=== PATIENT | female | born 1935 | race Caucasian/White ===

== ENCOUNTER 2017-10-27 05:14 | Inpatient (IN) ==
[2017-10-27] MEDS ORDERED: 0.9 % Sodium Chloride 500 ML IVC ONE (05:21)
[2017-10-27] MEDS ORDERED: 0.9 % Sodium Chloride 1,000 ML ONE (05:33)
[2017-10-27 05:37] LABS: Basophils # 0.1 K/mcL (0.0-0.2); Basophils % 0.4 %; Eosinophils % 0.2 %; Hemoglobin 13.6 g/dL (11.5-15.4); Immature Granulocytes % 1.3 % (0-4); Lymphocytes # 1.9 K/mcL (0.6-4.6); Lymphocytes % 8.2 %; Mean Corpuscular HGB Conc 32.4 g/dL (31.6-35.5); Mean Corpuscular Hemoglobin 29.7 pg (28.0-33.3); Mean Corpuscular Volume 91.7 fL (83.0-100.0); Mean Platelet Volume 11.1 fL (9.4-12.4); Monocytes # 1.8 K/mcL (0.0-1.3); Monocytes % 7.6 %; Neutrophils # 18.9 K/mcL (1.6-8.9); Platelet Count 296 K/mcL (140-400); Red Blood Count 4.58 M/mcL (3.82-4.97); Red Cell Distribution Width 13.3 % (11.5-14.5); Segmented Neutrophils % 82.3 %
[2017-10-27 05:41] LABS: Bilirubin,Urine Negative (Negative); Blood,Urine Moderate (Negative); Clarity,Urine Turbid (Clear); Color,Urine Yellow (Yellow); Glucose,Urine (UA) >=1000 mg/dL (Normal); Ketones,Urine Negative (Negative); Leukocyte Esterase,Urine Large (Negative); Nitrite,Urine Positive (Negative); Protein,Urine 30 mg/dL (Neg-Trace); Specific Gravity,Urine 1.022 (1.010-1.025); Urobilinogen,Urine Normal (Normal)
[2017-10-27 05:43] LABS: Bacteria,Urine Many per hpf (None-Few); Squamous Epithelial Cell,Urine Many per lpf (None-Few); WBC,Urine TNTC per hpf (0-3)
[2017-10-27 05:44] LABS: INR 1.1; Prothrombin Time 11.4 Seconds (9.4-12.1)
--- NOTE | 2017-10-27 05:44 | Emergency Department Note ---
Disposition Clinical Impression: Swelling of left lower extremity, Agitation, Elevated troponin I level Sepsis Qualifiers: Sepsis type: sepsis due to unspecified organism Qualified Code(s): A41.9 - Sepsis, unspecified organism UTI (urinary tract infection) Qualifiers: Urinary tract infection type: acute cystitis Hematuria presence: without hematuria Qualified Code(s): N30.00 - Acute cystitis without hematuria Disposition: Admitted As Inpatient Condition: Serious Time of Disposition: 06:14 General Adult HPI - General Chief complaint: ED General Medical Stated complaint: shaking, resp increased dementia Time Seen by Provider: 10/27/17 05:21 Source: patient, EMS Mode of arrival: EMS Limitations: altered mental status, age Nursing Notes Reviewed: Yes Vital Signs Reviewed: Yes - History of Present Illness HPI Narrative: 82-year-old female history of diabetes, dementia, hypothyroidism, asthma, presents complaining of some confusion and shakiness, per her who arrived shortly after, he observed her having difficulty breathing and gasping for air, and he was concerned she appeared tremulous and shaky, no recent fevers or chills, she has baseline dementia but the last couple days she has been feeling worse. Per the she has had some confusion. ROS is limited , obtained but questionable due to mostly negative and patient denying CP/Abd Pain, patient mostly states that she does not know why she is here Pt Subjective Complaint: Shaking Onset (ago): hour(s) Radiation: non-radiation Pain Scale: 0 Improves with: nothing Worsens with: nothing Associated symptoms: Reports: confusion. Denies: chest pain, cough, headaches, loss of appetite, malaise, nausea/vomiting Treatments Prior to Arrival: none - Related Data Home Medications Medication Instructions Recorded Confirmed Albuterol Inhaler 08/28/16 08/28/16 Amlodipine 08/28/16 Citalopram 08/28/16 Colace 08/28/16 Guanfacine HCl 08/28/16 HydrOXYzine 08/28/16 Levothyroxine 08/28/16 Maxzide 08/28/16 Multivitamin 08/28/16 Potassium 08/28/16 Ranitidine HCl 08/28/16 Simvastatin 08/28/16 Allergies Allergy/AdvReac Type Severity Reaction Status Date / Time codeine Allergy Itching Verified 08/28/16 17:07 gabapentin Allergy Hallucinati Verified 08/28/16 17:07 ng lidocaine [From Lidoderm] Allergy Rash Verified 08/28/16 17:07 meperidine [From Demerol] Allergy Hallucinati Verified 08/28/16 17:07 ng Oxycodone Allergy Hallucinati Verified 08/28/16 17:07 ng All systems ED: reviewed and negative except as stated. (Questionable due to mental status.) Review of Systems: As Per HPI Constitutional: Reports: weakness. Denies: fever, chills Eyes: Denies: eye pain ENT ED: Denies: ear pain, throat pain Cardiovascular: Denies: chest pain Respiratory: Denies: dyspnea Gastrointestinal: Denies: abdominal pain Genitourinary: Denies: urgency, dysuria Musculoskeletal: Denies: back pain Integumentary: Denies: rash Neurological: Reports: as per HPI, weakness, confusion. Denies: headache Psychiatric: Denies: anxiety Past Medical History - Past Medical History Medical history: Reports: COPD, hyperlipidemia, thyroid disease Surgical history: Reports: orthopedic, other (fractured right hip) - Social History Smoking Status: Never smoker Smokeless Tobacco Status: No Alcohol use: Reports: none Drug use: Reports: none Physical Exam - General Limitations: no limitations, altered mental status, age General appearance: alert - Head Head exam: atraumatic - Eye Eye exam: Present: normal appearance, PERRL - ENT ENT exam: normal exam - Neck Neck exam: Present: normal inspection, full ROM - Chest Chest inspection: Present: normal inspection, symmetric chest wall rise - Respiratory Respiratory exam: Present: normal lung sounds bilaterally. Absent: respiratory distress - Cardiovascular Cardiovascular exam: Present: tachycardia, irregular rhythm - Abdominal Exam Abdominal exam: Present: soft. Absent: Non-Tender - Extremities Exam Extremities exam: Present: normal inspection, full ROM - Expanded Neurological Exam Patient oriented to: Present: person. Absent: place, time Speech: Present: fluid speech Cranial nerves: EOM function (II, III, IV, ): Normal, facial sensation (V): Normal, facial palsy (VII): Normal, gag reflex (IX): Normal, spinal accessory function (XI): Normal, tongue deviation (XII): Normal Motor strength - LUE: 5/5 Motor strength - RUE: 5/5 Motor strength - LLE: 5/5 Motor strength - RLE: 5/5 Coma Scale Eye Opening: Spontaneous Coma Scale Motor Response: Obeys Commands Coma Scale Verbal Response: Confused Coma Scale Total: 14 - Psychiatric Psychiatric exam: Present: agitated Course Course Narrative: Frail thin agitated 82-year-old appears to have baseline dementia possible delirium in the setting of dementia, per the she was gasping and shaking , unclear exactly what is going on, her EKG and bedside compliance monitor. Show atrial fibrillation but repeat EKG in the lower rate shows sinus arrhythmia frequent PACs, P waves with prolonged VT interval, CBC BMP mag, troponin dimer basic lab work CT scan of head x-ray urinalysis plan for likely admission - Reevaluation(s) Reevaluation #1: I spoke with the hospitalist Dr. Mars, he said that based on the history and symptoms, known medication for CTA imaging at this time with a first-degree swelling and elevated d-dimer he recommended for the Doppler imaging of left lower extremity, I discussed the patient has evidence of sepsis she meet SIRS criteria with leukocytosis and tachycardia, given fluids lactate and blood cultures ordered started on cefepime he also stated that the patient probably he on ceftriaxone, however Cefepime is already ordered. Patient will be admitted for UTI, agitation suspect delirium in the setting of advanced dementia UTI sepsis left lower extremity swelling elevated troponin admitted to telemetry Dr. Mars accepting Time: 06:17 Vital Signs Temperature 98.2 F 10/27/17 05:17 Pulse Rate 120 10/27/17 05:17 Respiratory Rate 30 10/27/17 05:17 Blood Pressure 122/92 10/27/17 05:17 O2 Sat by Pulse Oximetry 95 10/27/17 05:17 Temperature 98.2 F 10/27/17 05:17 Pulse Rate 89 10/27/17 06:21 Respiratory Rate 20 10/27/17 06:21 Blood Pressure 120/76 10/27/17 06:21 O2 Sat by Pulse Oximetry 95 10/27/17 06:21 Oxygen Delivery Oxygen Delivery Non Rebreather Mask Medical Decision Making - Medical Records Medical records reviewed: Yes I reviewed the patient's medical records. - Lab Data Lab results reviewed: Yes I reviewed the patient's lab results. Result diagrams: 10/27/17 05:18 10/27/17 05:18 Lab Results 10/27/17 10/27/17 10/27/17 Range/Units 05:18 05:18 05:18 WBC 23.0 H (4.3-11.1) K/mcL RBC 4.58 (3.82-4.97) M/mcL Hgb 13.6 (11.5-15.4) g/dL Hct 42.0 (35.3-44.9) % MCV 91.7 (83.0-100.0) fL MCH 29.7 (28.0-33.3) pg MCHC 32.4 (31.6-35.5) g/dL RDW 13.3 (11.5-14.5) % Plt Count 296 (140-400) K/mcL MPV 11.1 (9.4-12.4) fL Immature Gran % 1.3 (0-4) % Seg Neutrophils % 82.3 % Lymphocytes % 8.2 % Monocytes % 7.6 % Eosinophils % 0.2 % Basophils % 0.4 % Neutrophils # 18.9 H (1.6-8.9) K/mcL Lymphocytes # 1.9 (0.6-4.6) K/mcL Monocytes # 1.8 H (0.0-1.3) K/mcL Eosinophils # 0.0 (0.0-0.6) K/mcL Basophils # 0.1 (0.0-0.2) K/mcL PT 11.4 (9.4-12.1) Seconds INR 1.1 APTT 24.6 L (26.0-36.0) Seconds D-Dimer 1128 H (0-500) ng/mLFEU Sodium 140 (136-145) mEq/L Potassium 4.3 (3.5-5.1) mEq/L Chloride 103 (98-107) mEq/L Carbon Dioxide 28 (23-29) mEq/L BUN 31 H (8-23) mg/dL Creatinine 1.31 H (0.60-1.20) mg/dL Est GFR ( Amer) 47 L (> 60) Est GFR (Non-Af Amer) 39 L (> 60) BUN/Creatinine Ratio 24 (6-26) Glucose 300 H (70-105) mg/dL POC Glucose (58-89) Calculated Osmolality 308 H (280-300) Calcium 9.2 (8.6-10.3) mg/dL Phosphorus 2.9 (2.7-4.5) mg/dL Magnesium 1.8 (1.6-2.6) mg/dL Total Bilirubin 0.4 (0.3-1.0) mg/dL AST 15 (13-39) Units/L ALT 17 (7-52) Units/L Alkaline Phosphatase 143 H (34-104) Units/L Troponin I (< 0.04) ng/mL Serum Total Protein 6.9 (6.4-8.9) g/dL Albumin 3.2 L (3.5-5.7) g/dL Globulin 3.7 H (2.4-3.5) g/dL Albumin/Globulin Ratio 0.9 L (1.1-2.2) TSH 0.511 (0.340-5.600) mcIU/mL Urine Color (Yellow) Urine Clarity (Clear) Urine pH (5.0-8.0) pH Units Ur Specific [place] (1.010-1.025) Urine Protein (Neg-Trace) mg/dL Urine Glucose (UA) (Normal) mg/dL Urine Ketones (Negative) mg/dL Urine Blood (Negative) Urine Nitrite (Negative) Urine Bilirubin (Negative) Urine Urobilinogen (Normal) mg/dL Ur Leukocyte Esterase (Negative) Urine Microscopic RBC (0-3) per hpf Urine Microscopic WBC (0-3) per hpf Ur Squamous Epith Cells (None-Few) per lpf Urine Bacteria (None-Few) per hpf Hyaline Casts (None-Few) per lpf Ur Culture Indicated? (NO) 10/27/17 10/27/17 10/27/17 Range/Units 05:18 05:22 05:22 WBC (4.3-11.1) K/mcL RBC (3.82-4.97) M/mcL Hgb (11.5-15.4) g/dL Hct (35.3-44.9) % MCV (83.0-100.0) fL MCH (28.0-33.3) pg MCHC (31.6-35.5) g/dL RDW (11.5-14.5) % Plt Count (140-400) K/mcL MPV (9.4-12.4) fL Immature Gran % (0-4) % Seg Neutrophils % % Lymphocytes % % Monocytes % % Eosinophils % % Basophils % % Neutrophils # (1.6-8.9) K/mcL Lymphocytes # (0.6-4.6) K/mcL Monocytes # (0.0-1.3) K/mcL Eosinophils # (0.0-0.6) K/mcL Basophils # (0.0-0.2) K/mcL PT (9.4-12.1) Seconds INR APTT (26.0-36.0) Seconds D-Dimer (0-500) ng/mLFEU Sodium (136-145) mEq/L Potassium (3.5-5.1) mEq/L Chloride (98-107) mEq/L Carbon Dioxide (23-29) mEq/L BUN (8-23) mg/dL Creatinine (0.60-1.20) mg/dL Est GFR ( Amer) (> 60) Est GFR (Non-Af Amer) (> 60) BUN/Creatinine Ratio (6-26) Glucose (70-105) mg/dL POC Glucose 262 H (58-89) Calculated Osmolality (280-300) Calcium (8.6-10.3) mg/dL Phosphorus (2.7-4.5) mg/dL Magnesium (1.6-2.6) mg/dL Total Bilirubin (0.3-1.0) mg/dL AST (13-39) Units/L ALT (7-52) Units/L Alkaline Phosphatase (34-104) Units/L Troponin I 0.10 H* (< 0.04) ng/mL Serum Total Protein (6.4-8.9) g/dL Albumin (3.5-5.7) g/dL Globulin (2.4-3.5) g/dL Albumin/Globulin Ratio (1.1-2.2) TSH (0.340-5.600) mcIU/mL Urine Color Yellow (Yellow) Urine Clarity Turbid A (Clear) Urine pH 6.0 (5.0-8.0) pH Units Ur Specific [place] 1.022 (1.010-1.025) Urine Protein 30 H (Neg-Trace) mg/dL Urine Glucose (UA) >=1000 H (Normal) mg/dL Urine Ketones Negative (Negative) mg/dL Urine Blood Moderate H (Negative) Urine Nitrite Positive A (Negative) Urine Bilirubin Negative (Negative) Urine Urobilinogen Normal (Normal) mg/dL Ur Leukocyte Esterase Large H (Negative) Urine Microscopic RBC 5-15 H (0-3) per hpf Urine Microscopic WBC TNTC H (0-3) per hpf Ur Squamous Epith Cells Many H (None-Few) per lpf Urine Bacteria Many H (None-Few) per hpf Hyaline Casts None Seen (None-Few) per lpf Ur Culture Indicated? NO. (NO) - Radiology Data Radiology results reviewed: Yes I reviewed the patient's radiology results. Chest X-Ray 10/27/17 05:21 IMPRESSION: Cardiomegaly with ground-glass opacification in the left lower lung zone. Pattern may represent asymmetric edema or developing pneumonitis. D/ / Ricardo Farias MD / Ricardo Farias MD Interpreting Provider: Ricardo Farias MD Head CT 10/27/17 05:26 IMPRESSION: 1. No acute intracranial abnormality. 2. Mild age-appropriate diffuse atrophy with moderate chronic small vessel ischemic changes. 3. 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 D/ / Shawn Chaparro MD / Shawn Chaparro MD Interpreting Provider: Shawn Chaparro MD - EKG Data EKG #1 EKG attestation: Yes I reviewed and interpreted this EKG. EKG shows normal: sinus rhythm Rate: tachycardia (107 bpm QRS 127 QTc 4:30 no acute ischemic changes depressions in V5 and V6) Rhythm: NSR Mc[place]ky/QRS: normal Interpretation: nonspecific ST-T wave changes, other (Repeat EKG at 528 shows ventricular rate of 91 VT 199 QRS 129 QTc 438 sinus rhythm with supraventricular complexes) - Core Measures AMI Core Measures Followed: No Critical Care Time Critical Care Time: Yes Total Critical Care Time: 40 Attestation: Critical care performed: Time is exclusive of separately billable procedures. Time includes: direct patient care, patient reassessment, coordination of patient care, interpretation of data (laboratory data, radiology data, and respiratory data), review of patient's medical records, medical consultation and documentation of patient care. Procedures included in critical care time: Procedures excluded from critical care time: Attestation Statement - Attestation Attestation: I, Wes Degroot MD, personally evaluated this patient and discussed their management with the resident physician. I reviewed the resident's note and agree with the documented findings, medical decision making, and plan of care. 82-year-old female with history of dementia presents to the emergency department because reports that he was watching her sleep and that she was twitching and jerking and breathing funny in her sleep. On arrival here the patient is awake and alert but is a very poor historian. She has no specific complaints and does not really know why she is here. She does admit to some mild shortness of breath but denies any chest pain. No abdominal pain. No headache. No known fever. No vomiting or diarrhea. No urinary symptoms. Patient's left leg is significantly larger than the right but patient was unaware of this and does not know if that is normal for her. On examination patient is a well-developed well-nourished elderly female in no acute distress. She is alert and oriented to person and place. No cyanosis or diaphoresis. Chest is nontender to palpation. Breath sounds are clear and equal bilaterally. Heart is irregularly irregular with a mild tachycardia. Abdomen is soft and nontender with normal bowel sounds. The left leg is significantly larger than the right from the mid or distal thigh down to the foot. This does not appear to be pitting edema. There is no erythema. No calf tenderness. Patient has a large scar to the lateral left thigh from a previous femur fracture repair and has also had a left hip replaced. I suspect this enlargement of the left leg is chronic related to her prior surgeries. Labs reviewed and revealed a WBC of 23 with 82% segs. D-dimer elevated at 1128. Troponin 0.10. Patient has some chronic renal insufficiency which appears to be baseline. She also appears to have a UTI. Chest x-ray shows a probable developing left lower lobe pneumonia. Head CT shows no acute intracranial abnormality. The hospitalist, Dr. Mars, was consulted and accepted admission of the patient.
[2017-10-27 05:46] LABS: Activated Partial Thrombo Time 24.6 Seconds (26.0-36.0)
[2017-10-27] MEDS ORDERED: Cefepime HCl 2,000 MG in Water for inj. (sterile) 20 ML IVP ONE (05:52)
[2017-10-27] MEDS ORDERED: 0.9 % Sodium Chloride 1,000 ML IVC ONE (05:52)
[2017-10-27 05:53] LABS: Hyaline Casts,Urine None Seen per lpf (None-Few)
[2017-10-27 06:05] LABS: Albumin 3.2 g/dL (3.5-5.7); Albumin/Globulin Ratio 0.9 (1.1-2.2); Bilirubin,Total 0.4 mg/dL (0.3-1.0); Calcium 9.2 mg/dL (8.6-10.3); Globulin 3.7 g/dL (2.4-3.5); Magnesium 1.8 mg/dL (1.6-2.6); Phosphorous 2.9 mg/dL (2.7-4.5); Potassium 4.3 mEq/L (3.5-5.1); Thyroid Stimulating Hormone 0.511 mcIU/mL (0.340-5.600); Total Protein 6.9 g/dL (6.4-8.9)
[2017-10-27] MEDS ORDERED: Acetaminophen 325 MG TABLET PO PRN (06:27)
[2017-10-27] MEDS ORDERED: Naloxone 0.4 MG/ML INJ IVP PRN ×2 (06:27→09:53)
--- NOTE | 2017-10-27 09:52 | Internal Med History&Physical ---
Date of Encounter: 11/07/17 Time of Encounter: 09:50 Assessment and Plan (1) COPD exacerbation Current visit: Yes Status: Suspected 82/female Known to have a COPD. Noted that change in the color of the sputum/worsening cough along with the shortness of breath. Central this emergency room with the squad. X-ray shows possibility of pneumonia. This is a infective exacerbation of COPD. Plan: Intravenous antibiotics in terms of IV ceftriaxone/IV azithromycin. Intravenous steroids in terms of Solu-Medrol 40 mg every 8 hours. Inhaled bronchodilators DuoNeb every 4 hours. Close monitoring of the respiratory status. If needed BiPAP. Of note: I have examined this patient in room #24 in the emergency department. Patient's daughters were at bedside. I have explained plan at length to them. All questions answered at the time of admission. (2) Left lower lobe pneumonia Current visit: Yes Status: Suspected Left lower lobe pneumonia is likely the reason for COPD exacerbation. This is likely community-acquired pneumonia. Please see the plan above. Qualifiers: Pneumonia type: due to unspecified organism Qualified Code(s): J18.1 - Lobar pneumonia, unspecified organism (3) Sepsis Current visit: Yes Status: Resolved Likely source for the sepsis is left lower lobe pneumonia. Qualifiers: Sepsis type: sepsis due to unspecified organism Qualified Code(s): A41.9 - Sepsis, unspecified organism (4) Elevated troponin I level Current visit: Yes Status: Resolved Elevated troponin is likely secondary to demand ischemia. (5) Swelling of left lower extremity Current visit: Yes Status: Acute Preliminary results of the Doppler study shows negative for DVT. (6) DVT prophylaxis Current visit: Yes Status: Acute Heparin Medical decision-making: This patient has a moderate to severe risk of worsening in spite of being on appropriate medication due to the multiple comorbid conditions Internal Medicine - H&P: HPI Chief complaint: Shortness of breath. Admitted From: Emergency Dept Plans for Post Hospital Care: Home History of present illness: PCP : Dr Cruz. Brief PMH: DM, HTN, COPD, Hyperlipidemia,Hypothyroidism, Dementia HPI: Patient lives with her and apparently her noted that patient has a difficulty in breathing. Patient's was concerned about this ongoing shortness of breath along with cough with the expectoration and that is the reason he was concerned and he called squad for the same. Patient daughter were informed about this episode. Patient was brought to the hospital for further evaluation by the squad. Upon arrival patient was complaining of shortness of breath, cough with mucopurulent expectoration, change in the color of the sputum and persistent difficulty in breathing. Patient denies chest pain, nausea, vomiting, abdominal pain, dizziness and diarrhea. Workup in the emergency room: Patient was evaluated in the emergency room baseline labs were drawn. It shows that the white blood cell count was 23,000 with predominant neutrophils. Noted that patient's creatinine was 1.3 with normal lactic acid. Chest x-ray was suggestive of a left lower lobe developing pneumonia. Blood pressure 126/64 Reason for admission: Severe sepsis source likely left lower lobe pneumonia. Family history: Noncontributory Past Med Surg Social Fam HX - Past Medical History Medical history: COPD, hyperlipidemia, thyroid disease - Past Surgical History Surgical History: orthopedic, other - Social History Smoking Status: Never smoker Smokeless Tobacco Status: No Alcohol use: none Drug use: none Internal Medicine - H&P: Meds Amlodipine Besylate/Benazepril [Lotrel 10-20 mg Capsule] 1 cap PO DAILY [History] Atenolol [Tenormin] 50 mg PO DAILY 10/27/17 [History] Budesonide/Formoterol 160/4.5 [Symbicort 160/4.5] 2 puff IH BID 10/27/17 [ History] Levothyroxine Sodium [Levoxyl] 50 mcg PO DAILY 10/27/17 [History] Naproxen Sodium [Aleve] 220 mg PO BID 10/27/17 [History] Potassium Chloride [K-Tab ER] 40 meq PO BID 10/27/17 [History] Simvastatin [Zocor] 20 mg PO DAILY 10/27/17 [History] glipiZIDE [Glucotrol] 5 mg PO DAILY 10/27/17 [History] 3 Allergy/AdvReac Type Severity Reaction Status Date / Time codeine Allergy Itching Verified 08/28/16 17:07 gabapentin Allergy Hallucinati Verified 08/28/16 17:07 ng lidocaine [From Lidoderm] Allergy Rash Verified 08/28/16 17:07 meperidine [From Demerol] Allergy Hallucinati Verified 08/28/16 17:07 ng Oxycodone Allergy Hallucinati Verified 08/28/16 17:07 ng lorazepam [From Ativan] AdvReac Agitated Verified 11/01/17 19:13 All Systems PM: A 10-system review of systems was performed and is negative for pertinent findings except as documented above in the HPI. - Constitutional Constitutional: no chills, no fever(s), no night sweats - EENT Eyes: no change in vision, no discharge, no pain, no photophobia Ears: no ear discharge, no ear pain, no tinnitus Nose, mouth and throat: no dysphagia, no nasal discharge, no neck pain, no sore throat - Cardiovascular Cardiovascular ROS IM: no chest pain, no diaphoresis, no dyspnea, no lightheadedness, no palpitations, no syncope - Respiratory Respiratory: cough, dyspnea, wheezing, excessive phlegm production, change in phlegm color - Gastrointestinal Gastrointestinal: no abdominal pain, no diarrhea, no hematemesis, no hematochezia, no melena, no nausea, no vomiting - Genitourinary Genitourinary: no change in urinary stream, no dysuria, no flank pain, no hematuria - Musculoskeletal Musculoskeletal ROS IM: no numbness, no tingling - Integumentary Integumentary IM: no rash, no unusual bruising - Neurological Neurological ROS: no confusion, no convulsions, no focal weakness, no numbness, no tingling, no tremor(s) - Hematologic/Lymphatic Hematologic/Lymphatic: no easy bruising - Constitutional Vitals: Temp Pulse Resp BP Pulse Ox 97.9 F 103 16 126/64 92 10/27/17 07:30 10/27/17 07:30 10/27/17 07:30 10/27/17 07:30 10/27/17 07:30 General appearance: Present: A&O X 3, pleasant, no acute distress, answers questions appropriately - Head Head exam: Present: atraumatic, normocephalic - Eye Eye exam: Present: PERRL, conjuntiva pink, sclera anicteric Pupils: Present: PERRL - Neck Neck exam general surgery: Present: supple, trachea midline. Absent: lymphadenopathy - Respiratory Respiratory exam: Present: CTAB. Absent: accessory muscle use, rales, rhonchi, wheezes - Cardiovascular Cardiovascular exam: Present: RRR, +S1, +S2. Absent: diastolic murmur, gallop, rubs, systolic murmur - GI/Abdominal GI/Abdominal exam: Present: normal bowel sounds, soft, no peritoneal signs. Absent: distended, tenderness - Extremities Exam Extremities exam: Present: warm, radial pulses palpable and symmetrical. Absent : calf tenderness, cyanotic, pedal edema - Neurological Exam Neurological exam: Present: CN II-XII intact, oriented X3, no focal deficits. Absent: pronater drift, facial droop, speech deficit - Skin Skin exam: Present: dry, intact Internal Med - H&P Results - Labs CBC & Chem 7: 11/06/17 08:23 11/06/17 08:23
[2017-10-27] MEDS ORDERED: *HR* Dextrose 50 % in Water (Syg) 50 ML SYRINGE IVP PRN (09:56)
[2017-10-27] MEDS ORDERED: D5% in Water 1,000 ML IVC PRN (09:56)
[2017-10-27] MEDS ORDERED: Dextrose Gel 15 GM/37.5 ML TUBE PO PRN ×2 (09:56)
[2017-10-27] MEDS: Azithromycin 500 MG in D5% in Water 250 ML IVPB SCH (10:52)
[2017-10-27] MEDS: Ipratropium/Albuterol Neb 3 ML IH SCH ×3 (13:43→20:22)
[2017-10-27] MEDS: Insulin LISPRO 300 UNITS/3 ML VIAL SQ SCH ×3 (13:55→21:14)
--- NOTE | 2017-10-27 17:11 | Electrocardiograph Report ---
[address] [place] [address] Test Date: 2017-10-27 Pat Name: Theresa Moreira Department: 104 Room: 3A43 Gender: F [employer]: : 1935 Requested By: Peng Hughes Order Number: [id number] Reading MD: Wei Hughes DO Measurements Intervals [place] Rate: 91 P: 73 AL: 199 QRS: -55 QRSD: 129 T: 96 QT: 390 QTc: 438 Interpretive Statements SINUS RHYTHM WITH PACs POSSIBLE LEFT ANTERIOR FASCICULAR BLOCK POSSIBLE ANTERIOR MYOCARDIAL INFARCTION, OF INDETERMINATE AGE Electronically Signed On 10-27-2017 17:09:46 EST by Wei Hughes DO
[2017-10-27] MEDS: *HR* Heparin 5,000 UNIT/ML VIAL SQ SCH (18:00)
[2017-10-27] MEDS: MethylPREDNISolone 40 MG/ML VIAL IVP SCH (18:03)
[2017-10-28] MEDS: Ipratropium/Albuterol Neb 3 ML IH SCH ×7 (00:02→23:35)
[2017-10-28] MEDS: *HR* Heparin 5,000 UNIT/ML VIAL SQ SCH ×2 (00:02→08:14)
[2017-10-28] MEDS: MethylPREDNISolone 40 MG/ML VIAL IVP SCH ×3 (00:09→18:15)
[2017-10-28 07:31] LABS: Basophils # 0.1 K/mcL (0.0-0.2); Basophils % 0.3 %; Hematocrit 35.9 % (35.3-44.9); Immature Granulocytes % 1.5 % (0-4); Lymphocytes # 0.3 K/mcL (0.6-4.6); Lymphocytes % 1.7 %; Mean Corpuscular HGB Conc 31.8 g/dL (31.6-35.5); Mean Corpuscular Hemoglobin 29.2 pg (28.0-33.3); Mean Corpuscular Volume 92.1 fL (83.0-100.0); Mean Platelet Volume 10.6 fL (9.4-12.4); Monocytes # 0.1 K/mcL (0.0-1.3); Monocytes % 0.6 %; Neutrophils # 17.4 K/mcL (1.6-8.9); Platelet Count 312 K/mcL (140-400); Red Cell Distribution Width 13.5 % (11.5-14.5); Segmented Neutrophils % 95.9 %
[2017-10-28 07:33] LABS: Hemoglobin 11.4 g/dL (11.5-15.4)
[2017-10-28 08:04] LABS: BUN/Creatinine Ratio 28 (6-26); Blood Urea Nitrogen 29 mg/dL (8-23); Calcium 8.8 mg/dL (8.6-10.3); Carbon Dioxide 26 mEq/L (23-29); Chloride 105 mEq/L (98-107); Glucose 367 mg/dL (70-105); Osmolality,Calculated 311 (280-300); Potassium 4.4 mEq/L (3.5-5.1); Sodium 140 mEq/L (136-145); eGFR For African Americans > 60 (> 60); eGFR For Non-African Americans 52 (> 60)
[2017-10-28] MEDS: cefTRIAXone 1,000 MG in Water for inj. (sterile) 20 ML 10 ML IVP SCH (08:14)
[2017-10-28] MEDS: Insulin LISPRO 300 UNITS/3 ML VIAL SQ SCH ×4 (08:16→21:12)
--- NOTE | 2017-10-28 09:38 | Internal Med Progress Note ---
Date of Encounter: 11/07/17 Time of Encounter: 09:36 - Assessment and plan (1) Atrial fibrillation Current Visit: Yes Status: Acute Assessment and plan: New onset of atrial fibrillation. EKG reviewed by myself. Ventricular rate between 130-140 Plan: IV Cardizem 5 mg per hour to titrate heart rate between 60 and 90. Metoprolol 25 mg twice a day by mouth. Lovenox 1 mg/kg Echocardiogram Cardiology consult. Qualifiers: Atrial fibrillation type: unspecified Qualified Code(s): I48.91 - Unspecified atrial fibrillation (2) UTI (urinary tract infection) Current Visit: Yes Status: Acute Assessment and plan: Urine culture positive for gram-negative rods. Awaiting identification and sensitivity Patient is on ceftriaxone. Qualifiers: Urinary tract infection type: acute cystitis Hematuria presence: without hematuria Qualified Code(s): N30.00 - Acute cystitis without hematuria (3) COPD exacerbation Current Visit: Yes Status: Suspected Assessment and plan: Her COPD exacerbation is getting better in terms of breathing, frequency of cough and colored sputum White count is trending down. Creatinine back to normal. (4) Left lower lobe pneumonia Current Visit: Yes Status: Suspected Assessment and plan: See above Qualifiers: Pneumonia type: due to unspecified organism Qualified Code(s): J18.1 - Lobar pneumonia, unspecified organism (5) Sepsis Current Visit: Yes Status: Resolved Assessment and plan: See above Qualifiers: Sepsis type: sepsis due to unspecified organism Qualified Code(s): A41.9 - Sepsis, unspecified organism (6) Elevated troponin I level Current Visit: Yes Status: Resolved Assessment and plan: Likely demand ischemia (7) Swelling of left lower extremity Current Visit: Yes Status: Acute (8) DVT prophylaxis Current Visit: Yes Status: Acute Assessment and plan: Lovenox - Subjective Interval history: patient seen and examined. chart reviewed. Patient is complaining of shortness of breath/chills. Patient denies chest pain, nausea, vomiting, abdominal pain, dizziness or diarrhea. - Constitutional Vitals: Temp Pulse Resp BP Pulse Ox 98.0 F 112 18 145/70 88 10/28/17 07:32 10/28/17 07:32 10/28/17 07:57 10/28/17 07:32 10/28/17 07:57 General appearance: Present: A&O X 3, pleasant, no acute distress, answers questions appropriately - Head Head exam: Present: atraumatic, normocephalic - Eye Eye exam: Present: PERRL, conjuntiva pink, sclera anicteric Pupils: Present: PERRL - Neck Neck exam general surgery: Present: supple, trachea midline. Absent: lymphadenopathy - Respiratory Respiratory exam: Present: CTAB. Absent: accessory muscle use, rales, rhonchi, wheezes - Cardiovascular Cardiovascular exam: Present: RRR, +S1, +S2. Absent: diastolic murmur, gallop, rubs, systolic murmur - GI/Abdominal GI/Abdominal exam: Present: normal bowel sounds, soft, no peritoneal signs. Absent: distended, tenderness - Extremities Exam Extremities exam: Present: warm, radial pulses palpable and symmetrical. Absent : calf tenderness, cyanotic, pedal edema - Neurological Exam Neurological exam: Present: CN II-XII intact, oriented X3, no focal deficits. Absent: pronater drift, facial droop, speech deficit - Skin Skin exam: Present: dry, intact Internal Medicine: Result - Labs CBC & Chem 7: 11/06/17 08:23 11/06/17 08:23 Labs: Short CBC 10/28/17 Range/Units 06:58 WBC 18.1 H (4.3-11.1) K/mcL Hgb 11.4 L D (11.5-15.4) g/dL Hct 35.9 (35.3-44.9) % Plt Count 312 (140-400) K/mcL Neutrophils # 17.4 H (1.6-8.9) K/mcL BMP 10/28/17 06:58 Sodium 140 Potassium 4.4 Chloride 105 Carbon Dioxide 26 BUN 29 H Creatinine 1.02 Glucose 367 H Calcium 8.8 - ABG Interpretation ABG results: PT/INR, D-dimer PT 11.4 Seconds (9.4-12.1) 10/27/17 05:18 D-Dimer 1128 ng/mLFEU (0-500) H 10/27/17 05:18 Consult Discharge Plan - Plan Referrals: Virginia Cruz DO [Primary Care Provider] -
[2017-10-28] MEDS: Azithromycin 500 MG in D5% in Water 250 ML IVPB SCH (10:47)
[2017-10-28] MEDS ORDERED: Insulin LISPRO 300 UNITS/3 ML VIAL SQ STA (11:20)
[2017-10-28] MEDS: dilTIAZem HCl 100 MG in D5% in Water 50 ML IVC SCH (11:46)
[2017-10-28 12:07] LABS: ABG Base Excess 3 mEq/L (-2 to 3); ABG HCO3 27 mEq/L (21-27); ABG Oxygen Saturation 91 % (95-98); ABG PCO2 40 mmHg (35-45); ABG PH 7.43 pH Units (7.32-7.45); ABG PO2 60 mmHg (85-104); ABG TCO2 28 mEq/L (20-26)
--- NOTE | 2017-10-28 12:25 | Cardiology Consult Note ---
Date of Encounter: 10/28/17 Time of Encounter: 12:21 Assessment and Plan (1) Sepsis Current Visit: Yes Status: Acute Per cardiology: -Admitted with sepsis due to pneumonia, UTI. -On IV ATB. -Management per primary service. Qualifiers: Sepsis type: sepsis due to unspecified organism Qualified Code(s): A41.9 - Sepsis, unspecified organism (2) Elevated troponin I level Current Visit: Yes Status: Acute Per cardiology: -Troponin 0.1, in the setting of sepsis, pneumonia, a.fib RVR, UTI, mild CJ. -Denies chest pain. -ECG with no acute ischemic changes noted. -TTE pending. -On therapeutic lovenox. -On statin, beta meng. -Will start asa. -Will repeat troponin. -Further recommendations pending TTE. -Do not suspect NSTEMI, suspect demand ischemia related to above. No cardiac rehab warranted. (3) Atrial fibrillation Current Visit: Yes Status: Acute Per cardiology: -A.flutter/fib RVR. -Currently on cardizem drip at 5mg/hour and metoprolol. -TTE pending. -Average HR 108. -[id number] score 5 (age, gender, HTN, DM). Currently on therpeutic lovenox, however suspect patient is not a good candidate for residential anticoagulation due to baseline dementia and frequent falls. Discussed with daughters at bedside who agree with no anticoagulation. Unable to discuss with , since he is currently not at bedside. -Denies palpitations or fluttering. -Titrate cardizem drip for HR less than 100 and SBP greater than 90. -TTE pending. -Will continue to monitor. Discussion w patient/family: The assessment and plan as outlined above was discussed with the patient and/or family members who expressed understanding and agreement. All questions were answered. Thank you for involving us in the care of your patient. Please call with any questions. Discussed and reviewed with . History of Present Illness Consult date: 10/28/17 Requesting physician: Pietro Bolton Consult reason: a.fib RVR Chief complaint: shortness of breath History of present illness: Ms. Moreira is a 82 year old female with a relevant past medical history of HTN , asthma, thyroid disease, dementia, DM, left bundle branch block. Per review of records, patient presented to [facility] after family noticed patient was short of breath. Patient has been diagnosed with pneumonia. Cardiology has been asked to see and evaluate patient due to atrial fibrillation with RVR. Of note, per oupatient PCP notes, patient has been falling and has been unsteady on her feet at home. Patient denies chest pain, palpitations, or fluttering. Daughter at bedside and states her mother has dementia and forgets things very easily. Patient is cared for primarily by her . Daughter states that they have attempted to have patient go through physical therapy, however patient forgets therapy techniquesand also forgets to use her walker. Daughter states that patient falls frequently. Past Med Surg Social Fam HX - Past Medical History Attestation: Yes The following information was validated with the patient. Source: patient, old records reviewed, obtained from family Medical history: COPD, dementia, hyperlipidemia, thyroid disease - Past Surgical History Surgical History: orthopedic, other - Social History Smoking Status: Never smoker Smokeless Tobacco Status: No Alcohol use: none Drug use: none Medications and Allergies Amlodipine Besylate/Benazepril [Lotrel 10-20 mg Capsule] 1 cap PO DAILY [History] Atenolol [Tenormin] 50 mg PO DAILY 10/27/17 [History] Budesonide/Formoterol 160/4.5 [Symbicort 160/4.5] 2 puff IH BID 10/27/17 [ History] Levothyroxine Sodium [Levoxyl] 50 mcg PO DAILY 10/27/17 [History] Naproxen Sodium [Aleve] 220 mg PO BID 10/27/17 [History] Potassium Chloride [K-Tab ER] 40 meq PO BID 10/27/17 [History] Simvastatin [Zocor] 20 mg PO DAILY 10/27/17 [History] glipiZIDE [Glucotrol] 5 mg PO DAILY 10/27/17 [History] 3 Allergy/AdvReac Type Severity Reaction Status Date / Time codeine Allergy Itching Verified 08/28/16 17:07 gabapentin Allergy Hallucinati Verified 08/28/16 17:07 ng lidocaine [From Lidoderm] Allergy Rash Verified 08/28/16 17:07 meperidine [From Demerol] Allergy Hallucinati Verified 08/28/16 17:07 ng Oxycodone Allergy Hallucinati Verified 08/28/16 17:07 ng All Systems Review: A 10-system review of systems was performed and is negative for pertinent findings except as documented above in the HPI. - Cardiovascular Cardiovascular: as per HPI, dyspnea on exertion Physical Examination Vital Signs, Last 4 Hours Temp Pulse Resp BP 10/28/17 11:10 97.5 F L 112 22 132/65 General: Conversant, Other (Conversational dyspnea noted. ) HEENT: Atraumatic, Normocephaly, Mucus Membranes Moist Neck: No JVD, Normal carotid pulses Cardiac: Normal S1 and S2, No Murmur, Other (Irregularly irregular) Lungs: Other (Expiratory wheezes noted throughout. ) Neuro: Alert and responsive, Other (Oriented to person and place. ) Abdomen: Soft, Non-Tender Skin: No rashes noted on visualized skin Musculoskeletal: No Chest Wall Tenderness Extremities: No Clubbing, No Cyanosis, No Edema, Normal Pulses Results 10/28/17 06:58 10/28/17 06:58 Lab Results Active Medications Acetaminophen (Tylenol) 650 mg PO Q6HR PRN PRN Reason: Mild Pain (1-3) Stop: 04/28/18 06:28 Albuterol/Ipratropium (Duoneb) 3 ml IH [id number] [facility] Stop: 04/28/18 12:01 Last Admin: 10/28/17 11:32 Dose: 3 ml Dextrose/Water (Dextrose 50% (Syg)) 25 ml IVP AD PRN PRN Reason: Hypoglycemia Stop: 04/28/18 09:57 Enoxaparin Sodium (Lovenox) 60 mg 1 mg/kg (60 mg) SQ Q12HR ALECIA PRN Reason: Protocol Stop: 04/29/18 18:01 Glucagon (Glucagen) 1 mg IM ONCE PRN PRN Reason: Hypoglycemia Stop: 04/28/18 09:57 Glucose (Gluctose) 15 gm PO ONCE PRN PRN Reason: Hypoglycemia Stop: 04/28/18 09:57 Glucose (Gluctose) 30 gm PO ONCE PRN PRN Reason: Hypoglycemia Stop: 04/28/18 09:57 Ceftriaxone Sodium 1,000 mg/ (Sterile Water) 10 mls @ 300 mls/hr IVP DAILY [facility] Stop: 04/29/18 09:01 Last Admin: 10/28/17 08:14 Dose: 300 mls/hr Azithromycin 500 mg/ Dextrose 250 mls @ 252 mls/hr IVPB Q24H [facility] Stop: 04/28/18 10:01 Last Admin: 10/28/17 10:47 Dose: 252 mls/hr Dextrose (Dextrose 5%) 1,000 mls @ 100 mls/hr IVC .Q10H PRN PRN Reason: HYPOGLYCEMIA Stop: 04/28/18 09:57 Diltiazem HCl 100 mg/ Dextrose 50 mls @ 2.5 mls/hr IVC .Q20H ALECIA; 5 MG/HR PRN Reason: Protocol Stop: 04/29/18 09:46 Last Admin: 10/28/17 11:46 Dose: 5 mg/hr, 2.5 mls/hr Insulin Human Lispro (Humalog) 0 units SQ TIDAC [facility] PRN Reason: Protocol Stop: 04/28/18 11:31 Last Admin: 10/28/17 12:07 Dose: Not Given Insulin Human Lispro (Humalog) 0 units SQ HS [facility] PRN Reason: Protocol Stop: 04/28/18 21:01 Last Admin: 10/27/17 21:14 Dose: 2 units Levothyroxine Sodium (Synthroid) 50 mcg PO DAILY@0630 [facility] Stop: 04/29/18 06:31 Last Admin: 10/28/17 05:35 Dose: 50 mcg Methylprednisolone (Solu-Medrol) 40 mg IVP Q8HR [facility] Stop: 04/28/18 16:01 Last Admin: 10/28/17 08:15 Dose: 40 mg Metoprolol Tartrate (Lopressor) 25 mg PO BID [facility] Stop: 04/29/18 21:01 Metoprolol Tartrate (Lopressor) 25 mg PO ONCE ONE Stop: 10/28/17 11:54 Naloxone HCl (Narcan) 0.4 mg IVP Q2MIN PRN PRN Reason: Opioid Reversal Stop: 04/28/18 06:28 Naloxone HCl (Narcan) 0.4 mg IVP Q2MIN PRN PRN Reason: Opioid Reversal Stop: 04/28/18 09:54 Potassium Chloride (Potassium Chloride) 40 meq PO BIDWM [facility] Stop: 04/28/18 17:01 Last Admin: 10/28/17 08:15 Dose: 40 meq Simvastatin (Zocor) 20 mg PO HS [facility] PRN Reason: Protocol Stop: 04/29/18 21:01 Laboratory Tests 10/27/17 10/27/17 10/27/17 05:18 05:18 05:18 WBC 23.0 H Hgb 13.6 Potassium Creatinine 1.31 H Magnesium 1.8 Troponin I 0.10 H* TSH 0.511 10/28/17 10/28/17 06:58 06:58 WBC 18.1 H Hgb 11.4 L D Potassium 4.4 Creatinine 1.02 Magnesium Troponin I TSH - Imaging and Cardiology Chest Xray: report reviewed Echo: pending - EKG Interpretation EKG results cardiology: personally reviewed (ECG with atrial flutter with RVR, HR 118.), other (Telemetry reviewed with average HR previous 12 hours noted to be 108, atrial fibrillation. PVCs and couplets noted.) Consult Discharge Plan - Plan Referrals: Virginia Cruz DO [Primary Care Provider] -
--- NOTE | 2017-10-28 16:51 | Electrocardiograph Report ---
[address] [place] [address] Test Date: 2017-10-27 Pat Name: Theresa Moreira Department: 104 Room: 3A21 Gender: F Huc: : 1935 Requested By: Peng Hughes Order Number: [id number] Reading MD: Jaqueline Decker Measurements Intervals Carlos Rate: 107 P: MN: 0 QRS: -38 QRSD: 127 T: 102 QT: 367 QTc: 430 Interpretive Statements ATRIAL FIBRILLATION WITH RAPID VENTRICULAR RESPONSE MARKED LEFT AXIS DEVIATION [QRS AXIS < -30] POSSIBLE ANTERIOR MYOCARDIAL INFARCTION [30 ms Q WAVE IN V3/V4, OR R < 0.2 mV IN V4], OF INDETERMINATE AGE MODERATE T-WAVE ABNORMALITY, CONSIDER LATERAL ISCHEMIA [-0.1+ mV T WAVE IN I/aVL/V5/V6] Electronically Signed On 10-28-2017 16:49:59 EST by Jaqueline Decker
[2017-10-28] MEDS: Aspirin Enteric Coated 81 MG Tablet PO SCH (18:15)
[2017-10-28] MEDS: *HR* Enoxaparin 60 MG/0.6 ML SYRINGE SQ SCH (18:19)
[2017-10-28] MEDS ORDERED: 0.9 % Sodium Chloride 250 ML ONE (18:25)
--- NOTE | 2017-10-28 18:39 | Electrocardiograph Report ---
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
[2017-10-29] MEDS: MethylPREDNISolone 40 MG/ML VIAL IVP SCH ×3 (00:27→18:26)
[2017-10-29] MEDS: Ipratropium/Albuterol Neb 3 ML IH SCH ×6 (04:16→23:04)
[2017-10-29] MEDS: *HR* Enoxaparin 60 MG/0.6 ML SYRINGE SQ SCH ×2 (05:45→18:24)
[2017-10-29] MEDS: dilTIAZem HCl 100 MG in D5% in Water 50 ML IVC SCH (05:50)
--- NOTE | 2017-10-29 08:52 | Internal Med Progress Note ---
Date of Encounter: 10/29/17 Time of Encounter: 08:48 - Assessment and plan (1) Atrial fibrillation Current Visit: Yes Status: Acute Assessment and plan: New onset of atrial fibrillation. EKG reviewed by myself. Ventricular rate between 130-140 Plan: IV Cardizem 5 mg per hour to titrate heart rate between 60 and 90. Metoprolol 25 mg twice a day by mouth. Lovenox 1 mg/kg Echocardiogram Cardiology consult. 10/29/2017 Patient's ventricular rate is within 80-100 bpm. Still on Cardizem drip. Presently she is taking 2.5 mg Cardizem per hour. She is on beta meng: Metoprolol 25 mg twice a day Anticoagulation: Lovenox 1 mg per KG. Awaiting echocardiogram report. Cardiology on the board and we will follow their recommendations. Family at bedside: Updated the progress. Qualifiers: Atrial fibrillation type: unspecified Qualified Code(s): I48.91 - Unspecified atrial fibrillation (2) UTI (urinary tract infection) Current Visit: Yes Status: Acute Assessment and plan: Urine culture positive for gram-negative rods. Awaiting identification and sensitivity Patient is on ceftriaxone. 10/29/2017 Urine culture positive for Enterobacter back to species. Enterobacter species sensitive to ceftriaxone. Today is a third day of ceftriaxone Will continue present treatment for now Qualifiers: Urinary tract infection type: acute cystitis Hematuria presence: without hematuria Qualified Code(s): N30.00 - Acute cystitis without hematuria (3) COPD exacerbation Current Visit: Yes Status: Acute Assessment and plan: Her COPD exacerbation is getting better in terms of breathing, frequency of cough and colored sputum White count is trending down. Creatinine back to normal. 10/29/2017 We will continue antibiotics/steroids/bronchodilators for now (4) Left lower lobe pneumonia Current Visit: Yes Status: Acute Assessment and plan: See above Qualifiers: Pneumonia type: due to unspecified organism Qualified Code(s): J18.1 - Lobar pneumonia, unspecified organism (5) Sepsis Current Visit: Yes Status: Acute Assessment and plan: See above Qualifiers: Sepsis type: sepsis due to unspecified organism Qualified Code(s): A41.9 - Sepsis, unspecified organism (6) Elevated troponin I level Current Visit: Yes Status: Acute Assessment and plan: Likely demand ischemia (7) Swelling of left lower extremity Current Visit: Yes Status: Acute (8) DVT prophylaxis Current Visit: Yes Status: Acute Assessment and plan: Lovenox - Subjective Interval history: patient seen and examined. chart reviewed. Patient is complaining of shortness of breath/chills. Patient denies chest pain, nausea, vomiting, abdominal pain, dizziness or diarrhea. 10/29/2017 Patient seen and examined. Chart reviewed. Patient was able to sleep for a few hours last night. Patient feels that she is feeling much better as compared to yesterday. Patient denies chest pain, nausea, vomiting, abdominal pain or diarrhea. - Constitutional Vitals: Temp Pulse Resp BP Pulse Ox 97.9 F 85 16 100/57 93 10/29/17 07:39 10/29/17 07:39 10/29/17 07:54 10/29/17 07:39 10/29/17 07:54 General appearance: Present: A&O X 3, pleasant, no acute distress, answers questions appropriately - Head Head exam: Present: atraumatic, normocephalic - Eye Eye exam: Present: PERRL, conjuntiva pink, sclera anicteric Pupils: Present: PERRL - Neck Neck exam general surgery: Present: supple, trachea midline. Absent: lymphadenopathy - Respiratory Respiratory exam: Present: CTAB. Absent: accessory muscle use, rales, rhonchi, wheezes - Cardiovascular Cardiovascular exam: Present: RRR, +S1, +S2. Absent: diastolic murmur, gallop, rubs, systolic murmur - GI/Abdominal GI/Abdominal exam: Present: normal bowel sounds, soft, no peritoneal signs. Absent: distended, tenderness - Extremities Exam Extremities exam: Present: warm, radial pulses palpable and symmetrical. Absent : calf tenderness, cyanotic, pedal edema - Neurological Exam Neurological exam: Present: CN II-XII intact, oriented X3, no focal deficits. Absent: pronater drift, facial droop, speech deficit - Skin Skin exam: Present: dry, intact Internal Medicine: Result - Labs CBC & Chem 7: 10/28/17 06:58 10/28/17 06:58 Labs: Cardiac Enzymes 10/28/17 10/29/17 Range/Units 13:35 04:02 Troponin I 0.71 H* 0.13 H* (< 0.04) ng/mL - ABG Interpretation ABG results: ABG ABG pH 7.43 pH Units (7.32-7.45) 10/28/17 12:03 ABG pCO2 40 mmHg (35-45) 10/28/17 12:03 ABG pO2 60 mmHg (85-104) L 10/28/17 12:03 ABG O2 Saturation 91 % (95-98) L 10/28/17 12:03 PT/INR, D-dimer PT 11.4 Seconds (9.4-12.1) 10/27/17 05:18 D-Dimer 1128 ng/mLFEU (0-500) H 10/27/17 05:18 Consult Discharge Plan - Plan Referrals: Virginia Cruz DO [Primary Care Provider] -
[2017-10-29] MEDS: Insulin LISPRO 300 UNITS/3 ML VIAL SQ SCH ×4 (10:03→20:37)
[2017-10-29] MEDS: Azithromycin 500 MG in D5% in Water 250 ML IVPB SCH (10:05)
[2017-10-29] MEDS: cefTRIAXone 1,000 MG in Water for inj. (sterile) 20 ML 10 ML IVP SCH (10:07)
[2017-10-29] MEDS: Aspirin Enteric Coated 81 MG Tablet PO SCH (10:08)
[2017-10-29] MEDS: ALPRAZolam 0.25 MG TABLET PO PRN ×2 (12:03→22:17)
[2017-10-29] MEDS: Diltiazem CD (24hr) 120 MG CAPSULE PO SCH (12:10)
[2017-10-29 12:17] LABS: ABG Base Excess -4 mEq/L (-2 to 3); ABG HCO3 22 mEq/L (21-27); ABG Oxygen Saturation 93 % (95-98); ABG PCO2 45 mmHg (35-45); ABG PO2 73 mmHg (85-104); ABG TCO2 24 mEq/L (20-26)
--- NOTE | 2017-10-29 14:33 | Pulmonology Consult Note ---
<Yuri Copeland - Last Filed: 10/29/17 14:23> Date of Encounter: 10/29/17 Time of Encounter: 14:23 Assessment and Plan (1) COPD exacerbation Current Visit: Yes Status: Acute Patient with hx of COPD not on home oxygen Likely 2/2 to PNA Patient started on solumedrol 40mg IV Q8H, ceftriaxone, azithromycin, and scheduled duonebs. Patient became SOB and dropped her oxygen saturation to the 70s after standing up and using the bathroom twice within a short period of time. Patient required BiPAP. Patient anxious on biPAP but tolerated after Xanax. Patient able to be taken off biPAP and sating well on 4L NC on exam. AB.3/45/73/22/93/-4 Plan: continue Abx, duonebs, steroids Recheck ABG at 16:00 Start patient's home symbicort continue to monitor (2) Sepsis Current Visit: Yes Status: Acute Patient met sepsis criteria based on tachycardia, tachypnea, and likely PNA Likely 2/2 PNA possibly 2/2 to UTI Patient started on azithromycin and ceftriaxone. Plan: continue current treatment. Qualifiers: Sepsis type: sepsis due to unspecified organism Qualified Code(s): A41.9 - Sepsis, unspecified organism (3) Left lower lobe pneumonia Current Visit: Yes Status: Acute CXR 1/2 showed: " Cardiomegaly with ground-glass opacification in the left lower lung zone. Pattern may represent asymmetric edema or developing pneumonitis." Patient started on azithromycn and ceftriaxone Plan: continue abx Qualifiers: Pneumonia type: due to unspecified organism Qualified Code(s): J18.1 - Lobar pneumonia, unspecified organism (4) UTI (urinary tract infection) Current Visit: Yes Status: Acute Urine positive for Enterobacter aerogenes Sensitive to Ceftriaxone Ceftriaxone day 3 Plan: continue treatment per primary team Qualifiers: Urinary tract infection type: acute cystitis Hematuria presence: without hematuria Qualified Code(s): N30.00 - Acute cystitis without hematuria (5) Atrial fibrillation Current Visit: Yes Status: Acute New onset a fib cardiology is on board patient started on cardiazem drip, metoprolol plan: defer to primary and cardiology Qualifiers: Atrial fibrillation type: unspecified Qualified Code(s): I48.91 - Unspecified atrial fibrillation (6) Elevated troponin I level Current Visit: Yes Status: Acute Likely 2/2 demand ischemia Trops: 0.1, 0.71, 0.13 Cardiology on board Echo performed with showed perserved EF which appears unchanged from prior. Plan: Defer to primary and Cardiology to manage. (7) DVT prophylaxis Current Visit: Yes Status: Acute Pt currently on Lovenox Plan: continue Lovenox History of Present Illness Consult date: 10/29/17 Requesting physician: Pietro Bolton Reason for consult: COPD Chief complaint: COPD exacerbation History of present illness: 82 yo F c PMHx of COPD not on home oxygen, HTN, DM, HLD, Hypothyroidism, dementia admitted to [facility] for COPD exacerbation 2/2 to suspected PNA. Patient presented on 10/27/17 after developing SOB at home and sputum changes with cough. Patient found to have elevated WBC of 23,000 CXR showed"Cardiomegaly with ground -glass opacification in the left lower lung zone. Pattern may represent asymmetric edema or developing pneumonitis." Patient was started on scheduled albuterol, Solumedrol Q8H, Azithromycin and ceftriaxone. Patient also had elevated troponin and cardiology was consulted. They got an echo which showed diastolic dysfunctiona nd perserved EF of 55%. Patient also found to have a UTI. Urine positive for a susceptible enterobacter. Today patient became SOB following two trips to the bathroom. Patient required placement on BiPAP due to low sats and difficulty breathing. Patient was not tolerating biPAP and was given Xanax which allowed her to tolerate the biPAP. Patient was then taken off bipap and has been sating well on 4L NC. Order for transfer to placed for possible need for continuous biPAP. Patient reports her breathing feels better now. She denies Chest pain, abd pain. Her only complaint is that her eyes are a little blurry and hurt a little. Patient recently had cataract surgery per family. Past Med Surg Social Fam HX - Past Medical History Medical history: COPD, dementia, hyperlipidemia, thyroid disease - Past Surgical History Surgical History: orthopedic, other - Social History Smoking Status: Never smoker Smokeless Tobacco Status: No Alcohol use: none Drug use: none Medications and Allergies Amlodipine Besylate/Benazepril [Lotrel 10-20 mg Capsule] 1 cap PO DAILY [History] Atenolol [Tenormin] 50 mg PO DAILY 10/27/17 [History] Budesonide/Formoterol 160/4.5 [Symbicort 160/4.5] 2 puff IH BID 10/27/17 [ History] Levothyroxine Sodium [Levoxyl] 50 mcg PO DAILY 10/27/17 [History] Naproxen Sodium [Aleve] 220 mg PO BID 10/27/17 [History] Potassium Chloride [K-Tab ER] 40 meq PO BID 10/27/17 [History] Simvastatin [Zocor] 20 mg PO DAILY 10/27/17 [History] glipiZIDE [Glucotrol] 5 mg PO DAILY 10/27/17 [History] 3 Allergy/AdvReac Type Severity Reaction Status Date / Time codeine Allergy Itching Verified 08/28/16 17:07 gabapentin Allergy Hallucinati Verified 08/28/16 17:07 ng lidocaine [From Lidoderm] Allergy Rash Verified 08/28/16 17:07 meperidine [From Demerol] Allergy Hallucinati Verified 08/28/16 17:07 ng Oxycodone Allergy Hallucinati Verified 08/28/16 17:07 ng All Systems: A 10-system review of systems was performed and is negative for pertinent findings except as documented above in the HPI. Physical Examination Vital Signs: Vital Signs, Last 4 Hours Resp Pulse Ox 10/29/17 11:12 16 93 General appearance: no acute distress Eyes: nonicteric ENT: oropharynx moist Neck: supple Effort: normal Auscultation: bilateral: diminished breath sounds Cardiovascular: irregular rhythm Gastrointestinal: normoactive bowel sounds, soft, non-tender Integumentary: normal Extremities: no cyanosis Musculoskeletal: no deformities non-focal exam Ventilator Settings Ventilator Settings: Ventilator Settings, Last 8 Hours Ventilator Mode Bi-Level Results - Laboratory Findings CBC and BMP: 10/28/17 06:58 10/28/17 06:58 ABG ABG pH 7.30 pH Units (7.32-7.45) L 10/29/17 12:14 ABG pCO2 45 mmHg (35-45) 10/29/17 12:14 ABG pO2 73 mmHg (85-104) L 10/29/17 12:14 ABG O2 Saturation 93 % (95-98) L 10/29/17 12:14 PT/INR, D-dimer PT 11.4 Seconds (9.4-12.1) 10/27/17 05:18 D-Dimer 1128 ng/mLFEU (0-500) H 10/27/17 05:18 Abnormal lab findings: Abnormal lab results WBC 18.1 K/mcL (4.3-11.1) H 10/28/17 06:58 Hgb 11.4 g/dL (11.5-15.4) L D 10/28/17 06:58 Neutrophils # 17.4 K/mcL (1.6-8.9) H 10/28/17 06:58 Lymphocytes # 0.3 K/mcL (0.6-4.6) L 10/28/17 06:58 APTT 24.6 Seconds (26.0-36.0) L 10/27/17 05:18 D-Dimer 1128 ng/mLFEU (0-500) H 10/27/17 05:18 ABG pH 7.30 pH Units (7.32-7.45) L 10/29/17 12:14 ABG pO2 73 mmHg (85-104) L 10/29/17 12:14 ABG O2 Saturation 93 % (95-98) L 10/29/17 12:14 ABG Base Excess -4 mEq/L (-2 to 3) L 10/29/17 12:14 BUN 29 mg/dL (8-23) H 10/28/17 06:58 Est GFR (Non-Af Amer) 52 (> 60) L 10/28/17 06:58 BUN/Creatinine Ratio 28 (6-26) H 10/28/17 06:58 Glucose 367 mg/dL (70-105) H 10/28/17 06:58 POC Glucose 274 (58-89) H 10/29/17 07:45 Calculated Osmolality 311 (280-300) H 10/28/17 06:58 Alkaline Phosphatase 143 Units/L (34-104) H 10/27/17 05:18 Troponin I 0.13 ng/mL (< 0.04) H* 10/29/17 04:02 Albumin 3.2 g/dL (3.5-5.7) L 10/27/17 05:18 Globulin 3.7 g/dL (2.4-3.5) H 10/27/17 05:18 Albumin/Globulin Ratio 0.9 (1.1-2.2) L 10/27/17 05:18 Urine Clarity Turbid (Clear) A 10/27/17 05:22 Urine Protein 30 mg/dL (Neg-Trace) H 10/27/17 05:22 Urine Glucose (UA) >=1000 mg/dL (Normal) H 10/27/17 05:22 Urine Blood Moderate (Negative) H 10/27/17 05:22 Urine Nitrite Positive (Negative) A 10/27/17 05:22 Ur Leukocyte Esterase Large (Negative) H 10/27/17 05:22 Urine Microscopic RBC 5-15 per hpf (0-3) H 10/27/17 05:22 Urine Microscopic WBC TNTC per hpf (0-3) H 10/27/17 05:22 Ur Squamous Epith Cells Many per lpf (None-Few) H 10/27/17 05:22 Urine Bacteria Many per hpf (None-Few) H 10/27/17 05:22 - Clinical Findings Intake & Output: Intake & Output 10/28/17 10/29/17 10/29/17 23:59 07:59 15:59 Intake Total 0 / 0 50 / 50 240 / 240 Output Total 0 / 0 Balance 0 / 0 50 / 50 240 / 240 Weight 64.5 kg Consult Discharge Plan - Plan Referrals: Virginia Cruz DO [Primary Care Provider] - <Kandi Del Castillo - Last Filed: 10/29/17 18:19> Date of Encounter: 10/29/17 All Systems: A 10-system review of systems was performed and is negative for pertinent findings except as documented above in the HPI. Physical Examination Vital Signs: Vital Signs, Last 4 Hours Temp Pulse Resp BP Pulse Ox 10/29/17 15:31 97.8 F 85 16 130/70 91 Ventilator Settings Ventilator Settings: Ventilator Settings, Last 8 Hours Ventilator Mode Bi-Level Results - Laboratory Findings CBC and BMP: 10/29/17 14:30 10/29/17 14:30 ABG ABG pH 7.30 pH Units (7.32-7.45) L 10/29/17 12:14 ABG pCO2 45 mmHg (35-45) 10/29/17 12:14 ABG pO2 73 mmHg (85-104) L 01/04/18 12:14 ABG O2 Saturation 93 % (95-98) L 10/29/17 12:14 PT/INR, D-dimer PT 11.4 Seconds (9.4-12.1) 10/27/17 05:18 D-Dimer 1128 ng/mLFEU (0-500) H 10/27/17 05:18 Abnormal lab findings: Abnormal lab results WBC 26.2 K/mcL (4.3-11.1) H 10/29/17 14:30 RBC 3.74 M/mcL (3.82-4.97) L 10/29/17 14:30 Hgb 11.0 g/dL (11.5-15.4) L 10/29/17 14:30 Hct 34.7 % (35.3-44.9) L 10/29/17 14:30 Plt Count 428 K/mcL (140-400) H 10/29/17 14:30 Neutrophils # 25.7 K/mcL (1.6-8.9) H 10/29/17 14:30 Lymphocytes # 0.3 K/mcL (0.6-4.6) L 10/28/17 06:58 Hypersegmented Neuts Present (Not Present) A 10/29/17 14:30 APTT 24.6 Seconds (26.0-36.0) L 10/27/17 05:18 D-Dimer 1128 ng/mLFEU (0-500) H 10/27/17 05:18 ABG pH 7.30 pH Units (7.32-7.45) L 10/29/17 12:14 ABG pO2 73 mmHg (85-104) L 10/29/17 12:14 ABG O2 Saturation 93 % (95-98) L 10/29/17 12:14 ABG Base Excess -4 mEq/L (-2 to 3) L 10/29/17 12:14 Potassium 5.5 mEq/L (3.5-5.1) H 10/29/17 14:30 BUN 42 mg/dL (8-23) H 10/29/17 14:30 Creatinine 1.35 mg/dL (0.60-1.20) H 10/29/17 14:30 Est GFR ( Amer) 46 (> 60) L 10/29/17 14:30 Est GFR (Non-Af Amer) 38 (> 60) L 10/29/17 14:30 BUN/Creatinine Ratio 31 (6-26) H 10/29/17 14:30 Glucose 296 mg/dL (70-105) H 10/29/17 14:30 POC Glucose 270 (58-89) H 10/29/17 17:02 Calculated Osmolality 309 (280-300) H 10/29/17 14:30 Total Bilirubin 0.2 mg/dL (0.3-1.0) L 10/29/17 14:30 Alkaline Phosphatase 115 Units/L (34-104) H 10/29/17 14:30 Troponin I 0.13 ng/mL (< 0.04) H* 10/29/17 04:02 Serum Total Protein 5.8 g/dL (6.4-8.9) L 10/29/17 14:30 Albumin 2.7 g/dL (3.5-5.7) L 10/29/17 14:30 Albumin/Globulin Ratio 0.9 (1.1-2.2) L 10/29/17 14:30 Urine Clarity Turbid (Clear) A 10/27/17 05:22 Urine Protein 30 mg/dL (Neg-Trace) H 10/27/17 05:22 Urine Glucose (UA) >=1000 mg/dL (Normal) H 10/27/17 05:22 Urine Blood Moderate (Negative) H 10/27/17 05:22 Urine Nitrite Positive (Negative) A 10/27/17 05:22 Ur Leukocyte Esterase Large (Negative) H 10/27/17 05:22 Urine Microscopic RBC 5-15 per hpf (0-3) H 10/27/17 05:22 Urine Microscopic WBC TNTC per hpf (0-3) H 10/27/17 05:22 Ur Squamous Epith Cells Many per lpf (None-Few) H 10/27/17 05:22 Urine Bacteria Many per hpf (None-Few) H 10/27/17 05:22 - Clinical Findings Intake & Output: Intake & Output 10/29/17 10/29/17 10/29/17 07:59 15:59 23:59 Intake Total 50 / 50 240 / 240 Balance 50 / 50 240 / 240 Weight 64.5 kg - Attending Attestation I examined this patient and my medical decision-making was reviewed with the Resident Physician. I agree with the documented findings, disposition and treatment plan as described except to the extent set forth below. Patient seen and examined. Labs, radiology, chart personally reviewed. 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 Wean off FiO2 to keep SPO2 around 90% and if condition worsen then to use noninvasive ventilation. Continue bronchodilators and add Symbicort which patient uses at home. At this time she denies any other complaints and thank you very much for consultation. Systemic steroid and bronchodilators is reasonable. Cardiovascular: Heart control is important and patient is on treatment. GI: Nutrition per dietary and GI prophylaxis per routine Heme: DVT prophylaxis per routine ID: Continue antibiotics and plan to de-escalation Renal; urine out put and renal funtion reviewed Endorcine: blood glucose is monitored Lines: all lines checked and no evidence of infections Skin: skin care to prevent pressure ulcers per nursing routine care
[2017-10-29 14:53] LABS: Hematocrit 34.7 % (35.3-44.9)
[2017-10-29 14:55] LABS: Mean Corpuscular HGB Conc 31.7 g/dL (31.6-35.5); Mean Corpuscular Hemoglobin 29.4 pg (28.0-33.3); Mean Corpuscular Volume 92.8 fL (83.0-100.0); Mean Platelet Volume 10.7 fL (9.4-12.4); Platelet Count 428 K/mcL (140-400); Red Blood Count 3.74 M/mcL (3.82-4.97)
[2017-10-29 14:58] LABS: Albumin 2.7 g/dL (3.5-5.7); Bilirubin,Total 0.2 mg/dL (0.3-1.0); Calcium 8.9 mg/dL (8.6-10.3); Potassium 5.5 mEq/L (3.5-5.1)
--- NOTE | 2017-10-29 15:02 | Cardiology Progress Note ---
Date of Encounter: 10/29/17 Time of Encounter: 14:00 Assessment and Plan (1) Sepsis Current Visit: Yes Status: Acute Per cardiology: -Admitted with sepsis due to pneumonia, UTI. -On IV ATB. -Management per primary service. Qualifiers: Sepsis type: sepsis due to unspecified organism Qualified Code(s): A41.9 - Sepsis, unspecified organism (2) Elevated troponin I level Current Visit: Yes Status: Acute Per cardiology: -Troponin 0.1, 0.71, 0.13 in the setting of sepsis, pneumonia, a.fib RVR, UTI, mild CJ. -Denies chest pain. -ECG with no acute ischemic changes noted. -TTE with LVEF 55%, no segmental wall motion abnormalities noted. -On therapeutic lovenox. -On asa, statin, beta meng. -Do not suspect NSTEMI, suspect demand ischemia related to above. No cardiac rehab warranted. (3) Atrial fibrillation Current Visit: Yes Status: Acute Per cardiology: -New A.flutter/fib RVR. -Currently on cardizem drip at 5mg/hour and metoprolol. -TTE with LVEF 55%, moderate MR, mild PH, no segmental wall motion abnormalities noted. -Average HR 87. -[id number] score 5 (age, gender, HTN, DM). Currently on therpeutic lovenox, however patient is not a good candidate for shelter anticoagulation due to baseline dementia and frequent falls. Discussed with daughters and at bedside who agree with no anticoagulation. -Denies palpitations or fluttering. -Cardizem drip stopped and started on cardizem CD 120mg daily. -Cardiology will sign off and will follow in outpatient setting. Follow up set. Qualifiers: Atrial fibrillation type: unspecified Qualified Code(s): I48.91 - Unspecified atrial fibrillation Discussion w patient/family: The assessment and plan as outlined above was discussed with the patient and/or family members who expressed understanding and agreement. All questions were answered. Thank you for involving us in the care of your patient. Please call with any questions. Discussed and reviewed with . Subjective Principal diagnosis: pneumonia, COPD exacerbation, a.flutter Interval history: Pateint states breathing is better. Denies chest pain, palpitations, or fluttering. Objective Vital Signs, Last 4 Hours Resp Pulse Ox 10/29/17 11:12 16 93 Vital Signs Temperature 98.2 F 10/27/17 05:17 Pulse Rate 120 10/27/17 05:17 Respiratory Rate 30 10/27/17 05:17 Blood Pressure 122/92 10/27/17 05:17 O2 Sat by Pulse Oximetry 95 10/27/17 05:17 Temperature 97.9 F 10/29/17 07:39 Pulse Rate 85 10/29/17 07:39 Respiratory Rate 16 10/29/17 11:12 Blood Pressure 100/57 10/29/17 07:39 O2 Sat by Pulse Oximetry 93 10/29/17 11:12 Oxygen Delivery Oxygen Delivery Nasal Cannula General: Conversant, No Apparent Distress HEENT: Atraumatic, Normocephaly, Mucus Membranes Moist Neck: No JVD, Normal carotid pulses Cardiac: Normal S1 and S2, No Murmur, Other (Irregularly irregular) Lungs: Other (Lung sounds diminished to bilateral bases. ) Neuro: Alert and responsive, Other (Oriented to person and place. ) Abdomen: Soft, Non-Tender Skin: No rashes noted on visualized skin Musculoskeletal: No Chest Wall Tenderness Extremities: No Clubbing, No Cyanosis, No Edema, Normal Pulses Results 10/29/17 14:30 10/29/17 14:30 Lab Results Impressions Echocardiogram 10/28/17 09:33 Impressions: LVEF 55%. Normal LV chamber size and function. Asymmetric hypertrophy of the basal septum. Indeterminate diastolic function. Atypical septal motion consistent with bundle branch block. Normal right ventricular structure and function. Moderate mitral regurgitation. Mild pulmonary hypertension. Left Ventricular Wall Motion: Rest Echo Findings All wall segments showed normal motion. Findings: Study Quality * Technically sub-optimal due to poor echocardiographic windows. ECG Findings * Atrial fibrillation, bundle branch block. Left Ventricle * LVEF 55%. * Normal LV chamber size and function. * Asymmetric hypertrophy of the basal septum. * Indeterminate diastolic function. * Atypical septal motion consistent with bundle branch block. Right Ventricle * Normal right ventricular structure and function. Left Atrium * Moderately dilated left atrium. Right Atrium * Mildly dilated right atrium. Interatrial Septum * Interatrial septum not well evaluated. Aortic Valve * Aortic valve not well visualized. * No aortic regurgitation. * No aortic stenosis. Mitral Valve * Mild mitral annular calcification * Moderate mitral regurgitation. * No mitral stenosis. Tricuspid Valve * Normal tricuspid valve structure and function. * Trace tricuspid regurgitation. * Mild pulmonary hypertension. Pulmonic Valve * Pulmonic valve is not well visualized. * No pulmonic regurgitation. Aorta * Normally sized aortic root. Pericardium * There is a small pericardial effusion present. IVC * Normal IVC dimensions and inspiratory collapse. Pulmonary Artery * Normal visualized portions of the main pulmonary artery. Active Medications Acetaminophen (Tylenol) 650 mg PO Q6HR PRN PRN Reason: Mild Pain (1-3) Stop: 04/28/18 06:28 Albuterol/Ipratropium (Duoneb) 3 ml IH [id number] ALECIA Stop: 04/28/18 12:01 Last Admin: 10/29/17 11:10 Dose: 3 ml Alprazolam (Xanax) 0.25 mg PO TID PRN; Protocol PRN Reason: Anxiety Stop: 04/29/18 22:15 Last Admin: 10/29/17 12:03 Dose: 0.25 mg Aspirin (Aspirin Ec) 81 mg PO DAILY ALECIA Stop: 04/29/18 13:16 Last Admin: 10/29/17 10:08 Dose: 81 mg Atorvastatin Calcium (Lipitor) 80 mg PO HS ALECIA Stop: 04/29/18 21:01 Last Admin: 10/28/17 21:15 Dose: 80 mg Budesonide/Formoterol Fumarate (Symbicort) 2 puff IH BIDR ALECIA PRN Reason: Protocol Stop: 04/30/18 22:01 Dextrose/Water (Dextrose 50% (Syg)) 25 ml IVP AD PRN PRN Reason: Hypoglycemia Stop: 04/28/18 09:57 Diltiazem HCl (Cardizem Cd) 120 mg PO DAILY [facility] Stop: 04/30/18 11:01 Last Admin: 10/29/17 12:10 Dose: 120 mg Enoxaparin Sodium (Lovenox) 60 mg 1 mg/kg (60 mg) SQ Q12HR ALECIA PRN Reason: Protocol Stop: 04/29/18 18:01 Last Admin: 10/29/17 05:45 Dose: 60 mg Glucagon (Glucagen) 1 mg IM ONCE PRN PRN Reason: Hypoglycemia Stop: 04/28/18 09:57 Glucose (Gluctose) 15 gm PO ONCE PRN PRN Reason: Hypoglycemia Stop: 04/28/18 09:57 Glucose (Gluctose) 30 gm PO ONCE PRN PRN Reason: Hypoglycemia Stop: 04/28/18 09:57 Ceftriaxone Sodium 1,000 mg/ (Sterile Water) 10 mls @ 300 mls/hr IVP DAILY [facility] Stop: 04/29/18 09:01 Last Admin: 10/29/17 10:07 Dose: 300 mls/hr Azithromycin 500 mg/ Dextrose 250 mls @ 252 mls/hr IVPB Q24H [facility] Stop: 04/28/18 10:01 Last Admin: 10/29/17 10:05 Dose: 252 mls/hr Dextrose (Dextrose 5%) 1,000 mls @ 100 mls/hr IVC .Q10H PRN PRN Reason: HYPOGLYCEMIA Stop: 04/28/18 09:57 Insulin Human Lispro (Humalog) 0 units SQ TIDAC [facility] PRN Reason: Protocol Stop: 04/28/18 11:31 Last Admin: 10/29/17 10:03 Dose: 8 units Insulin Human Lispro (Humalog) 0 units SQ HS [facility] PRN Reason: Protocol Stop: 04/28/18 21:01 Last Admin: 10/28/17 21:12 Dose: 5 units Levothyroxine Sodium (Synthroid) 50 mcg PO DAILY@0630 [facility] Stop: 04/29/18 06:31 Last Admin: 10/29/17 05:45 Dose: 50 mcg Methylprednisolone (Solu-Medrol) 40 mg IVP Q8HR [facility] Stop: 04/28/18 16:01 Last Admin: 10/29/17 10:05 Dose: 40 mg Metoprolol Tartrate (Lopressor) 25 mg PO BID [facility] Stop: 04/29/18 21:01 Last Admin: 10/29/17 10:08 Dose: 25 mg Naloxone HCl (Narcan) 0.4 mg IVP Q2MIN PRN PRN Reason: Opioid Reversal Stop: 04/28/18 06:28 Naloxone HCl (Narcan) 0.4 mg IVP Q2MIN PRN PRN Reason: Opioid Reversal Stop: 04/28/18 09:54 Potassium Chloride (Potassium Chloride) 40 meq PO BIDWM [facility] Stop: 04/28/18 17:01 Last Admin: 10/29/17 10:08 Dose: 40 meq Laboratory Tests 10/27/17 10/28/17 10/29/17 05:18 13:35 04:02 WBC Hgb Troponin I 0.10 H* 0.71 H* 0.13 H* 10/29/17 14:30 WBC 26.2 H Hgb 11.0 L Troponin I - Imaging and Cardiology Chest Xray: report reviewed Echo: report reviewed - EKG Interpretation EKG results cardiology: other (Telemetry reviewed with average HR previous 12 hours noted to be 87, atrial flutter. PVCs noted.) Consult Discharge Plan - Plan Referrals: Virginia Cruz DO [Primary Care Provider] -
[2017-10-29 15:04] LABS: Albumin/Globulin Ratio 0.9 (1.1-2.2); Globulin 3.1 g/dL (2.4-3.5); Total Protein 5.8 g/dL (6.4-8.9)
[2017-10-29 16:15] LABS: Hypersegmented Neutrophils Present (Not Present); Monocytes # 0.5 K/mcL (0.0-1.3); Neutrophils # 25.7 K/mcL (1.6-8.9)
[2017-10-29 16:18] LABS: Platelet Estimate Normal (Normal)
--- NOTE | 2017-10-29 19:06 | Electrocardiograph Report ---
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
[2017-10-29] MEDS: Budesonide/Formoterol 160/4.5 MDI IH SCH (19:59)
[2017-10-29] MEDS ORDERED: dilTIAZem HCl 100 MG in D5% in Water 50 ML IVC SCH (23:45)
[2017-10-29] MEDS ORDERED: *HR* LORazepam 2 MG/ML VIAL IVP ONE (23:58)
[2017-10-30] MEDS ORDERED: 0.9 % Sodium Chloride 250 ML ONE (00:32)
[2017-10-30] MEDS: MethylPREDNISolone 40 MG/ML VIAL IVP SCH ×4 (00:42→23:17)
[2017-10-30] MEDS: Ipratropium/Albuterol Neb 3 ML IH SCH ×6 (04:09→23:52)
[2017-10-30 04:48] LABS: Albumin 2.6 g/dL (3.5-5.7); Albumin/Globulin Ratio 0.9 (1.1-2.2); Bilirubin,Total 0.2 mg/dL (0.3-1.0); Calcium 8.4 mg/dL (8.6-10.3); Globulin 2.9 g/dL (2.4-3.5); Potassium 5.6 mEq/L (3.5-5.1); Total Protein 5.5 g/dL (6.4-8.9)
[2017-10-30 05:28] LABS: Basophils # 0.1 K/mcL (0.0-0.2); Basophils % 0.3 %; Hematocrit 36.3 % (35.3-44.9); Hemoglobin 11.2 g/dL (11.5-15.4); Lymphocytes # 0.7 K/mcL (0.6-4.6); Lymphocytes % 3.3 %; Mean Corpuscular HGB Conc 30.9 g/dL (31.6-35.5); Mean Corpuscular Hemoglobin 29.2 pg (28.0-33.3); Mean Corpuscular Volume 94.8 fL (83.0-100.0); Monocytes # 0.3 K/mcL (0.0-1.3); Monocytes % 1.7 %; Platelet Count 378 K/mcL (140-400); Red Blood Count 3.83 M/mcL (3.82-4.97); Red Cell Distribution Width 13.8 % (11.5-14.5); Segmented Neutrophils % 89.7 %
[2017-10-30] MEDS: *HR* Enoxaparin 60 MG/0.6 ML SYRINGE SQ SCH ×2 (06:12→18:01)
[2017-10-30] MEDS: Budesonide/Formoterol 160/4.5 MDI IH SCH ×2 (07:41→20:11)
[2017-10-30] MEDS ORDERED: Furosemide 40 MG/4 ML VIAL IVP ONE ×2 (08:02→10:40)
[2017-10-30] MEDS: Diltiazem CD (24hr) 120 MG CAPSULE PO SCH (08:32)
[2017-10-30] MEDS: ALPRAZolam 0.25 MG TABLET PO PRN ×2 (08:32→22:35)
[2017-10-30] MEDS: Aspirin Enteric Coated 81 MG Tablet PO SCH (08:32)
[2017-10-30] MEDS: cefTRIAXone 1,000 MG in Water for inj. (sterile) 20 ML 10 ML IVP SCH (08:33)
[2017-10-30] MEDS: Azithromycin 500 MG in D5% in Water 250 ML IVPB SCH (08:33)
[2017-10-30] MEDS: Insulin LISPRO 300 UNITS/3 ML VIAL SQ SCH ×5 (08:35→21:38)
[2017-10-30] MEDS ORDERED: *HR* Morphine 2 MG/ML SYRINGE ONE (09:57)
[2017-10-30] MEDS ORDERED: *HR* Morphine 2 MG/ML SYRINGE IVP ONE (10:00)
--- NOTE | 2017-10-30 10:42 | Pulmonology Progress Note ---
<ZuleykaalejandraYuri - Last Filed: 10/30/17 15:40> Date of Encounter: 10/30/17 Time of Encounter: 10:41 Assessment and Plan (1) COPD exacerbation Current Visit: Yes Status: Acute Patient with hx of COPD not on home oxygen Likely 2/2 to PNA Patient started on solumedrol 40mg IV Q8H, ceftriaxone, azithromycin, and scheduled duonebs. Patient became SOB and dropped her oxygen saturation to the 70s after standing up and using the bathroom twice within a short period of time. Patient required BiPAP. Patient anxious on biPAP but tolerated after Xanax. Patient able to be taken off biPAP and sating well on 4L NC on exam yesterday Patient started on home symbicort Today patient's sats dropped to the 70s again and nursing had issues keeping biPAP on. Patient transferred to ICU for continuous biPAP latest AB.25/50/74/22/92/-6 Plan: continue Abx, duonebs, steroids, symbicort continue to monitor (2) Sepsis Current Visit: Yes Status: Acute Patient met sepsis criteria based on tachycardia, tachypnea, and likely PNA and a UTI Likely 2/2 PNA possibly 2/2 to UTI Patient started on azithromycin and ceftriaxone. Bcx NGTD Ucx positie for enterobacter WBC improved today Plan: continue abx Qualifiers: Sepsis type: sepsis due to unspecified organism Qualified Code(s): A41.9 - Sepsis, unspecified organism (3) Left lower lobe pneumonia Current Visit: Yes Status: Acute CXR 1/2 showed: " Cardiomegaly with ground-glass opacification in the left lower lung zone. Pattern may represent asymmetric edema or developing pneumonitis." Patient started on azithromycn and ceftriaxone both day 4 WBC trending down. Bcx NGTD Plan: continue abx Qualifiers: Pneumonia type: due to unspecified organism Qualified Code(s): J18.1 - Lobar pneumonia, unspecified organism (4) Diastolic CHF, acute on chronic Current Visit: Yes Status: Acute Patient with elements of CHF complicating COPD exacerbation. ECHO: "LVEF 55%. Normal LV chamber size and function. Asymmetric hypertrophy of the basal septum. Indeterminate diastolic function. Atypical septal motion consistent with bundle branch block. Normal right ventricular structure and function. Moderate mitral regurgitation. Mild pulmonary hypertension." BNP 612 Patient with crackles on exam Plan: gave patient a total of 80mg of Lasix IV today continue to monitor. (5) UTI (urinary tract infection) Current Visit: Yes Status: Acute Urine positive for Enterobacter aerogenes Sensitive to Ceftriaxone Ceftriaxone day 4 Plan: continue abx Qualifiers: Urinary tract infection type: acute cystitis Hematuria presence: without hematuria Qualified Code(s): N30.00 - Acute cystitis without hematuria (6) Bradycardia Current Visit: Yes Status: Acute Patient became acutely bradycardic to the 30s after transfer to the ICU Patient received 0.5mg Atropine. Patient started on Dopamine drip as needed. Plan: continue dopamine drip Cardiology on board appreciate recommendations. (7) Atrial fibrillation Current Visit: Yes Status: Acute New onset a fib/a flutter cardiology is on board patient started on cardiazem drip, metoprolol plan: hold cardiazem and metoprolol 2/2 bradycardia Cardiology recommending starting patient on amiodarone drip for rhythm control to correct sick sinus syndrome they are aware of patient's bradycardia. defer to cardiology and appreciate any recommendations. Qualifiers: Atrial fibrillation type: unspecified Qualified Code(s): I48.91 - Unspecified atrial fibrillation (8) Elevated troponin I level Current Visit: Yes Status: Acute Likely 2/2 demand ischemia Trops: 0.1, 0.71, 0.13 Cardiology on board EKG with no acute ischemic changes Echo performed with showed perserved EF which appears unchanged from prior. on lovenox, asa, statin Plan: hold BB due to bradycardia Defer to Cardiology aprreciate any recs (9) DVT prophylaxis Current Visit: Yes Status: Acute Pt currently on Lovenox Plan: continue Lovenox Subjective Principal diagnosis: pneumonia, COPD exacerbation, a.flutter Interval history: Patient required more use of BiPAP after desaturating into the 70s again this morning. Patient was transferred to ICU due to declining status. Patient on BiPAP and developed bradycardia into the 30s. Patient was give one time dose of atropine and a Dopaine drip was started. Objective PUL Vital signs: Last Vital Signs Temp 98.1 F 10/30/17 08:05 Pulse 69 10/30/17 08:05 Resp 40 10/30/17 08:05 BP 110/54 10/30/17 08:05 Pulse Ox 94 10/30/17 08:05 Eyes: nonicteric ENT: oropharynx moist Neck: supple Effort: mildly labored Auscultation: bilateral: wheezes, rales (crackles) Cardiovascular: irregular rhythm, other (bradycardia) Gastrointestinal: hypoactive bowel sounds, soft, non-distended Integumentary: normal Extremities: no cyanosis, no edema Musculoskeletal: no deformities unable to assess due to mental status Results - Laboratory Findings CBC and BMP: 10/30/17 04:01 10/30/17 04:01 ABG ABG pH 7.30 pH Units (7.32-7.45) L 10/29/17 12:14 ABG pCO2 45 mmHg (35-45) 10/29/17 12:14 ABG pO2 73 mmHg (85-104) L 10/29/17 12:14 ABG O2 Saturation 93 % (95-98) L 10/29/17 12:14 PT/INR, D-dimer PT 11.4 Seconds (9.4-12.1) 10/27/17 05:18 D-Dimer 1128 ng/mLFEU (0-500) H 10/27/17 05:18 Abnormal lab findings: Abnormal lab results WBC 20.0 K/mcL (4.3-11.1) H 10/30/17 04:01 Hgb 11.2 g/dL (11.5-15.4) L 10/30/17 04:01 MCHC 30.9 g/dL (31.6-35.5) L 10/30/17 04:01 Immature Gran % 5.0 % (0-4) H 10/30/17 04:01 Neutrophils # 18.0 K/mcL (1.6-8.9) H 10/30/17 04:01 Hypersegmented Neuts Present (Not Present) A 10/29/17 14:30 APTT 24.6 Seconds (26.0-36.0) L 10/27/17 05:18 D-Dimer 1128 ng/mLFEU (0-500) H 10/27/17 05:18 ABG pH 7.30 pH Units (7.32-7.45) L 10/29/17 12:14 ABG pO2 73 mmHg (85-104) L 10/29/17 12:14 ABG O2 Saturation 93 % (95-98) L 10/29/17 12:14 ABG Base Excess -4 mEq/L (-2 to 3) L 10/29/17 12:14 Potassium 5.6 mEq/L (3.5-5.1) H 10/30/17 04:01 Chloride 109 mEq/L (98-107) H 10/30/17 04:01 Carbon Dioxide 22 mEq/L (23-29) L 10/30/17 04:01 BUN 45 mg/dL (8-23) H 10/30/17 04:01 Est GFR ( Amer) 52 (> 60) L 10/30/17 04:01 Est GFR (Non-Af Amer) 43 (> 60) L 10/30/17 04:01 BUN/Creatinine Ratio 38 (6-26) H 10/30/17 04:01 Glucose 270 mg/dL (70-105) H 10/30/17 04:01 POC Glucose 270 (58-89) H 10/30/17 08:08 Calculated Osmolality 307 (280-300) H 10/30/17 04:01 Calcium 8.4 mg/dL (8.6-10.3) L 10/30/17 04:01 Total Bilirubin 0.2 mg/dL (0.3-1.0) L 10/30/17 04:01 Alkaline Phosphatase 105 Units/L (34-104) H 10/30/17 04:01 Troponin I 0.13 ng/mL (< 0.04) H* 10/29/17 04:02 B-Natriuretic Peptide 612 pg/mL (Less than 100) H 10/30/17 04:01 Serum Total Protein 5.5 g/dL (6.4-8.9) L 10/30/17 04:01 Albumin 2.6 g/dL (3.5-5.7) L 10/30/17 04:01 Albumin/Globulin Ratio 0.9 (1.1-2.2) L 10/30/17 04:01 Urine Clarity Turbid (Clear) A 10/27/17 05:22 Urine Protein 30 mg/dL (Neg-Trace) H 10/27/17 05:22 Urine Glucose (UA) >=1000 mg/dL (Normal) H 10/27/17 05:22 Urine Blood Moderate (Negative) H 10/27/17 05:22 Urine Nitrite Positive (Negative) A 10/27/17 05:22 Ur Leukocyte Esterase Large (Negative) H 10/27/17 05:22 Urine Microscopic RBC 5-15 per hpf (0-3) H 10/27/17 05:22 Urine Microscopic WBC TNTC per hpf (0-3) H 10/27/17 05:22 Ur Squamous Epith Cells Many per lpf (None-Few) H 10/27/17 05:22 Urine Bacteria Many per hpf (None-Few) H 10/27/17 05:22 - Clinical Findings Intake & Output: Intake & Output 10/29/17 10/30/17 10/30/17 23:59 07:59 15:59 Intake Total 22.7 / 22.7 120 / 120 Output Total 300 / 300 Balance -300 / -300 22.7 / 22.7 120 / 120 Consult Discharge Plan - Plan Referrals: Virginia Cruz DO [Primary Care Provider] - <Kandi Del Castillo - Last Filed: 10/30/17 17:26> Date of Encounter: 10/30/17 Objective PUL Vital signs: Last Vital Signs Temp 97.4 F L 10/30/17 12:05 Pulse 61 10/30/17 14:00 Resp 30 10/30/17 15:47 BP 96/47 10/30/17 14:00 Pulse Ox 100 10/30/17 15:47 Ventilator Settings Ventilator Settings: Ventilator Settings, Last 8 Hours Ventilator Respiratory Rate 8 Setting Results - Laboratory Findings CBC and BMP: 10/30/17 04:01 10/30/17 04:01 ABG ABG pH 7.25 pH Units (7.32-7.45) L 10/30/17 10:39 ABG pCO2 50 mmHg (35-45) H 10/30/17 10:39 ABG pO2 74 mmHg (85-104) L 10/30/17 10:39 ABG O2 Saturation 92 % (95-98) L 10/30/17 10:39 PT/INR, D-dimer PT 11.4 Seconds (9.4-12.1) 10/27/17 05:18 D-Dimer 1128 ng/mLFEU (0-500) H 10/27/17 05:18 Abnormal lab findings: Abnormal lab results WBC 20.0 K/mcL (4.3-11.1) H 10/30/17 04:01 Hgb 11.2 g/dL (11.5-15.4) L 10/30/17 04:01 MCHC 30.9 g/dL (31.6-35.5) L 10/30/17 04:01 Immature Gran % 5.0 % (0-4) H 10/30/17 04:01 Neutrophils # 18.0 K/mcL (1.6-8.9) H 10/30/17 04:01 Hypersegmented Neuts Present (Not Present) A 10/29/17 14:30 APTT 24.6 Seconds (26.0-36.0) L 10/27/17 05:18 D-Dimer 1128 ng/mLFEU (0-500) H 10/27/17 05: ABG pH 7.25 pH Units (7.32-7.45) L 10/30/17 10:39 ABG pCO2 50 mmHg (35-45) H 10/30/17 10:39 ABG pO2 74 mmHg (85-104) L 10/30/17 10:39 ABG O2 Saturation 92 % (95-98) L 10/30/17 10:39 ABG Base Excess -6 mEq/L (-2 to 3) L 10/30/17 10:39 Potassium 5.6 mEq/L (3.5-5.1) H 10/30/17 04:01 Chloride 109 mEq/L (98-107) H 10/30/17 04:01 Carbon Dioxide 22 mEq/L (23-29) L 10/30/17 04:01 BUN 45 mg/dL (8-23) H 10/30/17 04:01 Est GFR ( Amer) 52 (> 60) L 10/30/17 04:01 Est GFR (Non-Af Amer) 43 (> 60) L 10/30/17 04:01 BUN/Creatinine Ratio 38 (6-26) H 10/30/17 04:01 Glucose 270 mg/dL (70-105) H 10/30/17 04:01 POC Glucose 217 (58-89) H 10/30/17 15:25 Calculated Osmolality 307 (280-300) H 10/30/17 04:01 Calcium 8.4 mg/dL (8.6-10.3) L 10/30/17 04:01 Total Bilirubin 0.2 mg/dL (0.3-1.0) L 10/30/17 04:01 Alkaline Phosphatase 105 Units/L (34-104) H 10/30/17 04:01 Troponin I 0.13 ng/mL (< 0.04) H* 10/29/17 04:02 B-Natriuretic Peptide 612 pg/mL (Less than 100) H 10/30/17 04:01 Serum Total Protein 5.5 g/dL (6.4-8.9) L 10/30/17 04:01 Albumin 2.6 g/dL (3.5-5.7) L 10/30/17 04:01 Albumin/Globulin Ratio 0.9 (1.1-2.2) L 10/30/17 04:01 Urine Clarity Turbid (Clear) A 10/27/17 05:22 Urine Protein 30 mg/dL (Neg-Trace) H 10/27/17 05:22 Urine Glucose (UA) >=1000 mg/dL (Normal) H 10/27/17 05:22 Urine Blood Moderate (Negative) H 10/27/17 05:22 Urine Nitrite Positive (Negative) A 10/27/17 05:22 Ur Leukocyte Esterase Large (Negative) H 10/27/17 05:22 Urine Microscopic RBC 5-15 per hpf (0-3) H 10/27/17 05:22 Urine Microscopic WBC TNTC per hpf (0-3) H 10/27/17 05:22 Ur Squamous Epith Cells Many per lpf (None-Few) H 10/27/17 05:22 Urine Bacteria Many per hpf (None-Few) H 10/27/17 05:22 - Clinical Findings Intake & Output: Intake & Output 10/30/17 10/30/17 10/30/17 07:59 15:59 23:59 Intake Total 22.7 / 22.7 120 / 120 Output Total 400 / 400 Balance 22.7 / 22.7 -280 / -280 - Attending Attestation I examined this patient and my medical decision-making was reviewed with the Resident Physician. I agree with the documented findings, disposition and treatment plan as described except to the extent set forth below. Patient seen and examined. Labs, radiology, chart personally reviewed. Agree with resident's history and physical, assessment, plan with following comments: PER DIEM PHYSICAL THERAPIST ASSISTANT: Patient follows simple commands, Pulmonary: Patient was evaluated in the floor and there was deterioration in her respiratory status which needed noninvasive ventilation and then her condition was worsening further fact needed to be transferred to ICU. Discussed with power of estate planning attorney and because there was a potential on invasive mechanical ventilation, power of estate planning attorney agreed for short-term intubation if necessary. Cardiovascular: Patient with evidence of sick sinus syndrome and discussed with the cardiology team. Patient will be on dopamine and also amiodarone which hopefully will help to control her rhythm and rate in order to improve her condition which I think underlying cardiac disease is the main reason for her deterioration. GI: Nutrition per dietary and GI prophylaxis per routine. Patient to be nothing by mouth for the risk of aspiration and also if she requires intubation. Heme: DVT prophylaxis per routine ID: Continue antibiotics and plan to de-escalation Renal; urine out put and renal funtion reviewed Endorcine: blood glucose is monitored Lines: all lines checked and no evidence of infections Skin: skin care to prevent pressure ulcers per nursing routine care I had multiple discussion with the family and updated them about her condition which could deteriorate and that is why she needs to be in ICU. I spent 35 min of Critical Care time with this patient. It involved decision making of high complexity to assess, manipulate, and support vital organ system failure and/or to prevent further life threatening deterioration of the patient' s condition. The time involved in the performance of separately reportable procedures was not counted toward critical care time.
[2017-10-30 10:43] LABS: ABG Base Excess -6 mEq/L (-2 to 3); ABG HCO3 22 mEq/L (21-27); ABG Oxygen Saturation 92 % (95-98); ABG PCO2 50 mmHg (35-45); ABG PH 7.25 pH Units (7.32-7.45); ABG PO2 74 mmHg (85-104); ABG TCO2 24 mEq/L (20-26); Blood Gas Modality BiLevel; Blood Gas PEEP 8 cm H2O; Blood Gas Pressure Support 14 cm H2O
[2017-10-30] MEDS ORDERED: *HR* Atropine Sulfate 1 MG/10 ML SYRINGE IVP ONE (11:05)
[2017-10-30] MEDS ORDERED: *HR* Atropine Sulfate 1 MG/10 ML SYRINGE ONE (11:05)
[2017-10-30] MEDS ORDERED: Ipratropium/Albuterol Neb 3 ML IH PRN (11:05)
--- NOTE | 2017-10-30 11:36 | Event Note ---
<Michael Ivy - Last Filed: 10/30/17 11:10> Date of Encounter: 10/30/17 Time of Encounter: 11:10 CODE STATUS: Full discussion with POA son Obi and family regarding Theresa Moreira CODE STATUS. According to the patient's POA her son Obi she has signed a DO NOT RESUSCITATE form and she would not want compressions. At this time they are okay with intubation for short-term measures but do not want long-term intubation. Other than intubation they do not want any other resuscitation efforts or life prolonging measures. <Kandi Del Castillo - Last Filed: 10/30/17 17:22> Date of Encounter: 10/30/17 I examined this patient and my medical decision-making was reviewed with the Resident Physician. I agree with the documented findings, disposition and treatment plan as described except to the extent set forth below.
--- NOTE | 2017-10-30 12:19 | Palliative - Consult Note ---
Date of Encounter: 10/30/17 Time of Encounter: 11:00 - Assessment and Plan (1) Dyspnea Current Visit: Yes Status: Acute Assessment and plan: Acute resp distress this am - will be moving to ICU12 - try to maintain on bipap with Precedex. MOnitor. Son William CONTEH ok with short term intubation if needed. Qualifiers: Dyspnea type: shortness of breath Qualified Code(s): R06.02 - Shortness of breath; R06.00 - Dyspnea, unspecified; R06.01 - Orthopnea (2) UTI (urinary tract infection) Current Visit: Yes Status: Acute Qualifiers: Urinary tract infection type: acute cystitis Hematuria presence: without hematuria Qualified Code(s): N30.00 - Acute cystitis without hematuria (3) COPD exacerbation Current Visit: Yes Status: Acute Assessment and plan: Continues treatment - pulmonology following (4) Counseling regarding advanced care planning and goals of care Current Visit: Yes Status: Acute Assessment and plan: Patient was in acute distress at my arrival to room, has been transferred to ICU. Has developed bradycardia and receiving atropine at this time. Looks comfortable on bipap. She is with 7 living children - son William CONTEH. Dr. Ivy spoke to him via telephone - and he did arrive at hospital a short time later. He confirmed code status as DNRCCA - No CPR/defib for respiratory arrest, and ok with short term intubation for respiratory distress if needed. He did provide copies of living will and DPOA and these were copied and placed in chart. Provided emotional support to family. Palliative-CN HPI - Data of Consult Requesting Physician: Sb Navas MD Primary Care Provider: Sd Hidalgo - Consult Narrative History of present illness: Ms. Moreira is a 82 year old female with a history of COPD who was admitted after developing shortness of breath and cough at home. She is not on home oxygen. She was admitted and began on treatment for COPD exacerbation - also found to have enterobacter UTI. Other medical history includes: HTN, DM, Hypothyroidism, dementia. She was in afib , and had elevated troponin and cardiology was consulted. Echo demonstrated diastolic dysfunction and EF of 55% . Yesterday throughout the day, she had increasing hypoxia and required bipap, but according to staff, tolerated well and improved. Today when I entered room, pt is restless and agitated, trying to pull off the bipap. Daughter is at bedside, tearful, stating she had a terribly restless night. She was fighting bipap tremendously, and we Attempted off bipap with oxymask/ventimask/cannula and she continued to be greatly anxious and unable to keep oxygen saturations above high 70's low 80's. Family awaiting POA , son William to arrive. HOspitalist in room, and pt was going to be transferred to ICU 12. CC: Sb Navas MD Past Med Surg Social Fam HX - Past Medical History Medical history: COPD, dementia, hyperlipidemia, thyroid disease - Past Surgical History Surgical History: orthopedic, other - Social History Smoking Status: Never smoker Smokeless Tobacco Status: No Alcohol use: none Drug use: none Medications and Allergies Amlodipine Besylate/Benazepril [Lotrel 10-20 mg Capsule] 1 cap PO DAILY [History] Atenolol [Tenormin] 50 mg PO DAILY 10/27/17 [History] Budesonide/Formoterol 160/4.5 [Symbicort 160/4.5] 2 puff IH BID 10/27/17 [ History] Levothyroxine Sodium [Levoxyl] 50 mcg PO DAILY 10/27/17 [History] Naproxen Sodium [Aleve] 220 mg PO BID 10/27/17 [History] Potassium Chloride [K-Tab ER] 40 meq PO BID 10/27/17 [History] Simvastatin [Zocor] 20 mg PO DAILY 10/27/17 [History] glipiZIDE [Glucotrol] 5 mg PO DAILY 10/27/17 [History] 3 Allergy/AdvReac Type Severity Reaction Status Date / Time codeine Allergy Itching Verified 08/28/16 17:07 gabapentin Allergy Hallucinati Verified 08/28/16 17:07 ng lidocaine [From Lidoderm] Allergy Rash Verified 08/28/16 17:07 meperidine [From Demerol] Allergy Hallucinati Verified 08/28/16 17:07 ng Oxycodone Allergy Hallucinati Verified 08/28/16 17:07 ng ROS unobtainable: due to mental status Palliative Care-Exam - Constitutional Vitals: Temp Pulse Resp BP Pulse Ox 97.4 F L 42 35 101/46 96 10/30/17 12:05 01/05/18 11:00 10/30/17 11:00 10/30/17 11:00 10/30/17 11:00 General appearance: Present: severe distress - Head Head Exam: Present: normal inspection, normocephalic - Eye Eye exam: Present: normal appearance, PERRL - Respiratory Respiratory exam: Present: decreased breath sounds - Cardiovascular Cardiovascular exam: Present: irregular rhythm - GI/Abdominal Exam GI/Abdominal exam: Present: normal bowel sounds, soft - Extremities Exam Extremities exam: Present: normal capillary refill, normal inspection - Neurological Exam Additional comments: agitated and restless, not following commands. TERRELL - Skin Skin exam: Present: diaphoretic, warm Internal Medicine - CN: Reslt - Labs CBC & Chem 7: 10/30/17 04:01 10/30/17 04:01 Labs: Short CBC 10/29/17 10/30/17 Range/Units 14:30 04:01 WBC 26.2 H 20.0 H (4.3-11.1) K/mcL Hgb 11.0 L 11.2 L (11.5-15.4) g/dL Hct 34.7 L 36.3 (35.3-44.9) % Plt Count 428 H 378 (140-400) K/mcL Neutrophils # 25.7 H 18.0 H (1.6-8.9) K/mcL BMP 10/29/17 10/30/17 14:30 04:01 Sodium 139 138 Potassium 5.5 H 5.6 H Chloride 106 109 H Carbon Dioxide 26 22 L BUN 42 H 45 H Creatinine 1.35 H 1.20 Glucose 296 H 270 H Calcium 8.9 8.4 L Liver Function 10/29/17 10/30/17 Range/Units 14:30 04:01 Total Bilirubin 0.2 L 0.2 L (0.3-1.0) mg/dL AST 15 14 (13-39) Units/L ALT 20 16 (7-52) Units/L Alkaline Phosphatase 115 H 105 H (34-104) Units/L Albumin 2.7 L 2.6 L (3.5-5.7) g/dL - ABG Interpretation ABG results: ABG ABG pH 7.25 pH Units (7.32-7.45) L 10/30/17 10:39 ABG pCO2 50 mmHg (35-45) H 10/30/17 10:39 ABG pO2 74 mmHg (85-104) L 10/30/17 10:39 ABG O2 Saturation 92 % (95-98) L 10/30/17 10:39 PT/INR, D-dimer PT 11.4 Seconds (9.4-12.1) 10/27/17 05:18 D-Dimer 1128 ng/mLFEU (0-500) H 10/27/17 05:18 - Impressions Impressions Echocardiogram 10/28/17 09:33 Impressions: LVEF 55%. Normal LV chamber size and function. Asymmetric hypertrophy of the basal septum. Indeterminate diastolic function. Atypical septal motion consistent with bundle branch block. Normal right ventricular structure and function. Moderate mitral regurgitation. Mild pulmonary hypertension. Left Ventricular Wall Motion: Rest Echo Findings All wall segments showed normal motion. Findings: Study Quality * Technically sub-optimal due to poor echocardiographic windows. ECG Findings * Atrial fibrillation, bundle branch block. Left Ventricle * LVEF 55%. * Normal LV chamber size and function. * Asymmetric hypertrophy of the basal septum. * Indeterminate diastolic function. * Atypical septal motion consistent with bundle branch block. Right Ventricle * Normal right ventricular structure and function. Left Atrium * Moderately dilated left atrium. Right Atrium * Mildly dilated right atrium. Interatrial Septum * Interatrial septum not well evaluated. Aortic Valve * Aortic valve not well visualized. * No aortic regurgitation. * No aortic stenosis. Mitral Valve * Mild mitral annular calcification * Moderate mitral regurgitation. * No mitral stenosis. Tricuspid Valve * Normal tricuspid valve structure and function. * Trace tricuspid regurgitation. * Mild pulmonary hypertension. Pulmonic Valve * Pulmonic valve is not well visualized. * No pulmonic regurgitation. Aorta * Normally sized aortic root. Pericardium * There is a small pericardial effusion present. IVC * Normal IVC dimensions and inspiratory collapse. Pulmonary Artery * Normal visualized portions of the main pulmonary artery. Chest X-Ray 10/30/17 00:09 IMPRESSION: Increased perihilar opacities from prior imaging along with a moderate left pleural effusion and airspace changes in the left lower lung zone. Pattern may represent worsening pulmonary edema. Superimposed pneumonitis in the left lower lobe cannot be excluded. D/ / Ricardo Farias MD / Ricardo Farias MD Interpreting Provider: Ricardo Farias MD Chest X-Ray 10/30/17 08:04 IMPRESSION: Vascular congestion. Perihilar airspace disease, likely pulmonary edema. Pneumonia is a differential possibility. Left basilar pleural effusion is again noted. D/ / Kwadwo Marion MD / Kwadwo Marion MD Interpreting Provider: Kwadwo Marion MD Consult Discharge Plan - Plan Referrals: Virginia Cruz, [Primary Care Provider] - Palliative Quality Palliative Quality: Screen for Code Status: NA (awaiting POA), Screen for Goals of Care: NA, Screen for Pain: NA, If Pain Regimen Started, Initiate Bowel Regimen: NA, Screen for Nausea/Vomitting: NA Code Status: 10/30/17 11:08 Resuscitation Status: Active [RES] Routine Comment: Patient okay with intubation Resuscitation Status: DNR-Comfort Care-Arrest
--- NOTE | 2017-10-30 12:29 | Cardiology Progress Note ---
Date of Encounter: 10/30/17 Time of Encounter: 11:50 Assessment and Plan (1) Sepsis Current Visit: Yes Status: Acute Per cardiology: -Admitted with sepsis due to pneumonia, UTI. -On IV ATB. -Management per primary service. Qualifiers: Sepsis type: sepsis due to unspecified organism Qualified Code(s): A41.9 - Sepsis, unspecified organism (2) Elevated troponin I level Current Visit: Yes Status: Acute Per cardiology: -Troponin 0.1, 0.71, 0.13 in the setting of sepsis, pneumonia, a.fib RVR, UTI, mild CJ, respiratory failure. -Denies current chest pain, however states did have some chest pain this morning during the time she was "struggling to breath." -ECG with no acute ischemic changes noted. -TTE with LVEF 55%, no segmental wall motion abnormalities noted. -On therapeutic lovenox. -On asa, statin. Beta meng now held due to bradycardia. -Do not suspect NSTEMI, suspect demand ischemia related to above. No cardiac rehab warranted. -Of note, family have changed patient's code status to DNR-CCA. Patient and family do not want CPR. Palliative care consulted. (3) Atrial fibrillation Current Visit: Yes Status: Acute Per cardiology: -New A.flutter/fib. Had previously been tachycardic, however this morning was bradycardic with HRs 40s. -TTE with LVEF 55%, moderate MR, mild PH, no segmental wall motion abnormalities noted. -Jfkav6cted score 5 (age, gender, HTN, DM). 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 Discussed with daughters and at bedside who agree with no anticoagulation. -Denies palpitations or fluttering. - updated on bradycardia this morning and AV narayan blockers being held due to bradycardia. Per discussion with , will start amiodarone drip now. -Will continue to monitor. Qualifiers: Atrial fibrillation type: unspecified Qualified Code(s): I48.91 - Unspecified atrial fibrillation Discussion w patient/family: The assessment and plan as outlined above was discussed with the patient and/or family members who expressed understanding and agreement. All questions were answered. Thank you for involving us in the care of your patient. Please call with any questions. Discussed and reviewed with . Subjective Principal diagnosis: pneumonia, COPD exacerbation, a.flutter Interval history: Patient seen and examined in ICU. Patient currently on Bipap. Patient's eyes closed upon entering room, awakens easily to verbal stimuli. Patient denies current chest pain, however states she had some chest pain when she was "struggling to breath." Family at bedside. Objective Vital Signs, Last 4 Hours Temp Pulse Resp BP Pulse Ox 10/30/17 12:10 74 22 99/49 100 10/30/17 12:05 97.4 F L 10/30/17 11:00 97.4 F L 42 35 101/46 96 General: Other (On Bipap, responds to verbal stimuli. ) HEENT: Atraumatic, Normocephaly, Mucus Membranes Moist Neck: No JVD, Normal carotid pulses Cardiac: Normal S1 and S2, No Murmur, Other (Irregularly irregular) Lungs: Other (Crackles noted to bilateral lung bases. ) Neuro: Alert and responsive, Other (Oriented to person and place. ) Abdomen: Soft, Non-Tender Skin: No rashes noted on visualized skin Musculoskeletal: No Chest Wall Tenderness Extremities: No Clubbing, No Cyanosis, No Edema, Normal Pulses Results 10/30/17 04:01 10/30/17 04:01 Lab Results Impressions Echocardiogram 10/28/17 09:33 Impressions: LVEF 55%. Normal LV chamber size and function. Asymmetric hypertrophy of the basal septum. Indeterminate diastolic function. Atypical septal motion consistent with bundle branch block. Normal right ventricular structure and function. Moderate mitral regurgitation. Mild pulmonary hypertension. Left Ventricular Wall Motion: Rest Echo Findings All wall segments showed normal motion. Findings: Study Quality * Technically sub-optimal due to poor echocardiographic windows. ECG Findings * Atrial fibrillation, bundle branch block. Left Ventricle * LVEF 55%. * Normal LV chamber size and function. * Asymmetric hypertrophy of the basal septum. * Indeterminate diastolic function. * Atypical septal motion consistent with bundle branch block. Right Ventricle * Normal right ventricular structure and function. Left Atrium * Moderately dilated left atrium. Right Atrium * Mildly dilated right atrium. Interatrial Septum * Interatrial septum not well evaluated. Aortic Valve * Aortic valve not well visualized. * No aortic regurgitation. * No aortic stenosis. Mitral Valve * Mild mitral annular calcification * Moderate mitral regurgitation. * No mitral stenosis. Tricuspid Valve * Normal tricuspid valve structure and function. * Trace tricuspid regurgitation. * Mild pulmonary hypertension. Pulmonic Valve * Pulmonic valve is not well visualized. * No pulmonic regurgitation. Aorta * Normally sized aortic root. Pericardium * There is a small pericardial effusion present. IVC * Normal IVC dimensions and inspiratory collapse. Pulmonary Artery * Normal visualized portions of the main pulmonary artery. Chest X-Ray 10/30/17 00:09 IMPRESSION: Increased perihilar opacities from prior imaging along with a moderate left pleural effusion and airspace changes in the left lower lung zone. Pattern may represent worsening pulmonary edema. Superimposed pneumonitis in the left lower lobe cannot be excluded. D/ / Ricardo Farias MD / Ricardo Farias MD Interpreting Provider: Ricardo Farias MD Chest X-Ray 10/30/17 08:04 IMPRESSION: Vascular congestion. Perihilar airspace disease, likely pulmonary edema. Pneumonia is a differential possibility. Left basilar pleural effusion is again noted. D/ / Kwadwo Marion MD / Kwadwo Marion MD Interpreting Provider: Kwadwo Marion MD Active Medications Acetaminophen (Tylenol) 650 mg PO Q6HR PRN PRN Reason: Mild Pain (1-3) Stop: 04/28/18 06:28 Albuterol/Ipratropium (Duoneb) 3 ml IH [id number] ALECIA Stop: 04/28/18 12:01 Last Admin: 10/30/17 11:43 Dose: Not Given Albuterol/Ipratropium (Duoneb) 3 ml IH [id number] PRN; Protocol PRN Reason: Shortness Of Breath/Wheezing Stop: 05/01/18 11:06 Last Admin: 10/30/17 11:09 Dose: 3 ml Alprazolam (Xanax) 0.25 mg PO TID PRN; Protocol PRN Reason: Anxiety Stop: 04/29/18 22:15 Last Admin: 10/30/17 08:32 Dose: 0.25 mg Aspirin (Aspirin Ec) 81 mg PO DAILY [facility] Stop: 04/29/18 13:16 Last Admin: 10/30/17 08:32 Dose: 81 mg Atorvastatin Calcium (Lipitor) 80 mg PO HS [facility] Stop: 04/29/18 21:01 Last Admin: 10/29/17 20:38 Dose: 80 mg Budesonide/Formoterol Fumarate (Symbicort) 2 puff IH BIDR ALECIA PRN Reason: Protocol Stop: 04/30/18 22:01 Last Admin: 10/30/17 07:41 Dose: Not Given Dextrose/Water (Dextrose 50% (Syg)) 25 ml IVP AD PRN PRN Reason: Hypoglycemia Stop: 04/28/18 09:57 Enoxaparin Sodium (Lovenox) 60 mg 1 mg/kg (60 mg) SQ Q12HR [facility] PRN Reason: Protocol Stop: 04/29/18 18:01 Last Admin: 10/30/17 06:12 Dose: 60 mg Glucagon (Glucagen) 1 mg IM ONCE PRN PRN Reason: Hypoglycemia Stop: 04/28/18 09:57 Glucose (Gluctose) 15 gm PO ONCE PRN PRN Reason: Hypoglycemia Stop: 04/28/18 09:57 Glucose (Gluctose) 30 gm PO ONCE PRN PRN Reason: Hypoglycemia Stop: 04/28/18 09:57 Ceftriaxone Sodium 1,000 mg/ (Sterile Water) 10 mls @ 300 mls/hr IVP DAILY ALECIA Stop: 04/29/18 09:01 Last Admin: 10/30/17 08:33 Dose: 300 mls/hr Azithromycin 500 mg/ Dextrose 250 mls @ 252 mls/hr IVPB Q24H [facility] Stop: 04/28/18 10:01 Last Admin: 10/30/17 08:33 Dose: 252 mls/hr Dextrose (Dextrose 5%) 1,000 mls @ 100 mls/hr IVC .Q10H PRN PRN Reason: HYPOGLYCEMIA Stop: 04/28/18 09:57 Diltiazem HCl 100 mg/ Dextrose 50 mls @ 2.5 mls/hr IVC .Q20H ALECIA; 5 MG/HR PRN Reason: Protocol Stop: 04/30/18 23:46 Last Titration: 10/30/17 07:40 Dose: 2.5 mg/hr, 1.25 mls/hr Dexmedetomidine HCl (Precedex Premix) 400 mcg in 100 mls @ 3.225 mls/hr IVC .Q24H ALECIA; 0.2 MCG/KG/HR PRN Reason: Protocol Stop: 05/01/18 10:46 Dopamine HCl/Dextrose (Dopamine Premix 400mg/250ml) 400 mg in 250 mls @ 6.047 mls/hr IVC .Q24H ALECIA; 2.5 MCG/KG/MIN PRN Reason: Protocol Stop: 05/01/18 11:16 Last Admin: 10/30/17 11:27 Dose: 5 mcg/kg/min, 12.094 mls/hr Amiodarone HCl/Dextrose (Amiodarone Drip Premix 360mg/200ml) 360 mg in 200 mls @ 33.333 mls/hr IVC ONCE ONE PRN Reason: 1 MG/MIN Stop: 10/30/17 18:31 Amiodarone HCl/Dextrose (Amiodarone Drip Premix 360mg/200ml) 360 mg in 200 mls @ 16.667 mls/hr IVC CONT ALECIA PRN Reason: 0.5 MG/MIN Stop: 05/01/18 12:46 Insulin Human Lispro (Humalog) 0 units SQ TIDAC ALECIA PRN Reason: Protocol Stop: 04/28/18 11:31 Last Admin: 10/30/17 11:36 Dose: 12 units Insulin Human Lispro (Humalog) 0 units SQ HS ALECIA PRN Reason: Protocol Stop: 04/28/18 21:01 Last Admin: 10/29/17 20:37 Dose: 4 units Levothyroxine Sodium (Synthroid) 50 mcg PO DAILY@0630 [facility] Stop: 04/29/18 06:31 Last Admin: 10/30/17 06:13 Dose: 50 mcg Methylprednisolone (Solu-Medrol) 40 mg IVP Q8HR [facility] Stop: 04/28/18 16:01 Last Admin: 10/30/17 08:32 Dose: 40 mg Naloxone HCl (Narcan) 0.4 mg IVP Q2MIN PRN PRN Reason: Opioid Reversal Stop: 04/28/18 06:28 Naloxone HCl (Narcan) 0.4 mg IVP Q2MIN PRN PRN Reason: Opioid Reversal Stop: 04/28/18 09:54 Laboratory Tests 10/27/17 10/27/17 10/28/17 05:18 05:18 13:35 WBC 23.0 H Hgb ABG pH ABG pCO2 ABG pO2 Potassium Creatinine Troponin I 0.10 H* 0.71 H* B-Natriuretic Peptide 10/29/17 10/30/17 10/30/17 04:02 04:01 04:01 WBC 20.0 H Hgb 11.2 L ABG pH ABG pCO2 ABG pO2 Potassium 5.6 H Creatinine 1.20 Troponin I 0.13 H* B-Natriuretic Peptide 10/30/17 10/30/17 04:01 10:39 WBC Hgb ABG pH 7.25 L ABG pCO2 50 H ABG pO2 74 L Potassium Creatinine Troponin I B-Natriuretic Peptide 612 H - Imaging and Cardiology Chest Xray: report reviewed Echo: report reviewed - EKG Interpretation EKG results cardiology: other (Telemetry reviewed with HR 50-60s currently atrial flutter with slow ventricular response. Episode of bradycardia noted with HRs 40s. PVCs noted.) Consult Discharge Plan - Plan Referrals: Virginia Cruz DO [Primary Care Provider] -
[2017-10-30] MEDS ORDERED: Amiodarone Premix 360 MG/200 ML BAG IVC ONE (12:32)
[2017-10-30] MEDS ORDERED: Amiodarone Premix 150 MG/100 ML BAG IVPB ONE (15:36)
[2017-10-30] MEDS: Dexmedetomidine HCl 400 MCG/100 ML MLS IVC SCH (20:20)
[2017-10-30] MEDS: *HR* Amiodarone 200 MG TABLET PO SCH (20:40)
[2017-10-30] MEDS: Amiodarone Premix 360 MG/200 ML BAG IVC SCH (21:38)
[2017-10-31] MEDS: Dexmedetomidine HCl 400 MCG/100 ML MLS IVC SCH (00:33)
[2017-10-31] MEDS: Ipratropium/Albuterol Neb 3 ML IH SCH ×6 (04:11→23:57)
[2017-10-31 04:25] LABS: Basophils # 0.1 K/mcL (0.0-0.2); Basophils % 0.4 %; Hematocrit 35.9 % (35.3-44.9); Hemoglobin 11.5 g/dL (11.5-15.4); Lymphocytes # 0.9 K/mcL (0.6-4.6); Lymphocytes % 3.7 %; Mean Corpuscular Hemoglobin 29.9 pg (28.0-33.3); Mean Corpuscular Volume 93.5 fL (83.0-100.0); Mean Platelet Volume 10.7 fL (9.4-12.4); Monocytes # 0.6 K/mcL (0.0-1.3); Monocytes % 2.7 %; Neutrophils # 20.6 K/mcL (1.6-8.9); Platelet Count 389 K/mcL (140-400); Red Blood Count 3.84 M/mcL (3.82-4.97); Red Cell Distribution Width 13.6 % (11.5-14.5); Segmented Neutrophils % 88.2 %
[2017-10-31 05:05] LABS: Albumin 2.7 g/dL (3.5-5.7); Bilirubin,Total 0.2 mg/dL (0.3-1.0); Calcium 8.5 mg/dL (8.6-10.3); Globulin 2.8 g/dL (2.4-3.5); Potassium 4.9 mEq/L (3.5-5.1); Total Protein 5.5 g/dL (6.4-8.9)
[2017-10-31] MEDS: *HR* Enoxaparin 60 MG/0.6 ML SYRINGE SQ SCH ×2 (06:00→18:21)
[2017-10-31] MEDS: Budesonide/Formoterol 160/4.5 MDI IH SCH ×2 (08:05→19:55)
[2017-10-31] MEDS: MethylPREDNISolone 40 MG/ML VIAL IVP SCH ×3 (08:10→23:22)
[2017-10-31] MEDS: Aspirin Enteric Coated 81 MG Tablet PO SCH (08:10)
[2017-10-31] MEDS: cefTRIAXone 1,000 MG in Water for inj. (sterile) 20 ML 10 ML IVP SCH (08:10)
[2017-10-31] MEDS: *HR* Amiodarone 200 MG TABLET PO SCH ×2 (08:10→19:55)
--- NOTE | 2017-10-31 08:15 | Pulmonology Progress Note ---
<Yuri Copeland - Last Filed: 10/31/17 08:34> Date of Encounter: 10/31/17 Time of Encounter: 08:15 Assessment and Plan (1) COPD exacerbation Current Visit: Yes Status: Acute Patient with hx of COPD not on home oxygen Likely 2/2 to PNA Patient started on solumedrol 40mg IV Q8H, ceftriaxone, azithromycin, and scheduled duonebs. Patient became SOB and dropped her oxygen saturation to the 70s after standing up and using the bathroom twice within a short period of time. Patient required BiPAP. Patient anxious on biPAP but tolerated after Xanax. Patient able to be taken off biPAP and sating well on 4L NC on exam yesterday Patient started on home symbicort yesterdayday patient's sats dropped to the 70s again and nursing had issues keeping biPAP on. Patient transferred to ICU for continuous biPAP Today patient off BiPAP tolerating 5L NC. latest AB.25/50/74/22/92/-6 Plan: continue Abx, duonebs, steroids, symbicort continue to monitor (2) Sepsis Current Visit: Yes Status: Acute Patient met sepsis criteria based on tachycardia, tachypnea, and likely PNA and a UTI Likely 2/2 PNA possibly 2/2 to UTI Patient started on azithromycin and ceftriaxone. Bcx NGTD Ucx positive for enterobacter flu swab negative Plan: continue abx Qualifiers: Sepsis type: sepsis due to unspecified organism Qualified Code(s): A41.9 - Sepsis, unspecified organism (3) Left lower lobe pneumonia Current Visit: Yes Status: Acute CXR 1/2 showed: " Cardiomegaly with ground-glass opacification in the left lower lung zone. Pattern may represent asymmetric edema or developing pneumonitis." Patient started on azithromycn and ceftriaxone both day 4 Bcx NGTD flu negative Plan: continue abx Qualifiers: Pneumonia type: due to unspecified organism Qualified Code(s): J18.1 - Lobar pneumonia, unspecified organism (4) Diastolic CHF, acute on chronic Current Visit: Yes Status: Acute Patient with elements of CHF complicating COPD exacerbation. ECHO: "LVEF 55%. Normal LV chamber size and function. Asymmetric hypertrophy of the basal septum. Indeterminate diastolic function. Atypical septal motion consistent with bundle branch block. Normal right ventricular structure and function. Moderate mitral regurgitation. Mild pulmonary hypertension." BNP 612 Patient with crackles on exam patient given a total of 80mg of Lasix IV today Plan: Cr elevated 2/2 diuresis hold off on further diuresis for now. continue to monitor. (5) UTI (urinary tract infection) Current Visit: Yes Status: Acute Urine positive for Enterobacter aerogenes Sensitive to Ceftriaxone Ceftriaxone day 5 Plan: continue abx Qualifiers: Urinary tract infection type: acute cystitis Hematuria presence: without hematuria Qualified Code(s): N30.00 - Acute cystitis without hematuria (6) Bradycardia Current Visit: Yes Status: Acute Patient became acutely bradycardic to the 30s after transfer to the ICU Patient received 0.5mg Atropine. Patient started on Dopamine drip. HR 60-95 over last 12 hours BP: 126-93/83-41 Plan: continue dopamine drip as needed Cardiology on board appreciate recommendations. (7) Atrial fibrillation Current Visit: Yes Status: Acute New onset a fib/a flutter cardiology is on board patient started on cardiazem drip, metoprolol cardiazem and metoprolol stopped 2/2 bradycardia plan: Cardiology started patient on amiodarone drip for rhythm control to correct sick sinus syndrome they are aware of patient's bradycardia. defer to cardiology and appreciate any recommendations. Qualifiers: Atrial fibrillation type: unspecified Qualified Code(s): I48.91 - Unspecified atrial fibrillation (8) Elevated troponin I level Current Visit: Yes Status: Acute Likely 2/2 demand ischemia Trops: 0.1, 0.71, 0.13 Cardiology on board EKG with no acute ischemic changes Echo performed with showed perserved EF which appears unchanged from prior. on lovenox, asa, statin bb stopped 2/2 bradycardia Plan: continue to hold BB due to bradycardia Defer to Cardiology aprreciate any recs (9) DVT prophylaxis Current Visit: Yes Status: Acute Pt currently on Lovenox Plan: continue Lovenox Subjective Principal diagnosis: pneumonia, COPD exacerbation, a.flutter Interval history: Patient is off BiPAP this morning. Patient responsive and eating breakfast interacting with family. Appears a baseline per family. Patient still on dopamine drip for blood pressure. Patient on amiodarone for rhythm control. Currently still in a flutter, but patient feels fine. Objective PUL Vital signs: Last Vital Signs Temp 98.3 F 10/31/17 04:45 Pulse 70 10/31/17 07:45 Resp 16 10/31/17 08:06 BP 117/48 10/31/17 07:45 Pulse Ox 99 10/31/17 08:06 General appearance: no acute distress Eyes: nonicteric ENT: oropharynx moist Neck: supple Effort: mildly labored Auscultation: bilateral: diminished breath sounds, wheezes Cardiovascular: irregular rhythm Gastrointestinal: normoactive bowel sounds, soft, non-tender, non-distended Integumentary: normal Extremities: no cyanosis, no edema Musculoskeletal: no deformities normal mental status (patient at baseline, confused 2/2 dementia), non-focal exam mood appropriate, affect normal Results - Laboratory Findings CBC and BMP: 10/31/17 03:53 10/31/17 03:53 ABG ABG pH 7.25 pH Units (7.32-7.45) L 10/30/17 10:39 ABG pCO2 50 mmHg (35-45) H 10/30/17 10:39 ABG pO2 74 mmHg (85-104) L 10/30/17 10:39 ABG O2 Saturation 92 % (95-98) L 10/30/17 10:39 PT/INR, D-dimer PT 11.4 Seconds (9.4-12.1) 10/27/17 05:18 D-Dimer 1128 ng/mLFEU (0-500) H 10/27/17 05:18 Abnormal lab findings: Abnormal lab results WBC 23.4 K/mcL (4.3-11.1) H 10/31/17 03:53 Immature Gran % 5.0 % (0-4) H 10/31/17 03:53 Neutrophils # 20.6 K/mcL (1.6-8.9) H 10/31/17 03:53 Hypersegmented Neuts Present (Not Present) A 10/29/17 14:30 APTT 24.6 Seconds (26.0-36.0) L 10/27/17 05:18 D-Dimer 1128 ng/mLFEU (0-500) H 10/27/17 05:18 ABG pH 7.25 pH Units (7.32-7.45) L 10/30/17 10:39 ABG pCO2 50 mmHg (35-45) H 10/30/17 10:39 ABG pO2 74 mmHg (85-104) L 10/30/17 10:39 ABG O2 Saturation 92 % (95-98) L 10/30/17 10:39 ABG Base Excess -6 mEq/L (-2 to 3) L 10/30/17 10:39 BUN 59 mg/dL (8-23) H 10/31/17 03:53 Creatinine 1.76 mg/dL (0.60-1.20) H 10/31/17 03:53 Est GFR ( Amer) 34 (> 60) L 10/31/17 03:53 Est GFR (Non-Af Amer) 28 (> 60) L 10/31/17 03:53 BUN/Creatinine Ratio 34 (6-26) H 10/31/17 03:53 Glucose 209 mg/dL (70-105) H 10/31/17 03:53 POC Glucose 213 (58-89) H 10/30/17 20:42 Calculated Osmolality 309 (280-300) H 10/31/17 03:53 Calcium 8.5 mg/dL (8.6-10.3) L 10/31/17 03:53 Total Bilirubin 0.2 mg/dL (0.3-1.0) L 10/31/17 03:53 AST 11 Units/L (13-39) L 10/31/17 03:53 Troponin I 0.13 ng/mL (< 0.04) H* 10/29/17 04:02 B-Natriuretic Peptide 612 pg/mL (Less than 100) H 10/30/17 04:01 Serum Total Protein 5.5 g/dL (6.4-8.9) L 10/31/17 03:53 Albumin 2.7 g/dL (3.5-5.7) L 10/31/17 03:53 Albumin/Globulin Ratio 1.0 (1.1-2.2) L 10/31/17 03:53 Urine Clarity Turbid (Clear) A 10/27/17 05:22 Urine Protein 30 mg/dL (Neg-Trace) H 10/27/17 05:22 Urine Glucose (UA) >=1000 mg/dL (Normal) H 10/27/17 05:22 Urine Blood Moderate (Negative) H 10/27/17 05:22 Urine Nitrite Positive (Negative) A 10/27/17 05:22 Ur Leukocyte Esterase Large (Negative) H 10/27/17 05:22 Urine Microscopic RBC 5-15 per hpf (0-3) H 10/27/17 05:22 Urine Microscopic WBC TNTC per hpf (0-3) H 10/27/17 05:22 Ur Squamous Epith Cells Many per lpf (None-Few) H 10/27/17 05:22 Urine Bacteria Many per hpf (None-Few) H 10/27/17 05:22 - Microbiology Findings Microbiology Findings: Microbiology, Last 48 Hours 10/30/17 18:10 Influenza Types A,B Antigen (BALBIR) - Final Nasopharyngeal - Clinical Findings Intake & Output: Intake & Output 10/30/17 10/31/17 10/31/17 23:59 07:59 15:59 Intake Total 440 / 440 78 / 78 Output Total 375 / 375 150 / 150 Balance 65 / 65 -72 / -72 Consult Discharge Plan - Plan Referrals: Virginia Cruz, [Primary Care Provider] - <Kandi Del Castillo - Last Filed: 10/31/17 09:26> Date of Encounter: 10/31/17 Objective PUL Vital signs: Last Vital Signs Temp 98.3 F 10/31/17 04:45 Pulse 70 10/31/17 07:45 Resp 16 10/31/17 08:06 BP 117/48 10/31/17 07:45 Pulse Ox 99 10/31/17 08:06 Results - Laboratory Findings CBC and BMP: 10/31/17 03:53 10/31/17 03:53 ABG ABG pH 7.25 pH Units (7.32-7.45) L 10/30/17 10:39 ABG pCO2 50 mmHg (35-45) H 10/30/17 10:39 ABG pO2 74 mmHg (85-104) L 10/30/17 10:39 ABG O2 Saturation 92 % (95-98) L 10/30/17 10:39 PT/INR, D-dimer PT 11.4 Seconds (9.4-12.1) 10/27/17 05:18 D-Dimer 1128 ng/mLFEU (0-500) H 10/27/17 05:18 Abnormal lab findings: Abnormal lab results WBC 23.4 K/mcL (4.3-11.1) H 10/31/17 03:53 Immature Gran % 5.0 % (0-4) H 10/31/17 03:53 Neutrophils # 20.6 K/mcL (1.6-8.9) H 10/31/17 03:53 Hypersegmented Neuts Present (Not Present) A 10/29/17 14:30 APTT 24.6 Seconds (26.0-36.0) L 10/27/17 05:18 D-Dimer 1128 ng/mLFEU (0-500) H 10/27/17 05:18 ABG pH 7.25 pH Units (7.32-7.45) L 10/30/17 10:39 ABG pCO2 50 mmHg (35-45) H 10/30/17 10:39 ABG pO2 74 mmHg (85-104) L 10/30/17 10:39 ABG O2 Saturation 92 % (95-98) L 10/30/17 10:39 ABG Base Excess -6 mEq/L (-2 to 3) L 10/30/17 10:39 BUN 59 mg/dL (8-23) H 10/31/17 03:53 Creatinine 1.76 mg/dL (0.60-1.20) H 10/31/17 03:53 Est GFR ( Amer) 34 (> 60) L 10/31/17 03:53 Est GFR (Non-Af Amer) 28 (> 60) L 10/31/17 03:53 BUN/Creatinine Ratio 34 (6-26) H 10/31/17 03:53 Glucose 209 mg/dL (70-105) H 10/31/17 03:53 POC Glucose 213 (58-89) H 10/30/17 20:42 Calculated Osmolality 309 (280-300) H 10/31/17 03:53 Calcium 8.5 mg/dL (8.6-10.3) L 10/31/17 03:53 Total Bilirubin 0.2 mg/dL (0.3-1.0) L 10/31/17 03:53 AST 11 Units/L (13-39) L 10/31/17 03:53 Troponin I 0.13 ng/mL (< 0.04) H* 10/29/17 04:02 B-Natriuretic Peptide 612 pg/mL (Less than 100) H 10/30/17 04:01 Serum Total Protein 5.5 g/dL (6.4-8.9) L 10/31/17 03:53 Albumin 2.7 g/dL (3.5-5.7) L 10/31/17 03:53 Albumin/Globulin Ratio 1.0 (1.1-2.2) L 10/31/17 03:53 Urine Clarity Turbid (Clear) A 10/27/17 05:22 Urine Protein 30 mg/dL (Neg-Trace) H 10/27/17 05:22 Urine Glucose (UA) >=1000 mg/dL (Normal) H 10/27/17 05:22 Urine Blood Moderate (Negative) H 10/27/17 05:22 Urine Nitrite Positive (Negative) A 10/27/17 05:22 Ur Leukocyte Esterase Large (Negative) H 10/27/17 05:22 Urine Microscopic RBC 5-15 per hpf (0-3) H 10/27/17 05:22 Urine Microscopic WBC TNTC per hpf (0-3) H 10/27/17 05:22 Ur Squamous Epith Cells Many per lpf (None-Few) H 10/27/17 05:22 Urine Bacteria Many per hpf (None-Few) H 10/27/17 05:22 - Microbiology Findings Microbiology Findings: Microbiology, Last 48 Hours 10/30/17 18:10 Influenza Types A,B Antigen (BALBIR) - Final Nasopharyngeal - Clinical Findings Intake & Output: Intake & Output 10/30/17 10/31/17 10/31/17 23:59 07:59 15:59 Intake Total 440 / 440 78 / 78 278 / 278 Output Total 375 / 375 150 / 150 Balance 65 / 65 -72 / -72 278 / 278 - Attending Attestation I examined this patient and my medical decision-making was reviewed with the Resident Physician. I agree with the documented findings, disposition and treatment plan as described except to the extent set forth below. Patient seen and examined. Labs, radiology, chart personally reviewed. 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 BiPAP when necessary. Cardiovascular: Patient is still requiring dopamine for the heart rate and also blood pressure. Cardiology is following, and will defer management of her cardiac arrhythmias to the cardiology team GI: Nutrition per dietary and GI prophylaxis per routine Heme: DVT prophylaxis per routine patient is on anticoagulation ID: Continue antibiotics and plan to de-escalation Renal; urine out put and renal funtion reviewed Endorcine: blood glucose is monitored Lines: all lines checked and no evidence of infections Skin: skin care to prevent pressure ulcers per nursing routine care Discussed with the family at the bedside.
[2017-10-31] MEDS: Amiodarone Premix 360 MG/200 ML BAG IVC SCH (08:28)
--- NOTE | 2017-10-31 08:48 | Cardiology Progress Note ---
Date of Encounter: 10/31/17 Time of Encounter: 08:47 Assessment and Plan (1) Tachy-javi syndrome Current Visit: Yes Status: Acute Continue amiodarone PO/IV. Therapeutic lovenox Q12 hour. Depending on clinical status, possible ZACK/DCCV Thursday depending on respiratory status. (2) Atrial fibrillation Current Visit: Yes Status: Acute Per cardiology: -Afib/flutter. HR 70-90. Continue amiodarone. -TTE with LVEF 55%, moderate MR, mild PH, no segmental wall motion abnormalities noted. -[id number] score 5 (age, gender, HTN, DM). Currently on therpeutic lovenox, however patient is not a good candidate for retirement anticoagulation due to baseline dementia and frequent falls. Discussed with daughters and at bedside who agree with no anticoagulation. Qualifiers: Atrial fibrillation type: unspecified Qualified Code(s): I48.91 - Unspecified atrial fibrillation (3) Diastolic CHF, acute on chronic Current Visit: Yes Status: Acute Mild pulmonary edema on CXR sp Lasix yesterday. Renal function now back at baseline compared to 2016 and 2017 bloodwork. Hold on lasix today. (4) CKD (chronic kidney disease) stage 3, GFR 30-59 ml/min Current Visit: Yes Status: Acute Appears to be at baseline renal function compared to 2016 and 2017. Discussion w patient/family: The assessment and plan as outlined above was discussed with the patient and/or family members who expressed understanding and agreement. All questions were answered. Thank you for involving us in the care of your patient. Please call with any questions. Subjective Principal diagnosis: pneumonia, COPD exacerbation, atrial fibrillation Interval history: No issues overnight. Back on NC. HR 70-90s. Objective Vital Signs, Last 4 Hours Pulse Resp BP Pulse Ox 10/31/17 08:06 16 99 10/31/17 07:45 70 93 117/48 94 10/31/17 06:00 80 28 126/51 99 10/31/17 05:00 84 26 125/57 99 General: Conversant HEENT: Atraumatic Neck: No JVD Cardiac: Other (irr irr) Lungs: Other (bibasilar crackles. scattered wheezes) Neuro: No focal deficits noted, Other (sleeping, but awakens and appropriate) Abdomen: Soft Skin: No rashes noted on visualized skin Musculoskeletal: No Chest Wall Tenderness Extremities: No Edema Results 10/31/17 03:53 10/31/17 03:53 Lab Results 10/31/17 10/31/17 03:53 03:53 WBC 23.4 H Hgb 11.5 Hct 35.9 Plt Count 389 Sodium 138 Potassium 4.9 Chloride 105 Carbon Dioxide 25 BUN 59 H Creatinine 1.76 H Glucose 209 H Calcium 8.5 L Total Bilirubin 0.2 L AST 11 L ALT 18 Alkaline Phosphatase 96 Consult Discharge Plan - Plan Referrals: Virginia Cruz DO [Primary Care Provider] -
[2017-10-31 10:50] LABS: ABG Base Excess -2 mEq/L (-2 to 3); ABG HCO3 25 mEq/L (21-27); ABG Oxygen Saturation 92 % (95-98); ABG PCO2 48 mmHg (35-45); ABG PH 7.32 pH Units (7.32-7.45); ABG PO2 69 mmHg (85-104); ABG TCO2 26 mEq/L (20-26)
[2017-10-31] MEDS: ALPRAZolam 0.25 MG TABLET PO PRN (11:47)
[2017-10-31] MEDS: Azithromycin 500 MG in D5% in Water 250 ML IVPB SCH (11:48)
[2017-10-31] MEDS: Insulin LISPRO 300 UNITS/3 ML VIAL SQ SCH ×3 (11:49→18:17)
[2017-10-31] MEDS ORDERED: Amiodarone Premix 360 MG/200 ML BAG IVC ONE (20:01)
[2017-10-31] MEDS ORDERED: Insulin LISPRO 300 UNITS/3 ML VIAL SQ SCH (21:00)
[2017-11-01] MEDS: ALPRAZolam 0.25 MG TABLET PO PRN (00:34)
[2017-11-01 03:33] LABS: Basophils % 0.2 %; Lymphocytes % 1.6 %; Red Cell Distribution Width 13.2 % (11.5-14.5)
[2017-11-01 03:35] LABS: Basophils # 0.1 K/mcL (0.0-0.2); Hematocrit 35.3 % (35.3-44.9); Hemoglobin 11.4 g/dL (11.5-15.4); Immature Granulocytes % 2.8 % (0-4); Lymphocytes # 0.5 K/mcL (0.6-4.6); Mean Corpuscular HGB Conc 32.3 g/dL (31.6-35.5); Mean Corpuscular Hemoglobin 29.7 pg (28.0-33.3); Mean Corpuscular Volume 91.9 fL (83.0-100.0); Mean Platelet Volume 10.7 fL (9.4-12.4); Monocytes # 0.6 K/mcL (0.0-1.3); Neutrophils # 27.2 K/mcL (1.6-8.9); Platelet Count 375 K/mcL (140-400); Red Blood Count 3.84 M/mcL (3.82-4.97); Segmented Neutrophils % 93.4 %
[2017-11-01] MEDS: Ipratropium/Albuterol Neb 3 ML IH SCH ×6 (03:57→23:34)
[2017-11-01 03:58] LABS: Calcium 8.3 mg/dL (8.6-10.3); Potassium 4.6 mEq/L (3.5-5.1)
[2017-11-01 04:04] LABS: ABG Base Excess 3 mEq/L (-2 to 3); ABG HCO3 29 mEq/L (21-27); ABG Oxygen Saturation 90 % (95-98); ABG PCO2 50 mmHg (35-45); ABG PH 7.38 pH Units (7.32-7.45); ABG PO2 61 mmHg (85-104); ABG TCO2 31 mEq/L (20-26)
[2017-11-01 04:14] LABS: Platelet Estimate Normal (Normal)
[2017-11-01] MEDS: *HR* Enoxaparin 60 MG/0.6 ML SYRINGE SQ SCH (05:34)
--- NOTE | 2017-11-01 07:21 | Cardiology Progress Note ---
Date of Encounter: 11/01/17 Time of Encounter: 07:30 Assessment and Plan (1) Tachy-javi syndrome Current Visit: Yes Status: Acute Continue amiodarone PO. Therapeutic lovenox. Depending on further assessment this week, will consider possible ZACK/DCCV depending on respiratory status. (2) Atrial fibrillation Current Visit: Yes Status: Acute Per cardiology: -Afib/flutter. HR 70-90. Continue amiodarone. -TTE with LVEF 55%, moderate MR, mild PH, no segmental wall motion abnormalities noted. -[id number] score 5 (age, gender, HTN, DM). Currently on therpeutic lovenox, however patient is not a good candidate for method consultant anticoagulation due to baseline dementia and frequent falls. Discussed with daughters and at bedside who agree with no anticoagulation. Qualifiers: Atrial fibrillation type: unspecified Qualified Code(s): I48.91 - Unspecified atrial fibrillation (3) Diastolic CHF, acute on chronic Current Visit: Yes Status: Acute Mild pulmonary edema on CXR sp Lasix yesterday. Renal function worse than baseline compared to 2016 and 2017 bloodwork. Hold on lasix today, UOP has improved (4) CKD (chronic kidney disease) stage 3, GFR 30-59 ml/min Current Visit: Yes Status: Acute Appears to be at baseline renal function compared to 2016 and 2017. Discussion w patient/family: The assessment and plan as outlined above was discussed with the patient and/or family members who expressed understanding and agreement. All questions were answered. Thank you for involving us in the care of your patient. Please call with any questions. Subjective Principal diagnosis: pneumonia, COPD exacerbation, atrial fibrillation Interval history: No issues overnight, sleeps during day and awake at night. HR 70-80s. Urine output has improved. Objective Vital Signs, Last 4 Hours Temp Pulse Resp BP Pulse Ox 11/01/17 06:30 95 16 110/68 91 11/01/17 05:30 101 22 112/82 91 11/01/17 04:00 92 18 102/59 92 11/01/17 03:57 15 116/69 91 11/01/17 03:22 97.8 F General: Conversant HEENT: Atraumatic Neck: No JVD Cardiac: Other (irr irr s1 s2) Lungs: Other (bl wheezes) Neuro: Alert and responsive Abdomen: Soft Skin: No rashes noted on visualized skin Musculoskeletal: No Chest Wall Tenderness Extremities: No Edema Results 11/01/17 03:18 11/01/17 03:18 Lab Results 11/01/17 11/01/17 03:18 03:18 WBC 29.1 H Hgb 11.4 L Hct 35.3 Plt Count 375 Sodium 133 L Potassium 4.6 Chloride 98 Carbon Dioxide 26 BUN 69 H Creatinine 1.97 H Glucose 350 H Calcium 8.3 L Consult Discharge Plan - Plan Referrals: Virginia Cruz DO [Primary Care Provider] -
[2017-11-01] MEDS: Budesonide/Formoterol 160/4.5 MDI IH SCH ×2 (07:38→20:07)
[2017-11-01 08:05] LABS: INR 1.1; Prothrombin Time 12.1 Seconds (9.4-12.1)
[2017-11-01 08:08] LABS: Activated Partial Thrombo Time 32.1 Seconds (26.0-36.0)
[2017-11-01] MEDS: *HR* Amiodarone 200 MG TABLET PO SCH ×2 (08:18→20:06)
[2017-11-01] MEDS: Aspirin Enteric Coated 81 MG Tablet PO SCH (08:18)
[2017-11-01] MEDS: MethylPREDNISolone 40 MG/ML VIAL IVP SCH ×2 (08:18→17:59)
[2017-11-01] MEDS: cefTRIAXone 1,000 MG in Water for inj. (sterile) 20 ML 10 ML IVP SCH (08:19)
[2017-11-01] MEDS: Insulin LISPRO 300 UNITS/3 ML VIAL SQ SCH ×4 (08:20→20:07)
[2017-11-01] MEDS: Azithromycin 500 MG in D5% in Water 250 ML IVPB SCH (10:30)
--- NOTE | 2017-11-01 11:59 | Pulmonology Progress Note ---
Date of Encounter: 11/01/17 Time of Encounter: 07:30 Assessment and Plan (1) Tachy-javi syndrome Current Visit: Yes Status: Acute Wean off dopamine since there is improvement in blood pressure and heart rate. Reviewed day treatment clinician/art therapist progress note and this is being managed by cardiology team. Continue anticoagulation. Check TSH level (2) COPD exacerbation Current Visit: Yes Status: Suspected Patient is breathing better and noninvasive ventilation when necessary. Incentive spirometry and bronchodilators. Subjective Principal diagnosis: pneumonia, COPD exacerbation, atrial fibrillation Interval history: Patient has been off amiodarone drip and dopamine drip has been weaning off. Objective PUL Vital signs: Last Vital Signs Temp 98.2 F 11/01/17 07:32 Pulse 87 11/01/17 10:37 Resp 22 11/01/17 10:37 BP 119/70 11/01/17 10:37 Pulse Ox 96 11/01/17 10:37 General appearance: no acute distress Eyes: nonicteric ENT: oropharynx moist Neck: supple Effort: normal Auscultation: bilateral: diminished breath sounds Percussion: bilateral: not dull Cardiovascular: irregular rhythm Gastrointestinal: normoactive bowel sounds, non-distended Extremities: no cyanosis non-focal exam mood appropriate Results - Laboratory Findings CBC and BMP: 11/01/17 03:18 11/01/17 03:18 ABG ABG pH 7.38 pH Units (7.32-7.45) 11/01/17 04:00 ABG pCO2 50 mmHg (35-45) H 11/01/17 04:00 ABG pO2 61 mmHg (85-104) L 11/01/17 04:00 ABG O2 Saturation 90 % (95-98) L 11/01/17 04:00 PT/INR, D-dimer PT 12.1 Seconds (9.4-12.1) 11/01/17 07:54 D-Dimer 1128 ng/mLFEU (0-500) H 10/27/17 05:18 Abnormal lab findings: Abnormal lab results WBC 29.1 K/mcL (4.3-11.1) H 11/01/17 03:18 Hgb 11.4 g/dL (11.5-15.4) L 11/01/17 03:18 Neutrophils # 27.2 K/mcL (1.6-8.9) H 11/01/17 03:18 Lymphocytes # 0.5 K/mcL (0.6-4.6) L 11/01/17 03:18 Hypersegmented Neuts Present (Not Present) A 10/29/17 14:30 D-Dimer 1128 ng/mLFEU (0-500) H 10/27/17 05:18 ABG pCO2 50 mmHg (35-45) H 11/01/17 04:00 ABG pO2 61 mmHg (85-104) L 11/01/17 04:00 ABG HCO3 29 mEq/L (21-27) H 11/01/17 04:00 ABG Total CO2 31 mEq/L (20-26) H 11/01/17 04:00 ABG O2 Saturation 90 % (95-98) L 11/01/17 04:00 Sodium 133 mEq/L (136-145) L 11/01/17 03:18 BUN 69 mg/dL (8-23) H 11/01/17 03:18 Creatinine 1.97 mg/dL (0.60-1.20) H 11/01/17 03:18 Est GFR ( Amer) 29 (> 60) L 11/01/17 03:18 Est GFR (Non-Af Amer) 24 (> 60) L 11/01/17 03:18 BUN/Creatinine Ratio 35 (6-26) H 11/01/17 03:18 Glucose 350 mg/dL (70-105) H 11/01/17 03:18 POC Glucose 291 (58-89) H 10/31/17 19:49 Calculated Osmolality 310 (280-300) H 11/01/17 03:18 Calcium 8.3 mg/dL (8.6-10.3) L 11/01/17 03:18 Total Bilirubin 0.2 mg/dL (0.3-1.0) L 10/31/17 03:53 AST 11 Units/L (13-39) L 10/31/17 03:53 Troponin I 0.13 ng/mL (< 0.04) H* 10/29/17 04:02 B-Natriuretic Peptide 612 pg/mL (Less than 100) H 10/30/17 04:01 Serum Total Protein 5.5 g/dL (6.4-8.9) L 10/31/17 03:53 Albumin 2.7 g/dL (3.5-5.7) L 10/31/17 03:53 Albumin/Globulin Ratio 1.0 (1.1-2.2) L 10/31/17 03:53 Urine Clarity Turbid (Clear) A 10/27/17 05:22 Urine Protein 30 mg/dL (Neg-Trace) H 10/27/17 05:22 Urine Glucose (UA) >=1000 mg/dL (Normal) H 10/27/17 05:22 Urine Blood Moderate (Negative) H 10/27/17 05:22 Urine Nitrite Positive (Negative) A 10/27/17 05:22 Ur Leukocyte Esterase Large (Negative) H 10/27/17 05:22 Urine Microscopic RBC 5-15 per hpf (0-3) H 10/27/17 05:22 Urine Microscopic WBC TNTC per hpf (0-3) H 10/27/17 05:22 Ur Squamous Epith Cells Many per lpf (None-Few) H 10/27/17 05:22 Urine Bacteria Many per hpf (None-Few) H 10/27/17 05:22 - Microbiology Findings Microbiology Findings: Microbiology, Last 48 Hours 10/30/17 18:10 Influenza Types A,B Antigen (BALBIR) - Final Nasopharyngeal - Clinical Findings Intake & Output: Intake & Output 10/31/17 11/01/17 11/01/17 23:59 07:59 15:59 Intake Total 810 / 810 206.8 / 206.8 Output Total 400 / 400 375 / 375 Balance 410 / 410 -168.2 / -168.2 Weight 67.76 kg Consult Discharge Plan - Plan Referrals: Virginia Cruz DO [Primary Care Provider] -
[2017-11-01 12:47] LABS: Thyroid Stimulating Hormone 0.031 mcIU/mL (0.340-5.600)
[2017-11-01] MEDS: *HR* Enoxaparin 80 MG/0.8 ML SYRINGE SQ SCH (17:58)
[2017-11-01] MEDS ORDERED: *HR* Enoxaparin 80 MG/0.8 ML SYRINGE SQ SCH (18:00)
[2017-11-01] MEDS ORDERED: Heparin 25,000 UNIT/500 ML D5W 25,000 UNIT/500 ML BAG IVC SCH (18:00)
[2017-11-01] MEDS ORDERED: *HR* Heparin 5,000 UNIT/ML VIAL IVP ONE (18:00)
[2017-11-01] MEDS ORDERED: *HR* Heparin 5,000 UNIT/ML VIAL IVP PRN ×2 (18:00)
[2017-11-01] MEDS: Dexmedetomidine HCl 400 MCG/100 ML MLS IVC SCH (20:47)
[2017-11-02] MEDS: MethylPREDNISolone 40 MG/ML VIAL IVP SCH ×2 (00:54→08:04)
[2017-11-02 03:48] LABS: Basophils # 0.1 K/mcL (0.0-0.2); Basophils % 0.2 %; Hematocrit 30.9 % (35.3-44.9); Hemoglobin 10.3 g/dL (11.5-15.4); Immature Granulocytes % 1.8 % (0-4); Lymphocytes # 0.3 K/mcL (0.6-4.6); Lymphocytes % 1.1 %; Mean Corpuscular HGB Conc 33.3 g/dL (31.6-35.5); Mean Corpuscular Volume 90.1 fL (83.0-100.0); Mean Platelet Volume 10.9 fL (9.4-12.4); Monocytes # 0.3 K/mcL (0.0-1.3); Monocytes % 1.2 %; Platelet Count 257 K/mcL (140-400); Red Blood Count 3.43 M/mcL (3.82-4.97); Red Cell Distribution Width 13.4 % (11.5-14.5); Segmented Neutrophils % 95.7 %
[2017-11-02 03:55] LABS: Neutrophils # 23.5 K/mcL (1.6-8.9)
[2017-11-02 04:06] LABS: Calcium 7.8 mg/dL (8.6-10.3); Potassium 4.4 mEq/L (3.5-5.1)
[2017-11-02 04:13] LABS: Platelet Estimate Normal (Normal)
[2017-11-02] MEDS: Ipratropium/Albuterol Neb 3 ML IH SCH ×6 (04:39→23:53)
[2017-11-02] MEDS: Dexmedetomidine HCl 400 MCG/100 ML MLS IVC SCH (05:18)
[2017-11-02] MEDS: Budesonide/Formoterol 160/4.5 MDI IH SCH ×2 (08:00→20:11)
[2017-11-02] MEDS: Insulin LISPRO 300 UNITS/3 ML VIAL SQ SCH ×4 (08:04→22:21)
[2017-11-02] MEDS: *HR* Amiodarone 200 MG TABLET PO SCH ×2 (08:04→21:03)
[2017-11-02] MEDS: cefTRIAXone 1,000 MG in Water for inj. (sterile) 20 ML 10 ML IVP SCH (08:04)
[2017-11-02] MEDS: Aspirin Enteric Coated 81 MG Tablet PO SCH (08:04)
--- NOTE | 2017-11-02 09:40 | Cardiology Progress Note ---
Date of Encounter: 11/02/17 Time of Encounter: 09:40 Assessment and Plan (1) COPD exacerbation Current Visit: Yes Status: Suspected Per Cardiology: Managed per pulm. Appears stable. (2) Atrial fibrillation Current Visit: Yes Status: Acute Per cardiology: TTE with LVEF 55%, moderate MR, mild PH, NSWMA. Trop negative. Remains afib 80' s - 90's, avg HR 90 on tele past 12 hrs, no significant events noted. On amiodarone 200mg PO BID. Rate controlled and asymptomatic now-- no need for ZACK/ DCCV. Patient and family agreeable. Continue with rate control strategy. Discussed with Dr. Lorenzana, recommend Amio 200mg PO BID for 1 week, the 200mg PO daily, will s/o, re-consult PRN, f/u scheduled. All questions answered. Regarding long-term AC, [id number] score 5 (age, gender, HTN, DM). Deemed not a good candidate for penitentiary anticoagulation due to baseline dementia and frequent falls. Family aware of increased stroke risk. Qualifiers: Atrial fibrillation type: unspecified Qualified Code(s): I48.91 - Unspecified atrial fibrillation (3) Bradycardia Current Visit: Yes Status: Acute Per Cardiology: Off dopamine gtt. Discussion w patient/family: The assessment and plan as outlined above was discussed with the patient and/or family members who expressed understanding and agreement. All questions were answered. Thank you for involving us in the care of your patient. Please call with any questions. Subjective Principal diagnosis: pneumonia, COPD exacerbation, atrial fibrillation Interval history: Patient seen today with daughter and granddaughters at bedside. She denies any CP, SOB, Palps. Pleasant and cooperative. Objective Vital Signs, Last 4 Hours Temp Pulse Resp BP Pulse Ox 11/02/17 08:02 16 95 11/02/17 08:00 85 12 113/59 96 11/02/17 07:45 97.9 F 11/02/17 07:40 78 General: Conversant, No Apparent Distress HEENT: Atraumatic, Normocephaly, Mucus Membranes Moist Neck: No JVD, Normal carotid pulses Cardiac: Reg Rate and Rhythm, Normal S1 and S2, No Murmur Lungs: Normal Breath Sounds, No Wheeze, Rales, Rhonchi Neuro: Alert and responsive, No focal deficits noted Abdomen: Soft, Non-Tender Skin: No rashes noted on visualized skin Musculoskeletal: No Chest Wall Tenderness Extremities: No Clubbing, No Cyanosis, No Edema, Normal Pulses Results 11/02/17 03:35 11/02/17 03:35 Lab Results Laboratory Tests 10/27/17 10/27/17 10/29/17 05:18 05:18 04:02 WBC Hgb 13.6 Hct 42.0 Creatinine 1.31 H Est GFR (Non-Af Amer) 39 L AST ALT Troponin I 0.13 H* TSH 10/31/17 11/01/17 11/02/17 03:53 03:18 03:35 WBC 24.6 H Hgb 10.3 L Hct 30.9 L Creatinine 1.97 H Est GFR (Non-Af Amer) AST 11 L ALT 18 Troponin I TSH 0.031 L 11/02/17 03:35 WBC Hgb Hct Creatinine 1.85 H Est GFR (Non-Af Amer) 26 L AST ALT Troponin I TSH ITS Impressions Chest X-Ray 10/27/17 05:21 IMPRESSION: Cardiomegaly with ground-glass opacification in the left lower lung zone. Pattern may represent asymmetric edema or developing pneumonitis. D/ / Ricardo Farias MD / Ricardo Farias MD Interpreting Provider: Ricardo Farias MD Head CT 10/27/17 05:26 IMPRESSION: 1. No acute intracranial abnormality. 2. Mild age-appropriate diffuse atrophy with moderate chronic small vessel ischemic changes. 3. 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 D/ / Shawn Chaparro MD / Shawn Chaparro MD Interpreting Provider: Shawn Chaparro MD Echocardiogram 10/28/17 09:33 Impressions: LVEF 55%. Normal LV chamber size and function. Asymmetric hypertrophy of the basal septum. Indeterminate diastolic function. Atypical septal motion consistent with bundle branch block. Normal right ventricular structure and function. Moderate mitral regurgitation. Mild pulmonary hypertension. Left Ventricular Wall Motion: Rest Echo Findings All wall segments showed normal motion. Findings: Study Quality * Technically sub-optimal due to poor echocardiographic windows. ECG Findings * Atrial fibrillation, bundle branch block. Left Ventricle * LVEF 55%. * Normal LV chamber size and function. * Asymmetric hypertrophy of the basal septum. * Indeterminate diastolic function. * Atypical septal motion consistent with bundle branch block. Right Ventricle * Normal right ventricular structure and function. Left Atrium * Moderately dilated left atrium. Right Atrium * Mildly dilated right atrium. Interatrial Septum * Interatrial septum not well evaluated. Aortic Valve * Aortic valve not well visualized. * No aortic regurgitation. * No aortic stenosis. Mitral Valve * Mild mitral annular calcification * Moderate mitral regurgitation. * No mitral stenosis. Tricuspid Valve * Normal tricuspid valve structure and function. * Trace tricuspid regurgitation. * Mild pulmonary hypertension. Pulmonic Valve * Pulmonic valve is not well visualized. * No pulmonic regurgitation. Aorta * Normally sized aortic root. Pericardium * There is a small pericardial effusion present. IVC * Normal IVC dimensions and inspiratory collapse. Pulmonary Artery * Normal visualized portions of the main pulmonary artery. Chest X-Ray 10/30/17 00:09 IMPRESSION: Increased perihilar opacities from prior imaging along with a moderate left pleural effusion and airspace changes in the left lower lung zone. Pattern may represent worsening pulmonary edema. Superimposed pneumonitis in the left lower lobe cannot be excluded. D/ / Ricardo Farias MD / Ricardo Farias MD Interpreting Provider: Ricardo Farias MD Chest X-Ray 10/30/17 08:04 IMPRESSION: Vascular congestion. Perihilar airspace disease, likely pulmonary edema. Pneumonia is a differential possibility. Left basilar pleural effusion is again noted. D/ / Kwadwo Marion MD / Kwadwo Marion MD Interpreting Provider: Kwadwo Marion MD Active Medications Acetaminophen (Tylenol) 650 mg PO Q6HR PRN PRN Reason: Mild Pain (1-3) Stop: 04/28/18 06:28 Last Admin: 11/01/17 05:34 Dose: 650 mg Albuterol/Ipratropium (Duoneb) 3 ml IH [id number] ALECIA Stop: 04/28/18 12:01 Last Admin: 11/02/17 08:00 Dose: 3 ml Albuterol/Ipratropium (Duoneb) 3 ml IH [id number] PRN; Protocol PRN Reason: Shortness Of Breath/Wheezing Stop: 05/01/18 11:06 Last Admin: 10/30/17 11:09 Dose: 3 ml Alprazolam (Xanax) 0.25 mg PO TID PRN; Protocol PRN Reason: Anxiety Stop: 04/29/18 22:15 Last Admin: 11/01/17 00:34 Dose: 0.25 mg Amiodarone HCl (Cordarone) 200 mg PO BID [facility] Stop: 05/01/18 21:01 Last Admin: 11/02/17 08:04 Dose: 200 mg Aspirin (Aspirin Ec) 81 mg PO DAILY ALECIA Stop: 04/29/18 13:16 Last Admin: 11/02/17 08:04 Dose: 81 mg Atorvastatin Calcium (Lipitor) 80 mg PO HS [facility] Stop: 04/29/18 21:01 Last Admin: 11/01/17 20:06 Dose: 80 mg Budesonide/Formoterol Fumarate (Symbicort) 2 puff IH BIDR ALECIA PRN Reason: Protocol Stop: 04/30/18 22:01 Last Admin: 11/02/17 08:00 Dose: 2 puff Dextrose/Water (Dextrose 50% (Syg)) 25 ml IVP AD PRN PRN Reason: Hypoglycemia Stop: 04/28/18 09:57 Enoxaparin Sodium (Lovenox) 70 mg 1 mg/kg (70 mg) SQ Q24H ALECIA PRN Reason: Protocol Stop: 05/03/18 18:01 Last Admin: 11/01/17 17:58 Dose: 70 mg Glucagon (Glucagen) 1 mg IM ONCE PRN PRN Reason: Hypoglycemia Stop: 04/28/18 09:57 Glucose (Gluctose) 15 gm PO ONCE PRN PRN Reason: Hypoglycemia Stop: 04/28/18 09:57 Glucose (Gluctose) 30 gm PO ONCE PRN PRN Reason: Hypoglycemia Stop: 04/28/18 09:57 Ceftriaxone Sodium 1,000 mg/ (Sterile Water) 10 mls @ 300 mls/hr IVP DAILY ALECIA Stop: 04/29/18 09:01 Last Admin: 11/02/17 08:04 Dose: 300 mls/hr Azithromycin 500 mg/ Dextrose 250 mls @ 252 mls/hr IVPB Q24H ALECIA Stop: 04/28/18 10:01 Last Infusion: 11/01/17 11:30 Dose: Infused Dextrose (Dextrose 5%) 1,000 mls @ 100 mls/hr IVC .Q10H PRN PRN Reason: HYPOGLYCEMIA Stop: 04/28/18 09:57 Dexmedetomidine HCl (Precedex Premix) 400 mcg in 100 mls @ 3.225 mls/hr IVC .Q24H ALECIA; 0.2 MCG/KG/HR PRN Reason: Protocol Stop: 05/01/18 10:46 Last Titration: 11/02/17 06:11 Dose: 0.2 mcg/kg/hr, 3.225 mls/hr Dopamine HCl/Dextrose (Dopamine Premix 400mg/250ml) 400 mg in 250 mls @ 6.047 mls/hr IVC .Q24H ALECIA; 2.5 MCG/KG/MIN PRN Reason: Protocol Stop: 05/01/18 11:16 Last Titration: 11/01/17 07:45 Dose: 0 mcg/kg/min, 0 mls/hr Insulin Human Lispro (Humalog) 0 units SQ HS ALECIA PRN Reason: Protocol Stop: 05/02/18 21:01 Last Admin: 11/01/17 20:07 Dose: Not Given Insulin Human Lispro (Humalog) 0 units SQ TIDAC ALECIA PRN Reason: Protocol Stop: 05/02/18 16:46 Last Admin: 11/02/17 08:04 Dose: 12 units Levothyroxine Sodium (Synthroid) 50 mcg PO DAILY@0630 [facility] Stop: 04/29/18 06:31 Last Admin: 11/02/17 05:20 Dose: Not Given Methylprednisolone (Solu-Medrol) 40 mg IVP Q8HR [facility] Stop: 04/28/18 16:01 Last Admin: 11/02/17 08:04 Dose: 40 mg Naloxone HCl (Narcan) 0.4 mg IVP Q2MIN PRN PRN Reason: Opioid Reversal Stop: 07/04/18 09:54 - EKG Interpretation EKG results cardiology: other (Tele reviewed and shows afib 80's - 90's, avg HR 90 past 12 hrs.) Consult Discharge Plan - Plan Referrals: Virginia Cruz DO [Primary Care Provider] -
[2017-11-02] MEDS ORDERED: Insulin DETEMIR 100 UNIT/ML X5UNITS SQ SCH (11:00)
--- NOTE | 2017-11-02 11:31 | Internal Med Progress Note ---
Date of Encounter: 11/02/17 Time of Encounter: 11:29 - Assessment and plan (1) COPD exacerbation Current Visit: Yes Status: Suspected Assessment and plan: Her COPD exacerbation is getting better in terms of breathing and frequency of cough Off BiPAP and sating fine on 4L NC White count is trending down 24.6 Creatinine trending down 1.85 ABG mildly improving in terms of pH but still retaining CO2 Plan: Continue day 6 of Azithromycin and Ceftriazxone Switched to PO prednisone Bronchodilators Symbicort (2) New onset atrial fibrillation Current Visit: Yes Status: Acute Assessment and plan: Cardiology following TTE with LVEF 55%, moderate MR, mild PH, NSWMA. Trop negative. Remains afib 90' s to 100's, avg HR 90 on tele past 12 hrs, no significant events noted. Rate controlled and asymptomatic now; will not proceed with ZACK/DCCV. Patient and family agreeable. Rate control strategy: - Continue Amiodarone 200mg PO BID for one week, then 200mg PO daily [id number] score 5 (age, gender, HTN, DM). Not a good candidate for buttermaker helper anticoagulation due to baseline dementia and frequent falls. Family aware of increased stroke risk. (3) UTI (urinary tract infection) Current Visit: Yes Status: Acute Assessment and plan: Urine culture positive for Enterobacter Enterobacter species sensitive to ceftriaxone. Day 6 of ceftriaxone No dysuria BCx neg x2 Will continue present treatment for now Qualifiers: Urinary tract infection type: acute cystitis Hematuria presence: without hematuria Qualified Code(s): N30.00 - Acute cystitis without hematuria (4) Left lower lobe pneumonia Current Visit: Yes Status: Acute Assessment and plan: Initial CXR showed left lower lung opacification WBC trending down 24.6 from 29.1 - No bands - On steroids Rhonchi still present on exam in left lower lobe VSS BCx neg x2 Flu swab neg Continue Azithromycin and Ceftriaxone Qualifiers: Pneumonia type: due to unspecified organism Qualified Code(s): J18.1 - Lobar pneumonia, unspecified organism (5) Sepsis Current Visit: Yes Status: Resolved Assessment and plan: Appears to be resolving. No tachypnea with intermittent tachycardia. Afebrile. WBC trending down Urine Cx positive for enterobacter BCx neg x2 Flu swab neg Continue Ceftriaxone and Azithromycin Will continue to monitor Qualifiers: Sepsis type: sepsis due to unspecified organism Qualified Code(s): A41.9 - Sepsis, unspecified organism (6) Diastolic CHF, acute on chronic Current Visit: Yes Status: Acute Assessment and plan: TTE with LVEF 55%, moderate MR, mild PH, NSWMA Euvolemic on exam today Denies any orthopnea or PND No LE edema Continue medical management (7) T2DM (type 2 diabetes mellitus) Current Visit: Yes Status: Acute Assessment and plan: BS in 300s. On steroids. Increased Levemir to 15units daily with HDSS for coverage Qualifiers: Diabetes mellitus complication status: with unspecified complications Diabetes mellitus buttermaker helper insulin use: without penitentiary use Qualified Code( s): E11.8 - Type 2 diabetes mellitus with unspecified complications (8) HTN (hypertension) Current Visit: Yes Status: Acute Assessment and plan: Well controlled at this time. Not on home meds. Will continue to hold for now Qualifiers: Hypertension type: essential hypertension Qualified Code(s): I10 - Essential (primary) hypertension (9) HLD (hyperlipidemia) Current Visit: Yes Status: Acute Assessment and plan: Continue statin therapy Qualifiers: Hyperlipidemia type: unspecified Qualified Code(s): E78.5 - Hyperlipidemia , unspecified (10) Hypothyroidism Current Visit: Yes Status: Acute Assessment and plan: TSH 0.031. Back down to synthroid 25 home dose. Qualifiers: Hypothyroidism type: acquired Qualified Code(s): E03.9 - Hypothyroidism, unspecified (11) DVT prophylaxis Current Visit: Yes Status: Acute Assessment and plan: Lovenox - Subjective Interval history: Admitted for COPD ex, LLL PNA, New onset afib and UTI Recent transfer to ICU for continuous monitoring with BiPAP; was not intubated. Patient is resting comfortably this morning with family present at bedside No concerns overnight per nursing She states her SOB is improving since yesterday Denies any CP, palpitations, fevers, chills, abdominal pain or GI issues. - Constitutional Vitals: Temp Pulse Resp BP Pulse Ox 97.9 F 85 16 113/59 96 11/02/17 07:45 11/02/17 08:00 11/02/17 11:14 11/02/17 08:00 11/02/17 11:14 General appearance: Present: A&O X 3, pleasant, no acute distress, answers questions appropriately - Head Head exam: Present: atraumatic, normocephalic - Eye Eye exam: Present: EOMI, normal appearance, conjuntiva pink, sclera anicteric - ENT ENT exam: Present: mucous membranes moist - Neck Neck exam general surgery: Present: supple, trachea midline - Respiratory Respiratory exam: Present: rhonchi (left lower lobe with crackles), wheezes ( trace). Absent: accessory muscle use, chest wall tenderness, decreased breath sounds, prolonged expiratory phase, rales, respiratory distress - Cardiovascular Cardiovascular exam: Present: irregular rhythm - GI/Abdominal GI/Abdominal exam: Present: normal bowel sounds, soft. Absent: tenderness - Extremities Exam Extremities exam: Present: warm. Absent: calf tenderness, pedal edema, tenderness - Neurological Exam Neurological exam: Present: alert, oriented X3, no focal deficits - Psychiatric Psychiatric exam: Present: normal affect, normal mood - Skin Skin exam: Present: dry, warm. Absent: diaphoretic, normal color Internal Medicine: Result - Labs CBC & Chem 7: 11/02/17 03:35 11/02/17 03:35 Labs: Short CBC 11/02/17 Range/Units 03:35 WBC 24.6 H (4.3-11.1) K/mcL Hgb 10.3 L (11.5-15.4) g/dL Hct 30.9 L (35.3-44.9) % Plt Count 257 (140-400) K/mcL Neutrophils # 23.5 H (1.6-8.9) K/mcL BMP 11/01/17 11/02/17 03:18 03:35 Sodium 133 L 134 L Potassium 4.6 4.4 Chloride 98 102 Carbon Dioxide 26 26 BUN 69 H 80 H Creatinine 1.97 H 1.85 H Glucose 350 H 289 H Calcium 8.3 L 7.8 L - ABG Interpretation ABG results: ABG ABG pH 7.38 pH Units (7.32-7.45) 11/01/17 04:00 ABG pCO2 50 mmHg (35-45) H 11/01/17 04:00 ABG pO2 61 mmHg (85-104) L 11/01/17 04:00 ABG O2 Saturation 90 % (95-98) L 11/01/17 04:00 PT/INR, D-dimer PT 12.1 Seconds (9.4-12.1) 11/01/17 07:54 D-Dimer 1128 ng/mLFEU (0-500) H 10/27/17 05:18 Consult Discharge Plan - Plan Referrals: Virginia Cruz DO [Primary Care Provider] -
[2017-11-02] MEDS: Insulin DETEMIR 100 UNIT/ML X5UNITS SQ SCH (12:00)
--- NOTE | 2017-11-02 12:10 | Pulmonology Progress Note ---
Date of Encounter: 11/02/17 Time of Encounter: 11:30 Assessment and Plan (1) Tachy-javi syndrome Current Visit: Yes Status: Acute Patient atrial fibrillation is rate controlled ZACK and Cardioversion is cancelled since post cardioversion she will need anticoagulation which she is not a candidate with falls with dementia and frequent falls agree with conservative managment to rate control therapy with Amiodarone . (2) COPD exacerbation Current Visit: Yes Status: Suspected To continue bronchodilators and steroids will descalate antibiotics. (3) DVT prophylaxis Current Visit: Yes Status: Acute To continue Lovenox Subjective Principal diagnosis: pneumonia, COPD exacerbation, atrial fibrillation Interval history: Patient slowly getting better no acute complaints Objective PUL Vital signs: Last Vital Signs Temp 98.7 F 11/02/17 11:55 Pulse 92 11/02/17 11:44 Resp 16 11/02/17 11:14 BP 113/59 11/02/17 08:00 Pulse Ox 96 11/02/17 11:14 Auscultation: bilateral: diminished breath sounds Cardiovascular: irregular rhythm Results - Laboratory Findings CBC and BMP: 11/02/17 03:35 11/02/17 03:35 ABG ABG pH 7.38 pH Units (7.32-7.45) 11/01/17 04:00 ABG pCO2 50 mmHg (35-45) H 11/01/17 04:00 ABG pO2 61 mmHg (85-104) L 11/01/17 04:00 ABG O2 Saturation 90 % (95-98) L 11/01/17 04:00 PT/INR, D-dimer PT 12.1 Seconds (9.4-12.1) 11/01/17 07:54 D-Dimer 1128 ng/mLFEU (0-500) H 10/27/17 05:18 Abnormal lab findings: Abnormal lab results WBC 24.6 K/mcL (4.3-11.1) H 11/02/17 03:35 RBC 3.43 M/mcL (3.82-4.97) L 11/02/17 03:35 Hgb 10.3 g/dL (11.5-15.4) L 11/02/17 03:35 Hct 30.9 % (35.3-44.9) L 11/02/17 03:35 Neutrophils # 23.5 K/mcL (1.6-8.9) H 11/02/17 03:35 Lymphocytes # 0.3 K/mcL (0.6-4.6) L 11/02/17 03:35 Hypersegmented Neuts Present (Not Present) A 10/29/17 14:30 D-Dimer 1128 ng/mLFEU (0-500) H 10/27/17 05:18 ABG pCO2 50 mmHg (35-45) H 11/01/17 04:00 ABG pO2 61 mmHg (85-104) L 11/01/17 04:00 ABG HCO3 29 mEq/L (21-27) H 11/01/17 04:00 ABG Total CO2 31 mEq/L (20-26) H 11/01/17 04:00 ABG O2 Saturation 90 % (95-98) L 11/01/17 04:00 Sodium 134 mEq/L (136-145) L 11/02/17 03:35 BUN 80 mg/dL (8-23) H 11/02/17 03:35 Creatinine 1.85 mg/dL (0.60-1.20) H 11/02/17 03:35 Est GFR ( Amer) 32 (> 60) L 11/02/17 03:35 Est GFR (Non-Af Amer) 26 (> 60) L 11/02/17 03:35 BUN/Creatinine Ratio 43 (6-26) H 11/02/17 03:35 Glucose 289 mg/dL (70-105) H 11/02/17 03:35 POC Glucose 119 (58-89) H 11/01/17 19:42 Calculated Osmolality 313 (280-300) H 11/02/17 03:35 Calcium 7.8 mg/dL (8.6-10.3) L 11/02/17 03:35 Total Bilirubin 0.2 mg/dL (0.3-1.0) L 10/31/17 03:53 AST 11 Units/L (13-39) L 10/31/17 03:53 Troponin I 0.13 ng/mL (< 0.04) H* 10/29/17 04:02 B-Natriuretic Peptide 612 pg/mL (Less than 100) H 10/30/17 04:01 Serum Total Protein 5.5 g/dL (6.4-8.9) L 10/31/17 03:53 Albumin 2.7 g/dL (3.5-5.7) L 10/31/17 03:53 Albumin/Globulin Ratio 1.0 (1.1-2.2) L 10/31/17 03:53 TSH 0.031 mcIU/mL (0.340-5.600) L 11/01/17 03:18 Urine Clarity Turbid (Clear) A 10/27/17 05:22 Urine Protein 30 mg/dL (Neg-Trace) H 10/27/17 05:22 Urine Glucose (UA) >=1000 mg/dL (Normal) H 10/27/17 05:22 Urine Blood Moderate (Negative) H 10/27/17 05:22 Urine Nitrite Positive (Negative) A 10/27/17 05:22 Ur Leukocyte Esterase Large (Negative) H 10/27/17 05:22 Urine Microscopic RBC 5-15 per hpf (0-3) H 10/27/17 05:22 Urine Microscopic WBC TNTC per hpf (0-3) H 10/27/17 05:22 Ur Squamous Epith Cells Many per lpf (None-Few) H 10/27/17 05:22 Urine Bacteria Many per hpf (None-Few) H 10/27/17 05:22 - Clinical Findings Intake & Output: Intake & Output 11/01/17 11/02/17 11/02/17 23:59 07:59 15:59 Intake Total 6.9 / 6.9 100.6 / 100.6 Output Total 225 / 225 725 / 725 Balance -218.1 / -218.1 -624.4 / -624.4 Weight 69.1 kg Consult Discharge Plan - Plan Referrals: Virginia Cruz DO [Primary Care Provider] -
--- NOTE | 2017-11-02 14:30 | Event Note ---
Date of Encounter: 11/02/17 Time of Encounter: 13:00 Patient awake and alert - condition has improved greatly since Thursday. Taking po, chatting with family. Daughter at bedside. Code status remains DNR/Arrest - family ok with current level of ICU care and short term intubation if needed. Palliative will sign off. Re-consult if needed.
[2017-11-02 15:41] LABS: ABG Base Excess 5 mEq/L (-2 to 3); ABG HCO3 30 mEq/L (21-27); ABG Oxygen Saturation 98 % (95-98); ABG PCO2 48 mmHg (35-45); ABG PO2 113 mmHg (85-104); ABG TCO2 32 mEq/L (20-26)
[2017-11-02] MEDS: *HR* Enoxaparin 80 MG/0.8 ML SYRINGE SQ SCH (17:53)
[2017-11-02] MEDS ORDERED: MethylPREDNISolone 40 MG/ML VIAL IVP SCH (20:00)
[2017-11-02] MEDS: ALPRAZolam 0.25 MG TABLET PO PRN (21:03)
[2017-11-02] MEDS ORDERED: 0.9 % Sodium Chloride 250 ML ONE (22:06)
[2017-11-03 04:02] LABS: Basophils % 0.3 %; Hemoglobin 10.6 g/dL (11.5-15.4); Red Cell Distribution Width 13.9 % (11.5-14.5)
[2017-11-03 04:03] LABS: Basophils # 0.1 K/mcL (0.0-0.2); Hematocrit 32.9 % (35.3-44.9); Immature Granulocytes % 2.8 % (0-4); Lymphocytes # 0.6 K/mcL (0.6-4.6); Mean Corpuscular HGB Conc 32.2 g/dL (31.6-35.5); Mean Corpuscular Hemoglobin 29.4 pg (28.0-33.3); Mean Corpuscular Volume 91.4 fL (83.0-100.0); Mean Platelet Volume 11.3 fL (9.4-12.4); Monocytes # 1.3 K/mcL (0.0-1.3); Monocytes % 4.1 %; Neutrophils # 28.3 K/mcL (1.6-8.9); Platelet Count 271 K/mcL (140-400); Segmented Neutrophils % 90.8 %
[2017-11-03 04:12] LABS: Calcium 8.1 mg/dL (8.6-10.3); Potassium 3.8 mEq/L (3.5-5.1)
[2017-11-03] MEDS: Ipratropium/Albuterol Neb 3 ML IH SCH ×5 (04:12→20:21)
[2017-11-03 04:29] LABS: Platelet Estimate Normal (Normal)
[2017-11-03] MEDS ORDERED: Levothyroxine 25 MCG TABLET PO SCH (06:30)
--- NOTE | 2017-11-03 07:00 | Pulmonology Progress Note ---
<Yuri Copeland - Last Filed: 11/03/17 11:24> Date of Encounter: 11/03/17 Time of Encounter: 06:59 Assessment and Plan (1) Tachy-wayne syndrome Current Visit: Yes Status: Acute Patient rate controlled on amiodarone oral Patient off of drip No plans for ZACK cardioversion because patient is not a candidate for anticoagulation due to fall risk. Plan: Cardiology on board continue on amiodarone (2) COPD exacerbation Current Visit: Yes Status: Suspected Patient with hx of COPD not on home oxygen Likely 2/2 to PNA Patient started on solumedrol 40mg IV Q8H, ceftriaxone, azithromycin, and scheduled duonebs. Patient became SOB and dropped her oxygen saturation to the 70s after standing up and using the bathroom twice within a short period of time. Patient required BiPAP. Patient anxious on biPAP but tolerated after Xanax. Patient able to be taken off biPAP and sating well on 4L NC on exam yesterday Patient started on home symbicort 10/30 patient's sats dropped to the 70s again and nursing had issues keeping biPAP on. Patient transferred to ICU for continuous biPAP Today patient tolerating 2L NC. latest AB.4/48/113/30/98/5 Plan: continue Abx, duonebs, steroids, symbicort continue to monitor (3) Sepsis Current Visit: Yes Status: Resolved Patient met sepsis criteria based on tachycardia, tachypnea, and likely PNA and a UTI Likely 2/2 PNA possibly 2/2 to UTI Patient started on azithromycin and ceftriaxone. Azithromycin stopped yesterday Bcx NGTD Ucx positive for enterobacter flu swab negative WBC elevated today. Concern for mutation continued infection Plan: Stop Ceftriaxone Start Ertapenem Qualifiers: Sepsis type: sepsis due to unspecified organism Qualified Code(s): A41.9 - Sepsis, unspecified organism (4) Left lower lobe pneumonia Current Visit: Yes Status: Suspected CXR 10/27 showed: " Cardiomegaly with ground-glass opacification in the left lower lung zone. Pattern may represent asymmetric edema or developing pneumonitis." Patient started on azithromycn and ceftriaxone Azithromycin stopped yesterday Bcx NGTD flu negative WBC elevated today. Concern for mutation continued infection Plan: Stop Ceftriaxone Start Ertapenem Qualifiers: Pneumonia type: due to unspecified organism Qualified Code(s): J18.1 - Lobar pneumonia, unspecified organism (5) UTI (urinary tract infection) Current Visit: Yes Status: Acute Urine positive for Enterobacter aerogenes Sensitive to Ceftriaxone WBC elevated today. Concern for mutation continued infection Plan: Stop Ceftriaxone Start Ertapenem Qualifiers: Urinary tract infection type: acute cystitis Hematuria presence: without hematuria Qualified Code(s): N30.00 - Acute cystitis without hematuria (6) Diastolic CHF, acute on chronic Current Visit: Yes Status: Acute Patient with elements of CHF complicating COPD exacerbation. ECHO: "LVEF 55%. Normal LV chamber size and function. Asymmetric hypertrophy of the basal septum. Indeterminate diastolic function. Atypical septal motion consistent with bundle branch block. Normal right ventricular structure and function. Moderate mitral regurgitation. Mild pulmonary hypertension." BNP 612 Patient with crackles on exam patient given a total of 80mg of Lasix IV on 10/30 Plan: Cr elevated 2/2 diuresis hold off on further diuresis for now. continue to monitor. (7) Hypothyroidism Current Visit: Yes Status: Acute Pt TSH 0.031 Plan: Continue synthroid Qualifiers: Hypothyroidism type: acquired Qualified Code(s): E03.9 - Hypothyroidism, unspecified (8) DVT prophylaxis Current Visit: Yes Status: Acute Pt currently on Lovenox Plan: continue Lovenox Subjective Principal diagnosis: pneumonia, COPD exacerbation, atrial flutter Interval history: Patient is sating well on NC. Patient responsive and eating breakfast interacting with family. Appears a baseline per family. Patient just on oral amiodarone at this point. all drips off. Objective PUL Vital signs: Last Vital Signs Temp 97.3 F L 11/03/17 04:03 Pulse 87 11/03/17 06:00 Resp 21 11/03/17 06:00 BP 137/62 11/03/17 03:53 Pulse Ox 93 11/03/17 06:00 General appearance: no acute distress Eyes: nonicteric ENT: oropharynx moist Neck: supple Effort: normal Auscultation: bilateral: clear Cardiovascular: irregular rhythm Gastrointestinal: normoactive bowel sounds, soft, non-tender, non-distended Integumentary: normal Extremities: no cyanosis Musculoskeletal: no deformities non-focal exam, other (patient at baseline mental status(Hx of dementia)) Results - Laboratory Findings CBC and BMP: 11/03/17 03:40 11/03/17 03:40 ABG ABG pH 7.40 pH Units (7.32-7.45) 11/02/17 15:36 ABG pCO2 48 mmHg (35-45) H 11/02/17 15:36 ABG pO2 113 mmHg (85-104) H 11/02/17 15:36 ABG O2 Saturation 98 % (95-98) 11/02/17 15:36 PT/INR, D-dimer PT 12.1 Seconds (9.4-12.1) 11/01/17 07:54 D-Dimer 1128 ng/mLFEU (0-500) H 10/27/17 05:18 Abnormal lab findings: Abnormal lab results WBC 31.2 K/mcL (4.3-11.1) H* 11/03/17 03:40 RBC 3.60 M/mcL (3.82-4.97) L 11/03/17 03:40 Hgb 10.6 g/dL (11.5-15.4) L 11/03/17 03:40 Hct 32.9 % (35.3-44.9) L 11/03/17 03:40 Neutrophils # 28.3 K/mcL (1.6-8.9) H 11/03/17 03:40 Hypersegmented Neuts Present (Not Present) A 10/29/17 14:30 D-Dimer 1128 ng/mLFEU (0-500) H 10/27/17 05:18 ABG pCO2 48 mmHg (35-45) H 11/02/17 15:36 ABG pO2 113 mmHg (85-104) H 11/02/17 15:36 ABG HCO3 30 mEq/L (21-27) H 11/02/17 15:36 ABG Total CO2 32 mEq/L (20-26) H 11/02/17 15:36 ABG Base Excess 5 mEq/L (-2 to 3) H 11/02/17 15:36 BUN 82 mg/dL (8-23) H 11/03/17 03:40 Creatinine 1.72 mg/dL (0.60-1.20) H 11/03/17 03:40 Est GFR ( Amer) 34 (> 60) L 11/03/17 03:40 Est GFR (Non-Af Amer) 28 (> 60) L 11/03/17 03:40 BUN/Creatinine Ratio 48 (6-26) H 11/03/17 03:40 Glucose 208 mg/dL (70-105) H 11/03/17 03:40 POC Glucose 140 (58-89) H 11/02/17 19:43 Calculated Osmolality 321 (280-300) H 11/03/17 03:40 Calcium 8.1 mg/dL (8.6-10.3) L 11/03/17 03:40 Total Bilirubin 0.2 mg/dL (0.3-1.0) L 10/31/17 03:53 AST 11 Units/L (13-39) L 10/31/17 03:53 Troponin I 0.13 ng/mL (< 0.04) H* 10/29/17 04:02 B-Natriuretic Peptide 612 pg/mL (Less than 100) H 10/30/17 04:01 Serum Total Protein 5.5 g/dL (6.4-8.9) L 10/31/17 03:53 Albumin 2.7 g/dL (3.5-5.7) L 10/31/17 03:53 Albumin/Globulin Ratio 1.0 (1.1-2.2) L 10/31/17 03:53 TSH 0.031 mcIU/mL (0.340-5.600) L 11/01/17 03:18 Urine Clarity Turbid (Clear) A 10/27/17 05:22 Urine Protein 30 mg/dL (Neg-Trace) H 10/27/17 05:22 Urine Glucose (UA) >=1000 mg/dL (Normal) H 10/27/17 05:22 Urine Blood Moderate (Negative) H 10/27/17 05:22 Urine Nitrite Positive (Negative) A 10/27/17 05:22 Ur Leukocyte Esterase Large (Negative) H 10/27/17 05:22 Urine Microscopic RBC 5-15 per hpf (0-3) H 10/27/17 05:22 Urine Microscopic WBC TNTC per hpf (0-3) H 10/27/17 05:22 Ur Squamous Epith Cells Many per lpf (None-Few) H 10/27/17 05:22 Urine Bacteria Many per hpf (None-Few) H 10/27/17 05:22 - Clinical Findings Intake & Output: Intake & Output 11/02/17 11/02/17 11/03/17 15:59 23:59 07:59 Intake Total 74.5 / 74.5 Output Total 350 / 350 200 / 200 400 / 400 Balance -350 / -350 -125.5 / -125.5 -332 / -332 Weight 67.2 kg Consult Discharge Plan - Plan Referrals: Virginia Cruz DO [Primary Care Provider] - <Yudi Singh - Last Filed: 11/03/17 21:05> Date of Encounter: 11/03/17 Assessment and Plan (1) Tachy-wayne syndrome Current Visit: Yes Status: Acute (2) COPD exacerbation Current Visit: Yes Status: Suspected (3) DVT prophylaxis Current Visit: Yes Status: Acute Objective PUL Vital signs: Last Vital Signs Temp 98.5 F 11/03/17 15:39 Pulse 95 11/03/17 16:08 Resp 20 11/03/17 16:08 BP 151/72 11/03/17 16:08 Pulse Ox 96 11/03/17 16:08 Results - Laboratory Findings CBC and BMP: 11/03/17 03:40 11/03/17 03:40 ABG ABG pH 7.40 pH Units (7.32-7.45) 11/02/17 15:36 ABG pCO2 48 mmHg (35-45) H 11/02/17 15:36 ABG pO2 113 mmHg (85-104) H 11/02/17 15:36 ABG O2 Saturation 98 % (95-98) 11/02/17 15:36 PT/INR, D-dimer PT 12.1 Seconds (9.4-12.1) 11/01/17 07:54 D-Dimer 1128 ng/mLFEU (0-500) H 10/27/17 05:18 Abnormal lab findings: Abnormal lab results WBC 31.2 K/mcL (4.3-11.1) H* 11/03/17 03:40 RBC 3.60 M/mcL (3.82-4.97) L 11/03/17 03:40 Hgb 10.6 g/dL (11.5-15.4) L 11/03/17 03:40 Hct 32.9 % (35.3-44.9) L 11/03/17 03:40 Neutrophils # 28.3 K/mcL (1.6-8.9) H 11/03/17 03:40 Hypersegmented Neuts Present (Not Present) A 10/29/17 14:30 D-Dimer 1128 ng/mLFEU (0-500) H 10/27/17 05:18 ABG pCO2 48 mmHg (35-45) H 11/02/17 15:36 ABG pO2 113 mmHg (85-104) H 11/02/17 15:36 ABG HCO3 30 mEq/L (21-27) H 11/02/17 15:36 ABG Total CO2 32 mEq/L (20-26) H 11/02/17 15:36 ABG Base Excess 5 mEq/L (-2 to 3) H 11/02/17 15:36 BUN 82 mg/dL (8-23) H 11/03/17 03:40 Creatinine 1.72 mg/dL (0.60-1.20) H 11/03/17 03:40 Est GFR ( Amer) 34 (> 60) L 11/03/17 03:40 Est GFR (Non-Af Amer) 28 (> 60) L 11/03/17 03:40 BUN/Creatinine Ratio 48 (6-26) H 11/03/17 03:40 Glucose 208 mg/dL (70-105) H 11/03/17 03:40 POC Glucose 140 (58-89) H 11/02/17 19:43 Calculated Osmolality 321 (280-300) H 11/03/17 03:40 Calcium 8.1 mg/dL (8.6-10.3) L 11/03/17 03:40 Total Bilirubin 0.2 mg/dL (0.3-1.0) L 10/31/17 03:53 AST 11 Units/L (13-39) L 10/31/17 03:53 Troponin I 0.13 ng/mL (< 0.04) H* 10/29/17 04:02 B-Natriuretic Peptide 612 pg/mL (Less than 100) H 10/30/17 04:01 Serum Total Protein 5.5 g/dL (6.4-8.9) L 10/31/17 03:53 Albumin 2.7 g/dL (3.5-5.7) L 10/31/17 03:53 Albumin/Globulin Ratio 1.0 (1.1-2.2) L 10/31/17 03:53 TSH 0.031 mcIU/mL (0.340-5.600) L 11/01/17 03:18 Urine Clarity Turbid (Clear) A 10/27/17 05:22 Urine Protein 30 mg/dL (Neg-Trace) H 10/27/17 05:22 Urine Glucose (UA) >=1000 mg/dL (Normal) H 10/27/17 05:22 Urine Blood Moderate (Negative) H 10/27/17 05:22 Urine Nitrite Positive (Negative) A 10/27/17 05:22 Ur Leukocyte Esterase Large (Negative) H 10/27/17 05:22 Urine Microscopic RBC 5-15 per hpf (0-3) H 10/27/17 05:22 Urine Microscopic WBC TNTC per hpf (0-3) H 10/27/17 05:22 Ur Squamous Epith Cells Many per lpf (None-Few) H 10/27/17 05:22 Urine Bacteria Many per hpf (None-Few) H 10/27/17 05:22 - Clinical Findings Intake & Output: Intake & Output 11/03/17 11/03/17 11/03/17 07:59 15:59 23:59 Intake Total 88 / 88 130 / 130 Output Total 400 / 400 Balance -312 / -312 130 / 130 Weight 67.2 kg - Attending Attestation I saw the patient with the resident agree with History and Physical exam findings. 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 Tachy -Wayne syndrome on Amiodarone will continue Nutrition/GI: Patient is taking PO Renal : Labsd reviewed Heme onc : No acute issues ID : To deescalate antibiotics Musculo skeletal / skin issues : No acute issues Disposition :Transfer to medical telemetry Code status: DNRA Family/POA: Daughter
[2017-11-03] MEDS: Budesonide/Formoterol 160/4.5 MDI IH SCH ×2 (08:20→20:19)
[2017-11-03] MEDS ORDERED: predniSONE 20 MG TABLET PO SCH (09:00)
[2017-11-03] MEDS: *HR* Amiodarone 200 MG TABLET PO SCH ×2 (10:09→20:40)
[2017-11-03] MEDS: Insulin LISPRO 300 UNITS/3 ML VIAL SQ SCH ×4 (10:09→22:47)
[2017-11-03] MEDS: Insulin DETEMIR 100 UNIT/ML X5UNITS SQ SCH (10:10)
[2017-11-03] MEDS: Aspirin Enteric Coated 81 MG Tablet PO SCH (10:10)
[2017-11-03] MEDS: cefTRIAXone 1,000 MG in Water for inj. (sterile) 20 ML 10 ML IVP SCH (10:10)
[2017-11-03] MEDS ORDERED: *HR* Dextrose 50 % in Water (Syg) 50 ML SYRINGE IVP PRN (18:28)
[2017-11-03] MEDS ORDERED: Dextrose Gel 15 GM/37.5 ML TUBE PO PRN ×2 (18:28)
[2017-11-03] MEDS ORDERED: Naloxone 0.4 MG/ML INJ IVP PRN (18:28)
[2017-11-03] MEDS ORDERED: Ipratropium/Albuterol Neb 3 ML IH PRN (18:28)
[2017-11-03] MEDS ORDERED: D5% in Water 1,000 ML IVC PRN (18:28)
[2017-11-03] MEDS: *HR* Enoxaparin 80 MG/0.8 ML SYRINGE SQ SCH (19:26)
[2017-11-03] MEDS: Dexmedetomidine HCl 400 MCG/100 ML MLS IVC SCH (19:26)
[2017-11-03] MEDS: Azithromycin 500 MG in D5% in Water 250 ML IVPB SCH (19:27)
[2017-11-03] MEDS: ALPRAZolam 0.25 MG TABLET PO PRN (20:39)
[2017-11-03] MEDS: Artificial Tears SOLN 15 ML BOTTLE BOTH EYES PRN (21:35)
[2017-11-04] MEDS: Ipratropium/Albuterol Neb 3 ML IH SCH ×4 (00:14→11:45)
[2017-11-04 04:45] LABS: Calcium 8.1 mg/dL (8.6-10.3); Potassium 3.4 mEq/L (3.5-5.1)
[2017-11-04 05:08] LABS: Hemoglobin 10.6 g/dL (11.5-15.4); Lymphocytes % 1.3 %; Segmented Neutrophils % 91.6 %
[2017-11-04 05:10] LABS: Basophils # 0.1 K/mcL (0.0-0.2); Basophils % 0.3 %; Hematocrit 32.4 % (35.3-44.9); Immature Granulocytes % 3.4 % (0-4); Mean Corpuscular HGB Conc 32.7 g/dL (31.6-35.5); Mean Corpuscular Hemoglobin 29.8 pg (28.0-33.3); Mean Platelet Volume 12.2 fL (9.4-12.4); Monocytes % 3.4 %; Neutrophils # 30.9 K/mcL (1.6-8.9); Nucleated Red Blood Cells 0.1 /100 WBC (0); Platelet Count 278 K/mcL (140-400); Red Blood Count 3.56 M/mcL (3.82-4.97)
[2017-11-04 05:15] LABS: Lymphocytes # 0.4 K/mcL (0.6-4.6); Monocytes # 1.2 K/mcL (0.0-1.3)
[2017-11-04 05:58] LABS: Platelet Estimate Normal (Normal)
[2017-11-04] MEDS: Levothyroxine 25 MCG TABLET PO SCH (06:28)
[2017-11-04] MEDS: predniSONE 20 MG TABLET PO SCH (07:58)
[2017-11-04] MEDS: *HR* Amiodarone 200 MG TABLET PO SCH ×2 (07:58→20:40)
[2017-11-04] MEDS: Insulin LISPRO 300 UNITS/3 ML VIAL SQ SCH ×4 (07:58→20:41)
[2017-11-04] MEDS: Aspirin Enteric Coated 81 MG Tablet PO SCH (07:58)
[2017-11-04] MEDS: Budesonide/Formoterol 160/4.5 MDI IH SCH ×2 (08:30→19:54)
[2017-11-04] MEDS: Insulin DETEMIR 100 UNIT/ML X5UNITS SQ SCH (09:47)
[2017-11-04] MEDS: Metoprolol XL (24 HR) Succ 25 MG TAB.ER.24H PO SCH (12:08)
[2017-11-04] MEDS: ERTAPENEM IVP SCH (13:14)
[2017-11-04] MEDS: WATER FOR INJ IVP SCH (13:14)
[2017-11-04] MEDS: *HR* Enoxaparin 30 MG/0.3 ML SYRINGE SQ SCH (15:59)
--- NOTE | 2017-11-04 17:47 | Internal Med Progress Note ---
Date of Encounter: 11/04/17 Time of Encounter: 17:39 (Pt seen earlier today) - Assessment and plan (1) Tachy-javi syndrome Current Visit: Yes Status: Acute Assessment and plan: Continue Amiodarone at current dose and Metoprolol (2) COPD exacerbation Current Visit: Yes Status: Suspected Assessment and plan: Continue DuoNebs, Steroids, and Symbicort. Supplemental O2 decreased from 4L and 2L NC. start to wean steroids (3) UTI (urinary tract infection) Current Visit: Yes Status: Acute Assessment and plan: Antibiotics braodened by CC staff to Ertapenem. Qualifiers: Urinary tract infection type: acute cystitis Hematuria presence: without hematuria Qualified Code(s): N30.00 - Acute cystitis without hematuria (4) Sepsis Current Visit: Yes Status: Resolved Assessment and plan: Associtated with both UTI and PNA Qualifiers: Sepsis type: sepsis due to unspecified organism Qualified Code(s): A41.9 - Sepsis, unspecified organism - Time Spent With Patient Greater than 35 minutes - Subjective Interval history: The patient is an 82 yr old woman transfered from ICU to a B after being admitted with an Enterobacter UTI with sepsis as well as suspected PNA and an exacerbation of her COPD. She developed A-Fib with RVR and reported Tachy-Javi syndrome per notes. Her rate was controlled with a Cardizem drip and then transitioned to Amiodarone. She was initially started on Rocephin and Azithromycin for PNA until her urine culture grew out Enterobacter and antibiotics were changed to Ertapenem. Blood cultures have been NTD. - Constitutional Vitals: Temp Pulse Resp BP Pulse Ox 98.3 F 98 20 153/67 94 11/04/17 15:17 11/04/17 15:17 11/04/17 15:17 11/04/17 15:17 11/04/17 15:17 General appearance: Present: A&O X 3, pleasant, no acute distress, answers questions appropriately - Head Head exam: Present: atraumatic, normal inspection, normocephalic - Eye Eye exam: Present: EOMI, PERRL - ENT ENT exam: Present: mucous membranes moist, normal exam, normal oropharynx - Neck Neck exam general surgery: Present: full ROM, normal inspection, supple, trachea midline - Respiratory Additional comments: Lungs clear except minimal decrease LS at left base. - Cardiovascular Cardiovascular exam: Present: irregular rhythm, tachycardia - GI/Abdominal GI/Abdominal exam: Present: normal bowel sounds, soft, no peritoneal signs - Extremities Exam Extremities exam: Present: pedal edema - Neurological Exam Neurological exam: Present: no focal deficits - Psychiatric Psychiatric exam: Present: normal affect, normal mood - Skin Skin exam: Present: dry, intact, warm Internal Medicine: Result - Labs CBC & Chem 7: 11/04/17 03:45 11/04/17 03:45 Labs: Short CBC 11/04/17 Range/Units 03:45 WBC 33.7 H* (4.3-11.1) K/mcL Hgb 10.6 L (11.5-15.4) g/dL Hct 32.4 L (35.3-44.9) % Plt Count 278 (140-400) K/mcL Neutrophils # 30.9 H (1.6-8.9) K/mcL BMP 11/04/17 03:45 Sodium 142 Potassium 3.4 L Chloride 108 H Carbon Dioxide 29 BUN 71 H Creatinine 1.37 H Glucose 102 Calcium 8.1 L - ABG Interpretation ABG results: ABG ABG pH 7.40 pH Units (7.32-7.45) 11/02/17 15:36 ABG pCO2 48 mmHg (35-45) H 11/02/17 15:36 ABG pO2 113 mmHg (85-104) H 11/02/17 15:36 ABG O2 Saturation 98 % (95-98) 11/02/17 15:36 PT/INR, D-dimer PT 12.1 Seconds (9.4-12.1) 11/01/17 07:54 D-Dimer 1128 ng/mLFEU (0-500) H 10/27/17 05:18 - VTE Documentation of Mechanical Device: Intermittent pneumatic compression device Consult Discharge Plan - Plan Referrals: Virginia Cruz DO [Primary Care Provider] -
[2017-11-04] MEDS ORDERED: *HR* Enoxaparin 80 MG/0.8 ML SYRINGE SQ SCH (18:00)
[2017-11-04] MEDS: ALPRAZolam 0.25 MG TABLET PO PRN (20:40)
[2017-11-04] MEDS: Artificial Tears SOLN 15 ML BOTTLE BOTH EYES PRN (20:40)
[2017-11-05 03:46] LABS: Basophils # 0.1 K/mcL (0.0-0.2); Basophils % 0.3 %; Hematocrit 34.2 % (35.3-44.9); Hemoglobin 11.1 g/dL (11.5-15.4); Immature Granulocytes % 3.1 % (0-4); Immature Platelets 10.9 % (1.1-6.1); Lymphocytes % 3.1 %; Mean Corpuscular HGB Conc 32.5 g/dL (31.6-35.5); Mean Corpuscular Hemoglobin 29.3 pg (28.0-33.3); Mean Corpuscular Volume 90.2 fL (83.0-100.0); Mean Platelet Volume 12.2 fL (9.4-12.4); Monocytes # 1.5 K/mcL (0.0-1.3); Monocytes % 4.5 %; Platelet Count 320 K/mcL (140-400); Red Blood Count 3.79 M/mcL (3.82-4.97); Red Cell Distribution Width 14.2 % (11.5-14.5)
[2017-11-05 04:04] LABS: Platelet Estimate Normal (Normal)
[2017-11-05 05:45] LABS: BUN/Creatinine Ratio 63 (6-26); Blood Urea Nitrogen 58 mg/dL (8-23); Calcium 8.4 mg/dL (8.6-10.3); Carbon Dioxide 27 mEq/L (23-29); Chloride 107 mEq/L (98-107); Glucose 64 mg/dL (70-105); Osmolality,Calculated 310 (280-300); Potassium 2.9 mEq/L (3.5-5.1); Sodium 143 mEq/L (136-145); eGFR For African Americans > 60 (> 60); eGFR For Non-African Americans 58 (> 60)
[2017-11-05] MEDS ORDERED: *HR* Enoxaparin 30 MG/0.3 ML SYRINGE SQ SCH (06:00)
[2017-11-05] MEDS: Levothyroxine 25 MCG TABLET PO SCH (06:48)
[2017-11-05] MEDS: *HR* Enoxaparin 30 MG/0.3 ML SYRINGE SQ SCH (06:50)
[2017-11-05] MEDS: Insulin LISPRO 300 UNITS/3 ML VIAL SQ SCH ×4 (08:14→20:36)
[2017-11-05] MEDS: Budesonide/Formoterol 160/4.5 MDI IH SCH ×2 (08:20→20:16)
[2017-11-05] MEDS: *HR* Amiodarone 200 MG TABLET PO SCH ×2 (08:22→20:36)
[2017-11-05] MEDS: Metoprolol XL (24 HR) Succ 25 MG TAB.ER.24H PO SCH (08:22)
[2017-11-05] MEDS: Aspirin Enteric Coated 81 MG Tablet PO SCH (08:23)
[2017-11-05] MEDS: predniSONE 20 MG TABLET PO SCH (08:23)
[2017-11-05] MEDS: Insulin DETEMIR 100 UNIT/ML X5UNITS SQ SCH (08:28)
[2017-11-05] MEDS: ERTAPENEM IVP SCH (12:00)
[2017-11-05] MEDS: WATER FOR INJ IVP SCH (12:00)
[2017-11-05] MEDS ORDERED: *HR* Morphine 2 MG/ML SYRINGE IVP ONE (16:47)
[2017-11-05] MEDS ORDERED: Furosemide 40 MG/4 ML VIAL IVP ONE (17:19)
[2017-11-05 17:36] LABS: ABG Base Excess 5 mEq/L (-2 to 3); ABG HCO3 30 mEq/L (21-27); ABG Oxygen Saturation 90 % (95-98); ABG PCO2 48 mmHg (35-45); ABG PH 7.41 pH Units (7.32-7.45); ABG PO2 60 mmHg (85-104); ABG TCO2 32 mEq/L (20-26)
--- NOTE | 2017-11-05 18:39 | Internal Med Progress Note ---
Date of Encounter: 11/05/17 Time of Encounter: 18:31 (Pt seen in early am) - Assessment and plan (1) Tachy-wayne syndrome Current Visit: Yes Status: Acute Assessment and plan: Continue Amiodarone and Metoprolol. Underlying A-Fib. No A/C due fall risk. (2) COPD exacerbation Current Visit: Yes Status: Suspected Assessment and plan: Continue DuoNebs, Steroids, and Symbicort. Steroid dose decreased wheezing improved Continue weaning steroids (3) UTI (urinary tract infection) Current Visit: Yes Status: Acute Assessment and plan: Antibiotics braodened to Ertapenem to cover Enterobacter. Recheck second set of blood cultures due to climbing WBC. However she remains afebrile. Qualifiers: Urinary tract infection type: acute cystitis Hematuria presence: without hematuria Qualified Code(s): N30.00 - Acute cystitis without hematuria (4) Sepsis Current Visit: Yes Status: Resolved Assessment and plan: Associtated with both UTI and PNA. Antibiotic treatment as outlined for UTI. Qualifiers: Sepsis type: sepsis due to unspecified organism Qualified Code(s): A41.9 - Sepsis, unspecified organism (5) Diastolic CHF, acute on chronic Current Visit: Yes Status: Acute Assessment and plan: She is very edematous and has rales at the lung bases. Lasix given (60 mg IVP) x 1 dose and will be continued at 40 mg daily. Continue replacing Mag/K. Her Echo showed preserved LVEF of 55% with mod MR (6) Pleural effusion Current Visit: Yes Status: Acute Assessment and plan: Bilateral pleural effusions developing. Lasix given. Code(s): J90 - Pleural effusion, not elsewhere classified - Subjective Interval history: The patient is an 82 yr old woman transfered from ICU to a B after being admitted with an Enterobacter UTI with sepsis as well as suspected PNA and an exacerbation of her COPD. She developed A-Fib with RVR and reported Tachy-Wayne syndrome per notes. Her rate was controlled with a Cardizem drip and then transitioned to Amiodarone. She was initially started on Rocephin and Azithromycin for PNA until her urine culture grew out Enterobacter and antibiotics were changed to Ertapenem. Blood cultures have been NTD but her WBC continues to trend upward. She also appears more edematous. - Constitutional Vitals: Temp Pulse Resp BP Pulse Ox 98.1 F 91 16 137/77 91 11/05/17 15:26 11/05/17 15:26 11/05/17 16:18 11/05/17 15:26 11/05/17 16:18 General appearance: Present: A&O X 3, pleasant, no acute distress, answers questions appropriately - Head Head exam: Present: atraumatic, normal inspection, normocephalic - Eye Eye exam: Present: EOMI, PERRL, conjuntiva pink, sclera anicteric - ENT ENT exam: Present: normal exam - Neck Neck exam general surgery: Present: supple, trachea midline. Absent: lymphadenopathy, nuchal rigidity - Respiratory Respiratory exam: Present: CTAB, rales. Absent: accessory muscle use, respiratory distress, rhonchi, stridor, wheezes Additional comments: CTAB except mild rales at bases and decreased breath sounds at the rt. base - Cardiovascular Cardiovascular exam: Present: irregular rhythm, tachycardia - GI/Abdominal GI/Abdominal exam: Present: normal bowel sounds, soft. Absent: guarding, rebound, rigid - Extremities Exam Extremities exam: Present: pedal edema Additional comments: Upper and lower extremities are edematous - Neurological Exam Neurological exam: Present: oriented X3, no focal deficits - Psychiatric Psychiatric exam: Present: normal affect. Absent: anxious, depressed Internal Medicine: Result - Labs CBC & Chem 7: 11/05/17 03:25 11/05/17 03:25 Labs: Short CBC 11/05/17 Range/Units 03:25 WBC 32.6 H* (4.3-11.1) K/mcL Hgb 11.1 L (11.5-15.4) g/dL Hct 34.2 L (35.3-44.9) % Plt Count 320 (140-400) K/mcL Neutrophils # 29.0 H (1.6-8.9) K/mcL BMP 11/05/17 03:25 Sodium 143 Potassium 2.9 L Chloride 107 Carbon Dioxide 27 BUN 58 H Creatinine 0.92 Glucose 64 L Calcium 8.4 L - ABG Interpretation ABG results: ABG ABG pH 7.41 pH Units (7.32-7.45) 11/05/17 17:29 ABG pCO2 48 mmHg (35-45) H 11/05/17 17:29 ABG pO2 60 mmHg (85-104) L 11/05/17 17:29 ABG O2 Saturation 90 % (95-98) L 11/05/17 17:29 PT/INR, D-dimer PT 12.1 Seconds (9.4-12.1) 11/01/17 07:54 D-Dimer 1128 ng/mLFEU (0-500) H 10/27/17 05:18 - Impressions Impressions Chest X-Ray 11/05/17 16:45 IMPRESSION: 1. Interval worsening of a right base opacity and pleural effusion. Stable left base opacity and moderate effusion. Mild edema. Overall, findings are suggestive of congestive heart failure. Superimposed infection remains a differential consideration. D/ / 11/05/2017 17:05:15 Tiffanie Forbes MD / vj Interpreting Provider: Tiffanie Forbes MD - VTE Documentation of Mechanical Device: Intermittent pneumatic compression device Consult Discharge Plan - Plan Referrals: Virginia Cruz DO [Primary Care Provider] -
--- NOTE | 2017-11-05 19:02 | Event Note ---
Date of Encounter: 11/05/17 Time of Encounter: 18:57 The patient developed mild respiratory distress and a CXR was obtained showing worsening pleural effusion. An ABG was obtained that showd mild hypercapnia and hypoxia while she continued to maintain an SpO2 > 90. Her O2 was increased and she was given a low dose of Morphine and 60 mg of IV lasix. She began breathing more comfortably with improved SpO2. Intially her HR was in hte low 100s but is now rate controlled again. I've signed her out to the overnight team who will continue to follow.
[2017-11-06] MEDS: *HR* Enoxaparin 40 MG/0.4 ML SYRINGE SQ SCH (06:15)
[2017-11-06] MEDS: Levothyroxine 25 MCG TABLET PO SCH (06:15)
[2017-11-06] MEDS: Metoprolol XL (24 HR) Succ 25 MG TAB.ER.24H PO SCH (08:14)
[2017-11-06] MEDS: Aspirin Enteric Coated 81 MG Tablet PO SCH (08:14)
[2017-11-06] MEDS: *HR* Amiodarone 200 MG TABLET PO SCH ×2 (08:14→21:07)
[2017-11-06] MEDS: Insulin LISPRO 300 UNITS/3 ML VIAL SQ SCH ×3 (08:15→17:36)
[2017-11-06] MEDS: Insulin DETEMIR 100 UNIT/ML X5UNITS SQ SCH (08:15)
[2017-11-06 08:44] LABS: Basophils # 0.1 K/mcL (0.0-0.2); Basophils % 0.3 %; Hemoglobin 11.6 g/dL (11.5-15.4); Lymphocytes # 1.1 K/mcL (0.6-4.6); Lymphocytes % 3.7 %; Mean Corpuscular HGB Conc 32.2 g/dL (31.6-35.5); Mean Corpuscular Hemoglobin 29.4 pg (28.0-33.3); Mean Corpuscular Volume 91.4 fL (83.0-100.0); Mean Platelet Volume 12.7 fL (9.4-12.4); Monocytes # 1.5 K/mcL (0.0-1.3); Neutrophils # 25.4 K/mcL (1.6-8.9); Nucleated Red Blood Cells 0.1 /100 WBC (0); Platelet Count 338 K/mcL (140-400); Red Blood Count 3.94 M/mcL (3.82-4.97); Red Cell Distribution Width 14.1 % (11.5-14.5)
[2017-11-06] MEDS: Budesonide/Formoterol 160/4.5 MDI IH SCH ×2 (08:55→22:34)
[2017-11-06] MEDS ORDERED: predniSONE 20 MG TABLET PO SCH (09:00)
[2017-11-06 09:10] LABS: Calcium 8.2 mg/dL (8.6-10.3)
[2017-11-06 09:25] LABS: Platelet Estimate Normal (Normal)
--- NOTE | 2017-11-06 12:50 | Internal Med Progress Note ---
Date of Encounter: 11/07/17 Time of Encounter: 12:49 - Assessment and plan (1) Tachy-wayne syndrome Current Visit: Yes Status: Acute Assessment and plan: Continue Amiodarone and Metoprolol. Underlying A-Fib. No A/C due fall risk. Cardiology had originally planned to have the Amiodarone dose decreased by , but she required Metoprolol to control her rate so we will check with cardiology before discharge. (2) COPD exacerbation Current Visit: Yes Status: Suspected Assessment and plan: Continue DuoNebs, Steroids, and Symbicort. Steroid dose decreased wheezing improved Continue weaning steroids off (3) UTI (urinary tract infection) Current Visit: Yes Status: Acute Assessment and plan: Antibiotics braodened to Ertapenem to cover Enterobacter. She remains afebrile and her WBC has now started to trend downward. Length of Ertapenem tx TBD. Qualifiers: Urinary tract infection type: site unspecified Hematuria presence: without hematuria Qualified Code(s): N39.0 - Urinary tract infection, site not specified (4) Sepsis Current Visit: Yes Status: Resolved Qualifiers: Sepsis type: sepsis due to unspecified organism Qualified Code(s): A41.9 - Sepsis, unspecified organism (5) Diastolic CHF, acute on chronic Current Visit: Yes Status: Acute Assessment and plan: She is very edematous and has rales at the lung bases. Lasix given (60 mg IVP) x 1 dose and will be continued at 40 mg daily. Continue replacing Mag/K. Her Echo showed preserved LVEF of 55% with mod MR After receiving lasix she is breathing more comfortably. (6) Pleural effusion Current Visit: Yes Status: Acute Assessment and plan: Bilateral pleural effusions developing. Continue lasix and recheck CXR prior to d/c.. Code(s): J90 - Pleural effusion, not elsewhere classified - Subjective Interval history: The patient is an 82 yr old woman transfered from ICU to a B after being admitted with an Enterobacter UTI with sepsis as well as suspected PNA and an exacerbation of her COPD. She developed A-Fib with RVR and reported Tachy-Wayne syndrome per notes. Her rate was controlled with a Cardizem drip and then transitioned to Amiodarone. She was initially started on Rocephin and Azithromycin for PNA until her urine culture grew out Enterobacter and antibiotics were changed to Ertapenem. Blood cultures have been NTD but her WBC continues to trend upward. Today the WBC has started trending downward and she is clinically improved. Yesterday her sinus congestion was much worse than today after starting flonase. - Constitutional Vitals: Temp Pulse Resp BP Pulse Ox 98.0 F 89 18 146/74 97 11/06/17 11:19 11/06/17 11:19 11/06/17 11:19 11/06/17 11:19 11/06/17 11:19 General appearance: Present: A&O X 3, pleasant, no acute distress, answers questions appropriately - Head Head exam: Present: atraumatic, normocephalic - Eye Eye exam: Present: PERRL, conjuntiva pink, sclera anicteric Pupils: Present: PERRL - Neck Neck exam general surgery: Present: supple, trachea midline. Absent: lymphadenopathy - Respiratory Respiratory exam: Present: CTAB. Absent: accessory muscle use, rales, rhonchi, wheezes - Cardiovascular Cardiovascular exam: Present: RRR, +S1, +S2. Absent: diastolic murmur, gallop, rubs, systolic murmur - GI/Abdominal GI/Abdominal exam: Present: normal bowel sounds, soft, no peritoneal signs. Absent: distended, tenderness - Extremities Exam Extremities exam: Present: warm, radial pulses palpable and symmetrical. Absent : calf tenderness, cyanotic, pedal edema - Neurological Exam Neurological exam: Present: CN II-XII intact, oriented X3, no focal deficits. Absent: pronater drift, facial droop, speech deficit - Skin Skin exam: Present: dry, intact Internal Medicine: Result - Labs CBC & Chem 7: 11/06/17 08:23 11/06/17 08:23 Labs: Short CBC 11/06/17 Range/Units 08:23 WBC 29.2 H (4.3-11.1) K/mcL Hgb 11.6 (11.5-15.4) g/dL Hct 36.0 (35.3-44.9) % Plt Count 338 (140-400) K/mcL Neutrophils # 25.4 H (1.6-8.9) K/mcL BMP 11/06/17 08:23 Sodium 142 Potassium 4.0 Chloride 102 Carbon Dioxide 32 H BUN 51 H Creatinine 1.45 H Glucose 141 H Calcium 8.2 L - ABG Interpretation ABG results: ABG ABG pH 7.41 pH Units (7.32-7.45) 11/05/17 17:29 ABG pCO2 48 mmHg (35-45) H 11/05/17 17:29 ABG pO2 60 mmHg (85-104) L 11/05/17 17:29 ABG O2 Saturation 90 % (95-98) L 11/05/17 17:29 PT/INR, D-dimer PT 12.1 Seconds (9.4-12.1) 11/01/17 07:54 D-Dimer 1128 ng/mLFEU (0-500) H 10/27/17 05:18 - Impressions Impressions Chest X-Ray 11/05/17 16:45 IMPRESSION: 1. Interval worsening of a right base opacity and pleural effusion. Stable left base opacity and moderate effusion. Mild edema. Overall, findings are suggestive of congestive heart failure. Superimposed infection remains a differential consideration. D/ / 11/05/2017 17:05:15 Tiffanie Forbes MD / vj Interpreting Provider: Tiffanie Forbes MD - VTE Documentation of Mechanical Device: Intermittent pneumatic compression device Consult Discharge Plan - Plan Referrals: Virginia Cruz DO [Primary Care Provider] -
[2017-11-06] MEDS ORDERED: Ertapenem 1,000 MG in Water for inj. (sterile) 10 ML IVP SCH (13:00)
[2017-11-06] MEDS: Ertapenem 500 MG in Water for inj. (sterile) 10 ML IVP SCH (14:24)
[2017-11-06 15:55] LABS: Magnesium 1.8 mg/dL (1.6-2.6)
[2017-11-06] MEDS: Ipratropium/Albuterol Neb 3 ML IH SCH ×2 (16:43→22:34)
[2017-11-07] MEDS: Insulin LISPRO 300 UNITS/3 ML VIAL SQ SCH ×5 (00:18→20:42)
[2017-11-07] MEDS: Ipratropium/Albuterol Neb 3 ML IH SCH ×4 (04:02→22:32)
[2017-11-07] MEDS: Levothyroxine 25 MCG TABLET PO SCH (05:30)
[2017-11-07] MEDS: *HR* Enoxaparin 40 MG/0.4 ML SYRINGE SQ SCH (05:30)
--- NOTE | 2017-11-07 09:34 | Internal Med Progress Note ---
Date of Encounter: 11/07/17 Time of Encounter: 09:30 - Assessment and plan (1) Tachy-wayne syndrome Current Visit: Yes Status: Acute (2) COPD exacerbation Current Visit: Yes Status: Suspected (3) UTI (urinary tract infection) Current Visit: Yes Status: Acute Qualifiers: Urinary tract infection type: site unspecified Hematuria presence: without hematuria Qualified Code(s): N39.0 - Urinary tract infection, site not specified (4) Sepsis Current Visit: Yes Status: Resolved Qualifiers: Sepsis type: sepsis due to unspecified organism Qualified Code(s): A41.9 - Sepsis, unspecified organism (5) Diastolic CHF, acute on chronic Current Visit: Yes Status: Acute (6) Pleural effusion Current Visit: Yes Status: Acute Code(s): J90 - Pleural effusion, not elsewhere classified - Subjective Interval history: The patient is an 82 yr old woman transferred from ICU to a [facility] after being admitted with an Enterobacter UTI with sepsis as well as suspected PNA and an exacerbation of her COPD. She developed A-Fib with RVR and reported Tachy-Wayne syndrome per notes. Her rate was controlled with a Cardizem drip and then transitioned to Amiodarone. She was initially started on Rocephin and Azithromycin for PNA until her urine culture grew out Enterobacter and antibiotics were changed tohave been NTD. Her WBCs are still elevated but she is clinically much better. Today she's sitting in bedside chair comfortably reading a book. She remains rate controlled. [employer] still working with daughter to arrange d/c to home with home care. No new problems or complaints. - Constitutional Vitals: Temp Pulse Resp BP Pulse Ox 98.0 F 97 16 141/77 95 11/07/17 07:00 11/07/17 07:00 11/07/17 07:00 11/07/17 07:00 11/07/17 07:00 General appearance: Present: A&O X 3, pleasant, no acute distress, answers questions appropriately - Head Head exam: Present: atraumatic, normocephalic - Eye Eye exam: Present: EOMI, PERRL, conjuntiva pink, sclera anicteric Pupils: Present: PERRL - Neck Neck exam general surgery: Present: supple, trachea midline. Absent: lymphadenopathy - Respiratory Respiratory exam: Present: CTAB. Absent: accessory muscle use, rales, rhonchi, wheezes - Cardiovascular Cardiovascular exam: Present: RRR, +S1, +S2. Absent: diastolic murmur, gallop, rubs, systolic murmur - GI/Abdominal GI/Abdominal exam: Present: normal bowel sounds, soft, no peritoneal signs. Absent: distended, hepatomegaly, hyperactive bowel sounds, tenderness - Extremities Exam Extremities exam: Present: warm, radial pulses palpable and symmetrical. Absent : calf tenderness, cyanotic, pedal edema - Neurological Exam Neurological exam: Present: CN II-XII intact, oriented X3, no focal deficits. Absent: pronater drift, facial droop, speech deficit - Skin Skin exam: Present: dry, intact Internal Medicine: Result - Labs CBC & Chem 7: 11/06/17 08:23 11/06/17 08:23 Labs: BMP 11/06/17 08:23 Sodium 142 Potassium 4.0 Chloride 102 Carbon Dioxide 32 H BUN 51 H Creatinine 1.45 H Glucose 141 H Calcium 8.2 L - ABG Interpretation ABG results: ABG ABG pH 7.41 pH Units (7.32-7.45) 11/05/17 17:29 ABG pCO2 48 mmHg (35-45) H 11/05/17 17:29 ABG pO2 60 mmHg (85-104) L 11/05/17 17:29 ABG O2 Saturation 90 % (95-98) L 11/05/17 17:29 PT/INR, D-dimer PT 12.1 Seconds (9.4-12.1) 11/01/17 07:54 D-Dimer 1128 ng/mLFEU (0-500) H 10/27/17 05:18 - Impressions Impressions Chest X-Ray 11/05/17 16:45 IMPRESSION: 1. Interval worsening of a right base opacity and pleural effusion. Stable left base opacity and moderate effusion. Mild edema. Overall, findings are suggestive of congestive heart failure. Superimposed infection remains a differential consideration. D/ / 11/05/2017 17:05:15 Tiffanie Forbes MD / vj Interpreting Provider: Tiffanie Forbes MD - VTE Documentation of Mechanical Device: Intermittent pneumatic compression device Consult Discharge Plan - Plan Referrals: Virginia Cruz DO [Primary Care Provider] -
[2017-11-07] MEDS: Budesonide/Formoterol 160/4.5 MDI IH SCH ×2 (09:38→22:33)
[2017-11-07] MEDS: *HR* Amiodarone 200 MG TABLET PO SCH ×2 (10:20→19:46)
[2017-11-07] MEDS: Metoprolol XL (24 HR) Succ 25 MG TAB.ER.24H PO SCH (10:20)
[2017-11-07] MEDS: Aspirin Enteric Coated 81 MG Tablet PO SCH (10:20)
[2017-11-07] MEDS: Insulin DETEMIR 100 UNIT/ML X5UNITS SQ SCH (10:23)
[2017-11-07] MEDS: Ertapenem 500 MG in Water for inj. (sterile) 10 ML IVP SCH (15:41)
[2017-11-07] MEDS ORDERED: *HR* Metoprolol 5 MG/5 ML VIAL IVP ONE (22:52)
[2017-11-07] MEDS ORDERED: Furosemide 20 MG/2 ML VIAL IVP ONE (22:54)
[2017-11-07] MEDS: Nystatin SUSP 5 ML UD.LIQ PO SCH (23:07)
[2017-11-08] MEDS ORDERED: Vancomycin 1,000 MG in D5% in Water 250 ML IVPB ONE (02:45)
[2017-11-08] MEDS ORDERED: Piperacillin/Tazobactam 3.375 GM/200 ML BAG IVPB ONE (02:46)
[2017-11-08] MEDS: Ipratropium/Albuterol Neb 3 ML IH SCH ×4 (03:25→21:45)
[2017-11-08 03:54] LABS: Basophils % 0.4 %; Lymphocytes % 1.9 %; Mean Corpuscular Volume 92.1 fL (83.0-100.0)
[2017-11-08 04:00] LABS: Basophils # 0.1 K/mcL (0.0-0.2); Hematocrit 33.9 % (35.3-44.9); Hemoglobin 10.8 g/dL (11.5-15.4); Immature Granulocytes % 3.8 % (0-4); Immature Platelets 11.9 % (1.1-6.1); Lymphocytes # 0.7 K/mcL (0.6-4.6); Mean Corpuscular HGB Conc 31.9 g/dL (31.6-35.5); Mean Corpuscular Hemoglobin 29.3 pg (28.0-33.3); Mean Platelet Volume 12.3 fL (9.4-12.4); Monocytes # 1.6 K/mcL (0.0-1.3); Monocytes % 4.6 %; Neutrophils # 31.5 K/mcL (1.6-8.9); Platelet Count 357 K/mcL (140-400); Red Blood Count 3.68 M/mcL (3.82-4.97); Red Cell Distribution Width 14.2 % (11.5-14.5); Segmented Neutrophils % 89.3 %
[2017-11-08 04:26] LABS: Platelet Estimate Normal (Normal)
[2017-11-08 04:35] LABS: Magnesium 1.9 mg/dL (1.6-2.6); Phosphorous 3.1 mg/dL (2.7-4.5); Potassium 4.6 mEq/L (3.5-5.1)
[2017-11-08] MEDS: Levothyroxine 25 MCG TABLET PO SCH (05:50)
[2017-11-08] MEDS: *HR* Enoxaparin 40 MG/0.4 ML SYRINGE SQ SCH (05:51)
[2017-11-08] MEDS: Insulin LISPRO 300 UNITS/3 ML VIAL SQ SCH ×3 (08:51→17:15)
[2017-11-08] MEDS: Budesonide/Formoterol 160/4.5 MDI IH SCH ×2 (11:18→21:52)
[2017-11-08] MEDS: Metoprolol XL (24 HR) Succ 25 MG TAB.ER.24H PO SCH (12:27)
[2017-11-08] MEDS: Insulin DETEMIR 100 UNIT/ML X5UNITS SQ SCH (12:27)
[2017-11-08] MEDS: Aspirin Enteric Coated 81 MG Tablet PO SCH (12:27)
[2017-11-08] MEDS: *HR* Amiodarone 200 MG TABLET PO SCH ×2 (12:27→19:35)
[2017-11-08] MEDS: Nystatin SUSP 5 ML UD.LIQ PO SCH ×4 (12:27→19:36)
[2017-11-08] MEDS: Furosemide 20 MG/2 ML VIAL IVP SCH ×2 (13:02→17:03)
--- NOTE | 2017-11-08 15:46 | Internal Med Progress Note ---
Date of Encounter: 11/08/17 Time of Encounter: 15:35 (Pt seen earlier today) - Assessment and plan (1) Tachy-javi syndrome Current Visit: Yes Status: Acute (2) COPD exacerbation Current Visit: Yes Status: Suspected (3) UTI (urinary tract infection) Current Visit: Yes Status: Acute Qualifiers: Urinary tract infection type: site unspecified Hematuria presence: without hematuria Qualified Code(s): N39.0 - Urinary tract infection, site not specified (4) Sepsis Current Visit: Yes Status: Resolved Qualifiers: Sepsis type: sepsis due to unspecified organism Qualified Code(s): A41.9 - Sepsis, unspecified organism (5) Diastolic CHF, acute on chronic Current Visit: Yes Status: Acute (6) Pleural effusion Current Visit: Yes Status: Acute Code(s): J90 - Pleural effusion, not elsewhere classified - Subjective Interval history: The patient is an 82 yr old woman transferred from ICU to a [facility] after being admitted with an Enterobacter UTI with sepsis as well as suspected PNA and an exacerbation of her COPD. While in ICU she developed A-Fib with RVR and reportedly Tachy-Javi syndrome per ICU notes. Her rate was controlled with a Cardizem drip and then she was transitioned to Amiodarone. She was initially started on Rocephin and Azithromycin for PNA until her urine culture grew out Enterobacter and antibiotics were changed to Ertapenem after culture and sensitivity reports returned. Her initial blood cultures have been NTD, however her WBCs remain elevated. Despite being elevated > 30K she was clinically improved. She's remained rate controlled after adding Metoprolol succinate. She's had a left-sided pleural effusion which has improved since the initial CXR on 10/30/17. Last night she became hypothermic and less responsive with mild hypoxia. Her BG was 45 at 4 am. She sounded wet so the over night team gave lasix and she improved. This am she was more tired but breathing more comfortably. Lasix was added and a repeat CXR was obtained. The chest xray is improved compared to the prior CXR. - Constitutional Vitals: Temp Pulse Resp BP Pulse Ox 98.3 F 91 16 129/71 95 11/08/17 11:00 11/08/17 11:00 11/08/17 11:19 11/08/17 11:00 11/08/17 11:19 General appearance: Present: A&O X 3, pleasant, no acute distress - Head Head exam: Present: atraumatic, normocephalic - Eye Eye exam: Present: EOMI, PERRL, conjuntiva pink, sclera anicteric Pupils: Present: PERRL - Neck Neck exam general surgery: Present: supple, trachea midline. Absent: lymphadenopathy - Respiratory Respiratory exam: Present: CTAB. Absent: accessory muscle use, rales, rhonchi, wheezes - Cardiovascular Cardiovascular exam: Present: RRR, +S1, +S2. Absent: diastolic murmur, gallop, rubs, systolic murmur - GI/Abdominal GI/Abdominal exam: Present: normal bowel sounds, soft, no peritoneal signs. Absent: distended, tenderness - Extremities Exam Extremities exam: Present: warm, radial pulses palpable and symmetrical. Absent : calf tenderness, cyanotic, pedal edema - Neurological Exam Neurological exam: Present: CN II-XII intact, oriented X3, no focal deficits. Absent: pronater drift, facial droop, speech deficit - Skin Skin exam: Present: dry, intact Internal Medicine: Result - Labs CBC & Chem 7: 11/08/17 03:40 11/08/17 03:40 Labs: Short CBC 11/08/17 Range/Units 03:40 WBC 35.3 H* (4.3-11.1) K/mcL Hgb 10.8 L (11.5-15.4) g/dL Hct 33.9 L (35.3-44.9) % Plt Count 357 (140-400) K/mcL Neutrophils # 31.5 H (1.6-8.9) K/mcL BMP 11/08/17 03:40 Sodium 144 Potassium 4.6 Chloride 110 H Carbon Dioxide 29 BUN 47 H Creatinine 1.31 H Glucose 45 L Calcium 8.0 L - ABG Interpretation ABG results: ABG ABG pH 7.41 pH Units (7.32-7.45) 11/05/17 17:29 ABG pCO2 48 mmHg (35-45) H 11/05/17 17:29 ABG pO2 60 mmHg (85-104) L 11/05/17 17:29 ABG O2 Saturation 90 % (95-98) L 11/05/17 17:29 PT/INR, D-dimer PT 12.1 Seconds (9.4-12.1) 11/01/17 07:54 D-Dimer 1128 ng/mLFEU (0-500) H 10/27/17 05:18 - Impressions Impressions Chest X-Ray 11/08/17 08:50 IMPRESSION: Slight decrease in left pleural effusion. No substantial change otherwise. D/ / Vicky Soni MD / Vicky Soni MD Interpreting Provider: Vicky Soni MD - VTE Documentation of Mechanical Device: Intermittent pneumatic compression device Consult Discharge Plan - Plan Referrals: Virginia Cruz DO [Primary Care Provider] -
[2017-11-08] MEDS: Piperacillin/Tazobactam 3.375 GM/200 ML BAG IVPB SCH (17:02)
[2017-11-09] MEDS: Piperacillin/Tazobactam 3.375 GM/200 ML BAG IVPB SCH ×2 (03:42→17:56)
[2017-11-09] MEDS: Ipratropium/Albuterol Neb 3 ML IH SCH ×4 (03:56→22:48)
[2017-11-09] MEDS: Acetaminophen 325 MG TABLET PO PRN (04:02)
[2017-11-09] MEDS: Vancomycin 1,000 MG in D5% in Water 250 ML IVPB SCH (05:39)
[2017-11-09] MEDS: *HR* Enoxaparin 40 MG/0.4 ML SYRINGE SQ SCH (05:46)
[2017-11-09] MEDS: Levothyroxine 25 MCG TABLET PO SCH (05:46)
[2017-11-09 06:25] LABS: Basophils % 0.1 %; Hematocrit 30.5 % (35.3-44.9); Hemoglobin 9.8 g/dL (11.5-15.4); Immature Granulocytes % 2.5 % (0-4); Lymphocytes # 0.7 K/mcL (0.6-4.6); Lymphocytes % 2.9 %; Mean Corpuscular HGB Conc 32.1 g/dL (31.6-35.5); Mean Corpuscular Hemoglobin 29.3 pg (28.0-33.3); Mean Corpuscular Volume 91.3 fL (83.0-100.0); Mean Platelet Volume 12.9 fL (9.4-12.4); Monocytes # 1.2 K/mcL (0.0-1.3); Monocytes % 4.9 %; Neutrophils # 22.3 K/mcL (1.6-8.9); Platelet Count 308 K/mcL (140-400); Red Blood Count 3.34 M/mcL (3.82-4.97); Red Cell Distribution Width 14.3 % (11.5-14.5); Segmented Neutrophils % 89.6 %
[2017-11-09 06:50] LABS: Anisocytosis 1+ (Not Present); Platelet Estimate Normal (Normal); Reactive Lymphocytes Present (Not Present)
[2017-11-09] MEDS: Insulin LISPRO 300 UNITS/3 ML VIAL SQ SCH ×3 (08:11→17:58)
[2017-11-09] MEDS: Insulin DETEMIR 100 UNIT/ML X5UNITS SQ SCH (08:14)
[2017-11-09] MEDS: Furosemide 20 MG/2 ML VIAL IVP SCH ×2 (08:16→17:58)
[2017-11-09] MEDS: *HR* Amiodarone 200 MG TABLET PO SCH ×2 (08:18→22:08)
[2017-11-09] MEDS: Metoprolol XL (24 HR) Succ 25 MG TAB.ER.24H PO SCH (08:18)
[2017-11-09] MEDS: Aspirin Enteric Coated 81 MG Tablet PO SCH (08:18)
[2017-11-09] MEDS: Nystatin SUSP 5 ML UD.LIQ PO SCH ×4 (09:21→22:08)
[2017-11-09 09:50] LABS: Calcium 7.5 mg/dL (8.6-10.3); Potassium 3.4 mEq/L (3.5-5.1)
[2017-11-09] MEDS: Budesonide/Formoterol 160/4.5 MDI IH SCH ×2 (11:25→22:48)
--- NOTE | 2017-11-09 11:52 | Internal Med Progress Note ---
Date of Encounter: 11/09/17 Time of Encounter: 11:52 - Assessment and plan (1) Tachy-javi syndrome Current Visit: Yes Status: Acute (2) COPD exacerbation Current Visit: Yes Status: Suspected (3) UTI (urinary tract infection) Current Visit: Yes Status: Acute Qualifiers: Urinary tract infection type: site unspecified Hematuria presence: without hematuria Qualified Code(s): N39.0 - Urinary tract infection, site not specified (4) Sepsis Current Visit: Yes Status: Resolved Qualifiers: Sepsis type: sepsis due to unspecified organism Qualified Code(s): A41.9 - Sepsis, unspecified organism (5) Diastolic CHF, acute on chronic Current Visit: Yes Status: Acute Assessment and plan: She is very edematous and has rales at the lung bases. Lasix given (60 mg IVP) x 1 dose and will be continued at 40 mg daily. Continue replacing Mag/K. Her Echo showed preserved LVEF of 55% with mod MR After receiving lasix she is breathing more comfortably. (6) Pleural effusion Current Visit: Yes Status: Acute Assessment and plan: Bilateral pleural effusions improved with lasix. Continue lasix and recheck CXR prior to d/c.. Code(s): J90 - Pleural effusion, not elsewhere classified - Subjective Interval history: The patient is an 82 yr old woman transferred from ICU to a [facility] after being admitted with an Enterobacter UTI with sepsis as well as suspected PNA and an exacerbation of her COPD. While in ICU she developed A-Fib with RVR and reportedly Tachy-Javi syndrome per ICU notes. Her rate was controlled with a Cardizem drip and then she was transitioned to Amiodarone. She was initially started on Rocephin and Azithromycin for PNA until her urine culture grew out Enterobacter and antibiotics were changed to Ertapenem after culture and sensitivity reports returned. Her initial blood cultures have been NTD, however her WBCs remain elevated and continued to increase to >35K. She became hypothermic and less responsive two nights ago so her abx spectrum was braodened to Vanc and Zosyn. Her WBC has begun to trend downward and she has returned to baseline. She's remained rate controlled after adding Metoprolol succinate to the Amiodarone. She will need f/u with cardiology. She's had a left-sided pleural effusion which has improved since the initial CXR on 10/30/17. Last night she became hypothermic and less responsive with mild hypoxia. Lasix was added and she is improved. improved. The repeat chest xray is improved compared to the prior CXR. - Constitutional Vitals: Temp Pulse Resp BP Pulse Ox 97.7 F 82 18 122/75 97 11/09/17 10:45 11/09/17 10:45 11/09/17 10:45 11/09/17 10:45 11/09/17 10:45 General appearance: Present: A&O X 3, pleasant, no acute distress - ENT ENT exam: Present: mucous membranes moist, normal exam, normal oropharynx - Neck Neck exam general surgery: Present: normal inspection, supple, trachea midline. Absent: lymphadenopathy, nuchal rigidity, thyromegaly - Respiratory Respiratory exam: Present: CTAB. Absent: rales, respiratory distress, rhonchi, stridor, wheezes - Cardiovascular Cardiovascular exam: Present: +S1, +S2. Absent: JVD Additional comments: Decreased at right base but improved from previous exams - Extremities Exam Extremities exam: Present: pedal edema, warm - Psychiatric Psychiatric exam: Present: normal affect Internal Medicine: Result - Labs CBC & Chem 7: 11/09/17 05:54 11/09/17 05:54 Labs: Short CBC 11/09/17 Range/Units 05:54 WBC 24.9 H (4.3-11.1) K/mcL Hgb 9.8 L (11.5-15.4) g/dL Hct 30.5 L (35.3-44.9) % Plt Count 308 (140-400) K/mcL Neutrophils # 22.3 H (1.6-8.9) K/mcL BMP 11/09/17 05:54 Sodium 139 Potassium 3.4 L Chloride 101 Carbon Dioxide 28 BUN 44 H Creatinine 1.48 H Glucose 304 H Calcium 7.5 L - ABG Interpretation ABG results: ABG ABG pH 7.41 pH Units (7.32-7.45) 11/05/17 17:29 ABG pCO2 48 mmHg (35-45) H 11/05/17 17:29 ABG pO2 60 mmHg (85-104) L 11/05/17 17:29 ABG O2 Saturation 90 % (95-98) L 01/11/18 17:29 PT/INR, D-dimer PT 12.1 Seconds (9.4-12.1) 11/01/17 07:54 D-Dimer 1128 ng/mLFEU (0-500) H 10/27/17 05:18 - VTE Documentation of Mechanical Device: Intermittent pneumatic compression device Consult Discharge Plan - Plan Referrals: Virginia Cruz DO [Primary Care Provider] -
[2017-11-09] MEDS: Saline Nasal Spray 44 ML BOTTLE NS PRN ×2 (15:50→18:00)
[2017-11-10] MEDS: Ipratropium/Albuterol Neb 3 ML IH SCH ×4 (03:36→21:50)
[2017-11-10] MEDS: Piperacillin/Tazobactam 3.375 GM/200 ML BAG IVPB SCH ×3 (04:14→23:48)
[2017-11-10] MEDS: Vancomycin 1,000 MG in D5% in Water 250 ML IVPB SCH (06:17)
[2017-11-10] MEDS: *HR* Enoxaparin 30 MG/0.3 ML SYRINGE SQ SCH (06:28)
[2017-11-10] MEDS: Levothyroxine 25 MCG TABLET PO SCH (06:28)
[2017-11-10 08:20] LABS: Hematocrit 29.3 % (35.3-44.9); Hemoglobin 9.4 g/dL (11.5-15.4); Mean Corpuscular HGB Conc 32.1 g/dL (31.6-35.5); Mean Corpuscular Hemoglobin 29.1 pg (28.0-33.3); Mean Corpuscular Volume 90.7 fL (83.0-100.0); Mean Platelet Volume 12.3 fL (9.4-12.4); Platelet Count 305 K/mcL (140-400); Red Blood Count 3.23 M/mcL (3.82-4.97); Red Cell Distribution Width 14.1 % (11.5-14.5)
[2017-11-10] MEDS: Insulin LISPRO 300 UNITS/3 ML VIAL SQ SCH ×3 (08:20→16:56)
[2017-11-10 09:09] LABS: Calcium 7.4 mg/dL (8.6-10.3); Potassium 2.9 mEq/L (3.5-5.1)
[2017-11-10 09:27] LABS: Lymphocytes # 1.4 K/mcL (0.6-4.6); Monocytes # 1.4 K/mcL (0.0-1.3); Neutrophils # 20.5 K/mcL (1.6-8.9)
[2017-11-10 09:28] LABS: Platelet Estimate Normal (Normal)
[2017-11-10] MEDS: Insulin DETEMIR 100 UNIT/ML X5UNITS SQ SCH (09:53)
[2017-11-10] MEDS: Metoprolol XL (24 HR) Succ 25 MG TAB.ER.24H PO SCH (09:53)
[2017-11-10] MEDS: Nystatin SUSP 5 ML UD.LIQ PO SCH ×4 (09:53→20:08)
[2017-11-10] MEDS: *HR* Amiodarone 200 MG TABLET PO SCH (09:53)
[2017-11-10] MEDS: Aspirin Enteric Coated 81 MG Tablet PO SCH (09:53)
[2017-11-10] MEDS: Furosemide 20 MG/2 ML VIAL IVP SCH (09:54)
[2017-11-10] MEDS: Budesonide/Formoterol 160/4.5 MDI IH SCH ×2 (10:46→21:50)
[2017-11-10] MEDS: Furosemide 20 MG TABLET PO SCH (16:56)
--- NOTE | 2017-11-10 18:09 | Internal Med Progress Note ---
Date of Encounter: 11/10/17 Time of Encounter: 11:00 - Assessment and plan (1) UTI (urinary tract infection) Current Visit: Yes Status: Acute Assessment and plan: Antibiotics braodened and patient remains afebrile and her WBC has now started to trend downward. Continue IV vancomycin and Zosyn Qualifiers: Urinary tract infection type: site unspecified Hematuria presence: without hematuria Qualified Code(s): N39.0 - Urinary tract infection, site not specified (2) Left lower lobe pneumonia Current Visit: Yes Status: Suspected Assessment and plan: Continue IV vancomycin and Zosyn as above Qualifiers: Pneumonia type: due to unspecified organism Qualified Code(s): J18.1 - Lobar pneumonia, unspecified organism (3) Diastolic CHF, acute on chronic Current Visit: Yes Status: Acute Assessment and plan: Continue Lasix 40 mg daily. Her Echo showed preserved LVEF of 55% with mod MR After receiving IV lasix she is breathing more comfortably. (4) Tachy-javi syndrome Current Visit: Yes Status: Acute Assessment and plan: Continue Amiodarone and Metoprolol. Underlying A-Fib. No A/C due fall risk. (5) New onset atrial fibrillation Current Visit: Yes Status: Acute Assessment and plan: Continue amiodarone and beta meng (6) Pleural effusion Current Visit: Yes Status: Acute Assessment and plan: Bilateral pleural effusions improved with lasix. Continue lasix and recheck CXR prior to d/c.. (7) DVT prophylaxis Current Visit: Yes Status: Acute Assessment and plan: Lovenox - Subjective Interval history: Patient's leukocytosis is resolving on IV antibiotics. When medically stable well transfer to [facility] facility for continued medical management with rehabilitation - Constitutional Vitals: Temp Pulse Resp BP Pulse Ox 98.0 F 67 16 150/69 100 11/10/17 15:40 11/10/17 15:40 11/10/17 16:40 11/10/17 15:40 11/10/17 16:40 General appearance: Present: A&O X 3, pleasant, no acute distress - Respiratory Respiratory exam: Present: CTAB. Absent: accessory muscle use, rales, rhonchi, wheezes - Cardiovascular Cardiovascular exam: Present: RRR, +S1, +S2. Absent: diastolic murmur, gallop, rubs, systolic murmur - GI/Abdominal GI/Abdominal exam: Present: normal bowel sounds, soft, no peritoneal signs. Absent: distended, tenderness - Extremities Exam Extremities exam: Present: warm, radial pulses palpable and symmetrical. Absent : calf tenderness, cyanotic, pedal edema Internal Medicine: Result - Labs CBC & Chem 7: 11/10/17 07:48 11/10/17 07:48 Labs: Short CBC 11/10/17 Range/Units 07:48 WBC 23.3 H (4.3-11.1) K/mcL Hgb 9.4 L (11.5-15.4) g/dL Hct 29.3 L (35.3-44.9) % Plt Count 305 (140-400) K/mcL Neutrophils # 20.5 H (1.6-8.9) K/mcL BMP 11/10/17 07:48 Sodium 142 Potassium 2.9 L Chloride 99 Carbon Dioxide 32 H BUN 42 H Creatinine 1.41 H Glucose 123 H Calcium 7.4 L - ABG Interpretation ABG results: ABG ABG pH 7.41 pH Units (7.32-7.45) 11/05/17 17:29 ABG pCO2 48 mmHg (35-45) H 11/05/17 17:29 ABG pO2 60 mmHg (85-104) L 11/05/17 17:29 ABG O2 Saturation 90 % (95-98) L 11/05/17 17:29 PT/INR, D-dimer PT 12.1 Seconds (9.4-12.1) 11/01/17 07:54 D-Dimer 1128 ng/mLFEU (0-500) H 10/27/17 05:18 - VTE Documentation of Mechanical Device: Intermittent pneumatic compression device Consult Discharge Plan - Plan Referrals: Virginia Cruz DO [Primary Care Provider] -
[2017-11-10] MEDS: ALPRAZolam 0.25 MG TABLET PO PRN (20:08)
[2017-11-11] MEDS: Ipratropium/Albuterol Neb 3 ML IH SCH ×4 (03:22→21:43)
[2017-11-11] MEDS: Vancomycin 750 MG in D5% in Water 250 ML IVPB SCH (04:17)
[2017-11-11] MEDS: *HR* Enoxaparin 30 MG/0.3 ML SYRINGE SQ SCH (06:09)
[2017-11-11] MEDS: Piperacillin/Tazobactam 3.375 GM/200 ML BAG IVPB SCH ×3 (06:09→23:48)
[2017-11-11] MEDS: Levothyroxine 25 MCG TABLET PO SCH (06:10)
[2017-11-11] MEDS: Insulin LISPRO 300 UNITS/3 ML VIAL SQ SCH ×3 (08:22→17:14)
[2017-11-11] MEDS: Nystatin SUSP 5 ML UD.LIQ PO SCH ×4 (08:25→21:20)
[2017-11-11] MEDS: Metoprolol XL (24 HR) Succ 25 MG TAB.ER.24H PO SCH (08:25)
[2017-11-11] MEDS: Aspirin Enteric Coated 81 MG Tablet PO SCH (08:25)
[2017-11-11] MEDS: Furosemide 20 MG TABLET PO SCH ×2 (08:25→17:14)
[2017-11-11] MEDS: *HR* Amiodarone 200 MG TABLET PO SCH (08:25)
[2017-11-11] MEDS: Insulin DETEMIR 100 UNIT/ML X5UNITS SQ SCH (08:34)
[2017-11-11 10:01] LABS: Basophils % 0.1 %; Eosinophils % 0.1 %; Hematocrit 30.4 % (35.3-44.9); Hemoglobin 9.7 g/dL (11.5-15.4); Immature Granulocytes % 1.5 % (0-4); Lymphocytes # 0.8 K/mcL (0.6-4.6); Lymphocytes % 3.4 %; Mean Corpuscular HGB Conc 31.9 g/dL (31.6-35.5); Mean Corpuscular Hemoglobin 29.1 pg (28.0-33.3); Mean Corpuscular Volume 91.3 fL (83.0-100.0); Mean Platelet Volume 11.9 fL (9.4-12.4); Monocytes % 4.5 %; Neutrophils # 20.5 K/mcL (1.6-8.9); Platelet Count 294 K/mcL (140-400); Red Blood Count 3.33 M/mcL (3.82-4.97); Red Cell Distribution Width 14.2 % (11.5-14.5); Segmented Neutrophils % 90.4 %
[2017-11-11] MEDS: Budesonide/Formoterol 160/4.5 MDI IH SCH ×2 (10:06→21:42)
[2017-11-11 10:33] LABS: Calcium 7.4 mg/dL (8.6-10.3); Potassium 2.9 mEq/L (3.5-5.1)
[2017-11-11 11:11] LABS: ABG Base Excess 11 mEq/L (-2 to 3); ABG HCO3 36 mEq/L (21-27); ABG Oxygen Saturation 95 % (95-98); ABG PCO2 48 mmHg (35-45); ABG PH 7.48 pH Units (7.32-7.45); ABG PO2 73 mmHg (85-104); ABG TCO2 37 mEq/L (20-26)
--- NOTE | 2017-11-11 16:35 | Internal Med Progress Note ---
Date of Encounter: 11/11/17 Time of Encounter: 10:00 - Assessment and plan (1) Sepsis Current Visit: Yes Status: Resolved Assessment and plan: -Patient with sepsis that has resolved that was secondary to Enterobacter UTI with suspected pneumonia -Blood cultures are negative to date -Continue IV antibiotics as below Qualifiers: Sepsis type: sepsis due to unspecified organism Qualified Code(s): A41.9 - Sepsis, unspecified organism (2) UTI (urinary tract infection) Current Visit: Yes Status: Acute Assessment and plan: -Patient found to have Enterobacter UTI -Patient still with leukocytosis but improving on IV vancomycin/Zosyn Qualifiers: Urinary tract infection type: site unspecified Hematuria presence: without hematuria Qualified Code(s): N39.0 - Urinary tract infection, site not specified (3) Left lower lobe pneumonia Current Visit: Yes Status: Suspected Assessment and plan: -Chest x-ray showed cardiomegaly with ground-glass opacification in the left lower lung zone. -Showed leukocytosis but improving on IV antibiotics. -Continue IV vancomycin and Zosyn Qualifiers: Pneumonia type: due to unspecified organism Qualified Code(s): J18.1 - Lobar pneumonia, unspecified organism (4) Diastolic CHF, acute on chronic Current Visit: Yes Status: Acute Assessment and plan: -Her Echo showed preserved LVEF of 55% with mod MR -After receiving IV lasix she is breathing more comfortably. -Continue Lasix 40 mg daily. (5) Tachy-javi syndrome Current Visit: Yes Status: Acute Assessment and plan: -Due to underlying atrial fibrillation with RVR but now rate controlled on amiodarone and metoprolol -No anticoagulation due fall risk. (6) New onset atrial fibrillation Current Visit: Yes Status: Acute Assessment and plan: -Rate controlled; continue amiodarone and beta meng (7) Pleural effusion Current Visit: Yes Status: Acute Assessment and plan: -Bilateral pleural effusions improved with lasix. -Continue lasix and recheck CXR prior to d/c.. (8) Transient lingual papillitis Current Visit: Yes Status: Acute Assessment and plan: -Patient with suspected lingual papillitis vs thrush -Will continue swish and swallow for now -ENT consulted and appreciate recommendations (9) Hypothyroidism Current Visit: Yes Status: Acute Assessment and plan: -Continue levothyroxine Qualifiers: Hypothyroidism type: acquired Qualified Code(s): E03.9 - Hypothyroidism, unspecified (10) T2DM (type 2 diabetes mellitus) Current Visit: Yes Status: Acute Assessment and plan: -Continue basal insulin Qualifiers: Diabetes mellitus complication status: with unspecified complications Diabetes mellitus [facility] insulin use: without termite technician use Qualified Code( s): E11.8 - Type 2 diabetes mellitus with unspecified complications (11) HTN (hypertension) Current Visit: Yes Status: Acute Assessment and plan: -Continue beta meng Qualifiers: Hypertension type: essential hypertension Qualified Code(s): I10 - Essential (primary) hypertension (12) HLD (hyperlipidemia) Current Visit: Yes Status: Acute Assessment and plan: -Continue statin Qualifiers: Hyperlipidemia type: unspecified Qualified Code(s): E78.5 - Hyperlipidemia , unspecified (13) DVT prophylaxis Current Visit: Yes Status: Acute Assessment and plan: Lovenox - Subjective Interval history: Patient's leukocytosis is improving on IV antibiotics. Patient reports of sore tongue for the last several days When medically stable well transfer to care home facility for continued medical management with rehabilitation - Constitutional Vitals: Temp Pulse Resp BP Pulse Ox 98.4 F 82 16 138/81 100 11/11/17 15:05 11/11/17 15:05 11/11/17 15:44 11/11/17 15:05 11/11/17 15:44 General appearance: Present: A&O X 3, pleasant, no acute distress - ENT ENT exam: Absent: normal oropharynx (lingual papillitis ) - Respiratory Respiratory exam: Present: CTAB. Absent: accessory muscle use, rales, rhonchi, wheezes - Cardiovascular Cardiovascular exam: Present: RRR, +S1, +S2. Absent: diastolic murmur, gallop, rubs, systolic murmur - GI/Abdominal GI/Abdominal exam: Present: normal bowel sounds, soft, no peritoneal signs. Absent: distended, tenderness Internal Medicine: Result - Labs CBC & Chem 7: 11/11/17 09:51 11/11/17 09:51 Labs: Short CBC 11/11/17 Range/Units 09:51 WBC 22.7 H (4.3-11.1) K/mcL Hgb 9.7 L (11.5-15.4) g/dL Hct 30.4 L (35.3-44.9) % Plt Count 294 (140-400) K/mcL Neutrophils # 20.5 H (1.6-8.9) K/mcL BMP 11/11/17 09:51 Sodium 141 Potassium 2.9 L Chloride 96 L Carbon Dioxide 40 H* BUN 36 H Creatinine 1.38 H Glucose 128 H Calcium 7.4 L - ABG Interpretation ABG results: ABG ABG pH 7.48 pH Units (7.32-7.45) H 11/11/17 11:08 ABG pCO2 48 mmHg (35-45) H 11/11/17 11:08 ABG pO2 73 mmHg (85-104) L 11/11/17 11:08 ABG O2 Saturation 95 % (95-98) 11/11/17 11:08 PT/INR, D-dimer PT 12.1 Seconds (9.4-12.1) 11/01/17 07:54 D-Dimer 1128 ng/mLFEU (0-500) H 10/27/17 05:18 - VTE Documentation of Mechanical Device: Intermittent pneumatic compression device Consult Discharge Plan - Plan Referrals: Virginia Cruz DO [Primary Care Provider] -
[2017-11-12] MEDS: Ipratropium/Albuterol Neb 3 ML IH SCH ×4 (04:08→21:30)
[2017-11-12] MEDS: Vancomycin 750 MG in D5% in Water 250 ML IVPB SCH (05:42)
[2017-11-12] MEDS: Levothyroxine 25 MCG TABLET PO SCH (05:48)
[2017-11-12] MEDS: *HR* Enoxaparin 30 MG/0.3 ML SYRINGE SQ SCH (05:48)
[2017-11-12] MEDS: Piperacillin/Tazobactam 3.375 GM/200 ML BAG IVPB SCH (05:48)
[2017-11-12] MEDS: Metoprolol XL (24 HR) Succ 25 MG TAB.ER.24H PO SCH (08:24)
[2017-11-12] MEDS: Aspirin Enteric Coated 81 MG Tablet PO SCH (08:25)
[2017-11-12] MEDS: Furosemide 20 MG TABLET PO SCH ×2 (08:25→16:27)
[2017-11-12] MEDS: Nystatin SUSP 5 ML UD.LIQ PO SCH ×4 (08:25→20:05)
[2017-11-12] MEDS: Insulin LISPRO 300 UNITS/3 ML VIAL SQ SCH ×3 (08:25→16:26)
[2017-11-12] MEDS: *HR* Amiodarone 200 MG TABLET PO SCH (08:25)
--- NOTE | 2017-11-12 08:25 | ENT - Consult Note ---
Date of Encounter: 11/12/17 Time of Encounter: 08:18 Assessment and Plan (1) Glossitis Current Visit: Yes Status: Acute This is a glossitis and based on medication history this is most likely oral candidiasis. An oral cavity cx/fungal smear is pending but in the meantime I would add oral Diflucan to her regimen and keep her on the Nystatin swish and swallow. This may take a while for the symptoms to resolve as she has desquamated some of the tongue and oropharynx superficial mucosa. History of Present Illness Consult date: 11/12/17 Reason for ENT Consult: other (mouth pain) History of present illness: 82 yo female hospitalized since 10/27/2017 with pneumonia/exacerbation of COPD. In the last few days she has been complaining of mouth pain. Today at the bedside she complains of mouth/throat pain and eye pain. Pertinent medications include steroids, inhaled corticosteroids, and IV antibiotics. She has been on Nystatin oral swish and swallow for a couple of days without much improvement. Past Med Surg Social Fam HX - Past Medical History Medical history: COPD, hyperlipidemia, thyroid disease - Past Surgical History Surgical History: orthopedic, other - Social History Smoking Status: Never smoker Smokeless Tobacco Status: No Alcohol use: none Drug use: none Medications and Allergies Amlodipine Besylate/Benazepril [Lotrel 10-20 mg Capsule] 1 cap PO DAILY [History] Atenolol [Tenormin] 50 mg PO DAILY 10/27/17 [History] Budesonide/Formoterol 160/4.5 [Symbicort 160/4.5] 2 puff IH BID 10/27/17 [ History] Levothyroxine Sodium [Levoxyl] 50 mcg PO DAILY 10/27/17 [History] Naproxen Sodium [Aleve] 220 mg PO BID 10/27/17 [History] Potassium Chloride [K-Tab ER] 40 meq PO BID 10/27/17 [History] Simvastatin [Zocor] 20 mg PO DAILY 10/27/17 [History] glipiZIDE [Glucotrol] 5 mg PO DAILY 10/27/17 [History] 3 Allergy/AdvReac Type Severity Reaction Status Date / Time codeine Allergy Itching Verified 08/28/16 17:07 gabapentin Allergy Hallucinati Verified 08/28/16 17:07 ng lidocaine [From Lidoderm] Allergy Rash Verified 08/28/16 17:07 meperidine [From Demerol] Allergy Hallucinati Verified 08/28/16 17:07 ng Oxycodone Allergy Hallucinati Verified 08/28/16 17:07 ng lorazepam [From Ativan] AdvReac Agitated Verified 11/01/17 19:13 ENT Exam Initial Vital Signs Temp Pulse Resp BP Pulse Ox 98.2 F 120 30 122/92 95 10/27/17 05:17 10/27/17 05:17 10/27/17 05:17 10/27/17 05:17 10/27/17 05:17 - General physical appearance well nourished, moderate distress - ENT Other (ears -right cerumen impaction, left normal canal and tympanic membrane, nose - dry mucosa, oral cavity- glossitis with areas of desquamated epithelium on the tongue and suggestion of mild ulceration tonsil pillars bilateral- oral cx done) - Neck no masses, trachea midline, no lymphadectomy - Psychiatric other (seems a bit confused) Exam Initial Vital Signs Temp Pulse Resp BP Pulse Ox 98.2 F 120 30 122/92 95 10/27/17 05:17 10/27/17 05:17 10/27/17 05:17 10/27/17 05:17 10/27/17 05:17 Results - Labs 11/11/17 09:51 11/11/17 09:51 Abnormal lab results WBC 22.7 K/mcL (4.3-11.1) H 11/11/17 09:51 RBC 3.33 M/mcL (3.82-4.97) L 11/11/17 09:51 Hgb 9.7 g/dL (11.5-15.4) L 11/11/17 09:51 Hct 30.4 % (35.3-44.9) L 11/11/17 09:51 Neutrophils # 20.5 K/mcL (1.6-8.9) H 11/11/17 09:51 Nucleated RBCs/100 WBC 0.1 /100 WBC (0) H 11/06/17 08:23 Hypersegmented Neuts Present (Not Present) A 10/29/17 14:30 Reactive Lymphocytes Present (Not Present) A 11/09/17 05:54 Immature Plt Fraction 11.9 % (1.1-6.1) H 11/08/17 03:40 Anisocytosis 1+ (Not Present) A 11/09/17 05:54 D-Dimer 1128 ng/mLFEU (0-500) H 10/27/17 05:18 ABG pH 7.48 pH Units (7.32-7.45) H 11/11/17 11:08 ABG pCO2 48 mmHg (35-45) H 11/11/17 11:08 ABG pO2 73 mmHg (85-104) L 11/11/17 11:08 ABG HCO3 36 mEq/L (21-27) H 11/11/17 11:08 ABG Total CO2 37 mEq/L (20-26) H 11/11/17 11:08 ABG Base Excess 11 mEq/L (-2 to 3) H 11/11/17 11:08 Potassium 2.9 mEq/L (3.5-5.1) L 11/11/17 09:51 Chloride 96 mEq/L (98-107) L 11/11/17 09:51 Carbon Dioxide 40 mEq/L (23-29) H* 11/11/17 09:51 BUN 36 mg/dL (8-23) H 11/11/17 09:51 Creatinine 1.38 mg/dL (0.60-1.20) H 11/11/17 09:51 Est GFR ( Amer) 44 (> 60) L 11/11/17 09:51 Est GFR (Non-Af Amer) 37 (> 60) L 11/11/17 09:51 Glucose 128 mg/dL (70-105) H 11/11/17 09:51 POC Glucose 115 (58-89) H 11/11/17 21:03 Calculated Osmolality 302 (280-300) H 11/11/17 09:51 Calcium 7.4 mg/dL (8.6-10.3) L 11/11/17 09:51 Total Bilirubin 0.2 mg/dL (0.3-1.0) L 10/31/17 03:53 AST 11 Units/L (13-39) L 10/31/17 03:53 Troponin I 0.13 ng/mL (< 0.04) H* 10/29/17 04:02 B-Natriuretic Peptide 308 pg/mL (Less than 100) H 11/06/17 08:23 Serum Total Protein 5.5 g/dL (6.4-8.9) L 10/31/17 03:53 Albumin 2.7 g/dL (3.5-5.7) L 10/31/17 03:53 Albumin/Globulin Ratio 1.0 (1.1-2.2) L 10/31/17 03:53 TSH 0.031 mcIU/mL (0.340-5.600) L 11/01/17 03:18 Urine Clarity Turbid (Clear) A 10/27/17 05:22 Urine Protein 30 mg/dL (Neg-Trace) H 10/27/17 05:22 Urine Glucose (UA) >=1000 mg/dL (Normal) H 10/27/17 05:22 Urine Blood Moderate (Negative) H 10/27/17 05:22 Urine Nitrite Positive (Negative) A 10/27/17 05:22 Ur Leukocyte Esterase Large (Negative) H 10/27/17 05:22 Urine Microscopic RBC 5-15 per hpf (0-3) H 10/27/17 05:22 Urine Microscopic WBC TNTC per hpf (0-3) H 10/27/17 05:22 Ur Squamous Epith Cells Many per lpf (None-Few) H 10/27/17 05:22 Urine Bacteria Many per hpf (None-Few) H 10/27/17 05:22 Vancomycin Trough 22.6 mcg/mL (10-20) H* 11/12/17 05:13 Diabetes panel 11/11/17 Range/Units 09:51 Sodium 141 (136-145) mEq/L Potassium 2.9 L (3.5-5.1) mEq/L Chloride 96 L (98-107) mEq/L Carbon Dioxide 40 H* (23-29) mEq/L BUN 36 H (8-23) mg/dL Creatinine 1.38 H (0.60-1.20) mg/dL Glucose 128 H (70-105) mg/dL Calcium 7.4 L (8.6-10.3) mg/dL Calcium panel 11/11/17 Range/Units 09:51 Calcium 7.4 L (8.6-10.3) mg/dL Pituitary panel 11/11/17 Range/Units 09:51 Sodium 141 (136-145) mEq/L Potassium 2.9 L (3.5-5.1) mEq/L Chloride 96 L (98-107) mEq/L Carbon Dioxide 40 H* (23-29) mEq/L BUN 36 H (8-23) mg/dL Creatinine 1.38 H (0.60-1.20) mg/dL Glucose 128 H (70-105) mg/dL Calcium 7.4 L (8.6-10.3) mg/dL Adrenal panel 11/11/17 Range/Units 09:51 Sodium 141 (136-145) mEq/L Potassium 2.9 L (3.5-5.1) mEq/L Chloride 96 L (98-107) mEq/L Carbon Dioxide 40 H* (23-29) mEq/L BUN 36 H (8-23) mg/dL Creatinine 1.38 H (0.60-1.20) mg/dL Glucose 128 H (70-105) mg/dL Calcium 7.4 L (8.6-10.3) mg/dL All other labs normal. Consult Discharge Plan - Plan Referrals: Virginia Cruz DO [Primary Care Provider] -
[2017-11-12] MEDS: Insulin DETEMIR 100 UNIT/ML X5UNITS SQ SCH (08:26)
[2017-11-12 08:59] LABS: Hematocrit 33.2 % (35.3-44.9); Hemoglobin 10.8 g/dL (11.5-15.4); Mean Corpuscular HGB Conc 32.5 g/dL (31.6-35.5); Mean Corpuscular Hemoglobin 29.8 pg (28.0-33.3); Mean Corpuscular Volume 91.5 fL (83.0-100.0); Mean Platelet Volume 11.8 fL (9.4-12.4); Platelet Count 319 K/mcL (140-400); Red Blood Count 3.63 M/mcL (3.82-4.97); Red Cell Distribution Width 14.3 % (11.5-14.5)
[2017-11-12 09:17] LABS: Calcium 7.9 mg/dL (8.6-10.3)
[2017-11-12] MEDS ORDERED: Aminoglycoside Consult 1 EACH MC ONE (10:14)
[2017-11-12] MEDS: Budesonide/Formoterol 160/4.5 MDI IH SCH ×2 (10:54→21:30)
[2017-11-12 11:37] LABS: Lymphocytes # 0.5 K/mcL (0.6-4.6); Neutrophils # 22.7 K/mcL (1.6-8.9); Platelet Estimate Normal (Normal)
--- NOTE | 2017-11-12 11:54 | Internal Med Progress Note ---
Date of Encounter: 11/12/17 Time of Encounter: 10:00 - Assessment and plan (1) Sepsis Current Visit: Yes Status: Resolved Assessment and plan: -Patient with sepsis that has resolved that was secondary to Enterobacter UTI with suspected pneumonia -Blood cultures are negative to date -Continue IV antibiotics as below Qualifiers: Sepsis type: sepsis due to unspecified organism Qualified Code(s): A41.9 - Sepsis, unspecified organism (2) UTI (urinary tract infection) Current Visit: Yes Status: Acute Assessment and plan: -Patient found to have Enterobacter UTI -Patient still with leukocytosis but improving on IV vancomycin/Zosyn Qualifiers: Urinary tract infection type: site unspecified Hematuria presence: without hematuria Qualified Code(s): N39.0 - Urinary tract infection, site not specified (3) Left lower lobe pneumonia Current Visit: Yes Status: Suspected Assessment and plan: -Chest x-ray showed cardiomegaly with ground-glass opacification in the left lower lung zone. -Showed leukocytosis but improving on IV antibiotics. -Continue IV vancomycin and Zosyn Qualifiers: Pneumonia type: due to unspecified organism Qualified Code(s): J18.1 - Lobar pneumonia, unspecified organism (4) Leukocytosis Current Visit: Yes Status: Acute Assessment and plan: -Patient with no improvement in leukocytosis since hospital admission on 10/27/17. -She has been on various antibiotics for UTI/pneumonia including Invanz, Rocephin and now vancomycin and Zosyn with no improvement. -Patient has been afebrile. -Infectious disease consulted and appreciate recommendations. Qualifiers: Leukocytosis type: unspecified Qualified Code(s): D72.829 - Elevated white blood cell count, unspecified (5) Diastolic CHF, acute on chronic Current Visit: Yes Status: Acute Assessment and plan: -Her Echo showed preserved LVEF of 55% with mod MR -After receiving IV lasix she is breathing more comfortably. -Continue Lasix 40 mg daily. (6) Tachy-javi syndrome Current Visit: Yes Status: Acute (7) New onset atrial fibrillation Current Visit: Yes Status: Acute Assessment and plan: -Rate controlled; continue amiodarone and beta meng (8) Pleural effusion Current Visit: Yes Status: Acute Assessment and plan: -Bilateral pleural effusions improved with lasix. -Continue lasix and recheck CXR prior to d/c.. (9) Transient lingual papillitis Current Visit: Yes Status: Acute Assessment and plan: -Patient with suspected lingual papillitis vs thrush -Will continue swish and swallow for now -ENT consulted with recommendations and suspects oral candidiasis with recommendations to add oral Diflucan to her regimen and keep her on the Nystatin swish and swallow. -There is an interaction however with Diflucan and amiodarone for potential increase QT syndrome so will hold for now (10) Hypokalemia Current Visit: Yes Status: Acute Assessment and plan: -Patient will continue hypokalemia -Potassium is 3.0 today from 2.9 yesterday on 40 KCl oral twice daily -40 mEq IV K rider ordered -Will continue to monitor (11) Hypothyroidism Current Visit: Yes Status: Acute Assessment and plan: -Continue levothyroxine Qualifiers: Hypothyroidism type: acquired Qualified Code(s): E03.9 - Hypothyroidism, unspecified (12) T2DM (type 2 diabetes mellitus) Current Visit: Yes Status: Acute Assessment and plan: -Continue basal insulin Qualifiers: Diabetes mellitus complication status: with unspecified complications Diabetes mellitus intermission coordinator insulin use: without intermission coordinator use Qualified Code( s): E11.8 - Type 2 diabetes mellitus with unspecified complications (13) HTN (hypertension) Current Visit: Yes Status: Acute Assessment and plan: -Continue beta meng Qualifiers: Hypertension type: essential hypertension Qualified Code(s): I10 - Essential (primary) hypertension (14) HLD (hyperlipidemia) Current Visit: Yes Status: Acute Assessment and plan: -Continue statin Qualifiers: Hyperlipidemia type: unspecified Qualified Code(s): E78.5 - Hyperlipidemia , unspecified (15) DVT prophylaxis Current Visit: Yes Status: Acute Assessment and plan: Lovenox - Subjective Interval history: Patient's leukocytosis not improving on IV antibiotics; will consult infectious disease for recommendations Patient reports of sore tongue for the last several days with little improvement When medically stable well transfer to [facility] facility for continued medical management with rehabilitation - Constitutional Vitals: Temp Pulse Resp BP Pulse Ox 97.6 F 95 17 142/71 96 11/12/17 11:27 11/12/17 11:27 11/12/17 11:27 11/12/17 11:27 11/12/17 11:27 General appearance: Present: A&O X 3, pleasant, no acute distress - ENT ENT exam: Absent: normal oropharynx (Enlarged lingual papillae) - Respiratory Respiratory exam: Present: CTAB. Absent: accessory muscle use, rales, rhonchi, wheezes - Cardiovascular Cardiovascular exam: Present: RRR, +S1, +S2. Absent: diastolic murmur, gallop, rubs, systolic murmur Internal Medicine: Result - Labs CBC & Chem 7: 11/12/17 08:42 11/12/17 08:42 Labs: Short CBC 11/12/17 Range/Units 08:42 WBC 24.4 H (4.3-11.1) K/mcL Hgb 10.8 L (11.5-15.4) g/dL Hct 33.2 L (35.3-44.9) % Plt Count 319 (140-400) K/mcL Neutrophils # 22.7 H (1.6-8.9) K/mcL BMP 11/12/17 08:42 Sodium 143 Potassium 3.0 L Chloride 97 L Carbon Dioxide 38 H BUN 32 H Creatinine 1.32 H Glucose 99 Calcium 7.9 L - ABG Interpretation ABG results: ABG ABG pH 7.48 pH Units (7.32-7.45) H 11/11/17 11:08 ABG pCO2 48 mmHg (35-45) H 11/11/17 11:08 ABG pO2 73 mmHg (85-104) L 11/11/17 11:08 ABG O2 Saturation 95 % (95-98) 11/11/17 11:08 PT/INR, D-dimer PT 12.1 Seconds (9.4-12.1) 11/01/17 07:54 D-Dimer 1128 ng/mLFEU (0-500) H 10/27/17 05:18 - VTE Documentation of Mechanical Device: Intermittent pneumatic compression device Consult Discharge Plan - Plan Referrals: Virginia Cruz DO [Primary Care Provider] -
[2017-11-12] MEDS: 0.9 % Sodium Chloride 250 ML ONE (12:54)
--- NOTE | 2017-11-12 14:26 | Infectious Disease Consult ---
Date of Encounter: 11/12/17 Time of Encounter: 14:25 Assessment and Plan (1) Leukocytosis Status: Acute Assessment and plan: Etiology not clear at this point. Patient does not have any focus of infection on review of system or physical exam. Patient did have asymptomatic Enterobacter Danny niece on admission that was treated appropriately. Currently urine in the Krueger does not appear purulent Patient does not have any URI symptoms. She does have chronic cough but chest x- rays done multiple times are less impressive for pneumonia and more for CHF and pleural effusion. No intra-abdominal process could be identified No autoimmune cause could be identified No muscular skeletal system could be identified (no signs of joint infection or cellulitis) I had a long discussion with the patient and her . At this point I think it might be warranted to stop all antibiotics unobserved. Patient has been on antibiotics since admission on 10/27/2017 through 11/11/2017. If the patient had a pneumonia has been treated adequately, the UTI would've been treated adequately. If the patient shows any signs of worsening sepsis including hemodynamic instability, fever or much worse leukocytosis we will consider repeating chest x -ray, repeat urinalysis, checking lipase and amylase and LFTs and considering CT abdomen and pelvis and CT chest. For now I think we can just stop the vancomycin and Zosyn unobserved. We will check a peripheral smear though just to be on the safe side. I'm not sure if the persistent leukocytosis could still have to do with the steroids. Patient was on high-dose steroids until the 12th of this month. Sometimes there is a lagging persistent leukocytosis. Qualifiers: Leukocytosis type: unspecified Qualified Code(s): D72.829 - Elevated white blood cell count, unspecified (2) UTI (urinary tract infection) Status: Acute Assessment and plan: Patient tells me that she was asymptomatic on admission bowel not sure how much good she remember. Urinalysis and urine culture grew Enterobacter aerogenes that was pansensitive U/A appears clear and patient is asymptomatci krueger still intact due to poor mobility d/c krueger once possible d/w nursing staff Qualifiers: Urinary tract infection type: site unspecified Hematuria presence: without hematuria Qualified Code(s): N39.0 - Urinary tract infection, site not specified (3) Sepsis Status: Resolved Assessment and plan: Patient had to search criteria on admission including tachycardia and leukocytosis. Lactic acid was normal. Likely secondary to UTI versus pneumonia versus noninfectious. Continues to have the leukocytosis but has been on antibiotics for 15 days continuous. Qualifiers: Sepsis type: sepsis due to unspecified organism Qualified Code(s): A41.9 - Sepsis, unspecified organism (4) Glossitis Status: Acute Assessment and plan: Etiology not clear. Does not appear to to be due to oral thrush. Clinically this does not appear to be herpes. Await ENT recommendations. (5) CHF exacerbation Status: Acute Qualifiers: Congestive heart failure type: unspecified Qualified Code(s): I50.9 - Heart failure, unspecified (6) COPD exacerbation Status: Acute (7) Pleural effusion Status: Acute (8) CKD (chronic kidney disease) stage 3, GFR 30-59 ml/min Status: Acute (9) HLD (hyperlipidemia) Status: Acute Qualifiers: Hyperlipidemia type: unspecified Qualified Code(s): E78.5 - Hyperlipidemia , unspecified (10) HTN (hypertension) Status: Acute Qualifiers: Hypertension type: essential hypertension Qualified Code(s): I10 - Essential (primary) hypertension Infectious Disease HPI - Data of Consult Patient: new to practice Consult date: 11/12/17 Requesting Physician: Patricio Lyons Primary Care Provider: Sd Hidalgo - Consult Narrative Reason for consult: sepsis with persistent leukoctysis History of present illness: Ms. Moreira is a 82 year old female Patient is an 83-year-old woman admitted to [facility] on 10/27/2017 with shortness of breath secondary to COPD exacerbation and left lower lobe pneumonia. We are consult on 11/12/2017 for unresolved leukocytosis Patient is an 82-year-old woman with past medical history mentioned below including diabetes mellitus type 2, hypertension, hyperlipidemia, hypothyroidism , dementia and advanced COPD and came into the emergency department on 10/27/2017 with shortness of breath. Most of the information was collected from medical records since the patient is not a good historian. Apparently patient was having shortness of breath, cough with mucopurulent expectoration, dyspnea on exertion. It is not known if the patient had fevers or chills at home. On admission patient was afebrile, David tachycardic and had leukocytosis of 23 ,000 with mild neutrophil predominance no bandemia. Patient also had elevated creatinine of 1.31 a troponin leak at 0.1 that peaked at 0.7 and normal lactic acid. A urinalysis was obtained on 10/27/17 which revealed a contaminated urine and a urine culture was obtained and was positive for Enterobacter aerogenes. Blood cultures were obtained on 10/27/17, 11/05/17, 11/08/17 all of which were -2 out of 2 sets. Influenza A and B antigen was done on 10/30/17 which was also negative. A chest x-ray was obtained which revealed cardiomegaly with less opacification the left lower lung zone which could represent asymmetric edema or developing pneumonia. CT head did not reveal any acute changes showed old lacunar infarcts and diffuse atrophy. A repeat chest x-ray on 10/30/17 revealed perihilar airspace disease likely pulmonary edema. Pneumonia as a differential possibility. Repeat chest x-ray on 11/05/2017 was read as interval worsening of right base opacity and pleural effusion. Stable left base opacity and moderate effusion. Mild edema. Overall, findings are suggestive of congestive heart failure. Superimposed infection remains a differential consideration. Since admission, patient Has been afebrile and had episodes of hypothermia on November 08 with a temperature of 95.8 and 94.8 Fahrenheit. Patient had tachycardia throughout. Patient has been hemodynamically stable but has had elevated blood pressures sometimes. No hypotension observed during the hospital stay. WBC has persistently elevated peaked at about 35,000. Recent one is 24, 000 with neutrophilic predominance and 93%. Repeat lactic acid was 0.51 . Patient continues to have chronic renal insufficiency with creatinine stable at about 1.3-1.4. Repeat Vanco trough was 22.6 so the most recent vancomycin dose was held. ENT was consult at for glossitis. Patient has been on nystatin swish and swallow and they recommended adding Diflucan. Oral mucosal was scraped and sent to culture and has not shown any fungal element. Abx Since admission: Azithromycin 10/27/17 - 11/01/17 Cefepime 10/27/17 Rocephin 10/28/17 - 11/03/17 Ertapenem 11/03/17 - 11/07/17 Vancomycin 11/08/17 - current Zosyn 11/08/17 - Current Prednisone until 11/06/17 Currently, patient appears to be doing great clinically. is at bedside. She is alert oriented answers questions and follows command. Her review of system is negative for URI symptoms. No sinus pressure, no ear ache no toothache or gum pain. Patient does have dentures and they are fitting okay. She does have lesions on her tongue which are uncomfortable but they don't burn. Patient denies history of cold sores in the past. Patient denies any chest pain or shortness of breath. She continues to have cough and it's slightly mucopurulent but better than when she came in she states. Patient denies any abdominal pain no nausea or vomiting no diarrhea no constipation. She had a bowel movement this morning. He shouldn't denies any urinary symptoms. She does have a Krueger and the urine appears to be clear. Patient denies any joint pain or swelling. She does have diffuse edema of the upper and lower extremities which appears to be myxedema. On further questioning, patient denies any history of pancreatitis, no history of gout, no history of autoimmune disease. CC: Patricio Lyons Past Med Surg Social Fam HX - Past Medical History Medical history: COPD, hyperlipidemia, thyroid disease - Past Surgical History Surgical History: orthopedic, other - Social History Smoking Status: Never smoker Smokeless Tobacco Status: No Alcohol use: none Drug use: none Infectious Disease-CN:Meds Amlodipine Besylate/Benazepril [Lotrel 10-20 mg Capsule] 1 cap PO DAILY [History] Atenolol [Tenormin] 50 mg PO DAILY 10/27/17 [History] Budesonide/Formoterol 160/4.5 [Symbicort 160/4.5] 2 puff IH BID 10/27/17 [ History] Levothyroxine Sodium [Levoxyl] 50 mcg PO DAILY 10/27/17 [History] Naproxen Sodium [Aleve] 220 mg PO BID 10/27/17 [History] Potassium Chloride [K-Tab ER] 40 meq PO BID 10/27/17 [History] Simvastatin [Zocor] 20 mg PO DAILY 10/27/17 [History] glipiZIDE [Glucotrol] 5 mg PO DAILY 10/27/17 [History] 3 Allergy/AdvReac Type Severity Reaction Status Date / Time codeine Allergy Itching Verified 08/28/16 17:07 gabapentin Allergy Hallucinati Verified 08/28/16 17:07 ng lidocaine [From Lidoderm] Allergy Rash Verified 08/28/16 17:07 meperidine [From Demerol] Allergy Hallucinati Verified 08/28/16 17:07 ng Oxycodone Allergy Hallucinati Verified 08/28/16 17:07 ng lorazepam [From Ativan] AdvReac Agitated Verified 11/01/17 19:13 Review of systems: 10 point review of systems done, negative other for what is mentioned in history of present illness. Exam - Constitutional Vitals: Temp Pulse Resp BP Pulse Ox 97.6 F 95 18 142/71 96 11/12/17 11:27 11/12/17 11:27 11/12/17 13:31 11/12/17 11:27 11/12/17 13:31 General appearance: cooperative, no acute distress, no febrile Exam: Pleasant. at bedside. Nurse Angela came in to help me with the physical exam - Head Head exam: Present: atraumatic, normocephalic - Eye Eye exam: Present: EOMI, PERRL, sclera anicteric - ENT ENT exam: Present: mucous membranes dry Additional comments: Has some white raised lesions on the tongue that appears to be fungal versus geographic tongue versus other. No ulcerations to suggest herpes simplex virus. Patient did have a scraping of the lesions and to mitral which showed no fungal organisms. I'm not really sure what this lesions are. ENT is following as well. - Neck Neck exam: Present: full ROM. Absent: meningismus - Respiratory Additional comments: Air sounds audible both lung anne. Chest expanding symmetrically. Minimal wheezing audible. Did not appreciate any rhonchi. Diminished breath sounds at the bases with poor inspiratory effort. - Cardiovascular Cardiovascular exam: Present: RRR, +S1, +S2 - GI/Abdominal GI/Abdominal exam: Present: normal bowel sounds, soft. Absent: distended, firm , guarding, rebound, rigid, tenderness Additional comments: Abdominal exam is totally benign. No epigastric tenderness to suggest pancreatitis negative Rubin sign. Exam is really unremarkable. - Extremities Exam Additional comments: Diffuse edema in the bilateral lower extremities that is 1-2+ nonpitting. No joint effusion erythema or decreased range of motion. No signs of cellulitis or joint infection. - Back Exam Back exam: Absent: CVA tenderness (L), CVA tenderness (R), vertebral tenderness - Neurological Exam Neurological exam: Present: alert, oriented X3. Absent: speech deficit - Psychiatric Psychiatric exam: Present: normal affect, normal mood - Skin Skin exam: Present: normal color. Absent: rash Infectious Disease CN: Results - Labs CBC & Chem 7: 11/12/17 08:42 11/12/17 08:42 Cultures: Cultures 11/12/17 08:00 Fungal Smear - Final Mouth 11/05/17 11:56 Blood Culture - Final Peripheral Venipuncture No growth. 11/05/17 12:05 Blood Culture - Final Peripheral Venipuncture No growth. 11/08/17 08:38 Blood Culture - Preliminary Peripheral Venipuncture No growth. 11/08/17 08:04 Blood Culture - Preliminary Peripheral Venipuncture No growth. 10/30/17 18:10 Influenza Types A,B Antigen (BALBIR) - Final Nasopharyngeal - VTE Documentation of Mechanical Device: Intermittent pneumatic compression device Consult Discharge Plan - Plan Referrals: Virginia Cruz DO [Primary Care Provider] -
[2017-11-12] MEDS: ALPRAZolam 0.25 MG TABLET PO PRN (20:05)
[2017-11-13] MEDS: Ipratropium/Albuterol Neb 3 ML IH SCH ×4 (04:06→22:57)
[2017-11-13] MEDS: Levothyroxine 25 MCG TABLET PO SCH (05:34)
[2017-11-13] MEDS: *HR* Enoxaparin 30 MG/0.3 ML SYRINGE SQ SCH (05:35)
[2017-11-13] MEDS: Insulin LISPRO 300 UNITS/3 ML VIAL SQ SCH ×4 (07:32→23:19)
[2017-11-13] MEDS: Metoprolol XL (24 HR) Succ 25 MG TAB.ER.24H PO SCH (08:14)
[2017-11-13] MEDS: Furosemide 20 MG TABLET PO SCH (08:57)
[2017-11-13] MEDS: Aspirin Enteric Coated 81 MG Tablet PO SCH (08:57)
[2017-11-13] MEDS: Insulin DETEMIR 100 UNIT/ML X5UNITS SQ SCH (08:57)
[2017-11-13] MEDS: Nystatin SUSP 5 ML UD.LIQ PO SCH ×4 (08:57→20:55)
[2017-11-13] MEDS: *HR* Amiodarone 200 MG TABLET PO SCH (08:57)
[2017-11-13 09:24] LABS: Basophils % 0.1 %; Hematocrit 30.1 % (35.3-44.9); Hemoglobin 9.8 g/dL (11.5-15.4); Lymphocytes # 0.6 K/mcL (0.6-4.6); Lymphocytes % 2.9 %; Mean Corpuscular HGB Conc 32.6 g/dL (31.6-35.5); Mean Corpuscular Hemoglobin 29.8 pg (28.0-33.3); Mean Corpuscular Volume 91.5 fL (83.0-100.0); Mean Platelet Volume 12.4 fL (9.4-12.4); Monocytes # 0.7 K/mcL (0.0-1.3); Monocytes % 3.3 %; Neutrophils # 19.4 K/mcL (1.6-8.9); Platelet Count 269 K/mcL (140-400); Red Blood Count 3.29 M/mcL (3.82-4.97); Red Cell Distribution Width 14.2 % (11.5-14.5); Segmented Neutrophils % 92.7 %
--- NOTE | 2017-11-13 12:06 | Infectious Disease Progress No ---
Date of Encounter: 11/13/17 Time of Encounter: 12:04 - Assessment and Plan (1) Sepsis Current Visit: Yes Status: Resolved The patient had two SIRS criteria on admission. Likely secondary to UTI vs. PNA vs. non-infectious. Continue to have leukocytosis, but has been on numerous antibiotics for the last 15 days and clinically looks great. Blood cultures drawn 10/27/17 x 2, 11/05/17 x 2, 11/08/17 x 2 are all negative. Qualifiers: Sepsis type: sepsis due to unspecified organism Qualified Code(s): A41.9 - Sepsis, unspecified organism (2) Leukocytosis Current Visit: Yes Status: Acute Etiology unclear at this point. Improved to 21 today. No bands. Patient does not have any focus of infection on review of system or physical exam. Patient did have asymptomatic bacteriuria (Enterobacter aerogenes) on admission that was treated appropriately. Currently urine in the Krue[place] does not appear purulent Patient does not have any URI symptoms. She does have chronic cough but chest x- rays done multiple times are less impressive for pneumonia and more for CHF and pleural effusion. No intra-abdominal process could be identified. No autoimmune cause could be identified. No muscular skeletal system could be identified (no signs of joint infection or cellulitis). Antibiotics were discontinued 11/12/17. Patient was previously on antibiotics since admission on 10/27/2017 through 11/11/2017. If the patient had a pneumonia has been treated adequately, the UTI would've been treated adequately. If the patient shows any signs of worsening sepsis including hemodynamic instability, fever or much worse leukocytosis we will consider repeating chest x -ray, repeat urinalysis, checking lipase and amylase and LFTs and considering CT abdomen and pelvis and CT chest. For now, continue to observe off antibiotics. We will check a peripheral smear though just to be on the safe side.--> pending. I'm not sure if the persistent leukocytosis could still have to do with the steroids. Patient was on high-dose steroids until the 12th of this month. Sometimes there is a lagging persistent leukocytosis. Qualifiers: Leukocytosis type: unspecified Qualified Code(s): D72.829 - Elevated white blood cell count, unspecified (3) UTI (urinary tract infection) Current Visit: Yes Status: Acute UTI vs. asymptomatic bacteriruria. Causative organism hoyos-sensitive Enterobacter aerogenes. Treated adequately. Clinically, the patient's urine does not appear infected and she currently has no symptoms. Recommend removing krueger if/when able. Qualifiers: Urinary tract infection type: site unspecified Hematuria presence: without hematuria Qualified Code(s): N39.0 - Urinary tract infection, site not specified (4) Glossitis Current Visit: Yes Status: Acute Etiology not clear. Does not appear to to be due to oral thrush. Clinically this does not appear to be herpes. Await ENT recommendations. Consider magic mouthwash without nystatin to assist with discomfort. (5) Pleural effusion Current Visit: Yes Status: Acute (6) COPD exacerbation Current Visit: Yes Status: Suspected (7) CHF exacerbation Current Visit: Yes Status: Acute Qualifiers: Congestive heart failure type: unspecified Qualified Code(s): I50.9 - Heart failure, unspecified (8) CKD (chronic kidney disease) stage 3, GFR 30-59 ml/min Current Visit: Yes Status: Acute (9) HLD (hyperlipidemia) Current Visit: Yes Status: Acute Qualifiers: Hyperlipidemia type: unspecified Qualified Code(s): E78.5 - Hyperlipidemia , unspecified (10) HTN (hypertension) Current Visit: Yes Status: Acute Qualifiers: Hypertension type: essential hypertension Qualified Code(s): I10 - Essential (primary) hypertension - Subjective Interval history: Patient seen and examined. No acute events noted overnight. Patient sitting up in the bed eating breakfast. Her only complaint is a painful tongue. Denies fevers, chills, or rigors. Denies chest pain, shortness of breath, or cough. Denies nausea, vomiting, diarrhea, or constipation. Has a chronic krueger catheter that remains patent. Denies abdominal pain, urinary complaints, or appetite changes. Denies pain in her back or extremities at this time. Infect Dis PN-Objective Data - Labs CBC & Chem 7: 11/13/17 06:40 11/13/17 06:40 Labs: Laboratory Results - last 24 hr 11/12/17 11/12/17 11/12/17 08:42 16:13 20:41 WBC RBC Hgb Hct MCV MCH MCHC RDW Plt Count MPV Immature Gran % Seg Neutrophils % Lymphocytes % Monocytes % Eosinophils % Basophils % Neutrophils # Lymphocytes # Monocytes # Eosinophils # Basophils # Smear Path Review See Below Sodium Potassium Chloride Carbon Dioxide BUN Creatinine Est GFR ( Amer) Est GFR (Non-Af Amer) BUN/Creatinine Ratio Glucose POC Glucose 179 H 58 Calculated Osmolality Calcium 11/13/17 11/13/17 11/13/17 06:40 06:40 07:23 WBC 21.0 H RBC 3.29 L Hgb 9.8 L Hct 30.1 L MCV 91.5 MCH 29.8 MCHC 32.6 RDW 14.2 Plt Count 269 MPV 12.4 Immature Gran % 1.0 Seg Neutrophils % 92.7 Lymphocytes % 2.9 Monocytes % 3.3 Eosinophils % 0.0 Basophils % 0.1 Neutrophils # 19.4 H Lymphocytes # 0.6 Monocytes # 0.7 Eosinophils # 0.0 Basophils # 0.0 Smear Path Review Sodium 142 Potassium 3.0 L Chloride 97 L Carbon Dioxide 37 H BUN 32 H Creatinine 1.21 H Est GFR ( Amer) 52 L Est GFR (Non-Af Amer) 43 L BUN/Creatinine Ratio 26 Glucose 50 L POC Glucose 58 Calculated Osmolality 298 Calcium 8.0 L 11/13/17 07:56 WBC RBC Hgb Hct MCV MCH MCHC RDW Plt Count MPV Immature Gran % Seg Neutrophils % Lymphocytes % Monocytes % Eosinophils % Basophils % Neutrophils # Lymphocytes # Monocytes # Eosinophils # Basophils # Smear Path Review Sodium Potassium Chloride Carbon Dioxide BUN Creatinine Est GFR ( Amer) Est GFR (Non-Af Amer) BUN/Creatinine Ratio Glucose POC Glucose 74 Calculated Osmolality Calcium Cultures: Cultures 11/12/17 08:00 Fungal Smear - Final Mouth 11/05/17 11:56 Blood Culture - Final Peripheral Venipuncture No growth. 11/05/17 12:05 Blood Culture - Final Peripheral Venipuncture No growth. 11/08/17 08:38 Blood Culture - Preliminary Peripheral Venipuncture No growth. 11/08/17 08:04 Blood Culture - Preliminary Peripheral Venipuncture No growth. 10/30/17 18:10 Influenza Types A,B Antigen (BALBIR) - Final Nasopharyngeal Exam - Constitutional Vitals: Temp Pulse Resp BP Pulse Ox 95.8 F L 88 16 146/85 95 11/13/17 10:20 11/13/17 10:20 11/13/17 10:20 11/13/17 10:20 11/13/17 10:20 General appearance: average body habitus, cooperative, no acute distress - Head Head exam: Present: atraumatic, normal inspection, normocephalic - Eye Eye exam: Present: EOMI, normal appearance, PERRL Pupils: Present: normal accommodation - ENT ENT exam: Present: mucous membranes moist Additional comments: Raised lesions noted to the superior aspect of the tongue. - Neck Neck exam: Present: normal inspection - Respiratory Respiratory exam: Present: CTAB. Absent: rales, respiratory distress, rhonchi, wheezes - Cardiovascular Cardiovascular exam: Present: RRR, +S1, +S2 - GI/Abdominal GI/Abdominal exam: Present: normal bowel sounds, soft. Absent: distended, tenderness - Extremities Exam Extremities exam: Present: normal inspection. Absent: joint swelling, pedal edema, tenderness - Neurological Exam Neurological exam: Present: alert, oriented X3, no focal deficits - Psychiatric Psychiatric exam: Present: normal affect, normal mood - Skin Skin exam: Present: dry, intact, normal color, warm - VTE Documentation of Mechanical Device: Intermittent pneumatic compression device Consult Discharge Plan - Plan Referrals: Virginia Cruz DO [Primary Care Provider] -
[2017-11-13] MEDS: Budesonide/Formoterol 160/4.5 MDI IH SCH ×2 (13:12→22:58)
--- NOTE | 2017-11-13 18:48 | Internal Med Progress Note ---
Date of Encounter: 11/13/17 Time of Encounter: 11:00 - Assessment and plan (1) Sepsis Current Visit: Yes Status: Resolved Assessment and plan: -Patient with sepsis that has resolved that was secondary to Enterobacter UTI with suspected pneumonia -Blood cultures are negative to date Qualifiers: Sepsis type: sepsis due to unspecified organism Qualified Code(s): A41.9 - Sepsis, unspecified organism (2) UTI (urinary tract infection) Current Visit: Yes Status: Acute Assessment and plan: -Patient found to have Enterobacter UTI- resolved Qualifiers: Urinary tract infection type: site unspecified Hematuria presence: without hematuria Qualified Code(s): N39.0 - Urinary tract infection, site not specified (3) Left lower lobe pneumonia Current Visit: Yes Status: Suspected Assessment and plan: -Resolved Qualifiers: Pneumonia type: due to unspecified organism Qualified Code(s): J18.1 - Lobar pneumonia, unspecified organism (4) Leukocytosis Current Visit: Yes Status: Acute Assessment and plan: -Patient with no improvement in leukocytosis since hospital admission on 10/27/17. -Infectious disease consulted with recommendations to discontinue all antibiotics. Qualifiers: Leukocytosis type: unspecified Qualified Code(s): D72.829 - Elevated white blood cell count, unspecified (5) Diastolic CHF, acute on chronic Current Visit: Yes Status: Acute Assessment and plan: -Her Echo showed preserved LVEF of 55% with mod MR -After receiving IV lasix she is breathing more comfortably. -Continue Lasix 40 mg daily. (6) Tachy-javi syndrome Current Visit: Yes Status: Acute Assessment and plan: -Due to underlying atrial fibrillation with RVR but now rate controlled on amiodarone and metoprolol -No anticoagulation due fall risk. (7) New onset atrial fibrillation Current Visit: Yes Status: Acute Assessment and plan: -Rate controlled; continue amiodarone and beta meng (8) Pleural effusion Current Visit: Yes Status: Acute Assessment and plan: -Bilateral pleural effusions improved with lasix. -Continue lasix and recheck CXR prior to d/c.. (9) Transient lingual papillitis Current Visit: Yes Status: Acute Assessment and plan: -Patient with suspected lingual papillitis vs thrush -Will continue swish and swallow for now -ENT consulted with recommendations and suspects oral candidiasis with recommendations to add oral Diflucan to her regimen and keep her on the Nystatin swish and swallow. -There is an interaction however with Diflucan and amiodarone for potential increase QT syndrome so will hold for now (10) Hypokalemia Current Visit: Yes Status: Acute Assessment and plan: -Patient will continue hypokalemia -Potassium is 3.0 today from 2.9 yesterday on 40 KCl oral twice daily -40 mEq IV K rider ordered -Will continue to monitor (11) Hypothyroidism Current Visit: Yes Status: Acute Assessment and plan: -Continue levothyroxine Qualifiers: Hypothyroidism type: acquired Qualified Code(s): E03.9 - Hypothyroidism, unspecified (12) T2DM (type 2 diabetes mellitus) Current Visit: Yes Status: Acute Assessment and plan: -Continue basal insulin Qualifiers: Diabetes mellitus complication status: with unspecified complications Diabetes mellitus nursing home insulin use: without intermodal customer service use Qualified Code( s): E11.8 - Type 2 diabetes mellitus with unspecified complications (13) HTN (hypertension) Current Visit: Yes Status: Acute Assessment and plan: -Continue beta meng Qualifiers: Hypertension type: essential hypertension Qualified Code(s): I10 - Essential (primary) hypertension (14) HLD (hyperlipidemia) Current Visit: Yes Status: Acute Assessment and plan: -Continue statin Qualifiers: Hyperlipidemia type: unspecified Qualified Code(s): E78.5 - Hyperlipidemia , unspecified (15) DVT prophylaxis Current Visit: Yes Status: Acute Assessment and plan: Lovenox - Subjective Interval history: Patient's leukocytosis not improving on IV antibiotics Infectious disease for recommendations to discontinue all antibiotics Patient reports of sore tongue for the last several days with little improvement When medically stable well transfer to assisted facility for continued medical management with rehabilitation - Constitutional Vitals: Temp Pulse Resp BP Pulse Ox 98.0 F 96 16 110/55 98 11/13/17 14:49 11/13/17 14:49 11/13/17 15:35 11/13/17 14:49 11/13/17 15:35 General appearance: Present: A&O X 3, pleasant, no acute distress Internal Medicine: Result - Labs CBC & Chem 7: 11/13/17 06:40 11/13/17 06:40 Labs: Short CBC 11/13/17 Range/Units 06:40 WBC 21.0 H (4.3-11.1) K/mcL Hgb 9.8 L (11.5-15.4) g/dL Hct 30.1 L (35.3-44.9) % Plt Count 269 (140-400) K/mcL Neutrophils # 19.4 H (1.6-8.9) K/mcL BMP 11/13/17 06:40 Sodium 142 Potassium 3.0 L Chloride 97 L Carbon Dioxide 37 H BUN 32 H Creatinine 1.21 H Glucose 50 L Calcium 8.0 L - ABG Interpretation ABG results: ABG ABG pH 7.48 pH Units (7.32-7.45) H 11/11/17 11:08 ABG pCO2 48 mmHg (35-45) H 11/11/17 11:08 ABG pO2 73 mmHg (85-104) L 11/11/17 11:08 ABG O2 Saturation 95 % (95-98) 11/11/17 11:08 PT/INR, D-dimer PT 12.1 Seconds (9.4-12.1) 11/01/17 07:54 D-Dimer 1128 ng/mLFEU (0-500) H 10/27/17 05:18 - VTE Documentation of Mechanical Device: Intermittent pneumatic compression device Consult Discharge Plan - Plan Referrals: Virginia Cruz DO [Primary Care Provider] -
[2017-11-13] MEDS: ALPRAZolam 0.25 MG TABLET PO PRN (23:25)
[2017-11-14 04:40] LABS: Basophils % 0.1 %; Lymphocytes # 0.7 K/mcL (0.6-4.6); Lymphocytes % 3.3 %; Mean Corpuscular HGB Conc 32.9 g/dL (31.6-35.5); Mean Corpuscular Volume 91.2 fL (83.0-100.0); Mean Platelet Volume 12.2 fL (9.4-12.4); Monocytes # 0.9 K/mcL (0.0-1.3); Platelet Count 237 K/mcL (140-400); Red Blood Count 3.07 M/mcL (3.82-4.97); Red Cell Distribution Width 14.5 % (11.5-14.5); Segmented Neutrophils % 91.6 %
[2017-11-14 04:42] LABS: Hemoglobin 9.2 g/dL (11.5-15.4)
[2017-11-14] MEDS: Ipratropium/Albuterol Neb 3 ML IH SCH ×4 (04:55→22:47)
[2017-11-14] MEDS: *HR* Enoxaparin 30 MG/0.3 ML SYRINGE SQ SCH (06:08)
[2017-11-14] MEDS: Levothyroxine 25 MCG TABLET PO SCH (06:08)
[2017-11-14 06:23] LABS: Calcium 8.1 mg/dL (8.6-10.3); Potassium 4.2 mEq/L (3.5-5.1)
[2017-11-14] MEDS: Nystatin SUSP 5 ML UD.LIQ PO SCH ×4 (08:37→20:07)
[2017-11-14] MEDS: Furosemide 20 MG TABLET PO SCH (08:37)
[2017-11-14] MEDS: Aspirin Enteric Coated 81 MG Tablet PO SCH (08:37)
[2017-11-14] MEDS: *HR* Amiodarone 200 MG TABLET PO SCH (08:37)
[2017-11-14] MEDS: Metoprolol XL (24 HR) Succ 25 MG TAB.ER.24H PO SCH (08:37)
[2017-11-14] MEDS: Insulin LISPRO 300 UNITS/3 ML VIAL SQ SCH ×4 (08:38→22:30)
[2017-11-14] MEDS: Budesonide/Formoterol 160/4.5 MDI IH SCH ×2 (10:06→22:41)
[2017-11-14] MEDS: Acetaminophen 325 MG TABLET PO PRN (16:10)
--- NOTE | 2017-11-14 17:33 | Internal Med Progress Note ---
Date of Encounter: 11/14/17 Time of Encounter: 11:00 - Assessment and plan (1) Pulmonary nodules Current Visit: Yes Status: Acute Assessment and plan: -CT of the chest and abdomen/pelvis showed multiple subcentimeter pulmonary nodules worrisome for metastatic disease with a slightly spiculated 12 x 11 mm left upper lobe nodule could be the primary source. Also shown was a 3.3 cm left adrenal nodule with CT features most compatible with lipid rich adenoma however in the setting of the lung findings superimposed metastatic disease would be difficult to exclude. -Hematology/oncology and pulmonology consulted and appreciate recommendations (2) Leukocytosis Current Visit: Yes Status: Acute Assessment and plan: -Patient with no improvement in leukocytosis since hospital admission on 10/27/17. -Infectious disease consulted with recommendations to discontinue all antibiotics. -Suspicious for malignancy due to the above findings Qualifiers: Leukocytosis type: unspecified Qualified Code(s): D72.829 - Elevated white blood cell count, unspecified (3) Sepsis Current Visit: Yes Status: Resolved Assessment and plan: -Patient with sepsis that has resolved that was secondary to Enterobacter UTI with suspected pneumonia -Blood cultures are negative to date Qualifiers: Sepsis type: sepsis due to unspecified organism Qualified Code(s): A41.9 - Sepsis, unspecified organism (4) UTI (urinary tract infection) Current Visit: Yes Status: Resolved Assessment and plan: -Patient found to have Enterobacter UTI- resolved Qualifiers: Urinary tract infection type: site unspecified Hematuria presence: without hematuria Qualified Code(s): N39.0 - Urinary tract infection, site not specified (5) Left lower lobe pneumonia Current Visit: Yes Status: Resolved Assessment and plan: -Resolved Qualifiers: Pneumonia type: due to unspecified organism Qualified Code(s): J18.1 - Lobar pneumonia, unspecified organism (6) Diastolic CHF, acute on chronic Current Visit: Yes Status: Resolved Assessment and plan: -Her Echo showed preserved LVEF of 55% with mod MR -After receiving IV lasix she is breathing more comfortably. -Continue Lasix 40 mg daily. (7) Tachy-javi syndrome Current Visit: Yes Status: Acute Assessment and plan: -Due to underlying atrial fibrillation with RVR but now rate controlled on amiodarone and metoprolol -No anticoagulation due fall risk. (8) New onset atrial fibrillation Current Visit: Yes Status: Acute Assessment and plan: -Rate controlled; continue amiodarone and beta meng (9) Pleural effusion Current Visit: Yes Status: Acute Assessment and plan: -Bilateral pleural effusions improved with lasix. -Continue lasix and recheck CXR prior to d/c.. (10) Transient lingual papillitis Current Visit: Yes Status: Acute Assessment and plan: -Patient with suspected lingual papillitis vs thrush -Will continue swish and swallow for now -ENT consulted with recommendations and suspects oral candidiasis with recommendations to add oral Diflucan to her regimen and keep her on the Nystatin swish and swallow. -There is an interaction however with Diflucan and amiodarone for potential increase QT syndrome so will hold for now (11) Hypokalemia Current Visit: Yes Status: Acute Assessment and plan: -Patient will continue hypokalemia -Potassium is 3.0 today from 2.9 yesterday on 40 KCl oral twice daily -40 mEq IV K rider ordered -Will continue to monitor (12) Hypothyroidism Current Visit: Yes Status: Acute Assessment and plan: -Continue levothyroxine Qualifiers: Hypothyroidism type: acquired Qualified Code(s): E03.9 - Hypothyroidism, unspecified (13) T2DM (type 2 diabetes mellitus) Current Visit: Yes Status: Acute Assessment and plan: -Continue basal insulin Qualifiers: Diabetes mellitus complication status: with unspecified complications Diabetes mellitus correction insulin use: without correction use Qualified Code( s): E11.8 - Type 2 diabetes mellitus with unspecified complications (14) HTN (hypertension) Current Visit: Yes Status: Acute Assessment and plan: -Continue beta meng Qualifiers: Hypertension type: essential hypertension Qualified Code(s): I10 - Essential (primary) hypertension (15) HLD (hyperlipidemia) Current Visit: Yes Status: Acute Assessment and plan: -Continue statin Qualifiers: Hyperlipidemia type: unspecified Qualified Code(s): E78.5 - Hyperlipidemia , unspecified (16) DVT prophylaxis Current Visit: Yes Status: Acute Assessment and plan: Lovenox - Subjective Interval history: Patient's leukocytosis not improving; patient found to have multiple subcentimeter pulmonary nodules worrisome for metastatic disease on CT imaging today Infectious disease for recommendations to discontinue all antibiotics as does not believe leukocytosis due to infection Patient reports of sore tongue for the last several days with little improvement on nystatin Patient found to have multiple subcentimeter pulmonary nodules worrisome for metastatic disease on CT imaging today - Constitutional Vitals: Temp Pulse Resp BP Pulse Ox 99.0 F 76 16 137/65 94 11/14/17 15:12 11/14/17 15:12 11/14/17 16:26 11/14/17 15:12 11/14/17 16:26 General appearance: Present: A&O X 3, pleasant, no acute distress - Respiratory Respiratory exam: Present: CTAB. Absent: accessory muscle use, rales, rhonchi, wheezes - Cardiovascular Cardiovascular exam: Present: RRR, +S1, +S2. Absent: diastolic murmur, gallop, rubs, systolic murmur Internal Medicine: Result - Labs CBC & Chem 7: 11/14/17 04:13 11/14/17 04:13 Labs: Short CBC 11/14/17 Range/Units 04:13 WBC 21.9 H (4.3-11.1) K/mcL Hgb 9.2 L (11.5-15.4) g/dL Hct 28.0 L (35.3-44.9) % Plt Count 237 (140-400) K/mcL Neutrophils # 20.0 H (1.6-8.9) K/mcL BMP 11/14/17 04:13 Sodium 140 Potassium 4.2 D Chloride 99 Carbon Dioxide 32 H BUN 38 H Creatinine 1.21 H Glucose 245 H Calcium 8.1 L - ABG Interpretation ABG results: ABG ABG pH 7.48 pH Units (7.32-7.45) H 11/11/17 11:08 ABG pCO2 48 mmHg (35-45) H 11/11/17 11:08 ABG pO2 73 mmHg (85-104) L 11/11/17 11:08 ABG O2 Saturation 95 % (95-98) 11/11/17 11:08 PT/INR, D-dimer PT 12.1 Seconds (9.4-12.1) 11/01/17 07:54 D-Dimer 1128 ng/mLFEU (0-500) H 10/27/17 05:18 - Impressions Impressions Abdomen/Pelvis CT 11/14/17 07:56 IMPRESSION: 1. Bilateral small pleural effusions and multiple pulmonary nodules worrisome for metastatic disease. 2. A 3.3 cm left adrenal nodule with CT density consistent with lipid rich adenoma but in setting of lung findings cannot entirely exclude metastatic component although felt to be less likely. D/ / Earl Abreu MD / Earl Abreu MD Interpreting Provider: Earl Abreu MD Chest CT 11/14/17 07:56 IMPRESSION: 1. Multiple subcentimeter pulmonary nodules worrisome for metastatic disease. A slightly spiculated 12 x 11 mm left upper lobe nodule could be the primary source. 2. A 3.3 cm left adrenal nodule with CT features most compatible with lipid rich adenoma however in the setting of the lung findings superimposed metastatic disease would be difficult to exclude. RECOMMENDATIONS: Consider total body PET-CT. D/ / 11/14/2017 10:04:52 Earl Abreu MD / Sigrid Lomax Interpreting Provider: Earl Abreu MD - VTE Documentation of Mechanical Device: Intermittent pneumatic compression device Consult Discharge Plan - Plan Referrals: Virginia Cruz, [Primary Care Provider] -
[2017-11-14] MEDS: 0.9 % Sodium Chloride 250 ML ONE (22:47)
[2017-11-15] MEDS: Ipratropium/Albuterol Neb 3 ML IH SCH ×4 (04:15→22:10)
[2017-11-15] MEDS: *HR* Enoxaparin 30 MG/0.3 ML SYRINGE SQ SCH (05:40)
[2017-11-15] MEDS: Levothyroxine 25 MCG TABLET PO SCH (05:40)
[2017-11-15 06:17] LABS: Basophils % 0.1 %; Eosinophils % 0.1 %; Hematocrit 28.1 % (35.3-44.9); Hemoglobin 8.9 g/dL (11.5-15.4); Immature Granulocytes % 0.7 % (0-4); Lymphocytes % 4.9 %; Mean Corpuscular HGB Conc 31.7 g/dL (31.6-35.5); Mean Corpuscular Hemoglobin 29.5 pg (28.0-33.3); Monocytes # 0.9 K/mcL (0.0-1.3); Monocytes % 4.6 %; Neutrophils # 17.6 K/mcL (1.6-8.9); Platelet Count 211 K/mcL (140-400); Red Blood Count 3.02 M/mcL (3.82-4.97); Red Cell Distribution Width 14.7 % (11.5-14.5); Segmented Neutrophils % 89.6 %
[2017-11-15] MEDS: *HR* Amiodarone 200 MG TABLET PO SCH (08:10)
[2017-11-15] MEDS: Aspirin Enteric Coated 81 MG Tablet PO SCH (08:10)
[2017-11-15] MEDS: Furosemide 20 MG TABLET PO SCH (08:10)
[2017-11-15] MEDS: Metoprolol XL (24 HR) Succ 25 MG TAB.ER.24H PO SCH (08:13)
[2017-11-15 09:03] LABS: Calcium 8.2 mg/dL (8.6-10.3); Potassium 4.5 mEq/L (3.5-5.1)
[2017-11-15] MEDS: Nystatin SUSP 5 ML UD.LIQ PO SCH ×4 (09:30→22:05)
[2017-11-15] MEDS: Insulin LISPRO 300 UNITS/3 ML VIAL SQ SCH ×4 (09:34→22:06)
--- NOTE | 2017-11-15 09:55 | Pulmonology Progress Note ---
Date of Encounter: 11/15/17 Time of Encounter: 07:55 Assessment and Plan (1) Pulmonary nodules Current Visit: Yes Status: Acute Differential diagnosis malignancies versus inflammatory/infectious and I discussed this with the patient and the family at the bedside. Since patient clinically is improving and the dose nodules are small to in size and I would recommend noninvasive testing such as a short interval CT or PET scan as outpatient and family understand and agreed with the plan of care. Patient can follow-up as outpatient in 6-8 weeks. (2) Pleural effusion Current Visit: Yes Status: Acute Patient is not in any distress and reviewing the CAT scan she has atelectasis which may not improve after thoracentesis and family in agreement with noninvasive testing. (3) COPD exacerbation Current Visit: Yes Status: Suspected Patient is breathing better and noninvasive ventilation when necessary. Incentive spirometry and bronchodilators. (4) Tachy-javi syndrome Current Visit: Yes Status: Acute Wean off dopamine since there is improvement in blood pressure and heart rate. Reviewed regulatory coordinator progress note and this is being managed by cardiology team. Continue anticoagulation. Check TSH level Subjective Principal diagnosis: pneumonia, COPD exacerbation, atrial flutter Interval history: Patient denies any complaint Objective PUL Vital signs: Last Vital Signs Temp 98.0 F 11/15/17 07:08 Pulse 85 11/15/17 07:08 Resp 18 11/15/17 07:08 BP 138/56 11/15/17 07:08 Pulse Ox 93 11/15/17 07:08 General appearance: no acute distress Eyes: nonicteric ENT: oropharynx moist Neck: supple Effort: normal Auscultation: left: diminished breath sounds, right: clear Percussion: left: dull, right: not dull Cardiovascular: irregular rhythm, murmur noted Gastrointestinal: normoactive bowel sounds, non-distended Extremities: no cyanosis non-focal exam mood appropriate Results - Laboratory Findings CBC and BMP: 11/15/17 05:30 11/15/17 05:30 ABG ABG pH 7.48 pH Units (7.32-7.45) H 11/11/17 11:08 ABG pCO2 48 mmHg (35-45) H 11/11/17 11:08 ABG pO2 73 mmHg (85-104) L 11/11/17 11:08 ABG O2 Saturation 95 % (95-98) 11/11/17 11:08 PT/INR, D-dimer PT 12.1 Seconds (9.4-12.1) 11/01/17 07:54 D-Dimer 1128 ng/mLFEU (0-500) H 10/27/17 05:18 Abnormal lab findings: Abnormal lab results WBC 19.6 K/mcL (4.3-11.1) H 11/15/17 05:30 RBC 3.02 M/mcL (3.82-4.97) L 11/15/17 05:30 Hgb 8.9 g/dL (11.5-15.4) L 11/15/17 05:30 Hct 28.1 % (35.3-44.9) L 11/15/17 05:30 RDW 14.7 % (11.5-14.5) H 11/15/17 05:30 Metamyelocytes % 1.0 % (0) H 11/12/17 08:42 Neutrophils # 17.6 K/mcL (1.6-8.9) H 11/15/17 05:30 Nucleated RBCs/100 WBC 0.1 /100 WBC (0) H 11/06/17 08:23 Hypersegmented Neuts Present (Not Present) A 10/29/17 14:30 Reactive Lymphocytes Present (Not Present) A 11/09/17 05:54 Immature Plt Fraction 11.9 % (1.1-6.1) H 11/08/17 03:40 Anisocytosis 1+ (Not Present) A 11/09/17 05:54 D-Dimer 1128 ng/mLFEU (0-500) H 10/27/17 05:18 ABG pH 7.48 pH Units (7.32-7.45) H 11/11/17 11:08 ABG pCO2 48 mmHg (35-45) H 11/11/17 11:08 ABG pO2 73 mmHg (85-104) L 11/11/17 11:08 ABG HCO3 36 mEq/L (21-27) H 11/11/17 11:08 ABG Total CO2 37 mEq/L (20-26) H 11/11/17 11:08 ABG Base Excess 11 mEq/L (-2 to 3) H 11/11/17 11:08 Carbon Dioxide 34 mEq/L (23-29) H 11/15/17 05:30 BUN 39 mg/dL (8-23) H 11/15/17 05:30 Creatinine 1.26 mg/dL (0.60-1.20) H 11/15/17 05:30 Est GFR ( Amer) 49 (> 60) L 11/15/17 05:30 Est GFR (Non-Af Amer) 41 (> 60) L 11/15/17 05:30 BUN/Creatinine Ratio 31 (6-26) H 11/15/17 05:30 Glucose 179 mg/dL (70-105) H 11/15/17 05:30 POC Glucose 241 (58-89) H 11/14/17 11:25 Calculated Osmolality 310 (280-300) H 11/15/17 05:30 Calcium 8.2 mg/dL (8.6-10.3) L 11/15/17 05:30 Total Bilirubin 0.2 mg/dL (0.3-1.0) L 10/31/17 03:53 AST 11 Units/L (13-39) L 10/31/17 03:53 Troponin I 0.13 ng/mL (< 0.04) H* 10/29/17 04:02 B-Natriuretic Peptide 308 pg/mL (Less than 100) H 11/06/17 08:23 Serum Total Protein 5.5 g/dL (6.4-8.9) L 10/31/17 03:53 Albumin 2.7 g/dL (3.5-5.7) L 10/31/17 03:53 Albumin/Globulin Ratio 1.0 (1.1-2.2) L 10/31/17 03:53 TSH 0.031 mcIU/mL (0.340-5.600) L 11/01/17 03:18 Urine Clarity Turbid (Clear) A 10/27/17 05:22 Urine Protein 30 mg/dL (Neg-Trace) H 10/27/17 05:22 Urine Glucose (UA) >=1000 mg/dL (Normal) H 10/27/17 05:22 Urine Blood Moderate (Negative) H 10/27/17 05:22 Urine Nitrite Positive (Negative) A 10/27/17 05:22 Ur Leukocyte Esterase Large (Negative) H 10/27/17 05:22 Urine Microscopic RBC 5-15 per hpf (0-3) H 10/27/17 05:22 Urine Microscopic WBC TNTC per hpf (0-3) H 10/27/17 05:22 Ur Squamous Epith Cells Many per lpf (None-Few) H 10/27/17 05:22 Urine Bacteria Many per hpf (None-Few) H 10/27/17 05:22 Vancomycin Trough 22.6 mcg/mL (10-20) H* 11/12/17 05:13 - Microbiology Findings Microbiology Findings: Microbiology, Last 48 Hours 11/08/17 08:04 Blood Culture - Final Peripheral Venipuncture No growth. 11/08/17 08:38 Blood Culture - Final Peripheral Venipuncture No growth. - Diagnostic Findings CT scan - chest: report reviewed, image reviewed - Clinical Findings Intake & Output: Intake & Output 11/14/17 11/15/17 11/15/17 23:59 07:59 15:59 Intake Total 120 / 120 0 / 0 60 / 60 Output Total 250 / 250 850 / 850 Balance -130 / -130 -850 / -850 60 / 60 Weight 67.77 kg - VTE Documentation of Mechanical Device: Intermittent pneumatic compression device Consult Discharge Plan - Plan Referrals: Virginia Cruz DO [Primary Care Provider] -
[2017-11-15] MEDS: Budesonide/Formoterol 160/4.5 MDI IH SCH ×2 (10:09→22:10)
[2017-11-15] MEDS: ALPRAZolam 0.25 MG TABLET PO PRN (11:02)
[2017-11-15] MEDS ORDERED: hydrOXYzine pamoate 25 MG CAPSULE PO PRN (13:04)
--- NOTE | 2017-11-15 18:49 | Internal Med Progress Note ---
Date of Encounter: 11/15/17 Time of Encounter: 11:00 - Assessment and plan (1) Pulmonary nodules Current Visit: Yes Status: Acute Assessment and plan: -CT of the chest and abdomen/pelvis showed multiple subcentimeter pulmonary nodules worrisome for metastatic disease with a slightly spiculated 12 x 11 mm left upper lobe nodule could be the primary source. Also shown was a 3.3 cm left adrenal nodule with CT features most compatible with lipid rich adenoma however in the setting of the lung findings superimposed metastatic disease would be difficult to exclude. -Hematology/oncology and pulmonology consulted and appreciate recommendations (2) Leukocytosis Current Visit: Yes Status: Acute Assessment and plan: -Patient with no improvement in leukocytosis since hospital admission on 10/27/17. -Infectious disease consulted with recommendations to discontinue all antibiotics. -Suspicious for malignancy due to the above findings Qualifiers: Leukocytosis type: unspecified Qualified Code(s): D72.829 - Elevated white blood cell count, unspecified (3) Sepsis Current Visit: Yes Status: Resolved Assessment and plan: -Patient with sepsis that has resolved that was secondary to Enterobacter UTI with suspected pneumonia -Blood cultures are negative to date Qualifiers: Sepsis type: sepsis due to unspecified organism Qualified Code(s): A41.9 - Sepsis, unspecified organism (4) UTI (urinary tract infection) Current Visit: Yes Status: Resolved Assessment and plan: -Patient found to have Enterobacter UTI- resolved Qualifiers: Urinary tract infection type: site unspecified Hematuria presence: without hematuria Qualified Code(s): N39.0 - Urinary tract infection, site not specified (5) Left lower lobe pneumonia Current Visit: Yes Status: Resolved Assessment and plan: -Resolved Qualifiers: Pneumonia type: due to unspecified organism Qualified Code(s): J18.1 - Lobar pneumonia, unspecified organism (6) Diastolic CHF, acute on chronic Current Visit: Yes Status: Resolved Assessment and plan: -Her Echo showed preserved LVEF of 55% with mod MR -After receiving IV lasix she is breathing more comfortably. -Continue Lasix 40 mg daily. (7) Tachy-javi syndrome Current Visit: Yes Status: Acute Assessment and plan: -Due to underlying atrial fibrillation with RVR but now rate controlled on amiodarone and metoprolol -No anticoagulation due fall risk. (8) New onset atrial fibrillation Current Visit: Yes Status: Acute Assessment and plan: -Rate controlled; continue amiodarone and beta meng (9) Pleural effusion Current Visit: Yes Status: Acute Assessment and plan: -Bilateral pleural effusions improved with lasix. -Continue lasix and recheck CXR prior to d/c.. (10) Transient lingual papillitis Current Visit: Yes Status: Acute Assessment and plan: -Patient with suspected lingual papillitis vs thrush -Will continue swish and swallow for now -ENT consulted with recommendations and suspects oral candidiasis with recommendations to add oral Diflucan to her regimen and keep her on the Nystatin swish and swallow. -There is an interaction however with Diflucan and amiodarone for potential increase QT syndrome so will hold for now (11) Hypokalemia Current Visit: Yes Status: Acute Assessment and plan: -Patient will continue hypokalemia -Potassium is 3.0 today from 2.9 yesterday on 40 KCl oral twice daily -40 mEq IV K rider ordered -Will continue to monitor (12) Hypothyroidism Current Visit: Yes Status: Acute Assessment and plan: -Continue levothyroxine Qualifiers: Hypothyroidism type: acquired Qualified Code(s): E03.9 - Hypothyroidism, unspecified (13) T2DM (type 2 diabetes mellitus) Current Visit: Yes Status: Acute Assessment and plan: -Continue basal insulin Qualifiers: Diabetes mellitus complication status: with unspecified complications Diabetes mellitus tank terminal gauger insulin use: without tank terminal gauger use Qualified Code( s): E11.8 - Type 2 diabetes mellitus with unspecified complications (14) HTN (hypertension) Current Visit: Yes Status: Acute Assessment and plan: -Continue beta meng Qualifiers: Hypertension type: essential hypertension Qualified Code(s): I10 - Essential (primary) hypertension (15) HLD (hyperlipidemia) Current Visit: Yes Status: Acute Assessment and plan: -Continue statin Qualifiers: Hyperlipidemia type: unspecified Qualified Code(s): E78.5 - Hyperlipidemia , unspecified (16) DVT prophylaxis Current Visit: Yes Status: Acute Assessment and plan: Lovenox - Subjective Interval history: Patient's leukocytosis not improving; patient found to have multiple subcentimeter pulmonary nodules worrisome for metastatic disease on CT imaging today Infectious disease for recommendations to discontinue all antibiotics as does not believe leukocytosis due to infection Patient reports of sore tongue for the last several days with little improvement on nystatin Patient found to have multiple subcentimeter pulmonary nodules worrisome for metastatic disease on CT imaging today - Constitutional Vitals: Temp Pulse Resp BP Pulse Ox 98.2 F 102 16 143/76 95 11/15/17 15:41 11/15/17 15:41 11/15/17 16:11 11/15/17 15:41 11/15/17 16:11 General appearance: Present: A&O X 3, pleasant, no acute distress - Cardiovascular Cardiovascular exam: Present: RRR, +S1, +S2. Absent: diastolic murmur, gallop, rubs, systolic murmur Internal Medicine: Result - Labs CBC & Chem 7: 11/15/17 05:30 11/15/17 05:30 Labs: Short CBC 11/15/17 Range/Units 05:30 WBC 19.6 H (4.3-11.1) K/mcL Hgb 8.9 L (11.5-15.4) g/dL Hct 28.1 L (35.3-44.9) % Plt Count 211 (140-400) K/mcL Neutrophils # 17.6 H (1.6-8.9) K/mcL BMP 11/15/17 05:30 Sodium 143 Potassium 4.5 Chloride 102 Carbon Dioxide 34 H BUN 39 H Creatinine 1.26 H Glucose 179 H Calcium 8.2 L - ABG Interpretation ABG results: ABG ABG pH 7.48 pH Units (7.32-7.45) H 11/11/17 11:08 ABG pCO2 48 mmHg (35-45) H 11/11/17 11:08 ABG pO2 73 mmHg (85-104) L 11/11/17 11:08 ABG O2 Saturation 95 % (95-98) 11/11/17 11:08 PT/INR, D-dimer PT 12.1 Seconds (9.4-12.1) 11/01/17 07:54 D-Dimer 1128 ng/mLFEU (0-500) H 10/27/17 05:18 - VTE Documentation of Mechanical Device: Intermittent pneumatic compression device Consult Discharge Plan - Plan Referrals: Virginia Cruz, [Primary Care Provider] -
[2017-11-16] MEDS: Ipratropium/Albuterol Neb 3 ML IH SCH ×4 (04:24→22:24)
[2017-11-16 05:33] LABS: Basophils % 0.1 %; Eosinophils % 0.1 %; Hematocrit 29.7 % (35.3-44.9); Hemoglobin 9.5 g/dL (11.5-15.4); Lymphocytes # 1.6 K/mcL (0.6-4.6); Lymphocytes % 7.1 %; Mean Corpuscular Volume 93.7 fL (83.0-100.0); Mean Platelet Volume 11.8 fL (9.4-12.4); Monocytes # 1.1 K/mcL (0.0-1.3); Neutrophils # 19.8 K/mcL (1.6-8.9); Platelet Count 239 K/mcL (140-400); Red Blood Count 3.17 M/mcL (3.82-4.97); Red Cell Distribution Width 14.9 % (11.5-14.5); Segmented Neutrophils % 86.7 %
[2017-11-16 05:54] LABS: Calcium 8.4 mg/dL (8.6-10.3); Potassium 4.9 mEq/L (3.5-5.1)
[2017-11-16] MEDS: *HR* Enoxaparin 30 MG/0.3 ML SYRINGE SQ SCH (07:15)
[2017-11-16] MEDS: Levothyroxine 25 MCG TABLET PO SCH (07:16)
[2017-11-16] MEDS: Nystatin SUSP 5 ML UD.LIQ PO SCH (08:17)
[2017-11-16] MEDS: Metoprolol XL (24 HR) Succ 25 MG TAB.ER.24H PO SCH (08:18)
[2017-11-16] MEDS: Furosemide 20 MG TABLET PO SCH (08:18)
[2017-11-16] MEDS: Insulin LISPRO 300 UNITS/3 ML VIAL SQ SCH ×4 (08:18→20:52)
[2017-11-16] MEDS: *HR* Amiodarone 200 MG TABLET PO SCH (08:18)
[2017-11-16] MEDS: Aspirin Enteric Coated 81 MG Tablet PO SCH (08:18)
--- NOTE | 2017-11-16 09:13 | Infectious Disease Progress No ---
Date of Encounter: 11/16/17 Time of Encounter: 09:11 - Assessment and Plan (1) Sepsis Current Visit: Yes Status: Resolved The patient had two SIRS criteria on admission. Likely secondary to UTI vs. PNA vs. non-infectious. Continue to have leukocytosis, but has been on numerous antibiotics for the last 15 days and clinically looks great. Did have one isolated episode of low- grade fever, which could be from atelectasis. Blood cultures drawn 10/27/17 x 2, 11/05/17 x 2, 11/08/17 x 2 are all negative. Qualifiers: Sepsis type: sepsis due to unspecified organism Qualified Code(s): A41.9 - Sepsis, unspecified organism (2) Leukocytosis Current Visit: Yes Status: Acute Etiology unclear at this point. 22 this morning, no bands. Patient does not have any focus of infection on review of system or physical exam. Patient did have asymptomatic bacteriuria (Enterobacter aerogenes) on admission that was treated appropriately. Currently urine in the Krueger does not appear purulent. Patient does not have any URI symptoms. She does complain of bilateral eye itching, but no evidence of purulent drainage. She does have chronic cough but chest x-rays done multiple times are less impressive for pneumonia and more for CHF and pleural effusion and CT chest did not show evidence of infiltrate. No intra-abdominal process could be identified. No autoimmune cause could be identified. No muscular skeletal system could be identified (no signs of joint infection or cellulitis). Antibiotics were discontinued 11/12/17. Patient was previously on antibiotics since admission on 10/27/2017 through 11/11/2017. The patient did have on isolated low-grade fever. CT of the abdomen and pelvis and chest showed some bilateral pulmonary nodules and atelectasis. Peripheral smear report noted. No toxic granules or Dohle bodies noted. Recommend Hem/Onc to evaluate as it appears that patient has had leukocytosis dating all the way back to 2012. Qualifiers: Leukocytosis type: unspecified Qualified Code(s): D72.829 - Elevated white blood cell count, unspecified (3) Pulmonary nodules Current Visit: Yes Status: Acute CT chest completed 11/14/17 showed multiple subcentimeter pulmonary nodules worrisome for metastatic disease and a slightly spiculated left upper lobe nodule that could be the primary source. Pulmonology saw the patient and recommend additional non-invasive testing in the outpatient setting. (4) UTI (urinary tract infection) Current Visit: Yes Status: Resolved UTI vs. asymptomatic bacteriruria. Causative organism hoyos-sensitive Enterobacter aerogenes. Treated adequately. Clinically, the patient's urine does not appear infected and she currently has no symptoms. Recommend removing krueger if/when able. Qualifiers: Urinary tract infection type: site unspecified Hematuria presence: without hematuria Qualified Code(s): N39.0 - Urinary tract infection, site not specified (5) Glossitis Current Visit: Yes Status: Acute Etiology not clear. Does not appear to to be due to oral thrush. Clinically this does not appear to be herpes. ENT believes this is thrush. Oral fungal smear negative. Start magic mouthwash without nystatin to assist with discomfort. Clotrimazole added by the ENT team as well. (6) Pleural effusion Current Visit: Yes Status: Acute CT chest shows bilateral small pleural effusions with adjacent bibasilar consolidation, likely atelectasis per pulmonology. Recommend aggressive use of IS as the patient is able to tolerate. No further intervention required at this time. (7) COPD exacerbation Current Visit: Yes Status: Suspected (8) CHF exacerbation Current Visit: Yes Status: Acute Qualifiers: Congestive heart failure type: unspecified Qualified Code(s): I50.9 - Heart failure, unspecified (9) CKD (chronic kidney disease) stage 3, GFR 30-59 ml/min Current Visit: Yes Status: Acute (10) HLD (hyperlipidemia) Current Visit: Yes Status: Acute Qualifiers: Hyperlipidemia type: unspecified Qualified Code(s): E78.5 - Hyperlipidemia , unspecified (11) HTN (hypertension) Current Visit: Yes Status: Acute Qualifiers: Hypertension type: essential hypertension Qualified Code(s): I10 - Essential (primary) hypertension - Subjective Interval history: Patient seen and examined. Weekend notes reviewed. No acute events noted overnight. Patient lying in bed with family at bedside. Her only complaint is a painful tongue and itchy eyes. She reports she is unable to eat much due to her oral pain. Denies fevers, chills, or rigors. Denies chest pain, shortness of breath, or cough. Denies nausea, vomiting, diarrhea, or constipation. Has a krueger catheter that remains patent. Denies abdominal pain, urinary complaints, or appetite changes. Denies pain in her back or extremities at this time. Per the patient's daughter, the patient has not been out of bed much since being in the hospital. She also has a krueger catheter that was placed on admission to the hospital and is not chronic as the patient told me last week. Infect Dis PN-Objective Data - Labs CBC & Chem 7: 11/16/17 05:00 11/16/17 05:00 Labs: Laboratory Results - last 24 hr 11/14/17 11/15/17 11/15/17 22:25 07:02 11:00 WBC RBC Hgb Hct MCV MCH MCHC RDW Plt Count MPV Immature Gran % Seg Neutrophils % Lymphocytes % Monocytes % Eosinophils % Basophils % Neutrophils # Lymphocytes # Monocytes # Eosinophils # Basophils # Immature Plt Fraction Sodium Potassium Chloride Carbon Dioxide BUN Creatinine Est GFR ( Amer) Est GFR (Non-Af Amer) BUN/Creatinine Ratio Glucose POC Glucose 276 H 200 H 194 H Calculated Osmolality Calcium 11/15/17 11/15/17 11/16/17 16:08 20:08 05:00 WBC 22.8 H RBC 3.17 L Hgb 9.5 L Hct 29.7 L MCV 93.7 MCH 30.0 MCHC 32.0 RDW 14.9 H Plt Count 239 MPV 11.8 Immature Gran % 1.0 Seg Neutrophils % 86.7 Lymphocytes % 7.1 Monocytes % 5.0 Eosinophils % 0.1 Basophils % 0.1 Neutrophils # 19.8 H Lymphocytes # 1.6 Monocytes # 1.1 Eosinophils # 0.0 Basophils # 0.0 Immature Plt Fraction 6.0 Sodium Potassium Chloride Carbon Dioxide BUN Creatinine Est GFR ( Amer) Est GFR (Non-Af Amer) BUN/Creatinine Ratio Glucose POC Glucose 135 H 339 H Calculated Osmolality Calcium 11/16/17 05:00 WBC RBC Hgb Hct MCV MCH MCHC RDW Plt Count MPV Immature Gran % Seg Neutrophils % Lymphocytes % Monocytes % Eosinophils % Basophils % Neutrophils # Lymphocytes # Monocytes # Eosinophils # Basophils # Immature Plt Fraction Sodium 143 Potassium 4.9 Chloride 102 Carbon Dioxide 31 H BUN 36 H Creatinine 1.22 H Est GFR ( Amer) 51 L Est GFR (Non-Af Amer) 42 L BUN/Creatinine Ratio 30 H Glucose 170 H POC Glucose Calculated Osmolality 308 H Calcium 8.4 L Cultures: Cultures 11/08/17 08:04 Blood Culture - Final Peripheral Venipuncture No growth. 11/08/17 08:38 Blood Culture - Final Peripheral Venipuncture No growth. 11/12/17 08:00 Fungal Smear - Final Mouth 11/05/17 11:56 Blood Culture - Final Peripheral Venipuncture No growth. 11/05/17 12:05 Blood Culture - Final Peripheral Venipuncture No growth. 10/30/17 18:10 Influenza Types A,B Antigen (BALBIR) - Final Nasopharyngeal Exam - Constitutional Vitals: Temp Pulse Resp BP Pulse Ox 99.1 F 90 15 137/69 93 11/16/17 07:40 11/16/17 07:40 11/16/17 07:40 11/16/17 07:40 11/16/17 07:40 General appearance: average body habitus, cooperative, no acute distress - Head Head exam: Present: atraumatic, normal inspection, normocephalic - Eye Eye exam: Present: EOMI, normal appearance, PERRL. Absent: conjunctival injection Pupils: Present: normal accommodation - ENT ENT exam: Present: mucous membranes moist Additional comments: Lesions noted to the tongue without evidence of oral thrush. - Neck Neck exam: Present: normal inspection - Respiratory Respiratory exam: Present: CTAB. Absent: rales, respiratory distress, rhonchi, wheezes - Cardiovascular Cardiovascular exam: Present: irregular rhythm. Absent: tachycardia - GI/Abdominal GI/Abdominal exam: Present: normal bowel sounds, soft. Absent: distended, tenderness Additional comments: Krueger catheter noted to be draining clear yellow urine. - Extremities Exam Extremities exam: Present: normal inspection. Absent: joint swelling, pedal edema, tenderness - Neurological Exam Neurological exam: Present: alert, no focal deficits. Absent: oriented X3 ( Oriented to person and place.) - Psychiatric Psychiatric exam: Present: normal affect, normal mood - Skin Skin exam: Present: dry, intact, normal color, warm - VTE Documentation of Mechanical Device: Intermittent pneumatic compression device Consult Discharge Plan - Plan Referrals: Virginia Cruz DO [Primary Care Provider] - - Attending Attestation I examined this patient and my medical decision-making was reviewed with the Resident Physician. I agree with the documented findings, disposition and treatment plan as described except to the extent set forth below.
[2017-11-16] MEDS: Magic Mouthwash 10 ML UD Cup PO SCH ×2 (11:28→16:19)
--- NOTE | 2017-11-16 12:11 | Oncology Inp Consult Note ---
<Caryl Norton L - Last Filed: 11/16/17 16:59> Date of Encounter: 11/16/17 Time of Encounter: 12:11 Assessment and Plan (1) Leukocytosis Status: Acute Assessment and plan: 1. Acute on chronic neutrophil predominant leukocytosis dating back to 2013. No monocytosis or basophilia. Likely leukemoid reaction. Baseline WBC around 13-15 K/mcL, baseline neutrophil count prior to admission around 10-13 K/mcL. No history of smoking, autoimmune or chronic inflammatory disease. WBC max on at 35, improving since this time, WBC 22 today. Given the stable chronicity of leukocytosis no further workup warranted at this time. Elevation most likely attributed to acute infectious/inflammatory process and recent steroid use. She would benefit from continued outpatient follow up and trending. Prior to admission she did not exhibit anemia or platelet abnormality. Continue to monitor hgb, improving at 9.5 Peripheral blood smear favors reactive process, normocytic anemia, platelet count normal. Qualifiers: Leukocytosis type: unspecified Qualified Code(s): D72.829 - Elevated white blood cell count, unspecified (2) Pulmonary nodules Status: Acute Assessment and plan: CT Chest/Abd/Pelvis 11/14/17 reveals Bilateral small pleural effusions and multiple pulmonary nodules and 3.3 cm left adrenal nodule. Agree with pulmonology plan of care for continued non-invasive surveillance, patient has been arranged for CT chest/abdomen/pelvis in 6 weeks with follow up 2 days following scans with Dr. Pichardo. Please refer to Dr. Pichardo's attestation below for further details - Data of Consult Patient: new to practice Consult date: 11/16/17 Requesting Physician: Patricio Lyons Primary Care Provider: Sd Hidalgo - Consult Narrative Reason for consult: Leukocytosis, subcentimeter pulmonary nodules, L adrenal gland nodule History of present illness: Ms. Moreira is a 82 year old female with past medical history significant for DM, HTN, COPD, Hyperlipidemia, Hypothyroidism and Dementia. Patient presented to [facility] ED on on 10/27/2017 with shortness of breath secondary to COPD exacerbation, Sepsis and left lower lobe pneumonia. She was also found to have a Enterobacter UTI and glossitis/thrush. Infectious disease has been following patients case very closely. Antibiotics were discontinued 11/12/17. Patient was previously on antibiotics since admission on 10/27/17. 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 Pulmonary consulted. Oncology consulted for further evaluation of persistent leukocytosis and pulmonary nodules/left adrenal nodule. Past Med Surg Social Fam HX - Past Medical History Medical history: COPD, hyperlipidemia, thyroid disease - Past Surgical History Surgical History: orthopedic, other - Social History Smoking Status: Never smoker Smokeless Tobacco Status: No Alcohol use: none Drug use: none Medications and Allergies Naproxen Sodium [Aleve] 220 mg PO BID 10/27/17 [History] Potassium Chloride [K-Tab ER] 40 meq PO BID 10/27/17 [History] glipiZIDE [Glucotrol] 5 mg PO DAILY 10/27/17 [History] Acetaminophen [Tylenol] 650 mg PO Q6HR PRN tablet 11/16/17 [Rx] Amiodarone [Cordarone] 200 mg PO DAILY tablet 11/16/17 [Rx] Aspirin Enteric Coated [Aspirin EC] 81 mg PO DAILY tablet. 11/16/17 [Rx] Atorvastatin [Lipitor] 80 mg PO HS tablet 11/16/17 [Rx] Clotrimazole [Mycelex Fredis] 10 mg MM TID fredis 11/16/17 [Rx] Furosemide [Lasix] 20 mg PO DAILY tablet 11/16/17 [Rx] Levothyroxine [Synthroid] 25 mcg PO DAILY@0630 tablet 11/16/17 [Rx] Metoprolol XL (24 HR) Succ [Toprol Xl] 25 mg PO DAILY tab.er.24h 11/16/17 [Rx] 3 Allergy/AdvReac Type Severity Reaction Status Date / Time codeine Allergy Itching Verified 08/28/16 17:07 gabapentin Allergy Hallucinati Verified 08/28/16 17:07 ng lidocaine [From Lidoderm] Allergy Rash Verified 08/28/16 17:07 meperidine [From Demerol] Allergy Hallucinati Verified 08/28/16 17:07 ng Oxycodone Allergy Hallucinati Verified 08/28/16 17:07 ng lorazepam [From Ativan] AdvReac Agitated Verified 11/01/17 19:13 Constitutional: Present: anorexia, chills, fatigue, fever(s). Absent: weight loss Additional comments: decreased appetite and fever/chills since admission Prior to admission she denies unintended weight loss, loss of appetite, fevers/ chills or fatigue Eyes: Present: blurry vision Additional comments: follows opthamologist, patient daughter reports she has c/o blurry vision often since dementia has worsened Nose, mouth and throat: Present: mouth lesions Cardiovascular: Absent: chest pain, irregular heart rhythm, palpitations Respiratory: Present: cough, dyspnea. Absent: hemoptysis Gastrointestinal: Absent: abdominal pain, hematemesis, hematochezia, melena, nausea, vomiting Genitourinary: Absent: difficulty urinating Musculoskeletal: Present: muscle weakness Integumentary: Absent: skin ulcer, wounds Neurological: Absent: focal weakness, numbness, tingling Hematologic/Lymphatic: Absent: easy bleeding, lymphadenopathy Oncology - Exam - Constitutional Vitals: Temp Pulse Resp BP Pulse Ox 97.9 F 90 14 130/75 93 11/16/17 11:17 11/16/17 11:17 11/16/17 11:17 11/16/17 11:17 11/16/17 11:17 General appearance: cooperative, no acute distress, no febrile - Head Head exam: Present: atraumatic Additional comments: well demarcated oval lesion to left scalp, daughter says appeared about 1 year ago, appears to be seborrheic keratosis - Neck Neck exam: Absent: lymphadenopathy, tenderness - Respiratory Respiratory exam: Present: decreased breath sounds, CTAB - Cardiovascular Cardiovascular exam: Present: irregular rhythm - GI/Abdominal GI/Abdominal exam: Present: normal bowel sounds, soft, tenderness. Absent: guarding, mass, rebound Additional comments: patient reports slight tenderness with deep palpation - Additional comments: krueger cath, clear yellow urine - Expanded Lower Extremity Exam Lower Leg exam: Present: normal inspection - Neurological Exam Neurological exam: Present: alert, no focal deficits, strengths equal and symetr throughout Additional comments: oriented to person and place - Psychiatric Psychiatric exam: Present: normal affect, normal mood - Skin Skin exam: Present: normal color, warm Oncology - Results Labs: Short CBC 11/16/17 Range/Units 05:00 WBC 22.8 H (4.3-11.1) K/mcL Hgb 9.5 L (11.5-15.4) g/dL Hct 29.7 L (35.3-44.9) % Plt Count 239 (140-400) K/mcL Neutrophils # 19.8 H (1.6-8.9) K/mcL BMP 11/16/17 05:00 Sodium 143 Potassium 4.9 Chloride 102 Carbon Dioxide 31 H BUN 36 H Creatinine 1.22 H Glucose 170 H Calcium 8.4 L Consult Discharge Plan - Plan Referrals: Virginia Cruz DO [Primary Care Provider] - <MarinoDanya josuean - Last Filed: 11/17/17 08:25> Date of Encounter: 11/17/17 - Data of Consult Requesting Physician: Juan Neville Primary Care Provider: Sd Hidalgo - Consult Narrative History of present illness: Ms. Moreira is a 82 year old female Oncology - Exam - Constitutional Vitals: Temp Pulse Resp BP Pulse Ox 97.6 F 91 18 145/72 92 11/17/17 07:32 11/17/17 07:32 11/17/17 07:32 11/17/17 07:32 11/17/17 07:32 - Attending Attestation I have seen and examined the patient and agree with the plan. Patient has baseline chronic leukocytosis. That is likely how she runs. Given the acute illness, I suspect that this is just a reactive process at the moment. It is improved overall compared to the peak of 35 during the hospitalization. I anticipate that over the next few weeks it will return to baseline.
--- NOTE | 2017-11-16 17:17 | Discharge Summary ---
Date of Encounter: 11/16/17 Time of Encounter: 11:00 - Discharge Diagnosis (1) Pulmonary nodules Priority: Primary Status: Acute (2) Leukocytosis Priority: Primary Status: Acute Qualifiers: Leukocytosis type: unspecified Qualified Code(s): D72.829 - Elevated white blood cell count, unspecified (3) Sepsis Priority: Primary Status: Resolved Qualifiers: Sepsis type: sepsis due to unspecified organism Qualified Code(s): A41.9 - Sepsis, unspecified organism (4) UTI (urinary tract infection) Priority: Primary Status: Resolved Qualifiers: Urinary tract infection type: site unspecified Hematuria presence: without hematuria Qualified Code(s): N39.0 - Urinary tract infection, site not specified (5) Left lower lobe pneumonia Priority: Primary Status: Resolved Qualifiers: Pneumonia type: due to unspecified organism Qualified Code(s): J18.1 - Lobar pneumonia, unspecified organism (6) Diastolic CHF, acute on chronic Priority: Secondary Status: Resolved (7) Tachy-javi syndrome Priority: Secondary Status: Acute (8) New onset atrial fibrillation Priority: Secondary Status: Acute (9) Pleural effusion Priority: Secondary Status: Acute (10) Transient lingual papillitis Priority: Secondary Status: Acute (11) Hypokalemia Priority: Secondary Status: Acute (12) Hypothyroidism Priority: Secondary Status: Acute Qualifiers: Hypothyroidism type: acquired Qualified Code(s): E03.9 - Hypothyroidism, unspecified (13) T2DM (type 2 diabetes mellitus) Priority: Secondary Status: Acute Qualifiers: Diabetes mellitus complication status: with unspecified complications Diabetes mellitus senior care insulin use: without senior care use Qualified Code( s): E11.8 - Type 2 diabetes mellitus with unspecified complications (14) HTN (hypertension) Priority: Secondary Status: Acute Qualifiers: Hypertension type: essential hypertension Qualified Code(s): I10 - Essential (primary) hypertension (15) HLD (hyperlipidemia) Priority: Secondary Status: Acute Qualifiers: Hyperlipidemia type: unspecified Qualified Code(s): E78.5 - Hyperlipidemia , unspecified - Discharge Medications Home Medications: Naproxen Sodium [Aleve] 220 mg PO BID 10/27/17 [History] Potassium Chloride [K-Tab ER] 40 meq PO BID 10/27/17 [History] glipiZIDE [Glucotrol] 5 mg PO DAILY 10/27/17 [History] Acetaminophen [Tylenol] 650 mg PO Q6HR PRN tablet 11/16/17 [Rx] Amiodarone [Cordarone] 200 mg PO DAILY tablet 11/16/17 [Rx] Aspirin Enteric Coated [Aspirin EC] 81 mg PO DAILY tablet. 11/16/17 [Rx] Atorvastatin [Lipitor] 80 mg PO HS tablet 11/16/17 [Rx] Clotrimazole [Mycelex Fredis] 10 mg MM TID fredis 11/16/17 [Rx] Furosemide [Lasix] 20 mg PO DAILY tablet 11/16/17 [Rx] Levothyroxine [Synthroid] 25 mcg PO DAILY@0630 tablet 11/16/17 [Rx] Metoprolol XL (24 HR) Succ [Toprol Xl] 25 mg PO DAILY tab.er.24h 11/16/17 [Rx] Allergies/Adverse Reactions: 3 Allergy/AdvReac Type Severity Reaction Status Date / Time codeine Allergy Itching Verified 08/28/16 17:07 gabapentin Allergy Hallucinati Verified 08/28/16 17:07 ng lidocaine [From Lidoderm] Allergy Rash Verified 08/28/16 17:07 meperidine [From Demerol] Allergy Hallucinati Verified 08/28/16 17:07 ng Oxycodone Allergy Hallucinati Verified 08/28/16 17:07 ng lorazepam [From Ativan] AdvReac Agitated Verified 11/01/17 19:13 Procedures/tests Complete & Pending: Procedures Performed prior 72 hours Category Date Time Status CT abd pelvis wo no iv no oral [CT] Stat Cat Scan 11/14/17 07:[address] chest wo con [CT] Stat Cat Scan 11/14/17 07:56 Completed Date of admission: 10/27/17 09:53 Primary care physician: Sd Hidalgo Consults: 10/27/17 10:54 Consult to Tour Consultant [CONS] Routine Reason for SW Consult: may need help in placement if recommended by PT/OT 10/28/17 09:43 Consult to Cardiology [CONS] Routine Comment: Consulting Provider: Cardiology Yulisa Reason for Consult: new onset of Afib Call Completed: Yes 10/28/17 12:02 Consult to Invasive Line Access Team [CONS] Routine Reason for Consult: Poor vascular access Line Type: EPIV 10/29/17 16:16 Consult to Pulmonology [CONS] Routine Consulting Provider: Pulm Crit Care & Sleep Yulisa Reason for Consult: Advanced COPD Call Completed: Yes 10/30/17 09:02 Consult to Palliative Care [CONS] Routine Comment: Consulting Provider: Palliative Care Yulisa Reason for Consult: Shortness of breath Call Completed: Yes 10/31/17 11:26 Consult to Speech Therapy [CONS] Routine Comment: Evaluate, develop and implement POC Reason for Consult: difficulty with thin liquids Time Notified: 11:28 Call Completed: Yes 11/11/17 08:17 Consult to Invasive Line Access Team [CONS] Routine Reason for Consult: Current powerglide not working Line Type: EPIV 11/11/17 16:31 Consult to ENT [CONS] Routine Consulting Provider: ENT Yulisa Reason for Consult: ? lingual papillitis Time Notified: 16:00 Call Completed: No 11/12/17 11:48 Consult to Infectious Diseases [CONS] Routine Consulting Provider: Infectious Disease [place] Reason for Consult: Unresolved leukocytosis Call Completed: No 11/14/17 07:59 Consult to Oncology Hematology [CONS] Routine Consulting Provider: Papito Sloan Reason for Consult: leukocytosis Call Completed: No - Patient Status Disposition: Transfer SNF Condition: Serious - Ambulatory Orders Ambulatory Orders: CT chest wo con [CT] Time Frame: 6 Weeks, Facility: [facility], Location: Radiology - Discharge Instructions Follow Up With: Virginia Cruz DO [Primary Care Provider] - Hospital course: Patient is 82-year-old female who presented to the ER on 10/27/17 due to shortness of breath and cough. Patient lives with her and apparently her noted that patient had some difficulty in breathing. Patient's was concerned about this ongoing shortness of breath along with cough with the expectoration and that is the reason he was concerned and [facility]. In the ER, patient was found to have white blood cell count was 23,000 with predominant neutrophils. Chest x-ray was suggestive of a left lower lobe developing pneumonia. Patient was admitted for sepsis with likely source secondary to left lower lobe pneumonia. During patients extended hospital stay, she was treated for pneumonia and acute cystitis which resolved with IV antibiotics. Her symptoms of shortness of breath resolved as well. She was also treated for acute on chronic diastolic heart failure in addition to atrial fibrillation. Patient was noted to have persistent leukocytosis during hospital stay and CT of the chest and abdomen was done which showed multiple subcentimeter pulmonary nodules worrisome for metastatic disease with a slightly spiculated 12 x 11 mm left upper lobe nodule could be the primary source. Also shown was a 3.3 cm left adrenal nodule with CT features most compatible with lipid rich adenoma however in the setting of the lung findings superimposed metastatic disease would be difficult to exclude. Pulmonology was consulted with recommendations for continued noninvasive surveillance and repeat CT chest/abdomen/pelvis in 6 weeks. Hematology oncology was also consulted with recommendations for monitoring as well. She will follow-up with Dr. Pichardo [address] chest/abdomen/pelvis in 6 weeks. She is medically stable to be discharged to [facility]. - Time Spent with Patient Total time spent providing and/or coordinating discharge services: Less than 30 minutes - Constitutional Vitals: Temp Pulse Resp BP Pulse Ox 98 F 93 16 129/69 95 11/16/17 15:20 11/16/17 15:20 11/16/17 15:32 11/16/17 15:20 11/16/17 15:32 General appearance: Present: A&O X 3, pleasant, no acute distress - Cardiovascular Cardiovascular exam: Present: RRR, +S1, +S2. Absent: diastolic murmur, gallop, rubs, systolic murmur - VTE Documentation of Mechanical Device: Intermittent pneumatic compression device
--- NOTE | 2017-11-16 17:19 | Physician Discharge Referral ---
ExtendedCare Referral Info Institutional Level of Care: Skilled - Diagnosis (1) Pulmonary nodules Priority: Primary Status: Acute (2) Leukocytosis Priority: Primary Status: Acute (3) Sepsis Priority: Primary Status: Resolved (4) UTI (urinary tract infection) Priority: Primary Status: Resolved (5) Left lower lobe pneumonia Priority: Primary Status: Resolved (6) Diastolic CHF, acute on chronic Priority: Secondary Status: Resolved (7) Tachy-javi syndrome Priority: Secondary Status: Acute (8) New onset atrial fibrillation Priority: Secondary Status: Acute (9) Pleural effusion Priority: Secondary Status: Acute (10) Transient lingual papillitis Priority: Secondary Status: Acute (11) Hypokalemia Priority: Secondary Status: Acute (12) Hypothyroidism Priority: Secondary Status: Acute (13) T2DM (type 2 diabetes mellitus) Priority: Secondary Status: Acute (14) HTN (hypertension) Priority: Secondary Status: Acute (15) HLD (hyperlipidemia) Priority: Secondary Status: Acute - Transfer Medications Home Medications: Naproxen Sodium [Aleve] 220 mg PO BID 10/27/17 [History] Potassium Chloride [K-Tab ER] 40 meq PO BID 10/27/17 [History] glipiZIDE [Glucotrol] 5 mg PO DAILY 10/27/17 [History] Acetaminophen [Tylenol] 650 mg PO Q6HR PRN tablet 11/16/17 [Rx] Amiodarone [Cordarone] 200 mg PO DAILY tablet 11/16/17 [Rx] Aspirin Enteric Coated [Aspirin EC] 81 mg PO DAILY tablet. 11/16/17 [Rx] Atorvastatin [Lipitor] 80 mg PO HS tablet 11/16/17 [Rx] Clotrimazole [Mycelex Mickie] 10 mg MM TID mickie 11/16/17 [Rx] Furosemide [Lasix] 20 mg PO DAILY tablet 11/16/17 [Rx] Levothyroxine [Synthroid] 25 mcg PO DAILY@0630 tablet 11/16/17 [Rx] Metoprolol XL (24 HR) Succ [Toprol Xl] 25 mg PO DAILY tab.er.24h 11/16/17 [Rx] Allergies/Adverse Reactions: 3 Allergy/AdvReac Type Severity Reaction Status Date / Time codeine Allergy Itching Verified 08/28/16 17:07 gabapentin Allergy Hallucinati Verified 08/28/16 17:07 ng lidocaine [From Lidoderm] Allergy Rash Verified 08/28/16 17:07 meperidine [From Demerol] Allergy Hallucinati Verified 08/28/16 17:07 ng Oxycodone Allergy Hallucinati Verified 08/28/16 17:07 ng lorazepam [From Ativan] AdvReac Agitated Verified 11/01/17 19:13 - Respiratory Orders Smoking Cessation: Smoking cessation has been advised. For more information, call the [place] Tobacco Quit Line at 2-756-WBKE-NOW. CERTIFICATION: I certify that the transfer of the above named patient to an Extended Care Facility is necessary for the continuing treatment of the diagnosis listed. The above information is true and accurate reflection of patient's current condition. Confidential - Redisclosure prohibited without a patient's written consent.
[2017-11-16] MEDS: Acetaminophen 325 MG TABLET PO PRN (20:52)
[2017-11-17] MEDS: Ipratropium/Albuterol Neb 3 ML IH SCH ×4 (04:10→22:27)
[2017-11-17] MEDS: *HR* Enoxaparin 30 MG/0.3 ML SYRINGE SQ SCH (05:08)
[2017-11-17] MEDS: Levothyroxine 25 MCG TABLET PO SCH (05:09)
[2017-11-17] MEDS: Magic Mouthwash 10 ML UD Cup PO SCH ×3 (07:40→17:57)
[2017-11-17] MEDS: Aspirin Enteric Coated 81 MG Tablet PO SCH (07:41)
[2017-11-17] MEDS: *HR* Amiodarone 200 MG TABLET PO SCH (07:42)
[2017-11-17] MEDS: Furosemide 20 MG TABLET PO SCH (07:43)
[2017-11-17] MEDS: Metoprolol XL (24 HR) Succ 25 MG TAB.ER.24H PO SCH (07:44)
[2017-11-17] MEDS: Insulin LISPRO 300 UNITS/3 ML VIAL SQ SCH ×4 (07:48→21:05)
[2017-11-17] MEDS: Artificial Tears SOLN 15 ML BOTTLE BOTH EYES PRN (07:57)
--- NOTE | 2017-11-17 10:24 | Internal Med Progress Note ---
Date of Encounter: 11/17/17 Time of Encounter: 10:22 - Assessment and plan (1) Sepsis Current Visit: Yes Status: Resolved Assessment and plan: -Patient with sepsis that has resolved that was secondary to Enterobacter UTI with suspected pneumonia -Blood cultures are negative to date Finished full curse of abx Qualifiers: Sepsis type: sepsis due to unspecified organism Qualified Code(s): A41.9 - Sepsis, unspecified organism (2) UTI (urinary tract infection) Current Visit: Yes Status: Resolved Assessment and plan: -Patient found to have Enterobacter UTI- resolved Qualifiers: Urinary tract infection type: site unspecified Hematuria presence: without hematuria Qualified Code(s): N39.0 - Urinary tract infection, site not specified (3) COPD exacerbation Current Visit: Yes Status: Suspected Assessment and plan: Continue DuoNebs, Steroids, and Symbicort. Steroid dose decreased wheezing improved Continue weaning steroids off (4) Left lower lobe pneumonia Current Visit: Yes Status: Resolved Assessment and plan: -Resolved Qualifiers: Pneumonia type: due to unspecified organism Qualified Code(s): J18.1 - Lobar pneumonia, unspecified organism (5) Atrial fibrillation Current Visit: Yes Status: Acute Assessment and plan: Rate controlled; continue amiodarone and beta meng Qualifiers: Atrial fibrillation type: unspecified Qualified Code(s): I48.91 - Unspecified atrial fibrillation (6) Diastolic CHF, acute on chronic Current Visit: Yes Status: Resolved Assessment and plan: -Her Echo showed preserved LVEF of 55% with mod MR -After receiving IV lasix she is breathing more comfortably. -Continue Lasix 40 mg daily. (7) CKD (chronic kidney disease) stage 3, GFR 30-59 ml/min Current Visit: Yes Status: Acute (8) Leukocytosis Current Visit: Yes Status: Acute Assessment and plan: -Patient with no improvement in leukocytosis since hospital admission on 10/27/17. -Infectious disease consulted with recommendations to discontinue all antibiotics. - Pt was evaluated by Heme Onc ..recommend cont close monitoring - Out pt f/u on Pulmonary nodules Qualifiers: Leukocytosis type: unspecified Qualified Code(s): D72.829 - Elevated white blood cell count, unspecified (9) Pulmonary nodules Current Visit: Yes Status: Acute Assessment and plan: -CT of the chest and abdomen/pelvis showed multiple subcentimeter pulmonary nodules worrisome for metastatic disease with a slightly spiculated 12 x 11 mm left upper lobe nodule could be the primary source. Also shown was a 3.3 cm left adrenal nodule with CT features most compatible with lipid rich adenoma however in the setting of the lung findings superimposed metastatic disease would be difficult to exclude. -Hematology/oncology and pulmonology consulted and appreciate recommendations (10) Protein calorie malnutrition Current Visit: Yes Status: Acute Assessment and plan: Poor PO intake with dementia and possible glossitis cont magic mouth wash Cont diet as per gas welder recommendations Talked to pt's daughter about PEG tube placement if her intake wont improve Qualifiers: Qualified Code(s): E44.0 - Moderate protein-calorie malnutrition (11) Dementia Current Visit: Yes Status: Acute Qualifiers: Qualified Code(s): F03.90 - Unspecified dementia without behavioral disturbance (12) Physical deconditioning Current Visit: Yes Status: Acute Assessment and plan: Need ECF placement for short term rehab.. SW / LG working on ECF placement (13) Glossitis Current Visit: Yes Status: Acute (14) T2DM (type 2 diabetes mellitus) Current Visit: Yes Status: Acute Assessment and plan: -Continue basal insulin Qualifiers: Diabetes mellitus complication status: with unspecified complications Diabetes mellitus terminal press operator insulin use: without terminal press operator use Qualified Code( s): E11.8 - Type 2 diabetes mellitus with unspecified complications (15) HTN (hypertension) Current Visit: Yes Status: Acute Assessment and plan: -Continue beta meng Qualifiers: Hypertension type: essential hypertension Qualified Code(s): I10 - Essential (primary) hypertension (16) Acute respiratory failure with hypoxia Current Visit: Yes Status: Acute - Subjective Interval history: Ms. Moreira is a 82 year old female with past medical history significant for DM, HTN, COPD, Hyperlipidemia, Hypothyroidism and Dementia. Patient presented to [facility] ED on on 10/27/2017 with shortness of breath secondary to COPD exacerbation, Sepsis and left lower lobe pneumonia. She was also found to have a Enterobacter UTI and glossitis/thrush. Infectious disease has been following patients case very closely. Antibiotics were discontinued 11/12/17. Patient was previously on antibiotics since admission on 10/27/17. 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 Pt was about to go to ECF y/d, but no beds available and needed restarting the whole process again. When I examined the pt today she is alert, awake and O to self. Daughter was at bed side, talked to her and explained to her about current care. Daughter has concerned about pt's poor PO caloric intake. - Constitutional Vitals: Temp Pulse Resp BP Pulse Ox 97.6 F 91 18 145/72 92 11/17/17 07:32 11/17/17 07:32 11/17/17 07:32 11/17/17 07:32 11/17/17 07:32 General appearance: Present: A&O X 1, pleasant, no acute distress - Head Head exam: Present: atraumatic, normal inspection - Neck Neck exam general surgery: Present: supple - Respiratory Respiratory exam: Present: decreased breath sounds. Absent: rales, respiratory distress, rhonchi, wheezes - Cardiovascular Cardiovascular exam: Present: irregular rhythm, +S1, +S2 - GI/Abdominal GI/Abdominal exam: Present: normal bowel sounds, soft. Absent: rebound, rigid, tenderness - Extremities Exam Extremities exam: Absent: calf tenderness, pedal edema, tenderness - Back Exam Back exam: Absent: CVA tenderness (L), CVA tenderness (R) - Neurological Exam Neurological exam: Present: altered (Demented) - Psychiatric Psychiatric exam: Present: depressed Internal Medicine: Result - Labs CBC & Chem 7: 11/16/17 05:00 11/16/17 05:00 - ABG Interpretation ABG results: ABG ABG pH 7.48 pH Units (7.32-7.45) H 11/11/17 11:08 ABG pCO2 48 mmHg (35-45) H 11/11/17 11:08 ABG pO2 73 mmHg (85-104) L 11/11/17 11:08 ABG O2 Saturation 95 % (95-98) 11/11/17 11:08 PT/INR, D-dimer PT 12.1 Seconds (9.4-12.1) 11/01/17 07:54 D-Dimer 1128 ng/mLFEU (0-500) H 10/27/17 05:18 - VTE Documentation of Mechanical Device: Intermittent pneumatic compression device Consult Discharge Plan - Plan Referrals: Virginia Cruz DO [Primary Care Provider] -
--- NOTE | 2017-11-17 10:57 | Infectious Disease Progress No ---
Date of Encounter: 11/17/17 Time of Encounter: 10:52 - Assessment and Plan (1) Sepsis Current Visit: Yes Status: Resolved The patient had two SIRS criteria on admission. Likely secondary to UTI vs. PNA vs. non-infectious. Continue to have leukocytosis, but has been on numerous antibiotics over the course of her hospitalization and clinically looks great. Did have one isolated episode of low-grade fever, which could be from atelectasis. Has been afebrile x 48 hours. Blood cultures drawn 10/27/17 x 2, 11/05/17 x 2, 11/08/17 x 2 are all negative. Qualifiers: Sepsis type: sepsis due to unspecified organism Qualified Code(s): A41.9 - Sepsis, unspecified organism (2) Leukocytosis Current Visit: Yes Status: Acute Etiology unclear at this point. 22 this morning, no bands. Patient does not have any focus of infection on review of system or physical exam. Patient did have asymptomatic bacteriuria (Enterobacter aerogenes) on admission that was treated appropriately. Currently urine in the Zheng does not appear purulent. Patient does not have any URI symptoms. She does complain of bilateral eye itching, but no evidence of purulent drainage. She does have chronic cough but chest x-rays done multiple times are less impressive for pneumonia and more for CHF and pleural effusion and CT chest did not show evidence of infiltrate. No intra-abdominal process could be identified. No autoimmune cause could be identified. No muscular skeletal system could be identified (no signs of joint infection or cellulitis). Antibiotics were discontinued 11/12/17. Patient was previously on antibiotics since admission on 10/27/2017 through 11/11/2017. The patient did have on isolated low-grade fever. CT of the abdomen and pelvis and chest showed some bilateral pulmonary nodules and atelectasis. Peripheral smear report noted. No toxic granules or Dohle bodies noted. Hem/Onc evaluation noted. Qualifiers: Leukocytosis type: unspecified Qualified Code(s): D72.829 - Elevated white blood cell count, unspecified (3) Pulmonary nodules Current Visit: Yes Status: Acute CT chest completed 11/14/17 showed multiple subcentimeter pulmonary nodules worrisome for metastatic disease and a slightly spiculated left upper lobe nodule that could be the primary source. Pulmonology saw the patient and recommend additional non-invasive testing in the outpatient setting. (4) UTI (urinary tract infection) Current Visit: Yes Status: Resolved UTI vs. asymptomatic bacteriruria. Causative organism hoyos-sensitive Enterobacter aerogenes. Treated adequately. Clinically, the patient's urine does not appear infected and she currently has no symptoms. Qualifiers: Urinary tract infection type: site unspecified Hematuria presence: without hematuria Qualified Code(s): N39.0 - Urinary tract infection, site not specified (5) Glossitis Current Visit: Yes Status: Acute Etiology not clear. Does not appear to to be due to oral thrush. Clinically this does not appear to be herpes. ENT believes this is thrush. Oral fungal smear negative. Continue magic mouthwash. Clotrimazole added by the ENT team as well. (6) Pleural effusion Current Visit: Yes Status: Acute CT chest shows bilateral small pleural effusions with adjacent bibasilar consolidation, likely atelectasis per pulmonology. Recommend aggressive use of IS as the patient is able to tolerate. No further intervention required at this time. (7) COPD exacerbation Current Visit: Yes Status: Suspected (8) CHF exacerbation Current Visit: Yes Status: Acute Qualifiers: Congestive heart failure type: unspecified Qualified Code(s): I50.9 - Heart failure, unspecified (9) CKD (chronic kidney disease) stage 3, GFR 30-59 ml/min Current Visit: Yes Status: Acute (10) HLD (hyperlipidemia) Current Visit: Yes Status: Acute Qualifiers: Hyperlipidemia type: unspecified Qualified Code(s): E78.5 - Hyperlipidemia , unspecified (11) HTN (hypertension) Current Visit: Yes Status: Acute Qualifiers: Hypertension type: essential hypertension Qualified Code(s): I10 - Essential (primary) hypertension - Subjective Interval history: Patient seen and examined. No acute events noted overnight. Patient lying in bed with family at bedside. Her only complaint is a painful tongue, but states it is better today and her family reports that she ate a whole bowl of cream of wheat this morning. Denies fevers, chills, or rigors. Denies chest pain, shortness of breath, or cough. Denies nausea, vomiting, diarrhea, or constipation. Zheng discontinued and the patient denies urinary complaints. Denies abdominal pain, urinary complaints, or appetite changes. Denies pain in her back or extremities at this time. Infect Dis PN-Objective Data - Labs CBC & Chem 7: 11/16/17 05:00 11/16/17 05:00 Labs: Laboratory Results - last 24 hr 11/16/17 11/16/17 11/16/17 07:34 11:12 16:18 POC Glucose 199 H 188 H 265 H 11/16/17 11/17/17 20:14 07:29 POC Glucose 197 H 219 H Cultures: Cultures 11/08/17 08:04 Blood Culture - Final Peripheral Venipuncture No growth. 11/08/17 08:38 Blood Culture - Final Peripheral Venipuncture No growth. 11/12/17 08:00 Fungal Smear - Final Mouth 11/05/17 11:56 Blood Culture - Final Peripheral Venipuncture No growth. 11/05/17 12:05 Blood Culture - Final Peripheral Venipuncture No growth. 10/30/17 18:10 Influenza Types A,B Antigen (BALBIR) - Final Nasopharyngeal Exam - Constitutional Vitals: Temp Pulse Resp BP Pulse Ox 97.9 F 85 22 123/72 98 11/17/17 10:45 11/17/17 10:45 11/17/17 10:47 11/17/17 10:45 11/17/17 10:47 General appearance: average body habitus, cooperative, no acute distress - Head Head exam: Present: atraumatic, normal inspection, normocephalic - Eye Eye exam: Present: EOMI, normal appearance, PERRL Pupils: Present: normal accommodation - ENT ENT exam: Present: mucous membranes moist Additional comments: Oral lesions persist, but appear improved and less inflamed. - Neck Neck exam: Present: normal inspection - Respiratory Respiratory exam: Present: CTAB. Absent: rales, respiratory distress, rhonchi, wheezes - Cardiovascular Cardiovascular exam: Present: RRR, +S1, +S2 - GI/Abdominal GI/Abdominal exam: Present: normal bowel sounds, soft. Absent: distended, tenderness - Extremities Exam Extremities exam: Present: normal inspection. Absent: joint swelling, pedal edema, tenderness - Neurological Exam Neurological exam: Present: alert, no focal deficits. Absent: oriented X3 ( Oriented to person and place only.) - Psychiatric Psychiatric exam: Present: normal affect, normal mood - Skin Skin exam: Present: dry, intact, normal color, warm - VTE Documentation of Mechanical Device: Intermittent pneumatic compression device Consult Discharge Plan - Plan Referrals: Virginia Cruz DO [Primary Care Provider] -
[2017-11-17 16:09] LABS: HSV 2 DNA Not Detected (Not Detect)
[2017-11-17] MEDS: Insulin DETEMIR 100 UNIT/ML X5UNITS SQ SCH (20:22)
[2017-11-17] MEDS: Acetaminophen 325 MG TABLET PO PRN (20:22)
[2017-11-18] MEDS: Ipratropium/Albuterol Neb 3 ML IH SCH ×4 (04:11→21:56)
[2017-11-18] MEDS: Levothyroxine 25 MCG TABLET PO SCH (05:52)
[2017-11-18] MEDS: Acetaminophen 325 MG TABLET PO PRN (05:52)
[2017-11-18] MEDS: *HR* Enoxaparin 30 MG/0.3 ML SYRINGE SQ SCH (05:53)
--- NOTE | 2017-11-18 09:50 | Infectious Disease Progress No ---
Date of Encounter: 11/18/17 Time of Encounter: 09:37 - Assessment and Plan (1) Sepsis Current Visit: Yes Status: Resolved The patient had two SIRS criteria on admission. Likely secondary to UTI vs. PNA vs. non-infectious. Continue to have leukocytosis, but has been on numerous antibiotics over the course of her hospitalization and clinically looks great. Did have one isolated episode of low-grade fever, which could be from atelectasis. Has been afebrile since then. Blood cultures drawn 10/27/17 x 2, 11/05/17 x 2, 11/08/17 x 2 are all negative. WBC down to 13 today. No further recommendations from the ID staff. Will sign off. Please re-consult if needed. Qualifiers: Sepsis type: sepsis due to unspecified organism Qualified Code(s): A41.9 - Sepsis, unspecified organism (2) Leukocytosis Current Visit: Yes Status: Acute Etiology unclear at this point, but concern for malignancy given the new lung nodules noted on the most recent CT scan. Patient does not have any focus of infection on review of system or physical exam. Patient did have asymptomatic bacteriuria (Enterobacter aerogenes) on admission that was treated appropriately. Currently urine in the Zheng does not appear purulent. Patient does not have any URI symptoms. She does complain of bilateral eye itching, but no evidence of purulent drainage. She does have chronic cough but chest x-rays done multiple times are less impressive for pneumonia and more for CHF and pleural effusion and CT chest did not show evidence of infiltrate. No intra-abdominal process could be identified. No autoimmune cause could be identified. No muscular skeletal system could be identified (no signs of joint infection or cellulitis). Antibiotics were discontinued 11/12/17. Patient was previously on antibiotics since admission on 10/27/2017 through 11/11/2017. The patient did have on isolated low-grade fever. CT of the abdomen and pelvis and chest showed some bilateral pulmonary nodules and atelectasis. Peripheral smear report noted. No toxic granules or Dohle bodies noted. Hem/Onc evaluation noted. Qualifiers: Leukocytosis type: unspecified Qualified Code(s): D72.829 - Elevated white blood cell count, unspecified (3) Pulmonary nodules Current Visit: Yes Status: Acute CT chest completed 11/14/17 showed multiple subcentimeter pulmonary nodules worrisome for metastatic disease and a slightly spiculated left upper lobe nodule that could be the primary source. Pulmonology saw the patient and recommend additional non-invasive testing in the outpatient setting. (4) UTI (urinary tract infection) Current Visit: Yes Status: Resolved UTI vs. asymptomatic bacteriruria. Causative organism hoyos-sensitive Enterobacter aerogenes. Treated adequately. Clinically, the patient's urine does not appear infected and she currently has no symptoms. 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 Discontinue clotrimazole. Continue Magic mouthwash for comfort. Start Valacyclovir 2 grams PO Q12H x 2 doses. (6) Pleural effusion Current Visit: Yes Status: Acute CT chest shows bilateral small pleural effusions with adjacent bibasilar consolidation, likely atelectasis per pulmonology. Recommend aggressive use of IS as the patient is able to tolerate. No further intervention required at this time. (7) COPD exacerbation Current Visit: Yes Status: Suspected (8) CHF exacerbation Current Visit: Yes Status: Acute Qualifiers: Congestive heart failure type: unspecified Qualified Code(s): I50.9 - Heart failure, unspecified (9) CKD (chronic kidney disease) stage 3, GFR 30-59 ml/min Current Visit: Yes Status: Acute (10) HLD (hyperlipidemia) Current Visit: Yes Status: Acute Qualifiers: Hyperlipidemia type: unspecified Qualified Code(s): E78.5 - Hyperlipidemia , unspecified (11) HTN (hypertension) Current Visit: Yes Status: Acute Qualifiers: Hypertension type: essential hypertension Qualified Code(s): I10 - Essential (primary) hypertension - Subjective Interval history: Patient seen and examined. No acute events noted overnight. Patient lying in bed with family at bedside. Her only complaint is a painful tongue. She states it is a little sore, but she was able to eat breakfast this morning. Denies fevers, chills, or rigors. Denies chest pain, shortness of breath, or cough. Denies nausea, vomiting, diarrhea, or constipation. Zheng discontinued and the patient denies urinary complaints. Denies abdominal pain, urinary complaints, or appetite changes. Denies pain in her back or extremities at this time. Infect Dis PN-Objective Data - Labs CBC & Chem 7: 11/18/17 14:25 11/16/17 05:00 Labs: Laboratory Results - last 24 hr 11/17/17 11/17/17 11/17/17 11:16 14:02 16:36 POC Glucose 243 H 171 H Herpes Simplex Source Oral lesions HSV I DETECTED A HSV II Not Detected Cultures: Cultures 11/08/17 08:04 Blood Culture - Final Peripheral Venipuncture No growth. 11/08/17 08:38 Blood Culture - Final Peripheral Venipuncture No growth. 11/12/17 08:00 Fungal Smear - Final Mouth 11/05/17 11:56 Blood Culture - Final Peripheral Venipuncture No growth. 11/05/17 12:05 Blood Culture - Final Peripheral Venipuncture No growth. 10/30/17 18:10 Influenza Types A,B Antigen (BALBIR) - Final Nasopharyngeal Serology 11/17/17 Range/Units 14:02 Herpes Simplex Source Oral lesions HSV I DETECTED A (Not Detect) HSV II Not Detected (Not Detect) Exam - Constitutional Vitals: Temp Pulse Resp BP Pulse Ox 98.2 F 91 16 134/55 97 11/18/17 07:02 11/18/17 07:02 11/18/17 07:02 11/18/17 07:02 11/18/17 07:02 General appearance: average body habitus, cooperative, no acute distress - Head Head exam: Present: atraumatic, normal inspection, normocephalic - Eye Eye exam: Present: EOMI, normal appearance, PERRL Pupils: Present: normal accommodation - ENT ENT exam: Present: mucous membranes moist Additional comments: Oral lesions noted to the tongue continue to improve. - Neck Neck exam: Present: normal inspection - Respiratory Respiratory exam: Present: CTAB. Absent: rales, respiratory distress, rhonchi, wheezes - Cardiovascular Cardiovascular exam: Present: RRR, +S1, +S2 - GI/Abdominal GI/Abdominal exam: Present: normal bowel sounds, soft. Absent: distended, tenderness - Extremities Exam Extremities exam: Present: normal inspection. Absent: joint swelling, pedal edema, tenderness - Neurological Exam Neurological exam: Present: alert, no focal deficits. Absent: oriented X3 ( Oriented to person and place.) - Psychiatric Psychiatric exam: Present: normal affect, normal mood - Skin Skin exam: Present: dry, intact, normal color, warm - VTE Documentation of Mechanical Device: Intermittent pneumatic compression device Consult Discharge Plan - Plan Referrals: Virginia Cruz DO [Primary Care Provider] - - Attending Attestation I examined this patient and my medical decision-making was reviewed with the Resident Physician. I agree with the documented findings, disposition and treatment plan as described except to the extent set forth below.
[2017-11-18] MEDS: Aspirin Enteric Coated 81 MG Tablet PO SCH (10:04)
[2017-11-18] MEDS: Furosemide 20 MG TABLET PO SCH (10:04)
[2017-11-18] MEDS: Magic Mouthwash 10 ML UD Cup PO SCH ×3 (10:05→17:13)
[2017-11-18] MEDS: Metoprolol XL (24 HR) Succ 25 MG TAB.ER.24H PO SCH (10:05)
[2017-11-18] MEDS: valACYclovir 500 MG TABLET PO SCH ×2 (12:35→22:35)
[2017-11-18] MEDS: *HR* Amiodarone 200 MG TABLET PO SCH (12:35)
[2017-11-18] MEDS: Insulin LISPRO 300 UNITS/3 ML VIAL SQ SCH ×4 (12:36→21:42)
--- NOTE | 2017-11-18 13:16 | Internal Med Progress Note ---
Date of Encounter: 11/18/17 Time of Encounter: 13:14 - Assessment and plan (1) Acute respiratory failure with hypoxia Current Visit: Yes Status: Acute Assessment and plan: due to pneumonia + deconditioning still on 2 lit O2 may need to go ECF on continuous O2at 2 lit (2) Sepsis Current Visit: Yes Status: Resolved Assessment and plan: Patient with sepsis that has resolved that was secondary to Enterobacter UTI with suspected pneumonia Blood cultures are negative to date Finished full course of abx Qualifiers: Sepsis type: sepsis due to unspecified organism Qualified Code(s): A41.9 - Sepsis, unspecified organism (3) UTI (urinary tract infection) Current Visit: Yes Status: Resolved Assessment and plan: Patient found to have Enterobacter UTI- resolved Qualifiers: Urinary tract infection type: site unspecified Hematuria presence: without hematuria Qualified Code(s): N39.0 - Urinary tract infection, site not specified (4) COPD exacerbation Current Visit: Yes Status: Suspected Assessment and plan: Continue DuoNebs, Steroids, and Symbicort. Steroid dose decreased wheezing improved Continue weaning steroids off (5) Left lower lobe pneumonia Current Visit: Yes Status: Resolved Assessment and plan: Resolved Qualifiers: Pneumonia type: due to unspecified organism Qualified Code(s): J18.1 - Lobar pneumonia, unspecified organism (6) Atrial fibrillation Current Visit: Yes Status: Acute Assessment and plan: Rate controlled; continue amiodarone and beta meng Qualifiers: Atrial fibrillation type: unspecified Qualified Code(s): I48.91 - Unspecified atrial fibrillation (7) Diastolic CHF, acute on chronic Current Visit: Yes Status: Resolved Assessment and plan: Her Echo showed preserved LVEF of 55% with mod MR After receiving IV lasix she is breathing more comfortably. Continue Lasix 40 mg daily will check electrolytes (8) CKD (chronic kidney disease) stage 3, GFR 30-59 ml/min Current Visit: Yes Status: Acute (9) Leukocytosis Current Visit: Yes Status: Acute Assessment and plan: Patient with no improvement in leukocytosis since hospital admission on 10/27/17. Infectious disease consulted with recommendations to discontinue all antibiotics. Pt was evaluated by Heme Onc ..recommend cont close monitoring Out pt f/u on Pulmonary nodules Qualifiers: Leukocytosis type: unspecified Qualified Code(s): D72.829 - Elevated white blood cell count, unspecified (10) Pulmonary nodules Current Visit: Yes Status: Acute Assessment and plan: -CT of the chest and abdomen/pelvis showed multiple subcentimeter pulmonary nodules worrisome for metastatic disease with a slightly spiculated 12 x 11 mm left upper lobe nodule could be the primary source. Also shown was a 3.3 cm left adrenal nodule with CT features most compatible with lipid rich adenoma however in the setting of the lung findings superimposed metastatic disease would be difficult to exclude. -Hematology/oncology and pulmonology consulted and appreciate recommendations (11) Protein calorie malnutrition Current Visit: Yes Status: Acute Assessment and plan: Poor PO intake with dementia and possible glossitis cont magic mouth wash also will start her Nystsatin swish and swallow Cont diet as per graphic design assistant recommendations Talked to pt's daughter about PEG tube placement if her intake wont improve Qualifiers: Qualified Code(s): E44.0 - Moderate protein-calorie malnutrition (12) Dementia Current Visit: Yes Status: Acute Qualifiers: Qualified Code(s): F03.90 - Unspecified dementia without behavioral disturbance (13) Physical deconditioning Current Visit: Yes Status: Acute Assessment and plan: Need ECF placement for short term rehab.. [facility] / [facility] working on ECF placement (14) Glossitis Current Visit: Yes Status: Acute (15) T2DM (type 2 diabetes mellitus) Current Visit: Yes Status: Acute Assessment and plan: -Continue basal insulin Qualifiers: Diabetes mellitus complication status: with unspecified complications Diabetes mellitus rat exterminator insulin use: without long-term use Qualified Code( s): E11.8 - Type 2 diabetes mellitus with unspecified complications (16) HTN (hypertension) Current Visit: Yes Status: Acute Assessment and plan: -Continue beta meng Qualifiers: Hypertension type: essential hypertension Qualified Code(s): I10 - Essential (primary) hypertension - Subjective Interval history: Ms. Moreira is a 82 year old female with past medical history significant for DM, HTN, COPD, Hyperlipidemia, Hypothyroidism and Dementia. Patient presented to [facility] ED on on 10/27/2017 with shortness of breath secondary to COPD exacerbation, Sepsis and left lower lobe pneumonia. She was also found to have a Enterobacter UTI and glossitis/thrush. Infectious disease has been following patients case very closely. Antibiotics were discontinued 11/12/17. Patient was previously on antibiotics since admission on 10/27/17. 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 Pt was about to go to [facility] on 11/16/17, but no beds available and needed restarting the whole process again. When I examined the pt today she is more alert, awake and O to person and self. Daughter was at bed side, talked to her and explained to her about current care. as per family her PO intake is little better today. - Constitutional Vitals: Temp Pulse Resp BP Pulse Ox 98.3 F 79 17 133/76 97 11/18/17 11:06 11/18/17 11:06 11/18/17 11:06 11/18/17 11:06 11/18/17 11:06 General appearance: Present: A&O X 1, pleasant, no acute distress - Head Head exam: Present: atraumatic, normal inspection - Neck Neck exam general surgery: Present: supple - Respiratory Respiratory exam: Present: decreased breath sounds, wheezes (mild). Absent: rales, respiratory distress, rhonchi - Cardiovascular Cardiovascular exam: Present: RRR, +S1, +S2. Absent: tachycardia - GI/Abdominal GI/Abdominal exam: Present: normal bowel sounds, soft. Absent: rebound, rigid, tenderness - Extremities Exam Extremities exam: Absent: calf tenderness, pedal edema, tenderness - Neurological Exam Neurological exam: Present: alert, oriented X3. Absent: facial droop, speech deficit - Psychiatric Psychiatric exam: Present: normal affect, normal mood Internal Medicine: Result - Labs CBC & Chem 7: 11/16/17 05:00 11/16/17 05:00 - ABG Interpretation ABG results: ABG ABG pH 7.48 pH Units (7.32-7.45) H 11/11/17 11:08 ABG pCO2 48 mmHg (35-45) H 11/11/17 11:08 ABG pO2 73 mmHg (85-104) L 11/11/17 11:08 ABG O2 Saturation 95 % (95-98) 11/11/17 11:08 PT/INR, D-dimer PT 12.1 Seconds (9.4-12.1) 11/01/17 07:54 D-Dimer 1128 ng/mLFEU (0-500) H 10/27/17 05:18 - VTE Documentation of Mechanical Device: Intermittent pneumatic compression device Consult Discharge Plan - Plan Referrals: Virginia Cruz DO [Primary Care Provider] -
[2017-11-18 14:38] LABS: Basophils % 0.1 %; Eosinophils % 0.3 %; Hematocrit 26.7 % (35.3-44.9); Hemoglobin 8.4 g/dL (11.5-15.4); Immature Granulocytes % 0.7 % (0-4); Lymphocytes # 0.9 K/mcL (0.6-4.6); Lymphocytes % 6.3 %; Mean Corpuscular HGB Conc 31.5 g/dL (31.6-35.5); Mean Corpuscular Volume 95.4 fL (83.0-100.0); Mean Platelet Volume 11.1 fL (9.4-12.4); Monocytes # 0.6 K/mcL (0.0-1.3); Monocytes % 4.7 %; Neutrophils # 11.8 K/mcL (1.6-8.9); Platelet Count 190 K/mcL (140-400); Red Cell Distribution Width 15.5 % (11.5-14.5); Segmented Neutrophils % 87.9 %
[2017-11-18] MEDS: Nystatin SUSP 5 ML UD.LIQ PO SCH ×3 (17:14→21:24)
[2017-11-18 18:56] LABS: Calcium 7.9 mg/dL (8.6-10.3); Potassium 3.6 mEq/L (3.5-5.1)
[2017-11-18] MEDS: Insulin DETEMIR 100 UNIT/ML X5UNITS SQ SCH (20:20)
[2017-11-18] MEDS: Artificial Tears SOLN 15 ML BOTTLE BOTH EYES PRN (22:58)
[2017-11-19] MEDS: Ipratropium/Albuterol Neb 3 ML IH SCH ×4 (04:13→22:29)
[2017-11-19] MEDS: *HR* Enoxaparin 30 MG/0.3 ML SYRINGE SQ SCH (06:07)
[2017-11-19] MEDS: Levothyroxine 25 MCG TABLET PO SCH (06:08)
[2017-11-19] MEDS: Insulin LISPRO 300 UNITS/3 ML VIAL SQ SCH ×4 (07:55→20:50)
[2017-11-19] MEDS: Magic Mouthwash 10 ML UD Cup PO SCH ×3 (07:58→17:33)
[2017-11-19] MEDS: Metoprolol XL (24 HR) Succ 25 MG TAB.ER.24H PO SCH (10:02)
[2017-11-19] MEDS: Nystatin SUSP 5 ML UD.LIQ PO SCH ×4 (10:02→20:51)
[2017-11-19] MEDS: *HR* Amiodarone 200 MG TABLET PO SCH (10:03)
[2017-11-19] MEDS: Furosemide 20 MG TABLET PO SCH (10:03)
[2017-11-19] MEDS: Aspirin Enteric Coated 81 MG Tablet PO SCH (10:03)
--- NOTE | 2017-11-19 15:49 | Internal Med Progress Note ---
Date of Encounter: 11/19/17 Time of Encounter: 15:45 - Assessment and plan (1) Acute respiratory failure with hypoxia Current Visit: Yes Status: Acute Assessment and plan: due to pneumonia + deconditioning still on 2 lit O2 may need to go to ECF on continuous O2at 2 lit (2) Sepsis Current Visit: Yes Status: Resolved Assessment and plan: Patient with sepsis that has resolved that was secondary to Enterobacter UTI with suspected pneumonia Blood cultures are negative to date Finished full course of abx Qualifiers: Sepsis type: sepsis due to unspecified organism Qualified Code(s): A41.9 - Sepsis, unspecified organism (3) UTI (urinary tract infection) Current Visit: Yes Status: Resolved Assessment and plan: Patient found to have Enterobacter UTI- resolved Qualifiers: Urinary tract infection type: site unspecified Hematuria presence: without hematuria Qualified Code(s): N39.0 - Urinary tract infection, site not specified (4) COPD exacerbation Current Visit: Yes Status: Suspected Assessment and plan: Continue DuoNebs, Steroids, and Symbicort. Steroid dose decreased wheezing improved Continue weaning steroids off (5) Left lower lobe pneumonia Current Visit: Yes Status: Resolved Assessment and plan: Resolved Qualifiers: Pneumonia type: due to unspecified organism Qualified Code(s): J18.1 - Lobar pneumonia, unspecified organism (6) Atrial fibrillation Current Visit: Yes Status: Acute Assessment and plan: Rate controlled; continue amiodarone and beta meng Qualifiers: Atrial fibrillation type: unspecified Qualified Code(s): I48.91 - Unspecified atrial fibrillation (7) Diastolic CHF, acute on chronic Current Visit: Yes Status: Resolved Assessment and plan: Her Echo showed preserved LVEF of 55% with mod MR After receiving IV lasix she is breathing more comfortably. Continue Lasix 40 mg daily Reviewed labs from y/d evening.. normal electrolytes..improved renal function (8) CKD (chronic kidney disease) stage 3, GFR 30-59 ml/min Current Visit: Yes Status: Acute (9) Leukocytosis Current Visit: Yes Status: Acute Assessment and plan: Patient with no improvement in leukocytosis since hospital admission on 10/27/17. Infectious disease consulted with recommendations to discontinue all antibiotics. Pt was evaluated by Heme Onc ..recommend cont close monitoring Out pt f/u on Pulmonary nodules Improving Qualifiers: Leukocytosis type: unspecified Qualified Code(s): D72.829 - Elevated white blood cell count, unspecified (10) Pulmonary nodules Current Visit: Yes Status: Acute Assessment and plan: -CT of the chest and abdomen/pelvis showed multiple subcentimeter pulmonary nodules worrisome for metastatic disease with a slightly spiculated 12 x 11 mm left upper lobe nodule could be the primary source. Also shown was a 3.3 cm left adrenal nodule with CT features most compatible with lipid rich adenoma however in the setting of the lung findings superimposed metastatic disease would be difficult to exclude. -Hematology/oncology and pulmonology consulted and appreciate recommendations (11) Protein calorie malnutrition Current Visit: Yes Status: Acute Assessment and plan: Poor PO intake with dementia and possible glossitis cont magic mouth wash also will start her Nystsatin swish and swallow Cont diet as per hr shared services consultant recommendations Talked to pt's daughter about PEG tube placement if her intake wont improve Qualifiers: Qualified Code(s): E44.0 - Moderate protein-calorie malnutrition (12) Dementia Current Visit: Yes Status: Acute Qualifiers: Qualified Code(s): F03.90 - Unspecified dementia without behavioral disturbance (13) Physical deconditioning Current Visit: Yes Status: Acute Assessment and plan: Need ECF placement for short term rehab.. [facility] / [facility] working on ECF placement (14) Glossitis Current Visit: Yes Status: Acute Assessment and plan: ID thought herpes glossitis and gave her 2 doses of Valtrex (15) T2DM (type 2 diabetes mellitus) Current Visit: Yes Status: Acute Assessment and plan: Cont ISS + Levemir Qualifiers: Diabetes mellitus complication status: with unspecified complications Diabetes mellitus custodial insulin use: without custodial use Qualified Code( s): E11.8 - Type 2 diabetes mellitus with unspecified complications (16) HTN (hypertension) Current Visit: Yes Status: Acute Assessment and plan: -Continue beta meng Qualifiers: Hypertension type: essential hypertension Qualified Code(s): I10 - Essential (primary) hypertension - Subjective Interval history: Ms. Moreira is a 82 year old female with past medical history significant for DM, HTN, COPD, Hyperlipidemia, Hypothyroidism and Dementia. Patient presented to [facility] ED on on 10/27/2017 with shortness of breath secondary to COPD exacerbation, Sepsis and left lower lobe pneumonia. She was also found to have a Enterobacter UTI and glossitis/thrush. Infectious disease has been following patients case very closely. Antibiotics were discontinued 11/12/17. Patient was previously on antibiotics since admission on 10/27/17. 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 Pt was about to go to [facility] on 11/16/17, but no beds available and needed restarting the whole process again. When I examined the pt today she is more alert, awake and O to person and self. as per family her PO intake is little better today. No events over night. - Constitutional Vitals: Temp Pulse Resp BP Pulse Ox 97.9 F 84 16 133/65 96 11/19/17 14:57 11/19/17 14:57 11/19/17 14:57 11/19/17 14:57 11/19/17 14:57 General appearance: Present: A&O X 3, pleasant, no acute distress - Head Head exam: Present: atraumatic, normal inspection - Neck Neck exam general surgery: Present: supple - Respiratory Respiratory exam: Present: decreased breath sounds. Absent: rales, respiratory distress, rhonchi, wheezes - Cardiovascular Cardiovascular exam: Present: irregular rhythm, +S1, +S2. Absent: tachycardia - GI/Abdominal GI/Abdominal exam: Present: normal bowel sounds, soft. Absent: rebound, rigid, tenderness - Extremities Exam Extremities exam: Absent: calf tenderness, pedal edema, tenderness - Back Exam Back exam: Absent: CVA tenderness (L), CVA tenderness (R) - Neurological Exam Neurological exam: Present: alert, oriented X3 - Psychiatric Psychiatric exam: Present: normal affect, normal mood Internal Medicine: Result - Labs CBC & Chem 7: 11/18/17 14:25 11/18/17 14:25 Labs: BMP 11/18/17 14:25 Sodium 144 Potassium 3.6 Chloride 103 Carbon Dioxide 33 H BUN 39 H Creatinine 1.20 Glucose 256 H Calcium 7.9 L - ABG Interpretation ABG results: ABG ABG pH 7.48 pH Units (7.32-7.45) H 11/11/17 11:08 ABG pCO2 48 mmHg (35-45) H 11/11/17 11:08 ABG pO2 73 mmHg (85-104) L 11/11/17 11:08 ABG O2 Saturation 95 % (95-98) 11/11/17 11:08 PT/INR, D-dimer PT 12.1 Seconds (9.4-12.1) 11/01/17 07:54 D-Dimer 1128 ng/mLFEU (0-500) H 10/27/17 05:18 - VTE Documentation of Mechanical Device: Intermittent pneumatic compression device Consult Discharge Plan - Plan Referrals: Virginia Cruz DO [Primary Care Provider] -
[2017-11-19] MEDS: Insulin DETEMIR 100 UNIT/ML X5UNITS SQ SCH (20:51)
[2017-11-20] MEDS: Ipratropium/Albuterol Neb 3 ML IH SCH ×2 (03:51→10:38)
[2017-11-20] MEDS: *HR* Enoxaparin 30 MG/0.3 ML SYRINGE SQ SCH (06:01)
[2017-11-20] MEDS: Levothyroxine 25 MCG TABLET PO SCH (06:01)
[2017-11-20 07:53] VITALS: BP 135/82
[2017-11-20] MEDS: Insulin LISPRO 300 UNITS/3 ML VIAL SQ SCH ×2 (08:55→12:32)
[2017-11-20] MEDS: Nystatin SUSP 5 ML UD.LIQ PO SCH ×2 (09:04→12:32)
[2017-11-20] MEDS: Magic Mouthwash 10 ML UD Cup PO SCH ×2 (09:04→12:32)
[2017-11-20] MEDS: Metoprolol XL (24 HR) Succ 25 MG TAB.ER.24H PO SCH (09:04)
[2017-11-20] MEDS: Furosemide 20 MG TABLET PO SCH (09:05)
[2017-11-20] MEDS: Aspirin Enteric Coated 81 MG Tablet PO SCH (09:05)
[2017-11-20] MEDS: *HR* Amiodarone 200 MG TABLET PO SCH (09:05)
--- NOTE | 2017-11-20 14:44 | Internal Med Progress Note ---
Date of Encounter: 11/20/17 Time of Encounter: 11:30 - Assessment and plan (1) Acute respiratory failure with hypoxia Current Visit: Yes Status: Acute Assessment and plan: due to pneumonia + deconditioning still on 2 lit O2 Recommend to continue O2 at 2 lit at ECF (2) Sepsis Current Visit: Yes Status: Resolved Assessment and plan: Patient with sepsis that has resolved that was secondary to Enterobacter UTI with suspected pneumonia Blood cultures are negative to date Finished full course of abx Qualifiers: Sepsis type: sepsis due to unspecified organism Qualified Code(s): A41.9 - Sepsis, unspecified organism (3) UTI (urinary tract infection) Current Visit: Yes Status: Resolved Assessment and plan: Patient found to have Enterobacter UTI- resolved Qualifiers: Urinary tract infection type: site unspecified Hematuria presence: without hematuria Qualified Code(s): N39.0 - Urinary tract infection, site not specified (4) COPD exacerbation Current Visit: Yes Status: Suspected Assessment and plan: Continue DuoNebs, Steroids, and Symbicort. Steroid dose decreased wheezing improved Continue weaning steroids off (5) Left lower lobe pneumonia Current Visit: Yes Status: Resolved Assessment and plan: Resolved Qualifiers: Pneumonia type: due to unspecified organism Qualified Code(s): J18.1 - Lobar pneumonia, unspecified organism (6) Atrial fibrillation Current Visit: Yes Status: Acute Assessment and plan: Rate controlled; continue amiodarone and beta meng Qualifiers: Atrial fibrillation type: unspecified Qualified Code(s): I48.91 - Unspecified atrial fibrillation (7) Diastolic CHF, acute on chronic Current Visit: Yes Status: Resolved Assessment and plan: Her Echo showed preserved LVEF of 55% with mod MR After receiving IV lasix she is breathing more comfortably. Continue Lasix 40 mg daily Reviewed labs from y/d evening.. normal electrolytes..improved renal function (8) CKD (chronic kidney disease) stage 3, GFR 30-59 ml/min Current Visit: Yes Status: Acute (9) Leukocytosis Current Visit: Yes Status: Acute Assessment and plan: Patient with no improvement in leukocytosis since hospital admission on 10/27/17. Infectious disease consulted with recommendations to discontinue all antibiotics. Pt was evaluated by Heme Onc ..recommend cont close monitoring Out pt f/u on Pulmonary nodules Improving Qualifiers: Leukocytosis type: unspecified Qualified Code(s): D72.829 - Elevated white blood cell count, unspecified (10) Pulmonary nodules Current Visit: Yes Status: Acute Assessment and plan: -Hematology/oncology and pulmonology consulted and appreciate recommendations (11) Protein calorie malnutrition Current Visit: Yes Status: Acute Assessment and plan: Poor PO intake with dementia and possible glossitis cont magic mouth wash also will start her Nystsatin swish and swallow Cont diet as per space control agent recommendations Talked to pt's daughter about PEG tube placement if her intake wont improve Qualifiers: Protein-calorie malnutrition severity: moderate Qualified Code(s): E44.0 - Moderate protein-calorie malnutrition (12) Dementia Current Visit: Yes Status: Acute Qualifiers: Dementia type: unspecified type Qualified Code(s): F03.90 - Unspecified dementia without behavioral disturbance (13) Physical deconditioning Current Visit: Yes Status: Acute Assessment and plan: Need ECF placement for short term rehab.. Pt got approved for ECF transfer, so will transfer pt to ECF today (14) Glossitis Current Visit: Yes Status: Acute Assessment and plan: ID thought herpes glossitis and gave her 2 doses of Valtrex (15) T2DM (type 2 diabetes mellitus) Current Visit: Yes Status: Acute Qualifiers: Diabetes mellitus complication status: with unspecified complications Diabetes mellitus family and consumer education teacher insulin use: without halfway use Qualified Code( s): E11.8 - Type 2 diabetes mellitus with unspecified complications (16) HTN (hypertension) Current Visit: Yes Status: Acute Assessment and plan: -Continue beta meng Qualifiers: Hypertension type: essential hypertension Qualified Code(s): I10 - Essential (primary) hypertension - Subjective Interval history: Ms. Moreira is a 82 year old female with past medical history significant for DM, HTN, COPD, Hyperlipidemia, Hypothyroidism and Dementia. Patient presented to [facility] ED on on 10/27/2017 with shortness of breath secondary to COPD exacerbation, Sepsis and left lower lobe pneumonia. She was also found to have a Enterobacter UTI and glossitis/thrush. Infectious disease has been following patients case very closely. Antibiotics were discontinued 11/12/17. Patient was previously on antibiotics since admission on 10/27/17. 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 Pt was about to go to ECF on 11/16/17, but no beds available and needed restarting the whole process again. When I examined the pt today she is more alert, awake and O to person and self. as per family her PO intake is little better today. No events over night. Resting comfortably in chair. - Constitutional Vitals: Temp Pulse Resp BP Pulse Ox 99 F 82 18 135/82 95 11/20/17 07:52 11/20/17 07:52 11/20/17 10:40 11/20/17 07:52 11/20/17 10:40 General appearance: Present: A&O X 3, pleasant, no acute distress - Respiratory Respiratory exam: Present: decreased breath sounds. Absent: rales, respiratory distress, rhonchi, wheezes - Cardiovascular Cardiovascular exam: Present: +S1, +S2 - GI/Abdominal GI/Abdominal exam: Present: soft. Absent: rebound, rigid, tenderness - Neurological Exam Neurological exam: Present: alert, oriented X3 - Psychiatric Psychiatric exam: Present: normal affect, normal mood Internal Medicine: Result - Labs CBC & Chem 7: 11/18/17 14:25 11/18/17 14:25 - ABG Interpretation ABG results: ABG ABG pH 7.48 pH Units (7.32-7.45) H 11/11/17 11:08 ABG pCO2 48 mmHg (35-45) H 11/11/17 11:08 ABG pO2 73 mmHg (85-104) L 11/11/17 11:08 ABG O2 Saturation 95 % (95-98) 11/11/17 11:08 PT/INR, D-dimer PT 12.1 Seconds (9.4-12.1) 11/01/17 07:54 D-Dimer 1128 ng/mLFEU (0-500) H 10/27/17 05:18 - VTE Documentation of Mechanical Device: Intermittent pneumatic compression device Consult Discharge Plan - Plan Referrals: Virginia Cruz DO [Primary Care Provider] -
--- NOTE | 2017-11-20 14:52 | Discharge Summary ---
Date of Encounter: 11/20/17 Time of Encounter: 14:48 - Discharge Diagnosis (1) Acute respiratory failure with hypoxia Priority: Primary Status: Acute (2) Sepsis Priority: Primary Status: Resolved Qualifiers: Sepsis type: sepsis due to unspecified organism Qualified Code(s): A41.9 - Sepsis, unspecified organism (3) UTI (urinary tract infection) Priority: Primary Status: Resolved Qualifiers: Urinary tract infection type: site unspecified Hematuria presence: without hematuria Qualified Code(s): N39.0 - Urinary tract infection, site not specified (4) COPD exacerbation Priority: Secondary Status: Suspected (5) Left lower lobe pneumonia Priority: Secondary Status: Resolved Qualifiers: Pneumonia type: due to unspecified organism Qualified Code(s): J18.1 - Lobar pneumonia, unspecified organism (6) Atrial fibrillation Priority: Secondary Status: Acute Qualifiers: Atrial fibrillation type: unspecified Qualified Code(s): I48.91 - Unspecified atrial fibrillation (7) Diastolic CHF, acute on chronic Priority: Secondary Status: Resolved (8) CKD (chronic kidney disease) stage 3, GFR 30-59 ml/min Priority: Secondary Status: Acute (9) Leukocytosis Priority: Secondary Status: Acute Qualifiers: Leukocytosis type: unspecified Qualified Code(s): D72.829 - Elevated white blood cell count, unspecified (10) Pulmonary nodules Priority: Secondary Status: Acute (11) Protein calorie malnutrition Priority: Secondary Status: Acute Qualifiers: Protein-calorie malnutrition severity: moderate Qualified Code(s): E44.0 - Moderate protein-calorie malnutrition (12) Dementia Priority: Secondary Status: Acute Qualifiers: Dementia type: unspecified type Qualified Code(s): F03.90 - Unspecified dementia without behavioral disturbance (13) Physical deconditioning Priority: Secondary Status: Acute (14) Glossitis Priority: Secondary Status: Acute (15) T2DM (type 2 diabetes mellitus) Priority: Secondary Status: Acute Qualifiers: Diabetes mellitus complication status: with unspecified complications Diabetes mellitus senior care insulin use: without senior care use Qualified Code( s): E11.8 - Type 2 diabetes mellitus with unspecified complications (16) HTN (hypertension) Priority: Secondary Status: Acute Qualifiers: Hypertension type: essential hypertension Qualified Code(s): I10 - Essential (primary) hypertension - Discharge Medications Home Medications: Naproxen Sodium [Aleve] 220 mg PO BID 10/27/17 [History] Potassium Chloride [K-Tab ER] 40 meq PO BID 10/27/17 [History] glipiZIDE [Glucotrol] 5 mg PO DAILY 10/27/17 [History] Acetaminophen [Tylenol] 650 mg PO Q6HR PRN tablet 11/16/17 [Rx] Amiodarone [Cordarone] 200 mg PO DAILY tablet 11/16/17 [Rx] Aspirin Enteric Coated [Aspirin EC] 81 mg PO DAILY tablet. 11/16/17 [Rx] Atorvastatin [Lipitor] 80 mg PO HS tablet 11/16/17 [Rx] Clotrimazole [Mycelex Fredis] 10 mg MM TID fredis 11/16/17 [Rx] Furosemide [Lasix] 20 mg PO DAILY tablet 11/16/17 [Rx] Levothyroxine [Synthroid] 25 mcg PO DAILY@0630 tablet 11/16/17 [Rx] Metoprolol XL (24 HR) Succ [Toprol Xl] 25 mg PO DAILY tab.er.24h 11/16/17 [Rx] Allergies/Adverse Reactions: 3 Allergy/AdvReac Type Severity Reaction Status Date / Time codeine Allergy Itching Verified 08/28/16 17:07 gabapentin Allergy Hallucinati Verified 08/28/16 17:07 ng lidocaine [From Lidoderm] Allergy Rash Verified 08/28/16 17:07 meperidine [From Demerol] Allergy Hallucinati Verified 08/28/16 17:07 ng Oxycodone Allergy Hallucinati Verified 08/28/16 17:07 ng lorazepam [From Ativan] AdvReac Agitated Verified 11/01/17 19:13 Date of admission: 10/27/17 09:53 Primary care physician: Sd Hidalgo Consults: 10/27/17 10:54 Consult to Milk Wagon Driver [CONS] Routine Reason for SW Consult: may need help in placement if recommended by PT/OT 10/28/17 09:43 Consult to Cardiology [CONS] Routine Comment: Consulting Provider: Bharath Márquez Reason for Consult: new onset of Afib Call Completed: Yes 10/28/17 12:02 Consult to Invasive Line Access Team [CONS] Routine Reason for Consult: Poor vascular access Line Type: EPIV 10/29/17 16:16 Consult to Pulmonology [CONS] Routine Consulting Provider: [facility] Yulisa Reason for Consult: Advanced COPD Call Completed: Yes 10/30/17 09:02 Consult to Palliative Care [CONS] Routine Comment: Consulting Provider: Palliative Care Yulisa Reason for Consult: Shortness of breath Call Completed: Yes 10/31/17 11:26 Consult to Speech Therapy [CONS] Routine Comment: Evaluate, develop and implement POC Reason for Consult: difficulty with thin liquids Time Notified: 11:28 Call Completed: Yes 11/11/17 08:17 Consult to Invasive Line Access Team [CONS] Routine Reason for Consult: Current powerglide not working Line Type: EPIV 11/11/17 16:31 Consult to ENT [CONS] Routine Consulting Provider: ENT Santa Reason for Consult: ? lingual papillitis Time Notified: 16:00 Call Completed: No 11/12/17 11:48 Consult to Infectious Diseases [CONS] Routine Consulting Provider: Infectious Disease Santa Reason for Consult: Unresolved leukocytosis Call Completed: No 11/14/17 07:59 Consult to Oncology Hematology [CONS] Routine Consulting Provider: Papito Sloan Reason for Consult: leukocytosis Call Completed: No - Patient Status Disposition: Transfer SNF Condition: Serious - Ambulatory Orders Ambulatory Orders: CT abd pelvis wo no iv no oral [CT] Time Frame: 6 Weeks, Facility: [facility], Location: Radiology CT chest wo con [CT] Time Frame: 6 Weeks, Facility: [facility], Location: Radiology - Discharge Instructions Follow Up With: Virginia Cruz DO [Primary Care Provider] - Hospital course: This is an addendum discharge summary to 11/16/[address] Lyons. Ms. Moreira is a 82 year old female with past medical history significant for DM, HTN, COPD, Hyperlipidemia, Hypothyroidism and Dementia. Patient presented to [facility] ED on on 10/27/2017 with shortness of breath secondary to COPD exacerbation, Sepsis and left lower lobe pneumonia. She was also found to have a Enterobacter UTI and glossitis/thrush. Infectious disease has been following patients case very closely. Antibiotics were discontinued 11/12/17. Patient was previously on antibiotics since admission on 10/27/17. 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 Pt was about to go to ECF on 11/16/17, but no beds available and needed restarting the whole process again. So pt stayed here till today. No events happened all these days, her appetite improved, her glossitis improved, she started tolerating PO intake well, her WBC also improved. Finally today her insurance got approved to go to ECF. Talked to the family and answered all their questions. - Time Spent with Patient Total time spent providing and/or coordinating discharge services: - Constitutional Vitals: Temp Pulse Resp BP Pulse Ox 99 F 82 18 135/82 95 11/20/17 07:52 11/20/17 07:52 11/20/17 10:40 11/20/17 07:52 11/20/17 10:40 General appearance: Present: A&O X 3, pleasant, no acute distress - Neurological Exam Neurological exam: Present: alert, oriented X3 - Psychiatric Psychiatric exam: Present: normal affect, normal mood - VTE Documentation of Mechanical Device: Intermittent pneumatic compression device
== END 2017-11-20 14:00 | DRG 871 ==
LOC: 2ANU 05:14 → EMEROO 05:14 → 2ANU 05:30 → SUATTDRO 09:53 → 3ANU 11:43 → ICNU 10-30 10:24 → 3ANU 11-03 18:14
PROVIDERS: ADMIT Internal Medicine; ATTEND Family Medicine